=== PATIENT | female | born 1965 | race African-American/Black ===

== ENCOUNTER 2025-06-30 11:12 | Inpatient (IN) | payer MEDICAID ==
[~2025-06-30] VITALS: Ht 162.6 cm; Wt 85.6 kg
[~2025-06-30 11:12] MED LIST: ASPI-543 PO; BUPR150T8 PO; CLON-857 PO; DILT60TA PO; DIPH25CA66 PO; GLYB5TAB8 PO; HYDR-531 PO; INSU1INJ19 SC; LORA-622 PO; LOSA-535 PO; MET50T PO; OMEP20TA PO; RISP1TAB63 PO; SIMV20TA20 PO; TRAZ1TAB12 PO
[2025-06-30 11:22] VITALS: PULSE 122; RESP 14; O2SAT 100
--- NOTE | 2025-06-30 11:26 | ED.PDOC ---
GI ASSESSMENT HPI Comments This is a 60 year old female AMANDEEPA presenting to the ED with chief complaint of N/V. EMS reports patient has been experiencing nausea and vomiting with associated 10/10 diffuse abdominal pain that radiates to her back for the past 3 days. EMS relays patient's BG was noted to be 426 en route to the ED. Patient denies any fever, chills, diarrhea, chest pain, SOB, dysuria, or hematemesis. Chief Complaint: Nausea/Vomiting Time Seen by MD: 11:24 Primary Care Provider: DOMINIC Reviewed Notes: Nurses Notes, Athletic Events Scorer Notes, Medications, Allergies Allergies: Coded Allergies: Iodine (Verified Allergy, Unknown, 03/31/19) Home Meds Reported Medications Losartan Potassium (Losartan Potassium) 100 Mg Tab, 100 MG PO DAILY for 30 Days, MG 03/31/19 Loratadine (Claritin) 10 Mg Tab, 1 TAB PO DAILY, #30 TAB 5 Refills 03/31/19 Glyburide (Glyburide) 5 Mg Tab, 5 MG PO DAILY, TAB 03/31/19 Hydrocodone-Acetaminophen ([place] 10-325 mg) 1 Tab Tab, 1 TAB PO QID, TAB 03/31/19 Aspirin (Aspir-Low) 81 Mg Tab, 81 MG PO DAILY for 30 Days, MG 03/31/19 Simvastatin (Simvastatin) 20 Mg Tab, 20 MG PO DAILY for 30 Days 03/31/19 Metoprolol Tartrate (LOPRESSOR TABLET) 50 Mg Tb, 2 TAB PO BID, #60 TAB 5 Refills 03/31/19 Clonazepam (Clonazepam) 2 Mg Tab, 1 TAB PO BID, #60 TAB 2 Refills 03/31/19 Omeprazole (Gnp Omeprazole) 20 Mg Tab, 1 TAB PO DAILY, #90 TAB 1 Refill 03/31/19 Diphenhydramine Hcl (Benadryl Allergy) 25 Mg Cap, 50 MG PO BIDP PRN for ANXIETY, CAP 03/31/19 Diltiazem Hcl (Diltiazem Hcl) 60 Mg Tab, 120 MG PO BID for 30 Days, MG 03/31/19 Insulin Glargine (Basaglar Kwikpen) 100 Unit/Ml Inj, 20 UNIT SC DAILY, INJ 03/31/19 Risperidone (Risperidone) 1 Mg Tab, 1 TAB PO QPM, #30 TAB 1 Refill 03/31/19 Trazodone Hcl (Trazodone Hcl) 150 Mg Tab, 150 MG PO HSPRN PRN for FOR INSOMNIA, MG 03/31/19 Bupropion Hcl (Wellbutrin Sr) 150 Mg Tab, 1 TAB PO DAILY, #60 TAB 5 Refills 03/31/19 Information Source: Patient, Emergency Med Personnel Mode of Arrival: EMS Timing: Days Duration: Since onset Prehospital treatment: None Quality: Aching Vomitus: Watery Stool: Normal Severity: Moderate Recent: None Recent Hx of: None Pain Location: Diffuse Modifying Factors: Nothing Associated sign and symptoms: Nausea, Vomiting, Abdominal Pain Past Medical History PAST MEDICAL HISTORY: AFIB, CVA, DM, High Lipids, HTN, Thyroid, TIA Surgical History: STAFFING MGR History: No Pertinent STAFFING MGR History Family History Family History: Reviewed,noncontributory to illness, Unknown Social History Smoker: Non-Smoker Alcohol: Denies ETOH Use Drugs: Marijuana Lives In: Home Constitutional: denies: chills, diaphoresis, fatigue, fever, malaise, sweats, weakness, others EENTM: denies: blurred vision, double vision, ear bleeding, ear discharge, ear drainage, ear pain, ear ringing, eye pain, eye redness, hearing loss, mouth pain, mouth swelling, nasal discharge, nose bleeding, nose congestion, nose pain, photophobia, tearing, throat pain, throat swelling, voice changes, others Respiratory: denies: cough, hemoptysis, orthopnea, SOB at rest, shortness of breath, SOB with excertion, stridor, wheezing, others Cardiovascular: denies: chest pain, dizzy spells, diaphoresis, Dyspnea on exertion, edema, irregular heart beat, left arm pain, lightheadedness, palpitations, PND, syncope, others Gastrointestinal: reports: abdominal pain, nausea, vomiting; denies: abdomen distended, blood streaked bowels, constipated, diarrhea, dysphagia, difficulty swallowing, hematemesis, melena, poor appetite, poor fluid intake, rectal bleeding, rectal pain, others Genitourinary: denies: abnormal vagina bleeding, burning, dyspareunia, dysuria, flank pain, frequency, hematuria, incontinence, pain, , vagina discharge, urgency, others Neurological: denies: dizziness, fainting, headache, left sided numbness, left sided weakness, numbness, paresthesia, pre-existing deficit, right sided numbness, right sided weakness, seizure, speech problems, tingling, tremors, weakness, others Musculoskeletal: reports: back pain; denies: gout, joint pain, joint swelling, muscle pain, muscle stiffness, neck pain, others Integumetry: denies: bruises, change in color, change in hair/nails, dryness, laceration, lesions, lumps, rash, wounds, others Allergic/Immunocompromised: denies: Difficulty Healing, Frequent Infections, Hives, Itching, others Hematologic/Lymphatic: denies: anemia, blood clots, easy bleeding, easy bruising, swollen glands, others Endocrine: denies: excessive hunger, excessive sweating, excessive thirst, excessive urination, flushing, intolerance to cold, intolerance to heat, unexpl ained weight gain, unexplained weight loss, others Psychiatric: denies: anxiety, bipolar disorder, depression, hopeless, panic disorder, schizophrenia, sleepless, suicidal, others All Other Systems: Reviewed and Negative Physical Exam General Appearance: Moderate Distress HEENT: Normal ENT Inspection, Pharynx Normal, TMs Normal Neck: Full Range of Motion, Non-Tender, Normal, Normal Inspection Respiratory: Chest Non-Tender, Lungs Clear, No Accessory Muscle Use, No Respiratory Distress, Normal Breath Sounds Cardiovascular: No Edema, No JVD, No Murmur, No Gallop, Tachycardia Breast Exam: Deferred Gastrointestinal: Diffuse, No Organomegaly, No Pulsatile Mass, Normal Bowel Sounds, Soft, Tenderness Genitalia: Deferred Pelvic: Deferred Rectal: Deferred Extremities: No calf tenderness, Normal capillary refill, Normal inspection, Normal range of motion, Non-tender, No pedal edema Musculoskeletal : Apperance: Normal Neurologic: Alert, securities compliance examiner II-XII nml as Tested, Motor Weakness, Normal Affect, Normal Mood, No Sensory Deficits Cerebellar Function: Normal Reflexes: Normal Skin: Dry, Normal Color, Warm Lymphatic: No Adenopathy EKG EKG : Pulse Rate (adult): 114 [place]: Normal Cardiac Rhythm: ST Hypertrophy: LVH ST: Nonsp Was a procedure done? Was a procedure done?: No GI differential Dx Differential Diagnosis: Gastritis/PUD, Gastroenteritis, Inflammatory BD, Pancreatitis, UTI, Electrolyte Imbalance, Food Poisoning X-Ray, Labs, Meds, VS Vital Signs Date Time Temp Pulse Resp B/P (MAP) Pulse Ox O2 Delivery O2 Flow Rate FiO2 06/30/25 13:47 107 25 138/80 06/30/25 12:37 114 06/30/25 11:50 114 06/30/25 11:22 122 14 100 Room Air* 0 21 06/30/25 11:22 97.5 122 14 145/90 (108) 100 97.5 06/30/25 11:18 98.0 120 16 143/97 97 98.0 Lab Test 06/30/25 12:05 06/30/25 00:00 Range/Units White Blood Count 21.4 H 4.4-10.8 10^3/uL Red Blood Count 4.80 4.0-5.20 10^6/uL Hemoglobin 15.3 12.2-16.2 g/dL Hematocrit 43.7 36.0-46.0 % Mean Corpuscular Volume 91.0 80.0-100.0 fL Mean Corpuscular Hemoglobin 31.8 28.0-32.0 pg Mean Corpuscular Hemoglobin Concent 34.9 32.0-36.0 g/dL Red Cell Distribution Width 14.1 11.8-14.3 % Platelet Count 286 140-450 10^3/uL Mean Platelet Volume 8.9 6.9-10.8 fL Neutrophils (%) (Auto) 92.9 H 37.0-80.0 % Lymphocytes (%) (Auto) 2.2 L 10.0-50.0 % Monocytes (%) (Auto) 4.4 0.0-12.0 % Eosinophils (%) (Auto) 0.0 0.0-7.0 % Basophils (%) (Auto) 0.5 0.0-2.0 % Neutrophils # (Auto) 19.9 H 1.6-8.6 10 ^3/uL Lymphocytes # (Auto) 0.5 0.4-5.4 10 ^3/uL Monocytes # (Auto) 0.9 0-1.3 10 ^3/uL Eosinophils # (Auto) 0 0-0.8 10 ^3/uL Basophils # (Auto) 0.1 0-0.2 10 ^3/uL Nucleated Red Blood Cells 0.1 % Sodium Level 139 136-145 mmol/L Potassium Level 3.3 L 3.5-5.1 mmol/L Chloride Level 99 98-107 mmol/L Carbon Dioxide Level 22 20-31 mmol/L Anion Gap 18 H 5-15 Blood Urea Nitrogen 13 9-23 mg/dL Creatinine 1.03 H 0.550-1.02 mg/dL Glomerular Filtration Rate Calc 63 >90 mL/min BUN/Creatinine Ratio 12.6 10.0-20.0 Serum Glucose 373 H 74-106 mg/dL Calcium Level 9.9 8.7-10.4 mg/dL Total Bilirubin 1.3 H 0.2-1.0 mg/dL Aspartate Amino Transferase (AST) 11 L 13-40 U/L Alanine Aminotransferase (ALT) < 9 7-40 U/L Alkaline Phosphatase 66 46-116 U/L Total Protein 8.2 5.7-8.2 g/dL Albumin 4.4 3.2-4.8 g/dL Urine Color Pending Urine Clarity Pending Urine pH Pending Urine Specific [place] Pending Urine Protein Pending Urine Ketones Pending Urine Blood Pending Urine Nitrite Pending Urine Bilirubin Pending Urine Urobilinogen Pending Urine Leukocyte Esterase Pending Urine RBC Pending Urine Microscopic WBC Pending Urine Squamous Epithelial Cells Pending Urine Bacteria Pending Urine Glucose Pending Current Medications Medications (Trade) Dose Ordered Sig/Jaime Route Start Time Stop Time Status Last Admin Sodium Chloride 1,000 ml @ 1,000 mls/hr Q1H ONCE IV 06/30/25 11:30 06/30/25 12:29 DC 06/30/25 11:55 Morphine Sulfate 4 mg ONCE ONCE IV 06/30/25 13:30 06/30/25 13:31 DC 06/30/25 13:47 Ondansetron HCl (Zofran) 4 mg ONCE ONCE IV 06/30/25 13:30 06/30/25 13:31 DC 06/30/25 13:45 CT Abd/Pel indicates: Bilateral pulmonary airspace consolidation, tree-in-bud nodularity which is likely secondary to infection. Follow-up to resolution. Small pericardial effusion. Atherosclerotic disease. Colonic diverticula. Gallstone/sludge. Uterine leiomyomas. Other findings as described The patient was given an IV Hep-Lock with normal saline at 1 L bolus The patient was given morphine 4 mg IV push for the pain The patient was given Zofran 4 mg IV push for the nausea The gallbladder indicates that there is some sludge which could be consistent with cholelithiasis. The CBC shows an elevated white blood cell count of 21.4. The rest of the CBC is within normal limits. At this time, the patient will be admitted to the hospitalist The patient also has hypokalemia and hyperglycemia Images Reviewed?: Images reviewed and evaluated by me Time of 1ST Reevaluation: 14:16 Reevaluation 1ST: Unchanged Patient Education/Counseling: Diagnosis, Treatment, Prognosis Family Education/Counseling: No Family Present SEPSIS Sepsis Screen Date sepsis recognized/suspect: Jun 30, 2025 Time Sepsis recognized/suspect: 1118 Recent Procedure: No On Antibiotic Therapy: No Respiratory Rate >20: No Heart Rate >90: Yes Temp<36 C (96.8 F) or >38.3 C: No SBP <90 or MAP <65 mmHG: No New Acute Mental Status Change: No Is the patient on CPAP, BIPAP,: No Physician Orders Urinalysis (06/30/25 11:21) Heplock Iv (06/30/25 11:21) Ic Designer Standard Cells (06/30/25 11:21) Blood Pressure (06/30/25 11:21) Pulse Oximetry (06/30/25 11:21) Electrocardigram (06/30/25 11:21) Ct Ab Pel Wo Con-No Oral Or Iv (06/30/25 11:21) Vital Signs Date Time Temp Pulse Resp B/P (MAP) Pulse Ox O2 Delivery O2 Flow Rate FiO2 06/30/25 13:47 107 25 138/80 06/30/25 12:37 114 06/30/25 11:50 114 06/30/25 11:22 122 14 100 Room Air* 0 21 06/30/25 11:22 97.5 122 14 145/90 (108) 100 97.5 06/30/25 11:18 98.0 120 16 143/97 97 98.0 Laboratory Tests Test 06/30/25 12:05 White Blood Count 21.4 10^3/uL (4.4-10.8) H Medications Medications Dose Ordered Sig/Jaime Route Start Time Stop Time Status Last Admin Dose Admin Morphine Sulfate 4 mg ONCE ONCE IV 06/30/25 13:30 06/30/25 13:31 DC 06/30/25 13:47 Ondansetron HCl 4 mg ONCE ONCE IV 06/30/25 13:30 9/19/25 13:31 DC 06/30/25 13:45 Sodium Chloride 1,000 ml @ 1,000 mls/hr Q1H ONCE IV 06/30/25 11:30 06/30/25 12:29 DC 06/30/25 11:55 Departure 1 Departure Time of Disposition: 14:18 Impression: Primary Impression: Intractable abdominal pain Additional Impressions: Gallbladder sludge Leukocytosis Qualified Codes: D72.829 - Elevated white blood cell count, unspecified Hyperglycemia Hypokalemia Disposition: ADMITTED INPATIENT Admit to: Med Surg Condition: Fair Critical Care Note Critical Care Time?: No Stability Stability form required: Yes Unstable for transfer: ED Physician Assesment (Clinical assesment) Heart Score Heart Score: Heart Score Response (Comments) Value History N/A 0 EKG N/A 0 Age N/A 0 Risk Factors N/A 0 Troponin N/A 0 Total 0 I personally scribed for VIANNEY GOODE MD ([email or web address]) on 06/30/25 at 11:26. Electronically submitted by Randy Eduardo ([email or web address]). I personally scribed for VIANNEY GOODE MD ([email or web address]) on 06/30/25 at 12:13. Electronically submitted by Randy Eduardo ([email or web address]). VIANNEY GOODE MD Jun 30, 2025 11:26
[2025-06-30] MEDS: SODIUM CHLORIDE 0.9% 1,000 ML IV ONE ×3 (11:55→19:45)
--- NOTE | 2025-06-30 12:12 | DVH ---
Indication: pain Technique: CT axial images of the abdomen and pelvis are obtained without contrast. Coronal and sagit timothy reformats were obtained. Radiation Dose Information: CTDI volume is 17.1 mGy. Dose-length product is 919 mGy*cm Comparison: None FINDINGS: There is limited interpretation of the abdomen and pelvis without administration of intravenous contr ast. Lung bases demonstrate bibasilar consolidation, tree-in-bud nodularity. Small pericardial effusion. Coronary calcification. Adrenal glands, spleen, pancreas and liver unremarkable in shape cholelithiasis/sludge kidneys demons trate no hydronephrosis, nephrolithiasis. Stomach is partially distended small bowel loops are normal in caliber. Colonic diverticula. Moderate volume stool colon. Appendix. Abdominal aortic atherosclerotic disease bladder is partially distended uterine leiomyomas no free pe lvic fluid. No inguinal lymphadenopathy. No aggressive osseous process. There is moderate thoracolumbar degenerative disc disease. IMPRESSION: Limited evaluation without contrast. Bilateral pulmonary airspace consolidation, tree-in-bud nodularity which is likely secondary to infec tion. Follow-up to resolution. Small pericardial effusion. Atherosclerotic disease. Colonic diverticula. Gallstone/sludge. Uterine leiomyomas. Other findings as described
[2025-06-30 12:19] LABS: Hematocrit 43.7 % (36.0-46.0); Hemoglobin 15.3 g/dL (12.2-16.2); Mean Corpuscular Hemoglobin 31.8 pg (28.0-32.0); Mean Corpuscular Volume 91.0 fL (80.0-100.0); Nucleated Red Blood Cells % 0.1 %
[2025-06-30 12:38] LABS: Albumin 4.4 g/dL (3.2-4.8); Alkaline Phosphatase 66 U/L (46-116); Anion Gap 18 (5-15); BUN/Creatinine Ratio 12.6 (10.0-20.0); Blood Urea Nitrogen 13 mg/dL (9-23); Calcium 9.9 mg/dL (8.7-10.4); Carbon Dioxide 22 mmol/L (20-31); Chloride 99 mmol/L (98-107); Sodium 139 mmol/L (136-145); Total Protein 8.2 g/dL (5.7-8.2)
[2025-06-30 12:39] LABS: Alanine Aminotransferase < 9 U/L (7-40); Bilirubin, Total 1.3 mg/dL (0.2-1.0); Glucose 373 mg/dL (74-106); Potassium 3.3 mmol/L (3.5-5.1)
[2025-06-30] MEDS: ONDANSETRON HCL 4 MG/2 ML VIAL IV ONE (13:45)
[2025-06-30] MEDS: MORPHINE SULFATE 4 MG/ML SYR/VIAL IV ONE (13:47)
[2025-06-30 14:17] LABS: Urine Protein, UAD 3+ (Negative)
--- NOTE | 2025-06-30 16:06 | ECG ---
[facility] Test Date: 2025-06-30 Test Time: 11:46:17 Pat Name: DAVE TY Department: Room: 0240T Gender: F Critical Care Clinical Nurse Specialist: ERIKA : 1965 Requested By: VIANNEY GOODE Order Number: [id number] Reading MD: Xiang Shaikh Measurements Intervals [place] Rate: 114 P: 45 SD: 152 QRS: 4 QRSD: 88 T: -30 QT: 396 QTc: 546 Interpretive Statements Sinus tachycardia Consider left ventricular hypertrophy Borderline T abnormalities, inferior leads Prolonged QT interval Electronically Signed On 07-03-2025 18:44:02 PDT by Xiang Shaikh Please click the below link to view image of tracing.
[2025-06-30] MEDS ORDERED: ONDANSETRON HCL 4 MG/2 ML VIAL IV PRN (16:15)
--- NOTE | 2025-06-30 16:19 | DVHHPRES ---
History of Present Illness Resident Creating Document: TAVO KEATING RESIDENT History of Present Illness This is 60-year-old female with past medical history of stroke 2019 with left-sided residual weakness, DM2, HTN, HLD, anxiety, depression, insomnia, peripheral neuropathy BIBEMS to ER with severe abdominal pain, nausea, vomiting for 4 days which is worsen day by day. Patient reports experiencing severe abdominal pain which is 10/10 intensity, spasmodic, diffusely all over the abdomen aggravated on eating, no relieving factor which worsen before arrived to the hospital coinciding with onset of nausea and vomiting which is intermittently happened every 2 /3 hour but does not contain any blood in vomitus. She also reports dark color urine but no dysuria. Patient mobility has been significantly impacted since stroke October 2019, affecting the left side of the body including both upper and lower extremities. She requires assistance her son and uses wheelchair for mobility at home. Patient mentions receiving physical therapy after that stroke but stated "they do not have not come back" and also experiencing neuropathic pain. Past medical history: As above Past surgical history: Nothing contributory Family history: Father having lung cancer Social history: Denies smoking cigarettes, ETOH occasionally, smokes cannabis last smoking yesterday Lives at home requests assistance from son for mobility use wheelchair. PCP:Norberto Paul Review of Systems Constitutional: Yes: Weakness, Malaise; No: Fever, Chills, Sweats, Other Eyes: No: Pain, Vision change, Conjunctivae inflammation, Eyelid inflammation, Other, Redness ENT: No: Ear pain, Ear discharge, Nose pain, Nose discharge, Nose congestion, Mouth pain, Mouth swelling, Throat pain, Throat swelling, Other Respiratory: No: Cough, Dry, Shortness of breath, SOB with excertion, Wheezing, Hemoptysis, Pleuritic Pain, Sputum, Wheezing, Other Cardiovascular: No: Chest Pain, Palpitations, Orthopnea, Paroxysmal Noc. Dyspnea, Edema, Lt Headedness, Other Gastrointestinal: Nausea, Vomiting, Abdominal Pain; No: Diarrhea, Constipation, Melena, Hematochezia, Other Genitourinary: No Dysuria; Frequency; No Incontinence, No Hematuria, No Retention, No Other Musculoskeletal: No: other, neck pain, shoulder pain, arm pain, back pain, hand pain, leg pain, foot pain Skin: No: Rash, Lesions, Jaundice, Bruising, Other Neurological: Weakness; No: Numbness, Incoordination, Change in speech, Confusion, Seizures, Other Allergies: Coded Allergies: Iodine (Verified Allergy, Unknown, 03/31/19) Exam Vital Signs Vital Signs Date Time Temp Pulse Resp B/P (MAP) Pulse Ox O2 Delivery O2 Flow Rate FiO2 06/30/25 15:00 112 22 162/82 (108) 96 06/30/25 13:00 96.8 96.8 06/30/25 11:22 Room Air* 0 21 General Appearance: Alert, Oriented X3, moderate distress HEENT: Atraumatic, PERRLA, EOMI Respiratory: Clear to auscultation, Normal air movement Cardiovascular: Regular rate, Normal S1, Normal S2 Abdominal: Normal bowel sounds, Soft, No masses, Other (Diffuse abdominal tenderness on deep palpation) Extremities: No clubbing, No cyanosis, No edema Neuro: Sensation intact, Other (Left lower extremity and upper extremity motor weakness) Labs/Xrays Labs Test 06/30/25 12:05 06/30/25 00:00 Range/Units White Blood Count 21.4 H 4.4-10.8 10^3/uL Red Blood Count 4.80 4.0-5.20 10^6/uL Hemoglobin 15.3 12.2-16.2 g/dL Hematocrit 43.7 36.0-46.0 % Mean Corpuscular Volume 91.0 80.0-100.0 fL Mean Corpuscular Hemoglobin 31.8 28.0-32.0 pg Mean Corpuscular Hemoglobin Concent 34.9 32.0-36.0 g/dL Red Cell Distribution Width 14.1 11.8-14.3 % Platelet Count 286 140-450 10^3/uL Mean Platelet Volume 8.9 6.9-10.8 fL Neutrophils (%) (Auto) 92.9 H 37.0-80.0 % Lymphocytes (%) (Auto) 2.2 L 10.0-50.0 % Monocytes (%) (Auto) 4.4 0.0-12.0 % Eosinophils (%) (Auto) 0.0 0.0-7.0 % Basophils (%) (Auto) 0.5 0.0-2.0 % Neutrophils # (Auto) 19.9 H 1.6-8.6 10 ^3/uL Lymphocytes # (Auto) 0.5 0.4-5.4 10 ^3/uL Monocytes # (Auto) 0.9 0-1.3 10 ^3/uL Eosinophils # (Auto) 0 0-0.8 10 ^3/uL Basophils # (Auto) 0.1 0-0.2 10 ^3/uL Nucleated Red Blood Cells 0.1 % Sodium Level 139 136-145 mmol/L Potassium Level 3.3 L 3.5-5.1 mmol/L Chloride Level 99 98-107 mmol/L Carbon Dioxide Level 22 20-31 mmol/L Anion Gap 18 H 5-15 Blood Urea Nitrogen 13 9-23 mg/dL Creatinine 1.03 H 0.550-1.02 mg/dL Glomerular Filtration Rate Calc 63 >90 mL/min BUN/Creatinine Ratio 12.6 10.0-20.0 Serum Glucose 373 H 74-106 mg/dL Calcium Level 9.9 8.7-10.4 mg/dL Total Bilirubin 1.3 H 0.2-1.0 mg/dL Aspartate Amino Transferase (AST) 11 L 13-40 U/L Alanine Aminotransferase (ALT) < 9 7-40 U/L Alkaline Phosphatase 66 46-116 U/L Total Protein 8.2 5.7-8.2 g/dL Albumin 4.4 3.2-4.8 g/dL Urine Color Light-orange Yellow Urine Clarity Turbid H Clear Urine pH 5.5 5.0-9.0 Urine Specific [place] 1.028 1.001-1.035 Urine Protein 3+ H Negative Urine Ketones 2+ H Negative Urine Blood Negative Negative /uL Urine Nitrite Negative Negative Urine Bilirubin Negative Negative Urine Urobilinogen Normal Negative mg/dL Urine Leukocyte Esterase Negative Negative /uL Urine RBC 1 0 - 4 /hpf Urine Microscopic WBC 2 0-5 /HPF Urine Squamous Epithelial Cells Few <5 /hpf Urine Bacteria Many H None Seen /hpf Urine Hyaline Casts Mod 0 - 2 /lpf Urine Mucus Moderate None Seen Urine Glucose 4+ H Normal mg/dL SEPSIS Sepsis Screen Date sepsis recognized/suspect: Jun 30, 2025 Time Sepsis recognized/suspect: 1121 Recent Procedure: No On Antibiotic Therapy: No Respiratory Rate >20: No Heart Rate >90: Yes Temp<36 C (96.8 F) or >38.3 C: No SBP <90 or MAP <65 mmHG: No New Acute Mental Status Change: No Is the patient on CPAP, BIPAP,: No Physician Orders Heplock Iv (06/30/25 11:21) Pattern Fitter (06/30/25 11:21) Blood Pressure (06/30/25 11:21) Pulse Oximetry (06/30/25 11:21) Ct Ab Pel Wo Con-No Oral Or Iv (06/30/25 11:21) Sodium Chloride 0.9% (06/30/25 16:00) Drug Screen (06/30/25 15:56) Admit (06/30/25 16:13) Allergies (06/30/25 16:13) Code Status (06/30/25 16:13) 0.9% Ns 1000 Ml (06/30/25 16:15) Ondansetron Hcl (Zofran) (06/30/25 16:15) Enoxaparin Sodium (Lovenox) (07/01/25 10:00) Npo (Nothing By Mouth) Diet (06/30/25 Dinner) Condition: Fair (06/30/25 16:13) Morphine Sulfate Injection (06/30/25 16:15) Notify Md Of Changes From Base (06/30/25 16:13) Pantoprazole (Protonix) (06/30/25 22:00) Vital Signs Date Time Temp Pulse Resp B/P (MAP) Pulse Ox O2 Delivery O2 Flow Rate FiO2 06/30/25 15:00 112 22 162/82 (108) 96 06/30/25 14:17 108 14 139/73 06/30/25 13:47 107 25 138/80 06/30/25 13:00 96.8 110 23 156/82 (106) 97 96.8 06/30/25 12:37 114 06/30/25 11:50 114 06/30/25 11:22 122 14 100 Room Air* 0 21 06/30/25 11:22 97.5 122 14 145/90 (108) 100 97.5 06/30/25 11:18 98.0 120 16 143/97 97 98.0 Laboratory Tests Test 06/30/25 12:05 White Blood Count 21.4 10^3/uL (4.4-10.8) H Medications Medications Dose Ordered Sig/Jaime Route Start Time Stop Time Status Last Admin Dose Admin Morphine Sulfate 4 mg ONCE ONCE IV 06/30/25 13:30 06/30/25 13:31 DC 06/30/25 13:47 4 MG Ondansetron HCl 4 mg ONCE ONCE IV 06/30/25 13:30 06/30/25 13:31 DC 06/30/25 13:45 4 MG Sodium Chloride 1,000 ml @ 1,000 mls/hr Q1H ONCE IV 06/30/25 11:30 06/30/25 12:29 DC 06/30/25 11:55 1,000 MLS/HR Assessment/Plan Assessment/Plan Diabetic ketoacidosis Ruled out Hyperosmolar hyperglycemic state (glycemia was never above 600) Type 2 diabetes mellitus with hyperglycemia Home medication : glargine, aspart, glyburide. serum glucose 373>270 Lactic Acid 2.1 anion gap 18>17 urine 2+ ketone insulin glargine and lispro IVF Monitor blood sugar hemoglobin A1c 8.2 beta hydroxybutyrate level 3.900 pH 7.49, pCO2 22.6, PO2 79.3, bicarb 16.9 Sepsis due to acute gastroenteritis Complicated urinary tract infection Cannabis induced hyperemesis Acute cholecystitis Acute gastritis CT abdomen shows: colonic diverticula, gallstone. Leukocytosis, WBC 21.4 on admission with left shift, neutrophil 92.9 UA shows turbid, ketones 2+, glucose 4+, bacteria many NSS 120 cc/hour Metoclopramide IV as needed Zosyn IV antibiotic NPO Lactic acidosis IVF monitor lactic acid level Essential hypertension Home medication losartan, metoprolol We will resume accordingly Hyperlipidemia Home medications simvastatin 20 mg VITAMIN b12 DEFICIENCY vitamin B12 1000 mcg IM today Vitamin-D deficiency Vitamin-D level 19.5 Vitamin-D 67163 units p.o. weekly Hypomagnesemia Supplemented, monitor magnesium level Hyperbilirubinemia total bilirubin 1.3 Hypokalemia serum potassium 3.3 supplemented BMP Substance abuse/ cannabis use disorder UDS positive for cannabis >13 minute spent in counseling regarding substance abuse Uterine leiomyomas. Small pericardial effusion. GERD History of stroke with left-sided residual weakness Peripheral neuropathy Insomnia-home medication trazodone Anxiety/depression-clonazepam NPO GI prophylaxis: Pantoprazole DVT prophylaxis: Lovenox Goals of care discussions. More than 27 minute spent with patient. Full code status. Case discussed with Dr. Thorne Plan discussed with: Patient, Other (Nurse) My Orders Orders - TAVO KEATING RESIDENT Procedure Category Date Status Time Sodium Chloride 0.9% PHA 06/30/25 In Process 16:00 Drug Screen LAB 06/30/25 In Process 15:56 Admit ADMIT 06/30/25 Verified 16:13 Allergies MELLO 06/30/25 Verified 16:13 Code Status CODE 06/30/25 Verified 16:13 0.9% Ns 1000 Ml PHA 06/30/25 Verified 16:15 Ondansetron Hcl PHA 06/30/25 Verified (Zofran) 16:15 Enoxaparin Sodium PHA 07/01/25 Verified (Lovenox) 10:00 Npo (Nothing By DIET 06/30/25 Verified Mouth) Diet Dinner Condition: Fair MELLO 06/30/25 Verified 16:13 Morphine Sulfate PHA 06/30/25 Verified Injection 16:15 Notify Of Changes MELLO 06/30/25 Verified From Base 16:13 Pantoprazole PHA 06/30/25 Verified (Protonix) 22:00 Date of Service: Jun 30, 2025 Billing Provider: ALEKSANDER THORNE MD Common Visit Codes: 75141-BPCWPAQ INP/OBS CARE (HIGH) Secondary Visit Codes: [id number] CARE PLAN 30 MINUTES TAVO KEATING RESIDENT Jun 30, 2025 16:19 ARNOLD GRANT RESIDENT Jul 04, 2025 12:08 ALEKSANDER THORNE MD Jul 05, 2025 20:23
[2025-06-30 16:34] LABS: Amphetamine Screen, Urine Neg (NEGATIVE); Barbiturate Scree,Urine Neg (NEGATIVE); Benzodiazephine Screen, Urine Neg (NEGATIVE); Cannabinoid Screen, Urine Pos (NEGATIVE); Cocaine Screen, Urine Neg (NEGATIVE); Opiate Scree,Urine Neg (NEGATIVE); Phencyclidine Screen, Urine Neg (NEGATIVE)
[2025-06-30] MEDS ORDERED: INSULIN LANTUS (GLARGINE) 1 /0.01ml (100units/ml) SC SCH (16:45)
[2025-06-30 17:06] LABS: Base Excess -4.2 mmol/L (-2.0-3.0)
[2025-06-30] MEDS: INSULIN LISPRO (HUMAN) 100 UNITS/ML ML SC ONE (17:29)
[2025-06-30 17:30] LABS: INR 0.99 (0.9-1.15); Partial Thromboplastin Time 30.2 SEC (24.5-34.5); Prothrombin Time 10.5 sec (9.3-11.8)
[2025-06-30] MEDS: INSULIN LISPRO (HUMAN) 100 UNITS/ML ML SC SCH (17:30)
[2025-06-30 17:31] LABS: Albumin 3.8 g/dL (3.2-4.8); Alkaline Phosphatase 64 U/L (46-116); Anion Gap 17 (5-15); BUN/Creatinine Ratio 18.2 (10.0-20.0); Bilirubin, Total 1.1 mg/dL (0.2-1.0); Blood Urea Nitrogen 14 mg/dL (9-23); Calcium 9.1 mg/dL (8.7-10.4); Carbon Dioxide 21 mmol/L (20-31); Chloride 103 mmol/L (98-107); Sodium 141 mmol/L (136-145); Total Protein 6.8 g/dL (5.7-8.2)
[2025-06-30 17:33] LABS: Lactic Acid w/Reflex 2.1 mmol/L (0.4-2.0)
[2025-06-30 17:34] LABS: Alanine Aminotransferase 9 U/L (7-40); Glucose 307 mg/dL (74-106); Magnesium 1.5 mg/dL (1.6-2.6); Potassium 3.3 mmol/L (3.5-5.1)
[2025-06-30] MEDS: METOCLOPRAMIDE HCL 5MG/ml INJ 2ml VIAL IV PRN (17:36)
[2025-06-30] MEDS: CYANOCOBALAMIN (B-12) 1000 MCG/1 ML VIAL IM ONE (17:37)
[2025-06-30] MEDS: SODIUM CHLORIDE 0.9% 1,000 ML IV SCH (18:27)
[2025-06-30] MEDS ORDERED: AZITHROMYCIN 500MG/ 250ML 250 ML IV ONE (18:45)
[2025-06-30] MEDS: PIPERACILLIN-TAZOB 3.375GM 100 ML IV ONE (18:47)
[2025-06-30] MEDS: MAGNESIUM SULFATE 1GM/100ML 100 ML IV SCH (19:00)
[2025-06-30 19:58] LABS: COVID19 ANTIGEN SOFIA FIA NEGATIVE (NEGATIVE)
[2025-06-30 20:06] LABS: Chloride 105 mmol/L (98-107); Sodium 141 mmol/L (136-145)
[2025-06-30 20:07] LABS: Anion Gap 16 (5-15); Calcium 9.1 mg/dL (8.7-10.4); Carbon Dioxide 20 mmol/L (20-31)
[2025-06-30 20:12] LABS: BUN/Creatinine Ratio 10.5 (10.0-20.0); Blood Urea Nitrogen 8 mg/dL (9-23); Glucose 262 mg/dL (74-106); Potassium 3.4 mmol/L (3.5-5.1)
[2025-06-30 20:13] LABS: Magnesium 1.8 mg/dL (1.6-2.6)
--- NOTE | 2025-06-30 20:37 | DVH ---
CHEST RADIOGRAPH Indication: questionable PNA Technique: XY CHEST XRAY 1 VIEW Comparison: None FINDINGS: The cardiac silhouette is unremarkable. The lungs demonstrate right perihilar airspace opacities. The pulmonary vasculature is prominent. There is no pleural effusion. There is no pneumothorax. IMPRESSION: Right perihilar airspace opacification. Follow-up to resolution. Pulmonary vascular congestion.
[2025-06-30] MEDS: POTASSIUM CHLORIDE 40 MEQ, LIDOCAINE 1% (LOCAL ANESTH.) 4 ML in SODIUM CHL 0.9% 250 ML IV ONE (21:20)
[2025-06-30] MEDS ORDERED: PIPERACILLIN-TAZOB 3.375GM 100 ML IV SCH ×2 (22:00)
[2025-06-30 23:07] VITALS: BP 171/63; PULSE 67; RESP 18; TEMP 98.5; O2SAT 100
[2025-06-30] MEDS: ATORVASTATIN 20 MG TAB PO SCH (23:12)
[2025-06-30] MEDS: PANTOPRAZOLE 40 MG/10 ML VIAL INJ IV SCH (23:12)
[2025-06-30 23:53] LABS: Chloride 106 mmol/L (98-107); Sodium 141 mmol/L (136-145)
[2025-06-30 23:54] LABS: Anion Gap 13 (5-15); Carbon Dioxide 22 mmol/L (20-31)
[2025-06-30 23:55] LABS: Calcium 9.2 mg/dL (8.7-10.4)
[2025-06-30 23:57] LABS: Potassium 3.2 mmol/L (3.5-5.1)
[2025-07-01] VITALS (9 sets, daily range): BP systolic 131–147; BP diastolic 66–90; PULSE 67–98; RESP 16–18; TEMP 97.4–98.4; O2SAT 96–99
[2025-07-01] LABS: BUN/Creatinine Ratio 12.5 (10.0-20.0); Magnesium 2.0 mg/dL (1.6-2.6)
[2025-07-01 00:06] LABS: Blood Urea Nitrogen 9 mg/dL (9-23); Glucose 257 mg/dL (74-106)
[2025-07-01 00:16] LABS: Lactic Acid w/Reflex 2.2 mmol/L (0.4-2.0)
[2025-07-01] MEDS: METOPROLOL TARTRATE 50 MG TAB PO SCH (00:22)
[2025-07-01] MEDS: [UNRECOGNIZED DRUG - OTHER] IV SCH (00:23)
[2025-07-01] MEDS: DOXYCYCLINE IV SCH (00:23)
[2025-07-01] MEDS: INSULIN LANTUS (GLARGINE) 1 /0.01ml (100units/ml) SC ONE (00:46)
[2025-07-01 05:58] LABS: Hematocrit 36.7 % (36.0-46.0); Hemoglobin 13.2 g/dL (12.2-16.2); Mean Corpuscular Hemoglobin 32.6 pg (28.0-32.0); Mean Corpuscular Volume 90.7 fL (80.0-100.0); Nucleated Red Blood Cells % 0.0 %
[2025-07-01 06:04] LABS: Anion Gap 11 (5-15); Carbon Dioxide 23 mmol/L (20-31); Chloride 107 mmol/L (98-107); Sodium 141 mmol/L (136-145)
[2025-07-01 06:10] LABS: Triglycerides 129 mg/dL (< 150)
[2025-07-01 06:11] LABS: BUN/Creatinine Ratio 13.2 (10.0-20.0); Blood Urea Nitrogen 9 mg/dL (9-23)
[2025-07-01 06:12] LABS: Cholesterol 198 mg/dL (< 200)
[2025-07-01 06:24] LABS: Calcium 8.5 mg/dL (8.7-10.4); Glucose 273 mg/dL (74-106); HDL Cholesterol 35 mg/dL (40-59); Potassium 3.3 mmol/L (3.5-5.1)
[2025-07-01] MEDS: PIPERACILLIN-TAZOB 3.375GM 100 ML IV SCH (06:40)
[2025-07-01] MEDS: MORPHINE SULFATE INJ 2 MG/ml SYRG IV PRN (06:53)
[2025-07-01] MEDS: ENOXAPARIN SOD 40 MG/0.4 ML SYRINGE SC SCH (09:17)
[2025-07-01] MEDS ORDERED: AZITHROMYCIN 500MG/ 250ML 250 ML IV SCH (10:00)
[2025-07-01] MEDS: LOSARTAN POTASSIUM 50 MG TAB PO SCH (10:18)
[2025-07-01] MEDS: ASPirin-EC 81 mg tab PO SCH (10:18)
[2025-07-01] MEDS: INSULIN LANTUS (GLARGINE) 1 /0.01ml (100units/ml) SC SCH (10:21)
--- NOTE | 2025-07-01 12:58 | DVHPNRES ---
Progress Note Date Seen: Jul 01, 2025 Resident Creating Document: KALI PANIAGUA RESIDENT Medical Necessity Reason Pt with a Central, PICC or Fol: No Subjective Review of Systems Patient seen and examined at bedside, patient is abdominal pain improved, complaining of very mild pain, denies any nausea or vomiting. Start oral food, clear liquid diet and advanced diet as tolerated. Patient patient's anion gap is closed. Objective vital signs Vital Sign Date Time Temp Pulse Resp B/P (MAP) Pulse Ox O2 Delivery O2 Flow Rate FiO2 07/01/25 10:18 136/89 07/01/25 10:17 81 07/01/25 08:53 98.4 17 99 98.4 07/01/25 07:30 Room Air* 0 21 Total Intake and Output 06/30/25 06/30/25 07/01/25 15:00 23:00 07:00 Intake Total 1000 ml 100 ml 760 ml Balance 1000 ml 100 ml 760 ml medications Current Medications Medications Dose Ordered Sig/Jaime Route Start Time Stop Time Status Last Admin Dose Admin Sodium Chloride 1,000 ml @ 120 mls/hr Q8H20M IV 06/30/25 16:15 07/01/25 00:48 120 MLS/HR Enoxaparin Sodium 40 mg DAILY SC 07/01/25 10:00 07/01/25 09:17 40 MG Morphine Sulfate 2 mg Q4HPRN PRN IV 06/30/25 16:15 07/01/25 06:53 2 MG Pantoprazole Sodium 40 mg BID IV 06/30/25 22:00 07/01/25 09:16 40 MG Insulin Human Lispro AC SC 06/30/25 17:00 07/01/25 12:29 6 UNITS Metoclopramide HCl 5 mg Q6HPRN PRN IV 06/30/25 17:15 06/30/25 17:36 5 MG Ergocalciferol 50,000 unit Q7D PO 07/01/25 17:45 Aspirin 81 mg DAILY PO 07/01/25 10:00 07/01/25 10:18 81 MG Metoprolol Tartrate 100 mg BID PO 06/30/25 22:00 07/01/25 10:17 100 MG Risperidone 1 mg QPM PO 07/01/25 18:00 Bupropion HCl 75 mg BID PO 06/30/25 22:00 06/30/25 23:12 75 MG Losartan Potassium 100 mg DAILY PO 07/01/25 10:00 07/01/25 10:18 100 MG Trazodone HCl 150 mg HSPRN PRN PO 06/30/25 19:30 Atorvastatin Calcium 40 mg HS PO 06/30/25 22:00 07/01/25 00:21 40 MG Doxycycline Hyclate 100 ml @ 50 mls/hr Q12HR@0900,2100 IV 06/30/25 21:00 07/01/25 09:20 50 MLS/HR Piperacillin Sod/ Tazobactam Sod 100 ml @ 25 mls/hr Q8HR IV 07/01/25 06:00 07/01/25 06:40 25 MLS/HR Insulin Glargine 10 units DAILY@1000 SC 07/01/25 10:00 07/01/25 10:21 10 UNITS Examination General Appearance: Alert, Oriented X3, moderate distress HEENT: Atraumatic, PERRLA, EOMI Respiratory: Clear to auscultation, Normal air movement Cardiovascular: Regular rate, Normal S1, Normal S2 Abdominal: Normal bowel sounds, Soft, No masses, Other (Diffuse abdominal tenderness on deep palpation) Extremities: No clubbing, No cyanosis, No edema Neuro: Sensation intact, Other (Left lower extremity and upper extremity motor weakness) laboratory and microbiology Laboratory Tests 07/01/25 05:27 Test 07/01/25 05:27 Range/Units Serum Glucose 273 H 74-106 mg/dL Problem List/Assessment/Plan Problem List/Assessment/Plan # Diabetic ketoacidosis # Hyperosmolar hyperglycemic state # Type 2 diabetes mellitus with hyperglycemia - Home medication : glargine, aspart, glyburide. - serum glucose 373>270>257>273 - Lactic Acid 2.1> 1.3 - anion gap 18>17> 11 - urine 2+ ketone - insulin glargine and lispro - IVF - Monitor blood sugar - hemoglobin A1c 8.2 - beta hydroxybutyrate level 3.900 pH on admission: 7.49, pCO2 22.6, PO2 79.3, bicarb 16.9 # Sepsis due to acute gastroenteritis # Complicated urinary tract infection # Cannabis induced hyperemesis # Acute cholecystitis # Acute gastritis - CT abdomen shows: colonic diverticula, gallstone. - Leukocytosis, WBC 21.4 on admission with left shift, neutrophil 92.9 - UA shows turbid, ketones 2+, glucose 4+, bacteria many - NSS 120 cc/hour - Metoclopramide IV as needed - Zosyn IV antibiotic - we started clear liquid diet, advanced diet as tolerated # Lactic acidosis- resolved - IVF # Essential hypertension - Home medication losartan, metoprolol - We will resume accordingly # Hyperlipidemia - Home medications simvastatin 20 mg # VITAMIN b12 DEFICIENCY - vitamin B12 1000 mcg IM today # Vitamin-D deficiency - Vitamin-D level 19.5 - Vitamin-D 12386 units p.o. weekly # Hypomagnesemia - Supplemented, monitor magnesium level # Hyperbilirubinemia - total bilirubin 1.3 # Hypokalemia - serum potassium 3.3 - supplemented # BMP # Substance abuse/ cannabis use disorder - UDS positive for cannabis - >13 minute spent in counseling regarding substance abuse # Uterine leiomyomas. - Small pericardial effusion. # GERD - History of stroke with left-sided residual weakness - Peripheral neuropathy - Insomnia-home medication trazodone - Anxiety/depression-clonazepam GI prophylaxis: Pantoprazole DVT prophylaxis: Lovenox Goals of care discussed with pt for 17 Min: Full code status. Case discussed with Dr. Spencer Plan discussed with: Patient My Orders My Orders Orders - KALI PANIAGUA RESIDENT Procedure Category Date Status Time Clear Liq Diet DIET 07/01/25 Transmitted Lunch Advance Diet As MELLO 07/01/25 In Process Tolerated 09:45 Date of Service: Jul 01, 2025 Billing Provider: GREY SPENCER MD Common Visit Codes: [id number] INP/OBS CARE(HIGH) KALI PANIAGUA RESIDENT Jul 01, 2025 12:58 GREY SPENCER MD Jul 02, 2025 08:24
[2025-07-01] MEDS: risperiDONE 1 MG TAB PO SCH (16:36)
[2025-07-01] MEDS: ERGOCALCIFEROL 50,000 UNIT(1.25MG) CAP PO SCH (16:40)
[2025-07-02] VITALS (8 sets, daily range): BP systolic 132–158; BP diastolic 72–87; PULSE 71–89; RESP 16–19; TEMP 97.5–98.7; O2SAT 96–99
[2025-07-02] MEDS: DOCUSATE SOD 100 MG CAP PO PRN (05:19)
--- NOTE | 2025-07-02 06:37 | ECG ---
[facility] Test Date: 2025-06-30 Test Time: 19:22:42 Pat Name: DAVE TY Department: [facility] Room: 0240T A Gender: F [employer]: sarah : 1965 Requested By: ARNOLD GRANT Order Number: [id number] Reading MD: Xiang Shaikh Measurements Intervals [place] Rate: 107 P: 46 [place]: 158 QRS: -2 QRSD: 79 T: -27 QT: 368 QTc: 491 Interpretive Statements Sinus tachycardia Probable left atrial enlargement Borderline T abnormalities, diffuse leads Borderline prolonged QT interval Electronically Signed On 07-03-2025 18:49:08 PDT by Xiang Shaikh Please click the below link to view image of tracing.
[2025-07-02 08:29] LABS: Hematocrit 39.0 % (36.0-46.0); Hemoglobin 13.8 g/dL (12.2-16.2); Mean Corpuscular Hemoglobin 32.3 pg (28.0-32.0); Mean Corpuscular Volume 91.3 fL (80.0-100.0); Nucleated Red Blood Cells % 0.0 %
[2025-07-02 08:37] LABS: Anion Gap 11 (5-15); Calcium 8.8 mg/dL (8.7-10.4); Carbon Dioxide 21 mmol/L (20-31); Chloride 110 mmol/L (98-107); Potassium 3.0 mmol/L (3.5-5.1); Sodium 142 mmol/L (136-145)
[2025-07-02 08:43] LABS: BUN/Creatinine Ratio 8.2 (10.0-20.0)
[2025-07-02 08:47] LABS: Blood Urea Nitrogen 7 mg/dL (9-23); Glucose 241 mg/dL (74-106)
[2025-07-02] MEDS: INSULIN LISPRO (HUMAN) 100 UNITS/ML ML SC SCH (11:30)
[2025-07-02] MEDS: POTASSIUM PHOSPHATE 26.4 MEQ in SODIUM CHL 0.9% 100 ML IV ONE (14:30)
--- NOTE | 2025-07-02 14:31 | DVHPNRES ---
Progress Note Date Seen: Jul 02, 2025 Resident Creating Document: TAVO KAETING RESIDENT Medical Necessity Reason Pt with a Central, PICC or Fol: No Subjective Review of Systems This is 60-year-old female with past medical history of stroke 2019 with left- sided residual weakness, DM2, HTN, HLD, anxiety, depression, insomnia, peripheral neuropathy BIBEMS to ER with severe abdominal pain, nausea, vomiting for 4 days which is worsen day by day. Patient reports experiencing severe abdominal pain which is 10/10 intensity, spasmodic, diffusely all over the abdomen aggravated on eating, no relieving factor which worsen before arrived to the hospital coinciding with onset of nausea and vomiting which is intermittently happened every 2 /3 hour but does not contain any blood in vomitus. She also reports dark color urine but no dysuria. Patient mobility has been significantly impacted since stroke October 2019, affecting the left side of the body including both upper and lower extremities. She requires assistance her son and uses wheelchair for mobility at home. Patient mentions receiving physical therapy after that stroke but stated "they do not have not come back" and also experiencing neuropathic pain. Past medical history: As above Past surgical history: Nothing contributory Family history: Father having lung cancer Social history: Denies smoking cigarettes, ETOH occasionally, smokes cannabis last smoking yesterday Lives at home requests assistance from son for mobility use wheelchair. PCP:Norberto Paul Seen and evaluated in bedside today. Patient tolerate oral diet well. Denies any abdominal pain, nausea, vomiting. Continue current treatment and adjusted insulin with basal bolus. No acute event overnight Objective vital signs Vital Sign Date Time Temp Pulse Resp B/P (MAP) Pulse Ox O2 Delivery O2 Flow Rate FiO2 07/02/25 11:00 86 138/72 07/02/25 10:30 18 07/02/25 09:00 97.5 96 97.5 07/02/25 08:00 Room Air* 0 21 Total Intake and Output 07/01/25 07/01/25 07/02/25 15:00 23:00 07:00 Intake Total 100 ml 1200 ml 1530 ml Balance 100 ml 1200 ml 1530 ml medications Current Medications Medications Dose Ordered Sig/Jaime Route Start Time Stop Time Status Last Admin Dose Admin Sodium Chloride 1,000 ml @ 120 mls/hr Q8H20M IV 06/30/25 16:15 07/01/25 00:48 120 MLS/HR Enoxaparin Sodium 40 mg DAILY SC 07/01/25 10:00 07/02/25 09:51 40 MG Morphine Sulfate 2 mg Q4HPRN PRN IV 06/30/25 16:15 07/02/25 09:53 2 MG Pantoprazole Sodium 40 mg BID IV 06/30/25 22:00 07/02/25 09:50 40 MG Insulin Human Lispro AC SC 06/30/25 17:00 07/02/25 11:30 3 UNITS Metoclopramide HCl 5 mg Q6HPRN PRN IV 06/30/25 17:15 07/02/25 09:50 5 MG Ergocalciferol 50,000 unit Q7D PO 07/01/25 17:45 07/01/25 16:40 50,000 UNIT Aspirin 81 mg DAILY PO 07/01/25 10:00 07/02/25 09:50 81 MG Metoprolol Tartrate 100 mg BID PO 06/30/25 22:00 07/02/25 09:52 100 MG Risperidone 1 mg QPM PO 07/01/25 18:00 07/01/25 16:36 1 MG Bupropion HCl 75 mg BID PO 06/30/25 22:00 06/30/25 23:12 75 MG Losartan Potassium 100 mg DAILY PO 07/01/25 10:00 07/02/25 09:52 100 MG Trazodone HCl 150 mg HSPRN PRN PO 06/30/25 19:30 Atorvastatin Calcium 40 mg HS PO 06/30/25 22:00 07/01/25 00:21 40 MG Doxycycline Hyclate 100 ml @ 50 mls/hr Q12HR@0900,2100 IV 06/30/25 21:00 07/02/25 09:50 50 MLS/HR Piperacillin Sod/ Tazobactam Sod 100 ml @ 25 mls/hr Q8HR IV 07/01/25 06:00 07/02/25 05:25 25 MLS/HR Insulin Glargine 10 units DAILY@1000 SC 07/01/25 10:00 07/02/25 10:00 10 UNITS Docusate Sodium 100 mg BIDPRN PRN PO 07/02/25 01:45 07/02/25 05:19 100 MG Insulin Human Lispro 4 units AC SC 07/02/25 11:30 07/02/25 11:30 4 UNITS Examination General Appearance: Alert, Oriented X4, moderate distress HEENT: Atraumatic, PERRLA, EOMI Respiratory: Clear to auscultation, Normal air movement Cardiovascular: Regular rate, Normal S1, Normal S2 Abdominal: Normal bowel sounds, Soft, No masses, mild abdominal tenderness on deep palpation Extremities: No clubbing, No cyanosis, No edema Neuro: Sensation intact, Other (Left lower extremity and upper extremity motor weakness) laboratory and microbiology Laboratory Tests 07/02/25 08:14 Test 07/02/25 08:14 Range/Units Serum Glucose 241 H 74-106 mg/dL Microbiology Date/Time Source Procedure Growth Status 06/30/25 19:42 Blood Blood Culture - Preliminary NO GROWTH AFTER 24 HOURS OF INCUBATION. Resulted 06/30/25 00:00 Nose MRSA Screen - Final Complete 06/30/25 00:00 Voided Urine Urine Culture - Preliminary Resulted Problem List/Assessment/Plan Problem List/Assessment/Plan Diabetic ketoacidosis Hyperosmolar hyperglycemic state Type 2 diabetes mellitus with hyperglycemia Home medication : glargine, aspart, glyburide. serum glucose 373>270>241 Lactic Acid 2.1 anion gap 18>17>11 urine 2+ ketone ,on admission insulin glargine and lispro Insulin sliding scale Monitor blood sugar hemoglobin A1c 8.2 beta hydroxybutyrate level 3.900, on admission pH 7.49, pCO2 22.6, PO2 79.3, bicarb 16.9 on 06/30/2025 Sepsis due to acute gastroenteritis Complicated urinary tract infection Cannabis induced hyperemesis Acute cholecystitis Acute gastritis CT abdomen shows: colonic diverticula, gallstone. Leukocytosis, WBC 21.4 on admission with left shift, neutrophil 92.9 WBC trending down to normal UA shows turbid, ketones 2+, glucose 4+, bacteria many Metoclopramide IV as needed Zosyn IV antibiotic Lactic acidosis IVF monitor lactic acid level Essential hypertension Home medication losartan, metoprolol Monitor BP Hyperlipidemia Continue simvastatin 20 mg Lipid profile VITAMIN b12 DEFICIENCY vitamin B12 1000 mcg IM done Hypophosphatemia Supplemented Vitamin-D deficiency Vitamin-D level 19.5 Vitamin-D 37254 units p.o. weekly Hypomagnesemia Supplemented, monitor magnesium level Hyperbilirubinemia total bilirubin 1.3 Hypokalemia serum potassium 3.3 supplemented BMP Hypocalcemia Substance abuse/ cannabis use disorder UDS positive for cannabis >12 minute spent in counseling regarding substance abuse Uterine leiomyomas. Small pericardial effusion. GERD History of stroke with left-sided residual weakness Peripheral neuropathy Insomnia-home medication trazodone Anxiety/depression-clonazepam GI prophylaxis: Pantoprazole DVT prophylaxis: Lovenox Goals of care discussions. More than 19 minute spent with patient. Full code status. Case discuss with Dr. Spencer Plan discussed with: Patient, Son, Other (Nurse) My Orders My Orders Orders - TAVO KEATING Procedure Category Date Status Time Insulin Lispro PHA 07/02/25 In Process (Human) (Humalog) 11:30 Date of Service: Jul 02, 2025 Billing Provider: GREY SPENCER MD Common Visit Codes: [id number] INP/OBS CARE(HIGH) TAVO KEATING RESIDENT Jul 02, 2025 14:31 GREY SPENCER MD Jul 02, 2025 23:03
[2025-07-02] MEDS: SENNA 8.6 MG TAB PO ONE (15:08)
[2025-07-02] MEDS: POTASSIUM CHL 20 Meq TABLET PO ONE (15:32)
[2025-07-03] VITALS (8 sets, daily range): BP systolic 117–184; BP diastolic 75–109; PULSE 73–106; RESP 16–19; TEMP 97.4–99.5; O2SAT 97–100
[2025-07-03] MEDS: hydrALAZINE HCL 20 MG/ML VL IV ONE ×2 (05:01→16:54)
[2025-07-03 06:25] LABS: Hematocrit 38.0 % (36.0-46.0); Hemoglobin 13.7 g/dL (12.2-16.2); Mean Corpuscular Hemoglobin 32.7 pg (28.0-32.0); Mean Corpuscular Volume 90.5 fL (80.0-100.0); Nucleated Red Blood Cells % 0.1 %
[2025-07-03 06:36] LABS: Chloride 106 mmol/L (98-107); Sodium 142 mmol/L (136-145)
[2025-07-03 06:37] LABS: Anion Gap 12 (5-15); Calcium 9.1 mg/dL (8.7-10.4); Carbon Dioxide 24 mmol/L (20-31)
[2025-07-03 06:43] LABS: BUN/Creatinine Ratio 7.1 (10.0-20.0); Blood Urea Nitrogen < 5 mg/dL (9-23); Glucose 167 mg/dL (74-106); Potassium 2.6 mmol/L (3.5-5.1)
[2025-07-03 06:44] LABS: Magnesium 1.6 mg/dL (1.6-2.6)
[2025-07-03] MEDS: POTASSIUM CHL 20MEQ/100ML 100 ML IV SCH (08:54)
[2025-07-03] MEDS: POTASSIUM CHL 20 Meq TABLET PO ONE (09:02)
[2025-07-03] MEDS ORDERED: CALCIUM ACETATE 667 MG CAP PO ONE (10:15)
[2025-07-03] MEDS: MAGNESIUM SULFATE 1GM/100ML 100 ML IV SCH (10:51)
--- NOTE | 2025-07-03 13:12 | DVHPNRES ---
Progress Note Date Seen: Jul 03, 2025 Resident Creating Document: ANTELMO GODWIN RESIDENT Medical Necessity Reason Pt with a Central, PICC or Fol: No Subjective Review of Systems This is 60-year-old female with past medical history of stroke 2019 with left- sided residual weakness, DM2, HTN, HLD, anxiety, depression, insomnia, peripheral neuropathy BIBEMS to ER with severe abdominal pain, nausea, vomiting for 4 days which is worsen day by day. Patient reports experiencing severe abdominal pain which is 10/10 intensity, spasmodic, diffusely all over the abdomen aggravated on eating, no relieving factor which worsen before arrived to the hospital coinciding with onset of nausea and vomiting which is intermittently happened every 2 /3 hour but does not contain any blood in vomitus. She also reports dark color urine but no dysuria. Patient mobility has been significantly impacted since stroke October 2019, affecting the left side of the body including both upper and lower extremities. She requires assistance her son and uses wheelchair for mobility at home. Patient mentions receiving physical therapy after that stroke but stated "they do not have not come back" and also experiencing neuropathic pain. Past medical history: As above Past surgical history: Nothing contributory Family history: Father having lung cancer Social history: Denies smoking cigarettes, ETOH occasionally, smokes cannabis last smoking yesterday Lives at home requests assistance from son for mobility use wheelchair. PCP:Norberto Paul Patient was seen today at bedside. Less than chart reviewed. Patient with a hypokalemia- Supplemented. Patient is swollen lispro and glargine. Patient is on on Zosyn and doxycycline. Tolerating well. Increase Lantus to 15 units daily. Patient had a short run VT. Objective vital signs Vital Sign Date Time Temp Pulse Resp B/P (MAP) Pulse Ox O2 Delivery O2 Flow Rate FiO2 07/03/25 12:55 97.4 89 18 149/109 (122) 100 97.4 07/02/25 20:00 Room Air* 0 21 Total Intake and Output 07/02/25 07/02/25 07/03/25 15:00 23:00 07:00 Intake Total 200 ml 875 ml Balance 200 ml 875 ml medications Current Medications Medications Dose Ordered Sig/Jaime Route Start Time Stop Time Status Last Admin Dose Admin Enoxaparin Sodium 40 mg DAILY SC 07/01/25 10:00 07/03/25 09:31 40 MG Morphine Sulfate 2 mg Q4HPRN PRN IV 06/30/25 16:15 07/03/25 04:39 2 MG Pantoprazole Sodium 40 mg BID IV 06/30/25 22:00 07/03/25 09:31 40 MG Insulin Human Lispro AC SC 06/30/25 17:00 07/03/25 13:05 2 UNITS Metoclopramide HCl 5 mg Q6HPRN PRN IV 06/30/25 17:15 07/03/25 08:35 5 MG Ergocalciferol 50,000 unit Q7D PO 07/01/25 17:45 07/01/25 16:40 50,000 UNIT Aspirin 81 mg DAILY PO 07/01/25 10:00 07/03/25 09:32 81 MG Metoprolol Tartrate 100 mg BID PO 06/30/25 22:00 07/03/25 09:34 100 MG Risperidone 1 mg QPM PO 07/01/25 18:00 07/02/25 18:18 1 MG Bupropion HCl 75 mg BID PO 06/30/25 22:00 06/30/25 23:12 75 MG Losartan Potassium 100 mg DAILY PO 07/01/25 10:00 07/03/25 09:32 100 MG Trazodone HCl 150 mg HSPRN PRN PO 06/30/25 19:30 Atorvastatin Calcium 40 mg HS PO 06/30/25 22:00 07/02/25 21:06 40 MG Doxycycline Hyclate 100 ml @ 50 mls/hr Q12HR@0900,2100 IV 06/30/25 21:00 07/02/25 21:08 50 MLS/HR Piperacillin Sod/ Tazobactam Sod 100 ml @ 25 mls/hr Q8HR IV 07/01/25 06:00 07/03/25 05:57 25 MLS/HR Insulin Glargine 10 units DAILY@1000 SC 07/01/25 10:00 07/03/25 09:36 10 UNITS Insulin Human Lispro 4 units AC SC 07/02/25 11:30 07/03/25 13:06 4 UNITS Sennosides 8.6 mg HS PO 07/03/25 22:00 Examination General Appearance: Alert, Oriented X4, moderate distress HEENT: Atraumatic, PERRLA, EOMI Respiratory: Clear to auscultation, Normal air movement Cardiovascular: Regular rate, Normal S1, Normal S2 Abdominal: Normal bowel sounds, Soft, No masses, mild abdominal tenderness on deep palpation Extremities: No clubbing, No cyanosis, No edema Neuro: Sensation intact, Other (Left lower extremity and upper extremity motor weakness) laboratory and microbiology Laboratory Tests 07/03/25 05:51 Test 07/03/25 05:51 Range/Units Serum Glucose 167 H 74-106 mg/dL Microbiology Date/Time Source Procedure Growth Status 06/30/25 19:42 Blood Blood Culture - Preliminary NO GROWTH AFTER 48 HOURS OF INCUBATION. Resulted 06/30/25 00:00 Nose MRSA Screen - Final Complete 06/30/25 00:00 Voided Urine Urine Culture - Final Complete Problem List/Assessment/Plan Problem List/Assessment/Plan Problem List/Assessment/Plan Diabetic ketoacidosis Hyperosmolar hyperglycemic state Type 2 diabetes mellitus with hyperglycemia Home medication : glargine, aspart, glyburide. serum glucose 373>270>241 Lactic Acid 2.1 anion gap 18>17>11 urine 2+ ketone ,on admission insulin glargine and lispro Insulin sliding scale Monitor blood sugar hemoglobin A1c 8.2 beta hydroxybutyrate level 3.900, on admission pH 7.49, pCO2 22.6, PO2 79.3, bicarb 16.9 on 06/30/2025 Sepsis due to acute gastroenteritis Complicated urinary tract infection Cannabis induced hyperemesis Acute cholecystitis Acute gastritis CT abdomen shows: colonic diverticula, gallstone. Leukocytosis, WBC 21.4 on admission with left shift, neutrophil 92.9 WBC trending down to normal UA shows turbid, ketones 2+, glucose 4+, bacteria many Metoclopramide IV as needed Zosyn IV antibiotic Lactic acidosis IVF monitor lactic acid level Essential hypertension Home medication losartan, metoprolol Monitor BP Hyperlipidemia Continue simvastatin 20 mg Lipid profile Vitamin B12 deficiency vitamin B12 1000 mcg IM done Hypophosphatemia Supplemented Vitamin-D deficiency Vitamin-D level 19.5 Vitamin-D 21346 units p.o. weekly Hypomagnesemia Supplemented, monitor magnesium level Hyperbilirubinemia total bilirubin 1.3 Hypokalemia serum potassium 3.3 supplemented BMP Hypocalcemia Substance abuse/ cannabis use disorder UDS positive for cannabis >12 minute spent in counseling regarding substance abuse Uterine leiomyomas. Small pericardial effusion. GERD History of stroke with left-sided residual weakness Peripheral neuropathy Insomnia-home medication trazodone Anxiety/depression-clonazepam GI prophylaxis: Pantoprazole DVT prophylaxis: Lovenox Goals of care discussions. More than 25 minute spent with patient. Full code status. Case discuss with Dr. busby Plan discussed with: Patient, Other (Nurse) Plan discussed with: Patient, Other (RN) My Orders My Orders Orders - ANTELMO GODWIN Procedure Category Date Status Time Basic Metabolic Panel LAB 07/03/25 Transmitted 13:10 Date of Service: Jul 03, 2025 Billing Provider: ALEKSANDER BUSBY MD Common Visit Codes: [id number] INP/OBS CARE(HIGH) ANTELMO GODWIN Jul 03, 2025 13:12 ALEKSANDER BUSBY MD Jul 06, 2025 13:43
[2025-07-03] MEDS: INSULIN LANTUS (GLARGINE) 1 /0.01ml (100units/ml) SC SCH (16:00)
[2025-07-03] MEDS: INSULIN LANTUS (GLARGINE) 1 /0.01ml (100units/ml) SC ONE (18:15)
[2025-07-03 19:23] LABS: Chloride 107 mmol/L (98-107); Sodium 140 mmol/L (136-145)
[2025-07-03 19:24] LABS: Anion Gap 12 (5-15); Calcium 9.2 mg/dL (8.7-10.4); Carbon Dioxide 21 mmol/L (20-31)
[2025-07-03 19:29] LABS: BUN/Creatinine Ratio 7.5 (10.0-20.0)
[2025-07-03 19:31] LABS: Blood Urea Nitrogen 6 mg/dL (9-23); Glucose 235 mg/dL (74-106); Potassium 3.4 mmol/L (3.5-5.1)
[2025-07-03] MEDS: POTASSIUM CHL 20MEQ/100ML 100 ML IV ONE (19:45)
[2025-07-03] MEDS: SENNA 8.6 MG TAB PO SCH (21:34)
[2025-07-04] VITALS (8 sets, daily range): BP systolic 108–207; BP diastolic 68–105; PULSE 77–99; RESP 16–18; TEMP 97.4–97.9; O2SAT 98–100
[2025-07-04] MEDS: POTASSIUM CHL 20 Meq TABLET PO ONE (06:25)
[2025-07-04 06:33] LABS: Hematocrit 36.1 % (36.0-46.0); Hemoglobin 13.0 g/dL (12.2-16.2); Mean Corpuscular Hemoglobin 32.8 pg (28.0-32.0); Mean Corpuscular Volume 91.1 fL (80.0-100.0); Nucleated Red Blood Cells % 0.5 %
[2025-07-04 06:35] LABS: Anion Gap 11 (5-15); Carbon Dioxide 23 mmol/L (20-31); Chloride 106 mmol/L (98-107); Sodium 140 mmol/L (136-145)
[2025-07-04 06:36] LABS: Calcium 8.7 mg/dL (8.7-10.4)
[2025-07-04 06:41] LABS: BUN/Creatinine Ratio 11.1 (10.0-20.0); Magnesium 1.7 mg/dL (1.6-2.6)
[2025-07-04 06:48] LABS: Blood Urea Nitrogen 7 mg/dL (9-23); Glucose 217 mg/dL (74-106); Potassium 3.3 mmol/L (3.5-5.1)
[2025-07-04] MEDS ORDERED: InsuLIN REG 1unit/0.01ml Soln (100units/ml) SC SCH (07:00)
[2025-07-04] MEDS: LABETALOL HCL 20 MG/4 ML VL IV ONE (08:34)
[2025-07-04] MEDS ORDERED: INSULIN LANTUS (GLARGINE) 1 /0.01ml (100units/ml) SC SCH (10:00)
[2025-07-04] MEDS: INSULIN LISPRO (HUMAN) 100 UNITS/ML ML SC SCH (12:51)
[2025-07-04] MEDS ORDERED: METF-370 PO (15:24)
[2025-07-04] MEDS ORDERED: SITA100T34 PO (15:24)
[2025-07-04] MEDS ORDERED: INSU100I52 IJ (15:24)
[2025-07-04] MEDS ORDERED: INSU100I70 SC (15:26)
[2025-07-04] MEDS ORDERED: INSU100I52 SC (15:29)
--- NOTE | 2025-07-04 19:09 | DVHPNRES ---
Progress Note Date Seen: Jul 04, 2025 Resident Creating Document: ANTELMO GODWIN RESIDENT Medical Necessity Reason Pt with a Central, PICC or Fol: No Subjective Review of Systems This is 60-year-old female with past medical history of stroke 2019 with left- sided residual weakness, DM2, HTN, HLD, anxiety, depression, insomnia, peripheral neuropathy BIBEMS to ER with severe abdominal pain, nausea, vomiting for 4 days which is worsen day by day. Patient reports experiencing severe abdominal pain which is 10/10 intensity, spasmodic, diffusely all over the abdomen aggravated on eating, no relieving factor which worsen before arrived to the hospital coinciding with onset of nausea and vomiting which is intermittently happened every 2 /3 hour but does not contain any blood in vomitus. She also reports dark color urine but no dysuria. Patient mobility has been significantly impacted since stroke October 2019, affecting the left side of the body including both upper and lower extremities. She requires assistance her son and uses wheelchair for mobility at home. Patient mentions receiving physical therapy after that stroke but stated "they do not have not come back" and also experiencing neuropathic pain. Past medical history: As above Past surgical history: Nothing contributory Family history: Father having lung cancer Social history: Denies smoking cigarettes, ETOH occasionally, smokes cannabis last smoking yesterday Lives at home requests assistance from son for mobility use wheelchair. PCP:Norberto Paul Patient was seen today at bedside. Less than chart reviewed. Hypokalemia supplemented. Increase Lantus from qd. to b.i.d.. Objective vital signs Vital Sign Date Time Temp Pulse Resp B/P (MAP) Pulse Ox O2 Delivery O2 Flow Rate FiO2 07/04/25 18:56 84 16 140/81 07/04/25 16:43 97.8 99 97.8 07/04/25 08:05 Room Air* 0 21 Total Intake and Output 07/03/25 07/03/25 07/04/25 15:00 23:00 07:00 Intake Total 500 ml 1250 ml 920 ml Balance 500 ml 1250 ml 920 ml medications Current Medications Medications Dose Ordered Sig/Jaime Route Start Time Stop Time Status Last Admin Dose Admin Enoxaparin Sodium 40 mg DAILY SC 07/01/25 10:00 07/04/25 10:07 40 MG Morphine Sulfate 2 mg Q4HPRN PRN IV 06/30/25 16:15 9/23/25 17:45 2 MG Pantoprazole Sodium 40 mg BID IV 06/30/25 22:00 07/04/25 10:06 40 MG Insulin Human Lispro AC SC 06/30/25 17:00 07/04/25 17:59 2 UNITS Metoclopramide HCl 5 mg Q6HPRN PRN IV 06/30/25 17:15 07/04/25 10:10 5 MG Ergocalciferol 50,000 unit Q7D PO 07/01/25 17:45 07/01/25 16:40 50,000 UNIT Aspirin 81 mg DAILY PO 07/01/25 10:00 07/04/25 10:17 81 MG Metoprolol Tartrate 100 mg BID PO 06/30/25 22:00 07/04/25 10:09 100 MG Risperidone 1 mg QPM PO 07/01/25 18:00 07/04/25 17:39 1 MG Bupropion HCl 75 mg BID PO 06/30/25 22:00 07/03/25 21:32 75 MG Losartan Potassium 100 mg DAILY PO 07/01/25 10:00 07/04/25 10:10 100 MG Trazodone HCl 150 mg HSPRN PRN PO 06/30/25 19:30 07/04/25 01:09 150 MG Atorvastatin Calcium 40 mg HS PO 06/30/25 22:00 07/03/25 21:34 40 MG Doxycycline Hyclate 100 ml @ 50 mls/hr Q12HR@0900,2100 IV 06/30/25 21:00 07/04/25 08:40 50 MLS/HR Piperacillin Sod/ Tazobactam Sod 100 ml @ 25 mls/hr Q8HR IV 07/01/25 06:00 07/04/25 17:39 25 MLS/HR Sennosides 8.6 mg HS PO 07/03/25 22:00 07/03/25 21:34 8.6 MG Insulin Glargine 15 units DAILY@1000 SC 07/03/25 13:30 07/04/25 10:34 15 UNITS Nifedipine 30 mg DAILY PO 07/04/25 10:00 07/04/25 10:09 30 MG Insulin Human Lispro 5 units AC SC 07/04/25 11:30 07/04/25 18:00 5 UNITS Examination General Appearance: Alert, Oriented X4, moderate distress HEENT: Atraumatic, PERRLA, EOMI Respiratory: Clear to auscultation, Normal air movement Cardiovascular: Regular rate, Normal S1, Normal S2 Abdominal: Normal bowel sounds, Soft, No masses, mild abdominal tenderness on deep palpation Extremities: No clubbing, No cyanosis, No edema Neuro: Sensation intact, Other (Left lower extremity and upper extremity motor weakness) laboratory and microbiology Laboratory Tests 07/04/25 05:40 Test 07/04/25 05:40 Range/Units Serum Glucose 217 H 74-106 mg/dL Microbiology Date/Time Source Procedure Growth Status 06/30/25 19:42 Blood Blood Culture - Preliminary NO GROWTH AFTER 72 HOURS OF INCUBATION. Resulted 06/30/25 00:00 Nose MRSA Screen - Final Complete 06/30/25 00:00 Voided Urine Urine Culture - Final Complete Problem List/Assessment/Plan Problem List/Assessment/Plan Problem List/Assessment/Plan Diabetic ketoacidosis Hyperosmolar hyperglycemic state Type 2 diabetes mellitus with hyperglycemia Home medication : glargine, aspart, glyburide. serum glucose 373>270>241 Lactic Acid 2.1 anion gap 18>17>11 urine 2+ ketone ,on admission insulin glargine and lispro Insulin sliding scale Monitor blood sugar hemoglobin A1c 8.2 beta hydroxybutyrate level 3.900, on admission pH 7.49, pCO2 22.6, PO2 79.3, bicarb 16.9 on 06/30/2025 Sepsis due to acute gastroenteritis Complicated urinary tract infection Cannabis induced hyperemesis Acute cholecystitis Acute gastritis CT abdomen shows: colonic diverticula, gallstone. Leukocytosis, WBC 21.4 on admission with left shift, neutrophil 92.9 WBC trending down to normal UA shows turbid, ketones 2+, glucose 4+, bacteria many Metoclopramide IV as needed Zosyn IV antibiotic Lactic acidosis IVF monitor lactic acid level Essential hypertension Home medication losartan, metoprolol Monitor BP Hyperlipidemia Continue simvastatin 20 mg Lipid profile Vitamin B12 deficiency vitamin B12 1000 mcg IM done Hypophosphatemia Supplemented Vitamin-D deficiency Vitamin-D level 19.5 Vitamin-D 31232 units p.o. weekly Hypomagnesemia Supplemented, monitor magnesium level Hyperbilirubinemia total bilirubin 1.3 Hypokalemia serum potassium 3.3 supplemented BMP Hypocalcemia Substance abuse/ cannabis use disorder UDS positive for cannabis >12 minute spent in counseling regarding substance abuse Uterine leiomyomas. Small pericardial effusion. GERD History of stroke with left-sided residual weakness Peripheral neuropathy Insomnia-home medication trazodone Anxiety/depression-clonazepam GI prophylaxis: Pantoprazole DVT prophylaxis: Lovenox Goals of care discussions. More than 19 minute spent with patient. Full code status. Case discuss with Dr. Thorne Plan discussed with: Patient, Other (Nurse) Plan discussed with: Patient, Other (RN) My Orders My Orders Orders - ANTELMO GODWIN RESIDENT Procedure Category Date Status Time Pt Request For Service PT 07/04/25 Logged 10:03 Consistent DIET 07/04/25 Transmitted Carb(Ccho)Diabetes Lunch Insulin Lispro PHA 07/04/25 In Process (Human) (Humalog) 11:30 Dietary Evaluation Review Comments: Nutrition Recommendation: 1) Consider CCHO 60gm + cardiac diet 2) Refer Property Assessment Monitor for diabetes education 3) Monitor PO intake, lab values, weight trend, and I/O Expected Outcomes/Goals: Lab values to improve Fu 3-5 days ANTELMO GODWIN RESIDENT Jul 04, 2025 19:09
[2025-07-04] MEDS: INSULIN LANTUS (GLARGINE) 1 /0.01ml (100units/ml) SC SCH (20:07)
[2025-07-05 01:00] VITALS: BP 143/80; PULSE 74; RESP 14; TEMP 97.3; O2SAT 96
[2025-07-05 05:05] VITALS: BP 128/77; PULSE 84; RESP 14; TEMP 97.4; O2SAT 96
[2025-07-05 05:26] LABS: Hematocrit 34.7 % (36.0-46.0); Hemoglobin 12.1 g/dL (12.2-16.2); Mean Corpuscular Hemoglobin 32.2 pg (28.0-32.0); Mean Corpuscular Volume 92.2 fL (80.0-100.0); Nucleated Red Blood Cells % 0.0 %
[2025-07-05 05:45] LABS: Alkaline Phosphatase 49 U/L (46-116); Anion Gap 10 (5-15); BUN/Creatinine Ratio 11.9 (10.0-20.0); Calcium 8.8 mg/dL (8.7-10.4); Carbon Dioxide 24 mmol/L (20-31); Chloride 107 mmol/L (98-107); Magnesium 1.6 mg/dL (1.6-2.6); Sodium 141 mmol/L (136-145); Total Protein 5.9 g/dL (5.7-8.2)
[2025-07-05 05:46] LABS: Bilirubin, Total 0.9 mg/dL (0.2-1.0)
[2025-07-05 05:47] LABS: Alanine Aminotransferase < 9 U/L (7-40); Albumin 3.1 g/dL (3.2-4.8); Blood Urea Nitrogen 8 mg/dL (9-23); Glucose 130 mg/dL (74-106); Potassium 3.4 mmol/L (3.5-5.1)
[2025-07-05] MEDS ORDERED: DOXY100C79 PO (06:24)
[2025-07-05] MEDS ORDERED: AMOX500T86 PO (06:24)
[2025-07-05] MEDS: POTASSIUM CHL 20 Meq TABLET PO ONE ×2 (06:30→09:44)
--- NOTE | 2025-07-05 07:14 | DVHDSRES ---
Discharge Summary Date of Admission Resident Creating Document: ANTELMO GODWIN RESIDENT Jun 30, 2025 at 18:52 Date of Discharge: Jul 05, 2025 Admitting Diagnosis DKA, sepsis Labs/Diagnostic Data: Laboratory Results Test 07/05/25 06:02 07/05/25 05:09 07/04/25 05:40 07/01/25 05:27 POC Glucose 134 mg/dl (70-106) White Blood Count 7.2 10^3/uL (4.4-10.8) Red Blood Count 3.76 10^6/uL (4.0-5.20) Hemoglobin 12.1 g/dL (12.2-16.2) Hematocrit 34.7 % (36.0-46.0) Mean Corpuscular Volume 92.2 fL (80.0-100.0) Mean Corpuscular Hemoglobin 32.2 pg (28.0-32.0) Mean Corpuscular Hemoglobin Concent 35.0 g/dL (32.0-36.0) Red Cell Distribution Width 14.4 % (11.8-14.3) Platelet Count 223 10^3/uL (140-450) Mean Platelet Volume 8.7 fL (6.9-10.8) Neutrophils (%) (Auto) 59.4 % (37.0-80.0) Lymphocytes (%) (Auto) 28.7 % (10.0-50.0) Monocytes (%) (Auto) 8.3 % (0.0-12.0) Eosinophils (%) (Auto) 3.1 % (0.0-7.0) Basophils (%) (Auto) 0.5 % (0.0-2.0) Neutrophils # (Auto) 4.3 10 ^3/uL (1.6-8.6) Lymphocytes # (Auto) 2.1 10 ^3/uL (0.4-5.4) Monocytes # (Auto) 0.6 10 ^3/uL (0-1.3) Eosinophils # (Auto) 0.2 10 ^3/uL (0-0.8) Basophils # (Auto) 0 10 ^3/uL (0-0.2) Nucleated Red Blood Cells 0.0 % Sodium Level 141 mmol/L (136-145) Potassium Level 3.4 mmol/L (3.5-5.1) Chloride Level 107 mmol/L (98-107) Carbon Dioxide Level 24 mmol/L (20-31) Anion Gap 10 (5-15) Blood Urea Nitrogen 8 mg/dL (9-23) Creatinine 0.67 mg/dL (0.550-1.02) Glomerular Filtration Rate Calc 101 mL/min (>90) BUN/Creatinine Ratio 11.9 (10.0-20.0) Serum Glucose 130 mg/dL (74-106) Calcium Level 8.8 mg/dL (8.7-10.4) Magnesium Level 1.6 mg/dL (1.6-2.6) Total Bilirubin 0.9 mg/dL (0.2-1.0) Aspartate Amino Transferase (AST) 9 U/L (13-40) Alanine Aminotransferase (ALT) < 9 U/L (7-40) Alkaline Phosphatase 49 U/L (46-116) Total Protein 5.9 g/dL (5.7-8.2) Albumin 3.1 g/dL (3.2-4.8) Phosphorus Level 2.1 mg/dL (2.4-5.1) Lactic Acid Level 1.3 mmol/L (0.4-2.0) Triglycerides Level 129 mg/dL (< 150) Cholesterol Level 198 mg/dL (< 200) LDL Cholesterol 144 mg/dL (< 100) HDL Cholesterol 35 mg/dL (40-59) Test 06/30/25 17:03 06/30/25 16:58 06/30/25 12:05 06/30/25 00:00 Prothrombin Time 10.5 sec (9.3-11.8) Prothrombin Time INR 0.99 (0.9-1.15) Activated Partial Thromboplast Time 30.2 SEC (24.5-34.5) Beta-Hydroxybutyric Acid 3.900 mmol/L (< 0.4) Blood Gas Specimen Type Arterial Blood Gas Sample Site Right radial Blood Gas Patient Temperature 37.0 Arterial Blood Date Drawn [id number] Arterial Blood pH 7.492 (7.350-7.450) Arterial Blood Partial Pressure CO2 22.6 mmHg (32.0-45.0) Arterial Blood Partial Pressure O2 79.3 mmHg (83.0-108.0) Arterial Blood HCO3 16.9 mmol/L (21.0-28.0) Arterial Blood Oxygen Saturation 96.3 % (94.0-98.0) Arterial Blood Base Excess -4.2 mmol/L (-2.0-3.0) Arterial Blood Oxyhemoglobin 95.0 % (94.0-98.0) Arterial Blood Carboxyhemoglobin 0.7 % (0.5-1.5) Arterial Blood Methemoglobin 0.6 % (0.0-1.5) Jonathan Test Yes Blood Gas Total Hemoglobin 14.70 g/dL (12.0-16.0) Blood Gas Modality Room air FiO2 % 21.0 Hemoglobin A1c 8.2 % A1C (<5.7) Vitamin B12 Level 134 pg/mL (211-911) Vitamin D 25-Hydroxy 19.5 ng/mL (30.0-100) Thyroid Stimulating Hormone (TSH) 3.41 uIU/mL (0.55-4.78) Urine Color Light-orange (Yellow) Urine Clarity Turbid (Clear) Urine pH 5.5 (5.0-9.0) Urine Specific [place] 1.028 (1.001-1.035) Urine Protein 3+ (Negative) Urine Ketones 2+ (Negative) Urine Blood Negative /uL (Negative) Urine Nitrite Negative (Negative) Urine Bilirubin Negative (Negative) Urine Urobilinogen Normal mg/dL (Negative) Urine Leukocyte Esterase Negative /uL (Negative) Urine RBC 1 /hpf (0 - 4) Urine Microscopic WBC 2 /HPF (0-5) Urine Squamous Epithelial Cells Few /hpf (<5) Urine Bacteria Many /hpf (None Seen) Urine Hyaline Casts Mod /lpf (0 - 2) Urine Mucus Moderate (None Seen) Urine Glucose 4+ mg/dL (Normal) Urine Opiates Screen Neg (NEGATIVE) Urine Fentanyl Screen Neg (NEGATIVE) Urine Barbiturates Screen Neg (NEGATIVE) Urine Phencyclidine Screen Neg (NEGATIVE) Urine Amphetamines Screen Neg (NEGATIVE) Urine Benzodiazepines Screen Neg (NEGATIVE) Urine Cocaine Screen Neg (NEGATIVE) Urine Cannabinoids Screen Pos (NEGATIVE) Influenza Type A Antigen Negative (Negative) Influenza Type B Antigen Negative (Negative) SARS-CoV-2 Antigen (Rapid) Negative (NEGATIVE) Other Laboratory Tests 07/05/25 05:09 Brief Hx & Hospital Course: This is 60-year-old female with past medical history of stroke 2020 with left- sided residual weakness, DM2, HTN, HLD, anxiety, depression, insomnia, peripheral neuropathy BIBEMS to ER with severe abdominal pain, nausea, vomiting for 4 days which is worsen day by day. Patient reports experiencing severe abdominal pain which is 10/10 intensity, spasmodic, diffusely all over the abdomen aggravated on eating, no relieving factor which worsen before arrived to the hospital coinciding with onset of nausea and vomiting which is intermittently happened every 2 /3 hour but does not contain any blood in vomitus. She also reports dark color urine but no dysuria.Patient mobility has been significantly impacted since stroke October 2019, affecting the left side of the body including both upper and lower extremities. She requires assistance her son and uses wheelchair for mobility at home. Patient mentions receiving physical therapy after that stroke but stated "they do not have not come back" and also experiencing neuropathic pain. During hospital course patient was treated with IV fluid, IV antibiotic, insulin Lantus and lispro also sliding scale. Patient's symptoms improved gradually. Patient is being discharged home with the advised to resume home health service. Patient advised to follow up with her primary care physician in 1-2 weeks with the report of BMP. Patient's meds were sent to the pharmacy electronically. Patient was hemodynamically stable on discharge Operations or Procedures [place] [address] Ph: [phone] DIAGNOSTIC IMAGING Diagnostic Imaging Report : [id number] Signed PATIENT: DAVE TY ACCT: [id number] UNIT: [id number] : 1965 LOC: ER ROOM / BED: / AGE / SEX: 60 / F ADM STATUS: REG ER SERVICE 1121 ORDERING PHYSICIAN: VIANNEY GOODE MD PROCEDURE(s): ABPL - CT AB PEL WO CON-NO ORAL OR IV REASON: pain ORDER NUMBER(s): [id number], ACCESSION NUMBER(s): [id number] Indication: pain Technique: CT axial images of the abdomen and pelvis are obtained without contrast. Coronal and sagittal reformats were obtained. Radiation Dose Information: CTDI volume is 17.1 mGy. Dose-length product is 919 mGy*cm Comparison: None FINDINGS: There is limited interpretation of the abdomen and pelvis without administration of intravenous contrast. Lung bases demonstrate bibasilar consolidation, tree-in-bud nodularity. Small pericardial effusion. Coronary calcification. Adrenal glands, spleen, pancreas and liver unremarkable in shape cholelithiasis/sludge kidneys demonstrate no hydronephrosis, nephrolithiasis. Stomach is partially distended small bowel loops are normal in caliber. Colonic diverticula. Moderate volume stool colon. Appendix. Abdominal aortic atherosclerotic disease bladder is partially distended uterine leiomyomas no free pelvic fluid. No inguinal lymphadenopathy. No aggressive osseous process. There is moderate thoracolumbar degenerative disc disease. IMPRESSION: Limited evaluation without contrast. Bilateral pulmonary airspace consolidation, tree-in-bud nodularity which is likely secondary to infection. Follow-up to resolution. Small pericardial effusion. Atherosclerotic disease. Colonic diverticula. Gallstone/sludge. Uterine leiomyomas. Other findings as described ATED BY: DENILSON RUDOLPH MD DICTATED DATE/TIME: 06/30/25 1212 SIGNED BY: DENILSON RUDOLPH MD SIGNED DATE/TIME: 06/30/25 1212 CC: Condition at Discharge: Stable Final Diagnosis/Problems List Diabetic ketoacidosis Hyperosmolar hyperglycemic state Type 2 diabetes mellitus with hyperglycemia Sepsis due to acute gastroenteritis Complicated urinary tract infection Cannabis induced hyperemesis Acute cholecystitis Acute gastritis Lactic acidosis Essential hypertension Hyperlipidemia Vitamin B12 deficiency Hypophosphatemia Vitamin-D deficiency Hypomagnesemia Hyperbilirubinemia Hypokalemia Hypocalcemia Substance abuse/ cannabis use disorder Uterine leiomyomas. GERD History of stroke with left-sided residual weakness Peripheral neuropathy Anxiety/depression Discharge Disposition: Home Discharge Instruct/Medications Diet: Consistent carbohydrate, Cardiac 2g Na,low cholest Follow Up/Referral: Please follow up with your primary care physician in 1-2 weeks with BMP Please follow up with your angiogram neurologist Medications: Insulin lispro as prescribed Insulin Lantus as prescribed Metformin as prescribed Sitagliptin 100 mg p.o. daily Augmentin 500 mg p.o. b.i.d. for 3 days Doxycycline 100 mg p.o. b.i.d. for 3 days Please resume home medication aspirin, diltiazem, losartan, metoprolol, omeprazole, risperidone, simvastatin, trazodone. Scheduled Amoxicillin & Pot Clavulanate (Augmentin), 1 TAB PO BID Aspirin (Aspir-Low), 81 MG PO DAILY, (Reported) Bupropion Hcl (Wellbutrin Sr), 1 TAB PO DAILY, (Reported) Clonazepam (Clonazepam), 1 TAB PO BID, (Reported) Diltiazem Hcl (Diltiazem Hcl), 120 MG PO BID, (Reported) Doxycycline (Monohydrate) (Doxycycline), 100 MG PO BID Glyburide (Glyburide), 5 MG PO DAILY, (Reported) Hydrocodone-Acetaminophen ([place] 10-325 mg), 1 TAB PO QID, (Reported) Insulin Glargine (Basaglar Kwikpen), 20 UNIT SC DAILY, (Reported) Insulin Glargine-Yfgn (Insulin Glargine), 15 UNIT SC DAILY Insulin Lispro (Insulin Lispro), 5 UNIT SC AC Loratadine (Claritin), 1 TAB PO DAILY, (Reported) Losartan Potassium (Losartan Potassium), 100 MG PO DAILY, (Reported) Metformin Hydrochloride (Metformin Hcl), 1 TAB PO BID Metoprolol Tartrate (Lopressor Tablet), 2 TAB PO BID, (Reported) Omeprazole (Gnp Omeprazole), 1 TAB PO DAILY, (Reported) Risperidone (Risperidone), 1 TAB PO QPM, (Reported) Simvastatin (Simvastatin), 20 MG PO DAILY, (Reported) Sitagliptin (Sitagliptin), 100 MG PO DAILY Scheduled PRN Diphenhydramine Hcl (Benadryl Allergy), 50 MG PO BIDP PRN for ANXIETY, (Reported) Trazodone Hcl (Trazodone Hcl), 150 MG PO HSPRN PRN for FOR INSOMNIA, (Reported) Discharge Statement: "Patient was advised to return to the ER or call 911 if any headaches, dizziness, shortness of breath, chest pain, abdominal pain, bleeding, fevers, or worsening of medical condition. Patient was counseled about treatment plan, medications, possible side effects, patientverbalized understanding. All questions were answered to the best of my ability. This discharge took greater then 30 minutes in planning, reviewing documentation, counseling the patient, and discussing with other team members." ASSESSMENT ASSESSMENT Assessment ANTELMO GODWIN RESIDENT Jul 05, 2025 07:14
[2025-07-05 09:00] VITALS: BP 161/102; PULSE 91; RESP 18; TEMP 97.7; O2SAT 98
[2025-07-05] MEDS ORDERED: POTA-36 PO (09:15)
[2025-07-05 16:58] VITALS: BP 134/83; PULSE 80; RESP 18; TEMP 97.3; O2SAT 98
[2025-07-05 21:00] VITALS: BP 154/88; PULSE 91; RESP 16; TEMP 99; O2SAT 97
== END 2025-07-05 22:23 | disposition home health service (06) | DRG 871 ==
LOC: EDBD 11:12 → ER 11:12 → OVERFLOW 16:13 → UNDOADMIN 16:13 → CENTRAL 18:17 → OVERFLOW 18:17 → CENTRAL 18:52 → OVERFLOW 18:52 → TELE-EAST 23:30 → EAST 07-05 06:59
PROVIDERS: ADMIT Student in an Organized Health Care Education/Training Program; ATTEND Student in an Organized Health Care Education/Training Program
DX: A41.9 Sepsis, unspecified organism (principal); E11.10 Type 2 diabetes mellitus with ketoacidosis without coma; N39.0 Urinary tract infection, site not specified; I69.354 Hemiplegia and hemiparesis following cerebral infarction affecting left non-dominant side; I31.39 Other pericardial effusion (noninflammatory); K80.00 Calculus of gallbladder with acute cholecystitis without obstruction; Z20.822 Contact with and (suspected) exposure to COVID-19; K52.9 Noninfective gastroenteritis and colitis, unspecified; E53.8 Deficiency of other specified B group vitamins; E78.5 Hyperlipidemia, unspecified; K57.30 Diverticulosis of large intestine without perforation or abscess without bleeding; E87.6 Hypokalemia; E83.51 Hypocalcemia; K21.9 Gastro-esophageal reflux disease without esophagitis; D25.9 Leiomyoma of uterus, unspecified; F41.9 Anxiety disorder, unspecified; F32.A Depression, unspecified; E80.6 Other disorders of bilirubin metabolism; E83.42 Hypomagnesemia; E83.39 Other disorders of phosphorus metabolism; I48.91 Unspecified atrial fibrillation; I10 Essential (primary) hypertension; K82.8 Other specified diseases of gallbladder; E11.42 Type 2 diabetes mellitus with diabetic polyneuropathy; E11.65 Type 2 diabetes mellitus with hyperglycemia; K29.00 Acute gastritis without bleeding; F12.10 Cannabis abuse, uncomplicated; G47.00 Insomnia, unspecified; Z91.041 Radiographic dye allergy status; Z80.1 Family history of malignant neoplasm of trachea, bronchus and lung
CPT/HCPCS: 36415; 36600; 71045; 74176; 80048; 80053; 80061; 80307; 81001; 82010; 82306; 82607; 82805; 82962; 83036; 83605; 83735; 84100; 84443; 85025; 85610; 85730; 87040; 87081; 87086; 87426; 87804; 93005; 96361; 96374; 96375; 97163; G0378; J1815; J2003; J2405; J2470; J2543; J3480

== ENCOUNTER 2025-08-09 17:35 | Emergency (ER) | payer MEDICAID ==
[~2025-08-09] VITALS: Ht 162.6 cm; Wt 113.0 kg
[~2025-08-09 17:35] MED LIST changes: +AMOX500T86 PO; +DOXY100C79 PO; -GLYB5TAB8 PO; +INSU100I52 SC; +INSU100I70 SC; +METF-370 PO; +SITA100T34 PO
[2025-08-09 18:03] VITALS: PULSE 107; RESP 15; O2SAT 99
[2025-08-09 18:50] LABS: Urine Protein, UAD 1+ (Negative)
[2025-08-09] MEDS: HYDROcodone-ACET 10/325MG TAB PO ONE (19:25)
--- NOTE | 2025-08-09 20:22 | ED.PDOC ---
Back pain HPI HPI Comments 60-YEAR-OLD FEMALE BROUGHT IN BY EMS. PATIENT WAS COMPLAINING OF BACK PAIN AND BURNING SENSATION IN HER MID BACK. PATIENT REPORTS A HISTORY OF CHRONIC BACK PAIN. HAS A PREVIOUS CVA WITH BILATERAL LOWER EXTREMITY WEAKNESS AND PROMINENT LEFT-SIDED WEAKNESS. PATIENT STATES SHE TYPICALLY TAKES NORCO 10 FOR HER BACK PAIN, SHE STATES SHE HAS BEEN OUT OF HER MEDICATIONS FOR FEW DAYS NOW. PATIENT STATES SHE DID NOT WANT TO COME IN BUT THE FACILITY WHERE SHE STAYS RECOMMENDED IN URGE HER TO COME IN SO THEY CALLED 911. 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 DENIES ANY FREQUENCY NO FEVER. Chief Complaint: Back Pain Time Seen by MD: 18:47 Primary Care Provider: DOMINIC Reviewed Notes: Nurses Notes Allergies: Coded Allergies: Iodine (Verified Allergy, Unknown, 03/31/19) Home Meds Active Scripts Doxycycline (Monohydrate) (Doxycycline) 100 Mg Cap, 100 MG PO BID for 3 Days, #6 CAP [facility] 07/[facility]/25 Amoxicillin & Pot Clavulanate (Augmentin) 500 Mg Tab, 1 TAB PO BID for 3 Days, #6 TAB Prov[facility] 07/05/25 Insulin Lispro (Insulin Lispro) 100 Unit/Ml Inj, 5 UNIT SC AC for 30 Days, #500 INJ 1 Refill Prov[facility] 07/04/25 Insulin Glargine-Yfgn (Insulin Glargine) 100 Unit/Ml Inj, 15 UNIT SC DAILY for 30 Days, #500 INJ 1 Refill [facility] 07/04/25 Metformin Hydrochloride (Metformin Hcl) 500 Mg Tab, 1 TAB PO BID, #60 TAB 1 Refill Prov[facility] 07/04/25 Sitagliptin (Sitagliptin) 100 Mg Tab, 100 MG PO DAILY for 30 Days, #30 TAB Prov[facility] 07/04/25 Reported Medications Losartan Potassium (Losartan Potassium) 100 Mg Tab, 100 MG PO DAILY for 30 Days, MG 03/31/19 Loratadine (Claritin) 10 Mg Tab, 1 TAB PO DAILY, #30 TAB 5 Refills 03/31/19 Hydrocodone-Acetaminophen ([place] 10-325 mg) 1 Tab Tab, 1 TAB PO QID, TAB 03/31/19 Aspirin (Aspir-Low) 81 Mg Tab, 81 MG PO DAILY for 30 Days, MG 03/31/19 Simvastatin (Simvastatin) 20 Mg Tab, 20 MG PO DAILY for 30 Days 03/31/19 Metoprolol Tartrate (LOPRESSOR TABLET) 50 Mg Tb, 2 TAB PO BID, #60 TAB 5 Refills 03/31/19 Clonazepam (Clonazepam) 2 Mg Tab, 1 TAB PO BID, #60 TAB 2 Refills 03/31/19 Omeprazole (Gnp Omeprazole) 20 Mg Tab, 1 TAB PO DAILY, #90 TAB 1 Refill 03/31/19 Diphenhydramine Hcl (Benadryl Allergy) 25 Mg Cap, 50 MG PO BIDP PRN for ANXIETY, CAP 03/31/19 Diltiazem Hcl (Diltiazem Hcl) 60 Mg Tab, 120 MG PO BID for 30 Days, MG 03/31/19 Insulin Glargine (Basaglar Kwikpen) 100 Unit/Ml Inj, 20 UNIT SC DAILY, INJ 03/31/19 Risperidone (Risperidone) 1 Mg Tab, 1 TAB PO QPM, #30 TAB 1 Refill 03/31/19 Trazodone Hcl (Trazodone Hcl) 150 Mg Tab, 150 MG PO HSPRN PRN for FOR INSOMNIA, MG 03/31/19 Bupropion Hcl (Wellbutrin Sr) 150 Mg Tab, 1 TAB PO DAILY, #60 TAB 5 Refills 03/31/19 Information Source: Patient Mode of Arrival: EMS Past Medical History PAST MEDICAL HISTORY: AFIB, CVA, DM, High Lipids, HTN, Thyroid, TIA Surgical History: MANAGER MEDICARE History: No Pertinent MANAGER MEDICARE History Family History Family History: Reviewed,noncontributory to illness, Unknown Social History Smoker: Non-Smoker Alcohol: Denies ETOH Use Drugs: Marijuana Lives In: Home Constitutional: denies: chills, diaphoresis, fatigue, fever, malaise, sweats, weakness, others EENTM: denies: blurred vision, double vision, ear bleeding, ear discharge, ear drainage, ear pain, ear ringing, eye pain, eye redness, hearing loss, mouth pain, mouth swelling, nasal discharge, nose bleeding, nose congestion, nose pain, photophobia, tearing, throat pain, throat swelling, voice changes, others Respiratory: denies: cough, hemoptysis, orthopnea, SOB at rest, shortness of breath, SOB with excertion, stridor, wheezing, others Cardiovascular: denies: chest pain, dizzy spells, diaphoresis, Dyspnea on exertion, edema, irregular heart beat, left arm pain, lightheadedness, palpitations, PND, syncope, others Gastrointestinal: denies: abdomen distended, abdominal pain, blood streaked bowels, constipated, diarrhea, dysphagia, difficulty swallowing, hematemesis, melena, nausea, poor appetite, poor fluid intake, rectal bleeding, rectal pain, vomiting, others Genitourinary: denies: abnormal vagina bleeding, burning, dyspareunia, dysuria, flank pain, frequency, hematuria, incontinence, pain, , vagina discha rge, urgency, others Neurological: denies: dizziness, fainting, headache, left sided numbness, left sided weakness, numbness, paresthesia, pre-existing deficit, right sided numbness, right sided weakness, seizure, speech problems, tingling, tremors, weakness, others Musculoskeletal: reports: back pain; denies: gout, joint pain, joint swelling, muscle pain, muscle stiffness, neck pain, others Integumetry: denies: bruises, change in color, change in hair/nails, dryness, laceration, lesions, lumps, rash, wounds, others Allergic/Immunocompromised: denies: Difficulty Healing, Frequent Infections, Hives, Itching, others Hematologic/Lymphatic: denies: anemia, blood clots, easy bleeding, easy bruising, swollen glands, others Physical Exam General Appearance: No Apparent Distress, Normal HEENT: Normal ENT Inspection, Pharynx Normal, TMs Normal Neck: Full Range of Motion, Non-Tender, Normal, Normal Inspection Respiratory: Chest Non-Tender, Lungs Clear, No Accessory Muscle Use, No Respiratory Distress, Normal Breath Sounds Cardiovascular: No Edema, No JVD, No Murmur, No Gallop, Normal Peripheral Pulses, Regular Rate/Rhythm Breast Exam: Deferred Gastrointestinal: No Organomegaly, Non Tender, No Pulsatile Mass, Normal Bowel Sounds, Soft Genitalia: Deferred Pelvic: Deferred Rectal: Deferred Extremities: No calf tenderness, Normal capillary refill, Normal inspection Musculoskeletal : Apperance: Normal Neurologic: Alert, insurance underwriting assistant II-XII nml as Tested, No Motor Deficits, Normal Affect, Normal Mood, No Sensory Deficits Cerebellar Function: Normal Reflexes: Normal Skin: Dry, Normal Color, Warm Lymphatic: No Adenopathy Was a procedure done? Was a procedure done?: No Back Pain Differential Dx Differential Diagnosis: Appendicitis, Bowel Obstruction, Cholelithiasis, Musculoskeletal Pain X-Ray, Labs, Meds, VS Vital Signs Date Time Temp Pulse Resp B/P (MAP) Pulse Ox O2 Delivery O2 Flow Rate FiO2 08/09/25 18:06 98.9 112 20 139/83 97 98.9 08/09/25 18:03 107 15 99 Room Air* 0 21 08/09/25 18:03 99.0 107 15 129/60 (83) 99 99.0 Lab Test 08/09/25 18:19 Range/Units Urine Color Light-yellow Yellow Urine Clarity Clear Clear Urine pH 5.5 5.0-9.0 Urine Specific Bath 1.009 1.001-1.035 Urine Protein 1+ H Negative Urine Ketones Negative Negative Urine Blood Negative Negative /uL Urine Nitrite Negative Negative Urine Bilirubin Negative Negative Urine Urobilinogen Normal Negative mg/dL Urine Leukocyte Esterase Negative Negative /uL Urine RBC <1 0 - 4 /hpf Urine Microscopic WBC < 1 0-5 /HPF Urine Squamous Epithelial Cells Few <5 /hpf Urine Bacteria None seen None Seen /hpf Urine Glucose Normal Normal mg/dL Current Medications Medications (Trade) Dose Ordered Sig/Jaime Route Start Time Stop Time Status Last Admin Acetaminophen/ Hydrocodone Bitart (Par[place] 10/325MG Tab) 1 tab ONCE ONCE PO 08/09/25 19:00 08/09/25 19:01 DC 08/09/25 19:25 X-Ray, Labs, Meds, VS Comment IMAGING WAS REVIEWED BY THIS PROVIDER, THERE IS NO OBVIOUS PATHOLOGICAL OR ACUTE DISEASE PROCESS. PENDING RADIOLOGY REVIEW LABS WERE REVIEWED BY THIS PROVIDER, NO ABNORMALITIES VITAL SIGNS REVIEWED BY THIS PROVIDER, CLINICALLY STABLE PATIENT WILL NEED SOCIAL WORK CONSULT FOR TRANSPORTATION HOME PATIENT BE PLACED UNDER ED OBSERVATION Time of 1ST Reevaluation: 20:36 Reevaluation 1ST: Unchanged Patient Education/Counseling: Diagnosis, Treatment, Need For Follow Up (FOLLOW UP WITH PCP IN NEXT 2-3 DAYS. RETURN EMERGENCY DEPARTMENT IF SYMPTOMS WORSEN.) Family Education/Counseling: Diagnosis SEPSIS Sepsis Screen Date sepsis recognized/suspect: Aug 09, 2025 Time Sepsis recognized/suspect: 1737 Recent Procedure: No On Antibiotic Therapy: No Respiratory Rate >20: No Heart Rate >90: Yes Temp<36 C (96.8 F) or >38.3 C: No SBP <90 or MAP <65 mmHG: No New Acute Mental Status Change: No Is the patient on CPAP, BIPAP,: No Vital Signs Date Time Temp Pulse Resp B/P (MAP) Pulse Ox O2 Delivery O2 Flow Rate FiO2 08/09/25 18:06 98.9 112 20 139/83 97 98.9 08/09/25 18:03 107 15 99 Room Air* 0 21 08/09/25 18:03 99.0 107 15 129/60 (83) 99 99.0 Medications Medications Dose Ordered Sig/Jaime Route Start Time Stop Time Status Last Admin Dose Admin Acetaminophen/ Hydrocodone Bitart 1 tab ONCE ONCE PO 08/09/25 19:00 08/09/25 19:01 DC 08/09/25 19: Departure 1 Departure Time of Disposition: 20:49 Impression: Primary Impression: Lumbar sprain Qualified Codes: S33.5XXA - Sprain of ligaments of lumbar spine, initial encounter Disposition: HOME / SELF CARE / HOMELESS Condition: Stable e-Prescriptions Hydrocodone-Acetaminophen (Hydrocodone Bitartrate/AC 10-325 mg) 1 Tab Tab 1 TAB PO TID PRN, #20 TAB Prov: CHRISTEN VAZQUEZ 08/09/25 Discharged With: Self Critical Care Note Critical Care Time?: No Stability Stability form required: No Heart Score Heart Score: Heart Score Response (Comments) Value History N/A 0 EKG N/A 0 Age N/A 0 Risk Factors N/A 0 Troponin N/A 0 Total 0 CHRISTEN VAZQUEZ Aug 09, 2025 20:22
[2025-08-09] MEDS ORDERED: HYDR-4798 PO (20:50)
[2025-08-10 08:00] VITALS: PULSE 98; RESP 22; O2SAT 95
[2025-08-10] MEDS: HYDROcodone-ACET 5/325MG TAB PO ONE (08:37)
[2025-08-10 10:42] VITALS: PULSE 107; RESP 10; O2SAT 98
[2025-08-10 12:30] VITALS: PULSE 104; RESP 12; O2SAT 97
[2025-08-10] MEDS: HYDROcodone-ACET 10/325MG TAB PO ONE (20:12)
[2025-08-11 07:20] VITALS: PULSE 97; RESP 20; O2SAT 96
[2025-08-11 08:00] VITALS: BP 127/72; PULSE 99; RESP 15; TEMP 97.9; O2SAT 99
== END 2025-08-11 11:00 | disposition home or self-care (01) ==
LOC: ER 17:35 → EDBD 17:35 → ER 08-11 11:00
DX: S33.5XXA Sprain of ligaments of lumbar spine, initial encounter (principal); I10 Essential (primary) hypertension; E11.9 Type 2 diabetes mellitus without complications; Z79.899 Other long term (current) drug therapy; Z86.73 Personal history of transient ischemic attack (TIA), and cerebral infarction without residual deficits; X58.XXXA Exposure to other specified factors, initial encounter; Y93.89 Activity, other specified; Y92.89 Other specified places as the place of occurrence of the external cause; Y99.8 Other external cause status
CPT/HCPCS: 81001

== ENCOUNTER 2025-08-18 12:57 | Inpatient (IN) | payer MEDICAID ==
[2025-08-18] VITALS (42 sets, daily range): BP systolic 89–148; BP diastolic 53–100; PULSE 80–128; RESP 15–28; TEMP 97.5–98.1; O2SAT 92–100
[~2025-08-18] VITALS: Ht 152.4 cm; Wt 75.0 kg
[~2025-08-18 12:57] MED LIST changes: +HYDR-4798 PO
[2025-08-18] MEDS: ANGIOMAX 250 MG VIAL IV ONE ×2 (13:09→13:50)
--- NOTE | 2025-08-18 13:09 | ED.PDOC ---
HPI Comments 60 y.o female with PMHx of CVA (left sided deficits),on Plavix, HLD, and DM, presents to the ED via EMS for a chief complaint of nausea, vomiting and dizziness that started 4 days ago. Patient is unable to keep any of her medication down due to vomiting and is unsure when her last dosage of Plavix. EMS reports STEMI on their 12 lead EKG and was confirmed upon ED arrival on EKG machine. Cardiology UI UX WEB DEVELOPER Abhijit was at [facility] who sent the EKG to Dr. Crooks confirming STEMI. Patient noted fevers the past couple of days but denies any chest pain, SOB, runny nose, cough, or chills. No medication given by EMS en route. EMS note a blood glucose level of 372. Patient admits to marijuana use and denies any other substance, alcohol or tobacco use Time Seen by MD: 12:53 Primary Care Provider: DOMINIC Reviewed Notes: Nurses Notes, Farm Helper Notes, Medications, Allergies Allergies: Coded Allergies: Iodine (Verified Allergy, Unknown, 03/31/19) Home Meds Active Scripts Hydrocodone-Acetaminophen (Hydrocodone Bitartrate/AC 10-325 mg) 1 Tab Tab, 1 TAB PO TID PRN, #20 TAB Prov:CHRISTEN VAZQUEZ 08/09/25 Doxycycline (Monohydrate) (Doxycycline) 100 Mg Cap, 100 MG PO BID for 3 Days, #6 CAP [facility] 07/05/25 Amoxicillin & Pot Clavulanate (Augmentin) 500 Mg Tab, 1 TAB PO BID for 3 Days, #6 TAB Prov:[facility] 07/05/25 Insulin Lispro (Insulin Lispro) 100 Unit/Ml Inj, 5 UNIT SC AC for 30 Days, #500 INJ 1 Refill Prov:[facility] 07/04/25 Insulin Glargine-Yfgn (Insulin Glargine) 100 Unit/Ml Inj, 15 UNIT SC DAILY for 30 Days, #500 INJ 1 Refill Prov:[facility] 07/04/25 Metformin Hydrochloride (Metformin Hcl) 500 Mg Tab, 1 TAB PO BID, #60 TAB 1 [facility] 07/04/25 Sitagliptin (Sitagliptin) 100 Mg Tab, 100 MG PO DAILY for 30 Days, #30 TAB Prov:[facility] 07/04/25 Reported Medications Losartan Potassium (Losartan Potassium) 100 Mg Tab, 100 MG PO DAILY for 30 Days, MG 03/31/19 Loratadine (Claritin) 10 Mg Tab, 1 TAB PO DAILY, #30 TAB 5 Refills 03/31/19 Hydrocodone-Acetaminophen ([place] 10-325 mg) 1 Tab Tab, 1 TAB PO QID, TAB 03/31/19 Aspirin (Aspir-Low) 81 Mg Tab, 81 MG PO DAILY for 30 Days, MG 03/31/19 Simvastatin (Simvastatin) 20 Mg Tab, 20 MG PO DAILY for 30 Days 03/31/19 Metoprolol Tartrate (LOPRESSOR TABLET) 50 Mg Tb, 2 TAB PO BID, #60 TAB 5 Refills 03/31/19 Clonazepam (Clonazepam) 2 Mg Tab, 1 TAB PO BID, #60 TAB 2 Refills 03/31/19 Omeprazole (Gnp Omeprazole) 20 Mg Tab, 1 TAB PO DAILY, #90 TAB 1 Refill 03/31/19 Diphenhydramine Hcl (Benadryl Allergy) 25 Mg Cap, 50 MG PO BIDP PRN for ANXIETY, CAP 03/31/19 Diltiazem Hcl (Diltiazem Hcl) 60 Mg Tab, 120 MG PO BID for 30 Days, MG 03/31/19 Insulin Glargine (Basaglar Kwikpen) 100 Unit/Ml Inj, 20 UNIT SC DAILY, INJ 03/31/19 Risperidone (Risperidone) 1 Mg Tab, 1 TAB PO QPM, #30 TAB 1 Refill 03/31/19 Trazodone Hcl (Trazodone Hcl) 150 Mg Tab, 150 MG PO HSPRN PRN for FOR INSOMNIA, MG 03/31/19 Bupropion Hcl (Wellbutrin Sr) 150 Mg Tab, 1 TAB PO DAILY, #60 TAB 5 Refills 03/31/19 Information Source: Patient Mode of Arrival: EMS Severity: Moderate Timing: Days (4) Duration: Since onset Cardiac Risk Factors: Hyperlipidemia, HTN, Diabetes History of: None Modifying Factors: Nothing Associated Signs and Symptoms: N/V Past Medical History PAST MEDICAL HISTORY: AFIB, CVA, DM, High Lipids, HTN, Thyroid, TIA Surgical History: CRAP SHOOTER History: No Pertinent CRAP SHOOTER History Family History Family History: Reviewed,noncontributory to illness, Unknown Social History Smoker: Non-Smoker Alcohol: Denies ETOH Use Drugs: Marijuana Lives In: Home Constitutional: denies: chills, diaphoresis, fatigue, fever, malaise, sweats, weakness, others EENTM: denies: blurred vision, double vision, ear bleeding, ear discharge, ear drainage, ear pain, ear ringing, eye pain, eye redness, hearing loss, mouth catherine n, mouth swelling, nasal discharge, nose bleeding, nose congestion, nose pain, photophobia, tearing, throat pain, throat swelling, voice changes, others Respiratory: denies: cough, hemoptysis, orthopnea, SOB at rest, shortness of breath, SOB with excertion, stridor, wheezing, others Cardiovascular: denies: chest pain, dizzy spells, diaphoresis, Dyspnea on exertion, edema, irregular heart beat, left arm pain, lightheadedness, palpitations, PND, syncope, others Gastrointestinal: reports: nausea, vomiting; denies: abdomen distended, abdominal pain, blood streaked bowels, constipated, diarrhea, dysphagia, difficulty swallowing, hematemesis, melena, poor appetite, poor fluid intake, rectal bleeding, rectal pain, others Genitourinary: denies: abnormal vagina bleeding, burning, dyspareunia, dysuria, flank pain, frequency, hematuria, incontinence, pain, , vagina discharge, urgency, others Neurological: reports: dizziness; denies: fainting, headache, left sided numb ness, left sided weakness, numbness, paresthesia, pre-existing deficit, right sided numbness, right sided weakness, seizure, speech problems, tingling, tremors, weakness, others Musculoskeletal: denies: back pain, gout, joint pain, joint swelling, muscle pain, muscle stiffness, neck pain, others Integumetry: denies: bruises, change in color, change in hair/nails, dryness, laceration, lesions, lumps, rash, wounds, others Allergic/Immunocompromised: denies: Difficulty Healing, Frequent Infections, Hives, Itching, others Hematologic/Lymphatic: denies: anemia, blood clots, easy bleeding, easy bruising, swollen glands, others Endocrine: denies: excessive hunger, excessive sweating, excessive thirst, excessive urination, flushing, intolerance to cold, intolerance to heat, unexplained weight gain, unexplained weight loss, others Psychiatric: denies: anxiety, bipolar disorder, depression, hopeless, panic disorder, schizophrenia, sleepless, suicidal, others All Other Systems: Reviewed and Negative Physical Exam General Appearance: Moderate Distress HEENT: Normal ENT Inspection, Pharynx Normal, TMs Normal Neck: Full Range of Motion, Non-Tender, Normal, Normal Inspection Respiratory: Chest Non-Tender, Lungs Clear, No Accessory Muscle Use, No Respiratory Distress, Normal Breath Sounds Cardiovascular: No Edema, No JVD, No Murmur, No Gallop, Normal Peripheral Pulses, Regular Rate/Rhythm Breast Exam: Deferred Gastrointestinal: No Organomegaly, Non Tender, No Pulsatile Mass, Normal Bowel Sounds, Soft Genitalia: Deferred Pelvic: Deferred Rectal: Deferred Extremities: No calf tenderness, Normal capillary refill, Normal inspection, Normal range of motion, Non-tender, No pedal edema Musculoskeletal : Apperance: Normal Neurologic: Alert, diesel mechanic construction II-XII nml as Tested, No Motor Deficits, Normal Affect, Normal Mood, No Sensory Deficits Cerebellar Function: Normal Reflexes: Normal Skin: Dry, Normal Color, Warm Lymphatic: No Adenopathy EKG EKG : Comments Rate of 82 sinus rhythm, ST elevation in leads 2 3 and AVF consistent with acute STEMI Was a procedure done? Was a procedure done?: No CP Differential Dx Differential Diagnosis: [place] Differential Diagnosis: Angina, Aortic dissection, Myocardial Infarction, Pneumothorax, Pulmonary Embolus X-Ray, Labs, Meds, VS Vital Signs Date Time Temp Pulse Resp B/P (MAP) Pulse Ox O2 Delivery O2 Flow Rate FiO2 08/18/25 13:09 74 14 100/69 (79) 92 08/18/25 13:03 74 20 124/88 95 08/18/25 12:57 74 Lab Test 08/18/25 13:19 08/18/25 13:18 Range/Units Hemoglobin A1c 6.5 H <5.7 % A1C Triglycerides Level 157 H < 150 mg/dL Cholesterol Level 223 H < 200 mg/dL LDL Cholesterol 145 H < 100 mg/dL HDL Cholesterol 45 40-59 mg/dL Thyroid Stimulating Hormone (TSH) 3.19 0.55-4.78 uIU/mL White Blood Count 29.9 H 4.4-10.8 10^3/uL Red Blood Count 5.28 H 4.0-5.20 10^6/uL Hemoglobin 16.5 H 12.2-16.2 g/dL Hematocrit 48.8 H 36.0-46.0 % Mean Corpuscular Volume 92.6 80.0-100.0 fL Mean Corpuscular Hemoglobin 31.2 28.0-32.0 pg Mean Corpuscular Hemoglobin Concent 33.7 32.0-36.0 g/dL Red Cell Distribution Width 13.4 11.8-14.3 % Platelet Count 280 140-450 10^3/uL Mean Platelet Volume 10.0 6.9-10.8 fL Neutrophils (%) (Auto) 37.0-80.0 % Lymphocytes (%) (Auto) 10.0-50.0 % Monocytes (%) (Auto) 0.0-12.0 % Basophils (%) (Auto) 0.0-2.0 % Neutrophils # (Auto) 1.6-8.6 10 ^3/uL Lymphocytes # (Auto) 0.4-5.4 10 ^3/uL Monocytes # (Auto) 0-1.3 10 ^3/uL Differential Total Cells Counted 100.0 100 Neutrophils % (Manual) 91 H 37.0-80.0 Band Neutrophils % (Manual) 0 Lymphocytes % (Manual) 3 L 10.0-50.0 Monocytes % (Manual) 6 0-12 Eosinophils % (Manual) 0 0-7 Basophils % (Manual) 0 0.0-2.0 Metamyelocytes % (manual) 0 Myelocytes % (Manual) 0 Promyelocytes % (Manual) 0 Blast Cells % (Manual) 0 Reactive Lymphocytes 0 Platelet Estimate Adequate Prothrombin Time 10.3 9.3-11.8 sec Prothrombin Time INR 0.97 0.9-1.15 Activated Partial Thromboplast Time 24.2 L 24.5-34.5 SEC Sodium Level 139 136-145 mmol/L Potassium Level 3.7 3.5-5.1 mmol/L Chloride Level 103 98-107 mmol/L Carbon Dioxide Level 16 L 20-31 mmol/L Anion Gap 20 H 5-15 Blood Urea Nitrogen 15 9-23 mg/dL Creatinine 1.11 H 0.550-1.02 mg/dL Glomerular Filtration Rate Calc 57 >90 mL/min BUN/Creatinine Ratio 13.5 10.0-20.0 Serum Glucose 357 H 74-106 mg/dL Calcium Level 9.6 8.7-10.4 mg/dL Total Bilirubin 1.4 H 0.2-1.0 mg/dL Aspartate Amino Transferase (AST) 87 H 13-40 U/L Alanine Aminotransferase (ALT) 16 7-40 U/L Alkaline Phosphatase 82 46-116 U/L Total Protein 7.9 5.7-8.2 g/dL Albumin 4.1 3.2-4.8 g/dL Current Medications Medications (Trade) Dose Ordered Sig/Jaime Route Start Time Stop Time Status Last Admin Aspirin 324 mg ONCE ONCE PO 08/18/25 13:15 08/18/25 13:16 DC 08/18/25 13:23 Heparin Sodium (Porcine) 4,000 units ONCE ONCE IV 08/18/25 13:15 08/18/25 13:16 DC 08/18/25 13:24 Diphenhydramine HCl (Benadryl Injection) 12.5 mg ONCE ONCE IV 08/18/25 13:15 08/18/25 13:16 DC 08/18/25 13:23 Famotidine (Pepcid Injection) 20 mg ONCE ONCE IV 08/18/25 13:15 08/18/25 13:16 DC 08/18/25 13:23 Methylprednisolone Sodium Succinate (Solu Medrol) 40 mg ONCE ONCE IV 08/18/25 13:15 08/18/25 13:16 DC 08/18/25 13:23 Ondansetron HCl (Zofran) 4 mg ONCE ONCE IV 08/18/25 13:15 08/18/25 13:16 DC 08/18/25 13:23 Patient was seen immediately by myself as in coming EMS strip demonstrated acute myocardial infarction in inferior leads. Patient states she has not had any chest discomfort however she has been vomiting for last several days. She is currently on Plavix for her stroke but has missed a few doses. EKG was done immediately here. Which continued to demonstrate acute myocardial infarction in the inferior leads. Patient was seen alongside cardiology UI UX WEB DEVELOPER. STEMI was activated. Dr. GO has been contacted. Patient was given heparin here in the ER. As well as aspirin 324. Blood work has demonstrated WBC count of 29. CMP demonstrates an anion gap of 20 as well as an total bilirubin of 1.4. She also has mild acute kidney injury with a creatinine of 1.11. Chest x-ray with no evidence of acute aortic dissection. At this time patient has been take immediately to the salvage laborer. Time of 1ST Reevaluation: 13:00 Reevaluation 1ST: Unchanged Patient Education/Counseling: Diagnosis, Treatment, Prognosis Family Education/Counseling: No Family Present SEPSIS Sepsis Screen Physician Orders Obtain Consent For: (08/18/25 13:00) Provide Education Materials (08/18/25 13:00) Cl Left Heart Cath (08/18/25 13:00) Comprehensive Metabolic Panel (08/20/25 04:00) Chest Portable (08/18/25 13:00) Electrocardigram (08/18/25 14:03) Electrocardigram (08/18/25 16:03) Cl Left Heart Cath (08/18/25 13:05) Vital Signs Date Time Temp Pulse Resp B/P (MAP) Pulse Ox O2 Delivery O2 Flow Rate FiO2 08/18/25 13:09 74 14 100/69 (79) 92 08/18/25 13:03 74 20 124/88 95 08/18/25 12:57 74 Laboratory Tests Test 08/18/25 13:18 White Blood Count 29.9 10^3/uL (4.4-10.8) H Medications Medications Dose Ordered Sig/Jaime Route Start Time Stop Time Status Last Admin Dose Admin Aspirin 324 mg ONCE ONCE PO 08/18/25 13:15 08/18/25 13:16 DC 08/18/25 13:23 Diphenhydramine HCl 12.5 mg ONCE ONCE IV 08/18/25 13:15 08/18/25 13:16 DC 08/18/25 13:23 Famotidine 20 mg ONCE ONCE IV 08/18/25 13:15 08/18/25 13:16 DC 08/18/25 13:23 Fentanyl Citrate 100 mcg STK-MED ONCE .ROUTE 08/18/25 13:10 08/18/25 13:09 DC 08/18/25 13:10 Heparin Sodium (Porcine) 4,000 units ONCE ONCE IV 08/18/25 13:15 08/18/25 13:16 DC 08/18/25 13:24 Methylprednisolone Sodium Succinate 40 mg ONCE ONCE IV 08/18/25 13:15 08/18/25 13:16 DC 08/18/25 13:23 Methylprednisolone Sodium Succinate 125 mg STK-MED ONCE .ROUTE 08/18/25 13:24 08/18/25 13:24 DC 08/18/25 13:24 Midazolam HCl 2 mg STK-MED ONCE .ROUTE 08/18/25 13:10 08/18/25 13:09 DC 08/18/25 13:10 Ondansetron HCl 4 mg ONCE ONCE IV 08/18/25 13:15 08/18/25 13:16 DC 08/18/25 13:23 Departure 1 Departure Time of Disposition: 13:45 Impression: Primary Impression: STEMI (ST elevation myocardial infarction) Qualified Codes: I21.3 - ST elevation (STEMI) myocardial infarction of unspecified site Additional Impressions: Metabolic acidosis Dehydration Disposition: ADMITTED INPATIENT Condition: Critical Critical Care Note Critical Care Time?: Yes (35 min-critical care time only) Stability Stability form required: No Heart Score Heart Score: Heart Score Response (Comments) Value History Highly Suspicious [address]-Deviation 2 Age 45-64 1 Risk Factors >3 or Hx ASHD 2 Troponin 1-2 x's Normal limit 1 Total 8 I personally scribed for ELY COLLADO MD ([email or web address]) on 08/18/25 at 13:09. Electronically submitted by Akila Cardenas ([facility]). ELY COLLADO MD Aug 18, 2025 13:09
[2025-08-18] MEDS: fentaNYL CITRATE 100 MCG/2 ML VL ONE (13:10)
[2025-08-18] MEDS: SODIUM CHL 0.9% 50 ML ONE ×2 (13:10→13:50)
[2025-08-18] MEDS: LIDOCAINE 2%HCL (LOCAL ANESTH.) INJ 20ML MDV ONE (13:10)
[2025-08-18] MEDS: MIDAZOLAM HCL 2MG/2ML 2ml VIAL (1mg/ml) ONE (13:10)
[2025-08-18] MEDS: IOHEXOL 350 MG/ML 100ML IJ ONE (13:13)
[2025-08-18] MEDS: ONDANSETRON HCL 4 MG/2 ML VIAL IV ONE (13:23)
[2025-08-18] MEDS: FAMOTIDINE (10MG/ML) 2ML VL IV ONE ×3 (13:23→13:25)
[2025-08-18] MEDS: methylPREDNISolone SOD SUCC 40 MG/ML VL IV ONE (13:23)
[2025-08-18] MEDS: diphenhydrAMINE HCL 50 MG/1 ML VL IV ONE (13:23)
[2025-08-18] MEDS: methylPREDNISolone SOD SUCC 125 MG/2 ML VL ONE (13:24)
[2025-08-18] MEDS: HEPARIN SODIUM (PORCINE) 5000 UNITS/ML 1ML VIAL IV ONE (13:24)
[2025-08-18] MEDS: HEPARIN SODIUM (PORCINE) 5000 UNITS/ML 1ML VIAL ONE (13:25)
[2025-08-18] MEDS: diphenhydrAMINE HCL 50 MG/1 ML VL ONE (13:25)
[2025-08-18] MEDS: methylPREDNISolone SOD SUCC 40 MG/ML VL ONE (13:25)
[2025-08-18 13:39] LABS: Hematocrit 48.8 % (36.0-46.0); Hemoglobin 16.5 g/dL (12.2-16.2); Mean Corpuscular Volume 92.6 fL (80.0-100.0)
[2025-08-18 13:40] LABS: Mean Corpuscular Hemoglobin 31.2 pg (28.0-32.0)
[2025-08-18] MEDS ORDERED: ACETAMINOPHEN 325 MG TAB PO PRN (13:45)
[2025-08-18] MEDS ORDERED: MORPHINE SULFATE INJ 2 MG/ml SYRG IV PRN (13:45)
[2025-08-18] MEDS ORDERED: NITROGLYCERIN 0.4 MG SL TAB SL PRN (13:45)
[2025-08-18 13:50] LABS: Alanine Aminotransferase 16 U/L (7-40); Albumin 4.1 g/dL (3.2-4.8); Alkaline Phosphatase 82 U/L (46-116); Anion Gap 20 (5-15); BUN/Creatinine Ratio 13.5 (10.0-20.0); Blood Urea Nitrogen 15 mg/dL (9-23); Calcium 9.6 mg/dL (8.7-10.4); Chloride 103 mmol/L (98-107); Potassium 3.7 mmol/L (3.5-5.1); Sodium 139 mmol/L (136-145); Total Protein 7.9 g/dL (5.7-8.2)
[2025-08-18 13:56] LABS: Bilirubin, Total 1.4 mg/dL (0.2-1.0); Carbon Dioxide 16 mmol/L (20-31); Glucose 357 mg/dL (74-106); INR 0.97 (0.9-1.15); Partial Thromboplastin Time 24.2 SEC (24.5-34.5); Prothrombin Time 10.3 sec (9.3-11.8)
[2025-08-18] MEDS: EPTIFIBATIDE INJ (2MG/ML) 10ML VIAL IV ONE (13:57)
--- NOTE | 2025-08-18 13:57 | DVH ---
CHEST RADIOGRAPH Indication: STEMI Technique: Single frontal view of the chest was obtained Comparison: XY CHEST XRAY 1 VIEW on DOS: 06/30/25 FINDINGS: Lines and Tubes: None Lungs: Increased bronchovascular markings in the right upper lung field left lower lung field.. Pleura: No effusion. No pneumothorax. Cardiomediastinal contours: Unremarkable Bones: No acute osseous abnormality. IMPRESSION: 1. Possible infiltrate developing in the left lower lung field and right upper lung field. Correlate clinically. 2. Consider follow-up chest x-ray.
[2025-08-18] MEDS: ATROPINE SULF 1 MG/10ml SYR ONE (14:00)
[2025-08-18 14:23] LABS: HDL Cholesterol 45 mg/dL (40-59)
[2025-08-18 14:24] LABS: Cholesterol 223 mg/dL (< 200); Triglycerides 157 mg/dL (< 150)
--- NOTE | 2025-08-18 14:25 | DVHHPRES ---
History of Present Illness Resident Creating Document: FANNIE ZELAYA RESIDENT History of Present Illness This is 60-year-old female with past medical history of type 1 diabetes mellitus insulin-dependent, primary hypertension,dyslipidemia, morbid obesity, history of CVA with left-sided deficits of October of 2024 (previously on dual antiplatelet therapy). The patient presented to the ED brought via EMS with chief complaint of nausea, vomiting and dizziness that was being going on and off for the last five days. Per EMS, due to nausea and vomiting patient was not taking her medications. The patient denied chest pain, shortness of breath, palpitations or any other typical cardiac symptoms. On the way to the ED a 12 lead EKG showed STEMI in the inferior leads leads II, III, AVF. In the emergency department, EKG was repeated consistent with STEMI of inferior wall. Brand Marketing Specialist was called which confirmed STEMI and patient was taken to the clam bed laborer for coronary angiogram. Patient was loaded on aspirin. We will start the patient since tomorrow morning and dual antiplatelet therapy aspirin 81 mg daily, Plavix 75 mg daily and atorvastatin 80 mg daily. We ordered CBC, CMP, urinalysis, urine drug screen, hemoglobin A1c, lipid panel and additional labs. Patient will be admitted for further assessment and management. Home medications: Aspirin 81 mg daily, bupropion 150 mg daily, clonazepam 2 mg daily, diltiazem 60 mg b.i.d., Basaglar 20 units daily, losartan 100 mg daily, metformin 500 mg b.i.d., metoprolol tartrate 50 mg b.i.d., simvastatin 20 mg daily Cardiovascular: HTN, hyperipidemia Endocrine: Diabetes Past Surgical History: None Family History: None Smoke: No ALCOHOL: none Drugs: Marijuana Lives: with Family Review of Systems Constitutional: Yes: Other (Dizziness); No: Fever, Chills, Sweats, Weakness, Malaise Eyes: No: Pain, Vision change, Conjunctivae inflammation, Eyelid inflammation, Other, Redness ENT: No: Ear pain, Ear discharge, Nose pain, Nose discharge, Nose congestion, Mouth pain, Mouth swelling, Throat pain, Throat swelling, Other Respiratory: No: Cough, Dry, Shortness of breath, SOB with excertion, Wheezing, Hemoptysis, Pleuritic Pain, Sputum, Wheezing, Other Cardiovascular: No: Chest Pain, Palpitations, Orthopnea, Paroxysmal Noc. Dyspnea, Edema, Lt Headedness, Other Gastrointestinal: Nausea, Vomiting; No: Abdominal Pain, Diarrhea, Constipation, Melena, Hematochezia, Other Genitourinary: No Dysuria, No Frequency, No Incontinence, No Hematuria, No Retention, No Other Musculoskeletal: No: other, neck pain, shoulder pain, arm pain, back pain, hand pain, leg pain, foot pain Skin: No: Rash, Lesions, Jaundice, Bruising, Other Neurological: No: Weakness, Numbness, Incoordination, Change in speech, Confusion, Seizures, Other Allergies: Coded Allergies: Iodine (Verified Allergy, Unknown, 03/31/19) Medications Current Medications Medications Dose Ordered Sig/Jaime Route Start Time Stop Time Status Last Admin Dose Admin Acetaminophen 650 mg Q6HP PRN PO 08/18/25 13:45 UNV Acetaminophen/ Hydrocodone Bitart 1 tab Q4HP PRN PO 08/18/25 13:45 UNV Enoxaparin Sodium 40 mg DAILY SC 08/19/25 10:00 UNV Nitroglycerin 0.4 mg Q5MINP PRN SL 08/18/25 13:45 UNV Morphine Sulfate 2 mg Q30M PRN IV 08/18/25 13:45 UNV Aspirin 81 mg DAILY PO 08/19/25 10:00 UNV Clopidogrel Bisulfate 75 mg DAILY PO 08/19/25 10:00 UNV Atorvastatin Calcium 80 mg DAILY PO 08/19/25 10:00 UNV Exam Vital Signs Vital Signs Date Time Temp Pulse Resp B/P (MAP) Pulse Ox O2 Delivery O2 Flow Rate FiO2 08/18/25 13:09 74 14 100/69 (79) 92 General Appearance: Alert, Oriented X3, Cooperative, mild distress HEENT: Atraumatic, PERRLA, EOMI, Mucous membr. moist/pink Respiratory: Clear to auscultation, Normal air movement Cardiovascular: Regular rate, Normal S1, Normal S2, No murmurs Abdominal: Normal bowel sounds, Soft, No tenderness, No hepatospenomegaly Extremities: No clubbing, No cyanosis, No edema, Normal pulses, No tenderness/swelling Skin: No rashes, No breakdown, No significant lesion Neuro: Normal gait, Normal speech, Strength at 5/5 X4 ext, Normal tone, Sensation intact, Cranial nerves 3-12 NL, Reflexes 2+ Psych/Mental Status: Mental status NL, Mood NL Labs/Xrays Labs Test 08/18/25 13:18 Range/Units SEPSIS Sepsis Screen Date sepsis recognized/suspect: Aug 18, 2025 Time Sepsis recognized/suspect: 1302 Recent Procedure: No On Antibiotic Therapy: No Respiratory Rate >20: No Heart Rate >90: No Temp<36 C (96.8 F) or >38.3 C: No SBP <90 or MAP <65 mmHG: No New Acute Mental Status Change: No Is the patient on CPAP, BIPAP,: No Physician Orders Obtain Consent For: (08/18/25 13:00) D/C Tlc (08/18/25 13:00) Shave Both Groins (08/18/25 13:00) Provide Education Materials (08/18/25 13:00) Cl Left Heart Cath (08/18/25 13:00) Comprehensive Metabolic Panel (08/20/25 04:00) Obtain Consent For Anesthesia (08/18/25 13:00) Complete Blood Count (08/18/25 13:00) Comprehensive Metabolic Panel (08/18/25 13:00) PTPTT (08/18/25 13:00) Chest Portable (08/18/25 13:00) Echo 2d Mode Cardiac Dop (08/18/25 13:01) Electrocardigram (08/18/25 13:03) Electrocardigram (08/18/25 14:03) Electrocardigram (08/18/25 16:03) Cl Left Heart Cath (08/18/25 13:05) Admit (08/18/25 13:40) Code Status (08/18/25 13:40) Vital Signs .PER UNIT PROTOCOL (08/18/25 13:40) Review Orders With Adm.Md (08/18/25 13:40) Encourage Activity As Tolerate (08/18/25 13:40) Npo (Nothing By Mouth) Diet (08/18/25 Dinner) Acetaminophen Tablet (Tylenol Tablet) (08/18/25 13:45) Notify Md Of Changes From Base (08/18/25 13:40) Advance Directive (08/18/25 13:40) Basic Metabolic Panel (08/19/25 04:00) Complete Blood Count (08/19/25 04:00) Lipid Panel (08/18/25 13:40) Patient Condition (08/18/25 13:40) Allergies (08/18/25 13:40) Hydrocodone-Acet 5/325mg Tab (Celina 5/32 (08/18/25 13:45) Drug Screen (08/18/25 13:40) Hemoglobin A1c (08/18/25 13:40) Enoxaparin Sodium (Lovenox) (08/19/25 10:00) Nitroglycerin Sublingual (Ntrostat Subli (08/18/25 13:45) Morphine Sulfate Injection (08/18/25 13:45) Notify Md Of Changes From Base (08/18/25 13:40) Rivet Passer For 24 Hours (08/18/25 13:40) Emergency Dysrhythmia Protocol (08/18/25 13:40) Rhythm Strips Once Every Shift (08/18/25 13:40) Aspirin Tablet (08/19/25 10:00) Clopidogrel Bisulfate (Plavix) (08/19/25 10:00) Atorvastatin (Lipitor) (08/19/25 10:00) Vital Signs Date Time Temp Pulse Resp B/P (MAP) Pulse Ox O2 Delivery O2 Flow Rate FiO2 08/18/25 13:09 74 14 100/69 (79) 92 08/18/25 13:03 74 20 124/88 95 08/18/25 12:57 74 Laboratory Tests Test 08/18/25 13:18 White Blood Count Pending Medications Medications Dose Ordered Sig/Jaime Route Start Time Stop Time Status Last Admin Dose Admin Aspirin 324 mg ONCE ONCE PO 08/18/25 13:15 08/18/25 13:16 DC 08/18/25 13:23 324 MG Diphenhydramine HCl 12.5 mg ONCE ONCE IV 08/18/25 13:15 08/18/25 13:16 DC 08/18/25 13:23 12.5 MG Famotidine 20 mg ONCE ONCE IV 08/18/25 13:15 08/18/25 13:16 DC 08/18/25 13:23 20 MG Heparin Sodium (Porcine) 4,000 units ONCE ONCE IV 08/18/25 13:15 08/18/25 13:16 DC 08/18/25 13:24 4,000 UNITS Methylprednisolone Sodium Succinate 40 mg ONCE ONCE IV 08/18/25 13:15 08/18/25 13:16 DC 08/18/25 13:23 40 MG Ondansetron HCl 4 mg ONCE ONCE IV 08/18/25 13:15 08/18/25 13:16 DC 08/18/25 13:23 4 MG Assessment/Plan Assessment/Plan Assessment/Plan Acute chest pain due to acute coronary syndrome STEMI in inferior wall -[address] elevation on leads II, III, AVF -Patient was loaded on aspirin -Patient taken to the clam bed laborer by Dr. Crooks for left heart cath -Ordered CBC, CMP. UA, UDS -Restart aspirin 81mg daily from tomorrow am as well as clopidogrel 75mg daily -Start atorvastatin 80mg daily -Strict Ins and outs -cardiac diet -Cardiology on board Primary hypertension with possible diastolic/systolic dysfunction -hold antihypertensive at this time, waiting that the patient gets out of the clam bed laborer -monitor blood pressure closely -we will restart home medications for hypertension once patient is stable Type 1 diabetes mellitus -ordered hemoglobin A1c -Sliding scale insulin -monitor blood glucose, we will start Lantus accordingly Dyslipidemia -ordered lipid panel -start atorvastatin 80 mg daily Morbid obesity -we will consult the patient on nutrition status and weight loss. Hx of CVA with left sided deficits -Will restart DAPT aspirin and copidogrel Goals of care discussed with patient, FULL CODE Plan discussed with Dr. Thacker critical care time 90 mins Plan discussed with: Patient My Orders Orders - FANNIE ZELAYA RESIDENT Procedure Category Date Status Time Admit ADMIT 08/18/25 Transmitted 13:40 Code Status CODE 08/18/25 Transmitted 13:40 Vital Signs MELLO 08/18/25 In Process 13:40 Review Orders With MELLO 08/18/25 In Process Adm. 13:40 Encourage Activity As MELLO 08/18/25 In Process Tolerate 13:40 Npo (Nothing By DIET 08/18/25 Transmitted Mouth) Diet Dinner Acetaminophen Tablet PHA 08/18/25 Logged (Tylenol Tablet) 13:45 Notify Of Changes MELLO 08/18/25 In Process From Base 13:40 Advance Directive MELLO 08/18/25 In Process 13:40 Basic Metabolic Panel LAB 08/19/25 Verified 04:00 Complete Blood Count LAB 08/19/25 Verified 04:00 Lipid Panel LAB 08/18/25 Logged 13:40 Patient Condition ORDERS 08/18/25 Transmitted 13:40 Allergies [facility] 08/18/25 In Process 13:40 Hydrocodone-Acet PHA 08/18/25 Logged 5/325mg Tab (Celina 13:45 Drug Screen LAB 08/18/25 Logged 13:40 Hemoglobin A1c LAB 08/18/25 Logged 13:40 Enoxaparin Sodium [facility] 08/19/25 Logged (Lovenox) 10:00 Nitroglycerin PH[facility] 08/18/25 Logged Sublingual (Ntrostat 13:45 Morphine Sulfate [facility] 08/18/25 Logged Injection 13:45 Notify Of Changes [facility] 08/18/25 In Process From Base 13:40 Rivet Passer For [facility] 08/18/25 In Process 24 Hours 13:40 Emergency Dysrhythmia [facility] 08/18/25 In Process Protocol 13:40 Rhythm Strips Once [facility] 08/18/25 In Process Every Shift 13:40 Aspirin Tablet [facility] 08/19/25 Transmitted 10:00 Clopidogrel Bisulfate [facility] 08/19/25 Transmitted (Plavix) 10:00 Atorvastatin (Lipitor) [facility] 08/19/25 Transmitted 10:00 Date of Service: Aug 18, 2025 Billing Provider: ROSI THACKER MD Common Visit Codes: [id number] CARE 30-74 MIN, [id number] CARE-EACH +30MIN FANNIE ZELAYA RESIDENT Aug 18, 2025 14:25 ROSI THACKER MD Aug 19, 2025 10:35
[2025-08-18] MEDS: CLOPIDOGREL BISULFATE 75 MG TAB ONE (14:32)
--- NOTE | 2025-08-18 14:37 | DVHOP ---
DATE OF SURGERY: 08/18/2025 HISTORY: The patient who has been having intermittent epigastric dysfunction, nausea, vomiting for the last 5 days. On arrival to the Emergency Room, it was felt that the patient has GI symptoms. An EKG showed acute inferior wall ME or it may be a chronic ME with persistent ST elevation secondary to aneurysm formation. It is not clear when patient actually occluded the right coronary artery. It could have been 5 days ago. It could have been recent. Because the symptoms have been ongoing for the 5 days. The patient is now to undergo coronary angiography with possibility of revascularization. PROCEDURES PERFORMED: * Selective left and right coronary angiography. * Ventriculogram. * Angioplasty of the distal RCA to the ostial RCA with three sequential stent placement, 3.0 x 30, 3.0 x 38 and a 3.0 x 22 mm stents were deployed from distal to ostial respectively. * The patient also underwent intraarterial injection of Integrilin. * Also balloon angioplasty with 2.5 x 15 mm Euphora balloon and thrombectomy with a shockwave of the right coronary artery. * The patient also had FFR of left anterior descending artery, which has a significant ostial narrowing, eccentric in nature with an FFR of 0.7, which will require intervention at a later date. * Conscious sedation was also given. PROCEDURE: The patient was prepped and draped under sterile condition. 1% Xylocaine was used to anesthetize the right groin. Using a Cook needle, the right femoral artery was engaged with Seldinger technique. A 6-Israeli sheath in the right femoral artery. Using 6-Israeli JL4 catheter and a 6-Israeli JR4 catheter, selective left and right coronary angiography was performed. FFR of the LAD was done because of the eccentric lesion noted. It was 0.7, which would require intervention at a later date. Using a 6-Israeli JR4 guide catheter, RCA was cannulated using a ChoICE PT extra support wire. The RCA occlusion was then crossed. It was then balloon angioplastied using a 2.5 x 15 mm Euphora balloon. Following the dilatation, the patient underwent shockwave thrombectomy of the lesion because of heavy calcification throughout the coronary anatomy from the distal to the proximal. 2.5 x 12 mm shockwave thrombectomy catheter was used to angioplasty the entire length of the RCA from the distal to the proximal. Then, three sequential stents were placed, 3.0 x 30, 3.0 x 38 and a 3.0 x 22 mm stents from distal to ostial respectively. There were no complications. The patient tolerated the procedure well. Because of increased thrombus and chronicity of the occlusion, intraarterial Integrilin was installed after initial revascularization with a Euphora balloon to prevent any further clot formation. RESULTS: * Left main calcified, no flow-restricting lesion. * Left anterior descending artery, moderate diffuse disease with a proximal eccentric plaque with a stenosis of about 70%. * Circumflex artery, nondominant vessel, moderate diffuse disease without any flow restrictive lesion. * Right coronary artery, large dominant vessel was proximally occluded, heavily calcified, underwent thrombectomy of the entire length followed by three sequential stent placed as indicated above. Less than 10% residual stenosis with MADHU grade 3 flow. Valeriy Smalls MD SA/HECTOR TID: [id number] RECEIPT: [id number]
--- NOTE | 2025-08-18 14:37 | ECG ---
[facility] Test Date: 2025-08-18 Test Time: 12:54:39 Pat Name: DAVE TY Department: [facility] ED Patient ID: [id number] Room: 0216T Gender: F Cigar Sorter: kellen : 1965 Requested By: ELY COLLADO Order Number: [id number] Reading MD: Xiang Shaikh Measurements Intervals [place] Rate: 74 P: 0 CT: 0 QRS: -66 QRSD: 116 T: 76 QT: 503 QTc: 559 Interpretive Statements AV block, complete (third degree) Incomplete right bundle branch block Inferior infarct, acute (RCA) Lateral leads are also involved Probable RV involvement, suggest recording right precordial leads Electronically Signed On 08-21-2025 10:56:06 PST by Xiang Shaikh Please click the below link to view image of tracing.
[2025-08-18 14:52] LABS: Total Cells Counted 100.0 (100)
--- NOTE | 2025-08-18 16:09 | DVHCONRES ---
Date Seen: Aug 18, 2025 Resident Creating Document: DEBRA MCCLENDON RESIDENT Reason for Consultation STEMI History of Present Illness DAVE TY 60-year-old female with a PMH of insulin dependent type 1 DM, HTN, DLD, CVA presented to the ED with the chief complaints of nausea, vomiting and dizziness which has started for 5 days. Per EMS, due to nausea and vomiting patient was not taking her medications. The patient denied chest pain, shortness of breath, palpitations or any other typical cardiac symptoms. On the way to the ED a 12 lead EKG showed STEMI in the inferior leads leads II, III, AVF. In the emergency department, EKG was repeated consistent with STEMI of inferior wall. Dr. Buckley informed, patient underwent coronary angiogram. PMH: HTN, HLD, type 1 DM, CVA Patient's: Noncontributory Family history: Noncontributory Social history: Lives at home. Denies smoking, alcohol and other drug abuse. Home medications: Aspirin 81 mg daily, bupropion 150 mg daily, clonazepam 2 mg daily, diltiazem 60 mg b.i.d., Basaglar 20 units daily, losartan 100 mg daily, metformin 500 mg b.i.d., metoprolol tartrate 50 mg b.i.d., simvastatin 20 mg daily ROS: Patient seen and examined at the bedside. Patient reported having nausea but no chest pain reported at this time. Family History: Patient reports no known family medical history. Allergies: Coded Allergies: Iodine (Verified Allergy, Unknown, 03/31/19) Home Meds Active Scripts Hydrocodone-Acetaminophen (Hydrocodone Bitartrate/AC 10-325 mg) 1 Tab Tab, 1 TAB PO TID PRN, #20 TAB Prov:CHRISTEN VAZQUEZ 08/09/25 Doxycycline (Monohydrate) (Doxycycline) 100 Mg Cap, 100 MG PO BID for 3 Days, #6 CAP Prov:ANTELMO GODWIN 07/05/25 Amoxicillin & Pot Clavulanate (Augmentin) 500 Mg Tab, 1 TAB PO BID for 3 Days, #6 TAB Prov:ANTELMO GODWIN 07/05/25 Insulin Lispro (Insulin Lispro) 100 Unit/Ml Inj, 5 UNIT SC AC for 30 Days, #500 INJ 1 Refill Prov:ANTELMO GODWIN 07/04/25 Insulin Glargine-Yfgn (Insulin Glargine) 100 Unit/Ml Inj, 15 UNIT SC DAILY for 30 Days, #500 INJ 1 [facility] 07/04/25 Metformin Hydrochloride (Metformin Hcl) 500 Mg Tab, 1 TAB PO BID, #60 TAB 1 Ref[facility] 07/04/25 Sitagliptin (Sitagliptin) 100 Mg Tab, 100 MG PO DAILY for 30 Days, #30 TAB [facility] 07/04/25 Reported Medications Losartan Potassium (Losartan Potassium) 100 Mg Tab, 100 MG PO DAILY for 30 Days, MG 03/31/19 Loratadine (Claritin) 10 Mg Tab, 1 TAB PO DAILY, #30 TAB 5 Refills 03/31/19 Hydrocodone-Acetaminophen (Independence 10-325 mg) 1 Tab Tab, 1 TAB PO QID, TAB 03/31/19 Aspirin (Aspir-Low) 81 Mg Tab, 81 MG PO DAILY for 30 Days, MG 03/31/19 Simvastatin (Simvastatin) 20 Mg Tab, 20 MG PO DAILY for 30 Days 03/31/19 Metoprolol Tartrate (LOPRESSOR TABLET) 50 Mg Tb, 2 TAB PO BID, #60 TAB 5 Refills 03/31/19 Clonazepam (Clonazepam) 2 Mg Tab, 1 TAB PO BID, #60 TAB 2 Refills 03/31/19 Omeprazole (Gnp Omeprazole) 20 Mg Tab, 1 TAB PO DAILY, #90 TAB 1 Refill 03/31/19 Diphenhydramine Hcl (Benadryl Allergy) 25 Mg Cap, 50 MG PO BIDP PRN for ANXIETY, CAP 03/31/19 Diltiazem Hcl (Diltiazem Hcl) 60 Mg Tab, 120 MG PO BID for 30 Days, MG 03/31/19 Insulin Glargine (Basaglar Kwikpen) 100 Unit/Ml Inj, 20 UNIT SC DAILY, INJ 03/31/19 Risperidone (Risperidone) 1 Mg Tab, 1 TAB PO QPM, #30 TAB 1 Refill 03/31/19 Trazodone Hcl (Trazodone Hcl) 150 Mg Tab, 150 MG PO HSPRN PRN for FOR INSOMNIA, MG 03/31/19 Bupropion Hcl (Wellbutrin Sr) 150 Mg Tab, 1 TAB PO DAILY, #60 TAB 5 Refills 03/31/19 Current Medications Current Medications Medications (Trade) Dose Ordered Sig/Jaime Route PRN Reason Start Time Stop Time Status Last Admin Acetaminophen (Tylenol Tablet) 650 mg Q6HP PRN PO PAIN SCALE 1-3 OR TEMP>100.4 08/18/25 13:45 Acetaminophen/ Hydrocodone Bitart (Independence 5/325MG Tab) 1 tab Q4HP PRN PO MODERATE PAIN (4-6 PAIN SCALE) 08/18/25 13:45 Enoxaparin Sodium (Lovenox) 40 mg DAILY SC 08/19/25 10:00 Nitroglycerin (Ntrostat Sublingual) 0.4 mg Q5MINP PRN SL FOR CHEST PAIN 08/18/25 13:45 Morphine Sulfate 2 mg Q30M PRN IV FOR CHEST PAIN 08/18/25 13:45 Aspirin 81 mg DAILY PO 08/19/25 10:00 Clopidogrel Bisulfate (Plavix) 75 mg DAILY PO 08/19/25 10:00 Atorvastatin Calcium (Lipitor) 80 mg HS PO 08/18/25 22:00 Vital Signs Vital Signs Date Time Temp Pulse Resp B/P (MAP) Pulse Ox O2 Delivery O2 Flow Rate FiO2 08/18/25 15:34 123 15 122/79 (93) 99 08/18/25 14:22 97.5 97.5 Physical Exam Pt is lying on bed General Appearance: Alert, Oriented X3, Cooperative,mild distress HEENT: Atraumatic, Mucous membranes moist/pink Respiratory: Clear to auscultation, Normal air movement, No added sounds Cardiovascular: Regular rate, Normal S1, Normal S2, No murmurs Abdominal: Active bowel sounds, Soft, no distention, no tenderness Extremities: No edema, Normal pulses, No tenderness/swelling Skin: No Significant rash, except past surgical scars Neuro: Normal speech, sensorimotor deficits none Psych/Mental Status: Mental status NL, Mood NL Nurse was there as machine stitcher during examination Labs/Diagnostic Data Labs Test 08/18/25 13:19 08/18/25 13:18 Range/Units Hemoglobin A1c 6.5 H <5.7 % A1C Triglycerides Level 157 H < 150 mg/dL Cholesterol Level 223 H < 200 mg/dL LDL Cholesterol 145 H < 100 mg/dL HDL Cholesterol 45 40-59 mg/dL White Blood Count 29.9 H 4.4-10.8 10^3/uL Red Blood Count 5.28 H 4.0-5.20 10^6/uL Hemoglobin 16.5 H 12.2-16.2 g/dL Hematocrit 48.8 H 36.0-46.0 % Mean Corpuscular Volume 92.6 80.0-100.0 fL Mean Corpuscular Hemoglobin 31.2 28.0-32.0 pg Mean Corpuscular Hemoglobin Concent 33.7 32.0-36.0 g/dL Red Cell Distribution Width 13.4 11.8-14.3 % Platelet Count 280 140-450 10^3/uL Mean Platelet Volume 10.0 6.9-10.8 fL Neutrophils (%) (Auto) 37.0-80.0 % Lymphocytes (%) (Auto) 10.0-50.0 % Monocytes (%) (Auto) 0.0-12.0 % Basophils (%) (Auto) 0.0-2.0 % Neutrophils # (Auto) 1.6-8.6 10 ^3/uL Lymphocytes # (Auto) 0.4-5.4 10 ^3/uL Monocytes # (Auto) 0-1.3 10 ^3/uL Differential Total Cells Counted 100.0 100 Neutrophils % (Manual) 91 H 37.0-80.0 Band Neutrophils % (Manual) 0 Lymphocytes % (Manual) 3 L 10.0-50.0 Monocytes % (Manual) 6 0-12 Eosinophils % (Manual) 0 0-7 Basophils % (Manual) 0 0.0-2.0 Metamyelocytes % (manual) 0 Myelocytes % (Manual) 0 Promyelocytes % (Manual) 0 Blast Cells % (Manual) 0 Reactive Lymphocytes 0 Platelet Estimate Adequate Prothrombin Time 10.3 9.3-11.8 sec Prothrombin Time INR 0.97 0.9-1.15 Activated Partial Thromboplast Time 24.2 L 24.5-34.5 SEC Sodium Level 139 136-145 mmol/L Potassium Level 3.7 3.5-5.1 mmol/L Chloride Level 103 98-107 mmol/L Carbon Dioxide Level 16 L 20-31 mmol/L Anion Gap 20 H 5-15 Blood Urea Nitrogen 15 9-23 mg/dL Creatinine 1.11 H 0.550-1.02 mg/dL Glomerular Filtration Rate Calc 57 >90 mL/min BUN/Creatinine Ratio 13.5 10.0-20.0 Serum Glucose 357 H 74-106 mg/dL Calcium Level 9.6 8.7-10.4 mg/dL Total Bilirubin 1.4 H 0.2-1.0 mg/dL Aspartate Amino Transferase (AST) 87 H 13-40 U/L Alanine Aminotransferase (ALT) 16 7-40 U/L Alkaline Phosphatase 82 46-116 U/L Total Protein 7.9 5.7-8.2 g/dL Albumin 4.1 3.2-4.8 g/dL Assessment Inferior wall STEMI S/p 3 CONCEPCION Acute coronary syndrome Type 1 DM HTN, HLD HX of CVA Plan/Recommendation We will continue with the following plan/recommendations (Dr. Crooks): Urgent coronary intervention showed - RCA, large dominant vessel was proximally occluded, heavily calcified, underwent thrombectomy of the entire length followed by 3 sequential stent placed as indicated above. Less than 10% residual stenosis with MADHU grade 3 flow. LAD, moderate diffuse disease with a proximal eccentric plaque with a stenosis of about 70%. a Echocardiogram to evaluate cardiac function Chest pain protocol Continue dual antiplatelet therapy Lipid lowering agent BP control Aggressive lifestyle modifications in diet and exercise Rest of management as per primary team Case discussed with the Dr. Crooks Plan discussed with: Patient NYHA Physical activity limitations: NA Date of Service: Aug 18, 2025 Billing Provider: NONA CONTRERAS MD Common Visit Codes: [id number] CARE 30-74 MIN DEBRA MCCLENDON Aug 18, 2025 16:09
[2025-08-18] MEDS ORDERED: DEXTROSE (50%) 50ML SYRG IV PRN (16:30)
--- NOTE | 2025-08-18 17:04 | DVH ---
CLINICAL INDICATION: left hip pain TECHNIQUE: 3 radiographic views of the left hip were obtained. Comparison: None FINDINGS/IMPRESSION: Bony alignment is normal. No fractures or dislocations. If clinical examination is still worrisome for fracture recommend CT of the pelvis.
[2025-08-18] MEDS: METOPROLOL TARTRATE 25 MG TAB PO ONE (17:45)
[2025-08-18] MEDS: ACCU-CHEK COMFORT CURVE STRIP VI SCH (17:45)
[2025-08-18] MEDS: HYDROcodone-ACET 5/325MG TAB PO PRN (17:51)
[2025-08-18] MEDS: InsuLIN REG 1unit/0.01ml Soln (100units/ml) SC SCH (17:59)
[2025-08-18] MEDS: HYDROCORTISONE SOD SUCC 100 MG/2ML INJ VIAL ONE (18:59)
[2025-08-18] MEDS: ATORVASTATIN 20 MG TAB PO SCH (22:15)
[2025-08-18] MEDS: METOPROLOL TARTRATE 50 MG TAB PO SCH (22:16)
[2025-08-19] VITALS (46 sets, daily range): BP systolic 85–151; BP diastolic 50–89; PULSE 85–95; RESP 12–23; TEMP 97.4–98; O2SAT 91–100
[2025-08-19 04:35] LABS: Anion Gap 13 (5-15); Carbon Dioxide 22 mmol/L (20-31); Chloride 104 mmol/L (98-107); Potassium 3.5 mmol/L (3.5-5.1); Sodium 139 mmol/L (136-145)
[2025-08-19 04:36] LABS: Calcium 9.3 mg/dL (8.7-10.4)
[2025-08-19 04:41] LABS: BUN/Creatinine Ratio 25.0 (10.0-20.0)
[2025-08-19 04:46] LABS: Hematocrit 42.2 % (36.0-46.0); Hemoglobin 14.3 g/dL (12.2-16.2); Mean Corpuscular Hemoglobin 31.6 pg (28.0-32.0); Mean Corpuscular Volume 93.3 fL (80.0-100.0); Nucleated Red Blood Cells % 0.1 %
[2025-08-19 05:00] LABS: Blood Urea Nitrogen 29 mg/dL (9-23); Glucose 295 mg/dL (74-106)
[2025-08-19] MEDS ORDERED: DOXYCYCLINE 100 MG TAB/CAP PO ONE (07:30)
[2025-08-19] MEDS: INSULIN LANTUS (GLARGINE) 1 /0.01ml (100units/ml) SC SCH (09:57)
[2025-08-19] MEDS: CLOPIDOGREL BISULFATE 75 MG TAB PO SCH (09:59)
[2025-08-19] MEDS: ENOXAPARIN SOD 40 MG/0.4 ML SYRINGE SC SCH (09:59)
[2025-08-19] MEDS: DOXYCYCLINE 100 MG TAB/CAP PO SCH (09:59)
--- NOTE | 2025-08-19 10:25 | DVH ---
EXAM DESCRIPTION: Chest 1 View CLINICAL HISTORY: sob COMPARISON: XY CHEST PORTABLE on DOS: 08/18/25, XY CHEST XRAY 1 VIEW on DOS: 06/30/25, CR CHEST 2 VIEW on DOS: 06/24/24 FINDINGS and IMPRESSION: Lines, tubes, and support devices: None. Lungs / Pleura: Patchy airspace opacities in the left lower lung. No pleural effusion. No pneumothorax. Mediastinum: Normal cardiomediastinal silhouette. Osseous structures / Soft tissues: No acute findings.
[2025-08-19 10:31] LABS: Lactic Acid w/Reflex 2.4 mmol/L (0.4-2.0)
[2025-08-19] MEDS: SODIUM CHLORIDE 0.9% 250 ML IV ONE (10:33)
[2025-08-19] MEDS: SODIUM CHLORIDE 0.9% 1,000 ML IV SCH (11:00)
--- NOTE | 2025-08-19 11:31 | DVHPNRES ---
Progress Note Date Seen: Aug 19, 2025 Resident Creating Document: CYRUS NUNEZ RESIDENT Has the PT tested + for MRSA If YES, has PT been informed?: No Medical Necessity Reason Pt with a Central, PICC or Fol: No Subjective Review of Systems DAVE TY 60-year-old female with a PMH of insulin dependent DM, HTN, DLD, CVA presented to the ED with the chief complaints of nausea, vomiting and dizziness which has started for 5 days. Per EMS, due to nausea and vomiting patient was not taking her medications. The patient denied chest pain, shortness of breath, palpitations or any other typical cardiac symptoms. On the way to the ED a 12 lead EKG showed STEMI in the inferior leads leads II, III, AVF. In the emergency department, EKG was repeated consistent with STEMI of inferior wall. 08/19/25: Patient underwent to PCI, 3 stent placed in the RCA, patient will need stage procedure later for the LAD, seen in the ICU, BP are been soft, BB were held in the morning, primary team also started AB due to elevated WBC and infiltrates in the x ray Objective vital signs Vital Sign Date Time Temp Pulse Resp B/P (MAP) Pulse Ox O2 Delivery O2 Flow Rate FiO2 08/19/25 10:07 109/65 (80) 08/19/25 10:00 92 18 96 08/19/25 08:00 97.4 97.4 08/19/25 07:50 Room Air* 0 21 Total Intake and Output 08/18/25 08/18/25 08/19/25 15:00 23:00 07:00 Intake Total 300 ml 90 ml Balance 300 ml 90 ml medications Current Medications Medications Dose Ordered Sig/Jaime Route Start Time Stop Time Status Last Admin Dose Admin Acetaminophen 650 mg Q6HP PRN PO 08/18/25 13:45 Acetaminophen/ Hydrocodone Bitart 1 tab Q4HP PRN PO 08/18/25 13:45 08/19/25 10:53 1 TAB Enoxaparin Sodium 40 mg DAILY SC 08/19/25 10:00 08/19/25 09:59 40 MG Nitroglycerin 0.4 mg Q5MINP PRN SL 08/18/25 13:45 Morphine Sulfate 2 mg Q30M PRN IV 08/18/25 13:45 Aspirin 81 mg DAILY PO 08/19/25 10:00 08/19/25 09:59 81 MG Clopidogrel Bisulfate 75 mg DAILY PO 08/19/25 10:00 08/19/25 09:59 75 MG Atorvastatin Calcium 80 mg HS PO 08/18/25 22:00 08/18/25 22:15 80 MG Metoprolol Tartrate 50 mg BID PO 08/18/25 22:00 08/18/25 22:16 50 MG Diagnostic Test (Pha) 1 strip ACHS 08/18/25 17:00 08/19/25 06:42 1 STRIP Insulin Human Regular ACHS SC 08/18/25 17:00 08/19/25 06:42 6 UNITS Dextrose 50 ml UD PRN IV 08/18/25 16:30 Insulin Glargine 15 units DAILY@1000 SC 08/19/25 10:00 08/19/25 09:57 15 UNITS Ceftriaxone Sodium 50 ml @ 100 mls/hr DAILY@09 IV 08/19/25 09:00 08/19/25 08:22 100 MLS/HR Doxycycline Monohydrate 100 mg Q12HR PO 08/19/25 10:00 08/19/25 09:59 100 MG Sodium Chloride 1,000 ml @ 75 mls/hr [id number] IV 08/19/25 10:45 Examination Pt is lying on bed General Appearance: Alert, Oriented X3, Cooperative,mild distress HEENT: Atraumatic, Mucous membranes moist/pink Respiratory: Clear to auscultation, Normal air movement, No added sounds Cardiovascular: Regular rate, Normal S1, Normal S2, No murmurs Abdominal: Active bowel sounds, Soft, no distention, no tenderness Extremities: No edema, Normal pulses, No tenderness/swelling Skin: No Significant rash, except past surgical scars Neuro: Normal speech, sensorimotor deficits none Psych/Mental Status: Mental status NL, Mood NL Nurse was there as mortgage loan interviewer during examination laboratory and microbiology Laboratory Tests 08/19/25 04:00 Test 08/19/25 04:00 Range/Units Serum Glucose 295 H 74-106 mg/dL Problem List/Assessment/Plan Problem List/Assessment/Plan #Inferior wall STEMI S/p 3 CONCEPCION Continue DAPT Continue statin Restart BB when BP allows it Pending stage procedure due to LAD stenosis #Pneumonia gram+/gram- Ceftriaxone + doxycycline #DM Continue ISS #HTN Soft BPs #HLD Statin #HX of CVA Aspirin and statin 08/19/25: Patient underwent to PCI, 3 stent placed in the RCA, patient will need stage procedure later for the LAD, seen in the ICU, BP are been soft, BB were held in the morning, primary team also started AB due to elevated WBC and infiltrates in the x ray. Per cardiology stand point, no further procedures in this admission. Case discussed with Dr Crooks Plan discussed with: Patient, Other (rn) Visit Coding Cardiology RES Date of Service: Aug 19, 2025 Billing Provider: NONA CONTRERAS MD, MARIA RESIDENT Aug 19, 2025 11:31
--- NOTE | 2025-08-19 12:07 | DVHPN2 ---
Progress Note - Dictate Date Seen: Aug 18, 2025 Subjective PT WITH SS COMPLEX OF NAUSEA, VOMITING STARTED 5 DAYS AGO NOW WITH ACUTE INF WALL DE STEMI S/P PTCA STENT PMH; DIABETES MORBID OBESITY HTN HX OF CVA vital signs Vital Sign Date Time Temp Pulse Resp B/P (MAP) Pulse Ox O2 Delivery O2 Flow Rate FiO2 08/19/25 10:07 109/65 (80) 08/19/25 10:00 92 18 96 08/19/25 08:00 97.4 97.4 08/19/25 07:50 Room Air* 0 21 Total Intake and Output 08/18/25 08/18/25 08/19/25 15:00 23:00 07:00 Intake Total 300 ml 90 ml Balance 300 ml 90 ml medications Current Medications Medications Dose Ordered Sig/Jaime Route Start Time Stop Time Status Last Admin Dose Admin Acetaminophen 650 mg Q6HP PRN PO 08/18/25 13:45 Acetaminophen/ Hydrocodone Bitart 1 tab Q4HP PRN PO 08/18/25 13:45 08/19/25 10:53 1 TAB Enoxaparin Sodium 40 mg DAILY SC 08/19/25 10:00 08/19/25 09:59 40 MG Nitroglycerin 0.4 mg Q5MINP PRN SL 08/18/25 13:45 Morphine Sulfate 2 mg Q30M PRN IV 08/18/25 13:45 Aspirin 81 mg DAILY PO 08/19/25 10:00 08/19/25 09:59 81 MG Clopidogrel Bisulfate 75 mg DAILY PO 08/19/25 10:00 08/19/25 09:59 75 MG Atorvastatin Calcium 80 mg HS PO 08/18/25 22:00 08/18/25 22:15 80 MG Metoprolol Tartrate 50 mg BID PO 08/18/25 22:00 08/18/25 22:16 50 MG Diagnostic Test (Pha) 1 strip ACHS 08/18/25 17:00 08/19/25 11:32 1 STRIP Insulin Human Regular ACHS SC 08/18/25 17:00 08/19/25 06:42 6 UNITS Dextrose 50 ml UD PRN IV 08/18/25 16:30 Insulin Glargine 15 units DAILY@1000 SC 08/19/25 10:00 08/19/25 09:57 15 UNITS Ceftriaxone Sodium 50 ml @ 100 mls/hr DAILY@09 IV 11/8/25 09:00 08/19/25 08:22 100 MLS/HR Doxycycline Monohydrate 100 mg Q12HR PO 08/19/25 10:00 08/19/25 09:59 100 MG Sodium Chloride 1,000 ml @ 75 mls/hr [id number] IV 08/19/25 10:45 laboratory and microbiology Laboratory Tests 08/19/25 04:00 Test 08/19/25 04:00 Range/Units Serum Glucose 295 H 74-106 mg/dL Problem List SS COMPLEX OF NAUSEA, VOMITING STARTED 5 DAYS AGO NOW WITH ACUTE INF WALL DE STEMI S/P PTCA STENT PMH; DIABETES MORBID OBESITY HTN HX OF CVA Assessment/Plan S/P PTCA STENT RCA STENT X 3 DISTAL RCA TO OSTIAL RCA RESIDUAL STENOSIS OF LAD THATS NEEDS REVASCULARIZATION AT LATER DATE9 STAGED) [facility] [employer]NAG[employer] Plan discussed with: Patient NONA CONTRERAS MD Aug 19, 2025 12:07
--- NOTE | 2025-08-19 12:08 | DVHPN2 ---
Progress Note - Dictate Date Seen: Aug 19, 2025 Subjective PT WITH SS COMPLEX OF NAUSEA, VOMITING STARTED 5 DAYS AGO NOW WITH ACUTE INF WALL ND STEMI S/P PTCA STENT PMH; DIABETES MORBID OBESITY HTN HX OF CVA vital signs Vital Sign Date Time Temp Pulse Resp B/P (MAP) Pulse Ox O2 Delivery O2 Flow Rate FiO2 08/19/25 10:07 109/65 (80) 08/19/25 10:00 92 18 96 08/19/25 08:00 97.4 97.4 08/19/25 07:50 Room Air* 0 21 Total Intake and Output 08/18/25 08/18/25 08/19/25 15:00 23:00 07:00 Intake Total 300 ml 90 ml Balance 300 ml 90 ml medications Current Medications Medications Dose Ordered Sig/Jaime Route Start Time Stop Time Status Last Admin Dose Admin Acetaminophen 650 mg Q6HP PRN PO 08/18/25 13:45 Acetaminophen/ Hydrocodone Bitart 1 tab Q4HP PRN PO 08/18/25 13:45 08/19/25 10:53 1 TAB Enoxaparin Sodium 40 mg DAILY SC 08/19/25 10:00 08/19/25 09:59 40 MG Nitroglycerin 0.4 mg Q5MINP PRN SL 08/18/25 13:45 Morphine Sulfate 2 mg Q30M PRN IV 08/18/25 13:45 Aspirin 81 mg DAILY PO 08/19/25 10:00 08/19/25 09:59 81 MG Clopidogrel Bisulfate 75 mg DAILY PO 08/19/25 10:00 08/19/25 09:59 75 MG Atorvastatin Calcium 80 mg HS PO 08/18/25 22:00 08/18/25 22:15 80 MG Metoprolol Tartrate 50 mg BID PO 08/18/25 22:00 08/18/25 22:16 50 MG Diagnostic Test (Pha) 1 strip ACHS 08/18/25 17:00 08/19/25 11:32 1 STRIP Insulin Human Regular ACHS SC 08/18/25 17:00 08/19/25 06:42 6 UNITS Dextrose 50 ml UD PRN IV 08/18/25 16:30 Insulin Glargine 15 units DAILY@1000 SC 08/19/25 10:00 08/19/25 09:57 15 UNITS Ceftriaxone Sodium 50 ml @ 100 mls/hr DAILY@09 IV 11/8/25 09:00 08/19/25 08:22 100 MLS/HR Doxycycline Monohydrate 100 mg Q12HR PO 08/19/25 10:00 08/19/25 09:59 100 MG Sodium Chloride 1,000 ml @ 75 mls/hr [id number] IV 08/19/25 10:45 laboratory and microbiology Laboratory Tests 08/19/25 04:00 Test 08/19/25 04:00 Range/Units Serum Glucose 295 H 74-106 mg/dL Problem List SS COMPLEX OF NAUSEA, VOMITING STARTED 5 DAYS AGO NOW WITH ACUTE INF WALL ND STEMI S/P PTCA STENT PMH; DIABETES MORBID OBESITY HTN HX OF CVA Assessment/Plan S/P PTCA STENT RCA STENT X 3 DISTAL RCA TO OSTIAL RCA RESIDUAL STENOSIS OF LAD THATS NEEDS REVASCULARIZATION AT LATER DATE9 STAGED) [facility] [employer]NAG[employer] DC HOME IN AM Plan discussed with: Patient NONA CONTRERAS MD Aug 19, 2025 12:08
--- NOTE | 2025-08-19 13:02 | DVHPNRES ---
Progress Note Date Seen: Aug 19, 2025 Resident Creating Document: JARAD CHRISTENSEN RESIDENT Has the PT tested + for MRSA If YES, has PT been informed?: No Medical Necessity Reason Pt with a Central, PICC or Fol: No Subjective Review of Systems This is 60-year-old female with past medical history of type 1 diabetes mellitus insulin-dependent, primary hypertension,dyslipidemia, morbid obesity, history of CVA with left-sided deficits of October of 2024 (previously on dual antiplatelet therapy). The patient presented to the ED brought via EMS with chief complaint of nausea, vomiting and dizziness that was being going on and off for the last five days. Per EMS, due to nausea and vomiting patient was not taking her medications. The patient denied chest pain, shortness of breath, palpitations or any other typical cardiac symptoms. On the way to the ED a 12 lead EKG showed STEMI in the inferior leads leads II, III, AVF. In the emergency department, EKG was repeated consistent with STEMI of inferior wall. Branch Examiner was called which confirmed STEMI and patient was taken to the photo lab technician for coronary angiogram. Underwent PTCA x3 stent in RCA. The patient was in sepsis present on admission, started IV NS at 75 mL/hours, IV ceftriaxone 1 g daily, doxycycline 100 mg p.o. b.i.d. for community-acquired Gram-positive/Gram-negative pneumonia. patient was seen and examined on the bedside. She is alert oriented x3. Complaint of chest discomfort, lightheadedness and no other active complaint. patient's blood pressure is still soft 99/66 likely secondary to sepsis/inferior VT. We will downgrade to telemetry when the blood pressure becomes more stable. Objective vital signs Vital Sign Date Time Temp Pulse Resp B/P (MAP) Pulse Ox O2 Delivery O2 Flow Rate FiO2 08/19/25 12:00 92 15 93/56 (68) 91 08/19/25 12:00 Room Air* 0 96 21 08/19/25 08:00 97.4 97.4 Total Intake and Output 08/18/25 08/18/25 08/19/25 15:00 23:00 07:00 Intake Total 300 ml 90 ml Balance 300 ml 90 ml medications Current Medications Medications Dose Ordered Sig/Jaime Route Start Time Stop Time Status Last Admin Dose Admin Acetaminophen 650 mg Q6HP PRN PO 08/18/25 13:45 Acetaminophen/ Hydrocodone Bitart 1 tab Q4HP PRN PO 08/18/25 13:45 08/19/25 10:53 1 TAB Enoxaparin Sodium 40 mg DAILY SC 08/19/25 10:00 08/19/25 09:59 40 MG Nitroglycerin 0.4 mg Q5MINP PRN SL 08/18/25 13:45 Morphine Sulfate 2 mg Q30M PRN IV 08/18/25 13:45 Aspirin 81 mg DAILY PO 08/19/25 10:00 08/19/25 09:59 81 MG Clopidogrel Bisulfate 75 mg DAILY PO 08/19/25 10:00 08/19/25 09:59 75 MG Atorvastatin Calcium 80 mg HS PO 08/18/25 22:00 08/18/25 22:15 80 MG Metoprolol Tartrate 50 mg BID PO 08/18/25 22:00 08/18/25 22:16 50 MG Diagnostic Test (Pha) 1 strip ACHS 08/18/25 17:00 08/19/25 11:32 1 STRIP Insulin Human Regular ACHS SC 08/18/25 17:00 08/19/25 06:42 6 UNITS Dextrose 50 ml UD PRN IV 08/18/25 16:30 Insulin Glargine 15 units DAILY@1000 SC 08/19/25 10:00 08/19/25 09:57 15 UNITS Ceftriaxone Sodium 50 ml @ 100 mls/hr DAILY@09 IV 08/19/25 09:00 08/19/25 08:22 100 MLS/HR Doxycycline Monohydrate 100 mg Q12HR PO 08/19/25 10:00 08/19/25 09:59 100 MG Sodium Chloride 1,000 ml @ 75 mls/hr [id number] IV 08/19/25 10:45 Examination Physical examination: General Appearance: Alert, Oriented X3, Cooperative, mild distress HEENT: Atraumatic, PERRLA, EOMI, Mucous membrane moist/pink Respiratory: Rales in left lower lung base. Cardiovascular: Regular rate, Normal S1, Normal S2, No murmurs, no chest wall tenderness Abdominal: Normal bowel sounds, Soft, No tenderness, No hepatospenomegaly, No masses Extremities: No clubbing, No cyanosis, No edema, Normal pulses, No tenderness/swelling Skin: No rashes, No breakdown, No significant lesion Neuro: Normal speech, Strength at 5/5 X4 ext, Normal tone, Sensation intact, Cranial nerves 3-12 NL, Reflexes 2+ Psych/Mental Status: Mental status NL, Mood NL laboratory and microbiology Laboratory Tests 08/19/25 04:00 Test 08/19/25 04:00 Range/Units Serum Glucose 295 H 74-106 mg/dL Labs and/or images reviewed: Labs reviewed by me, Image(s) reviewed by me Problem List/Assessment/Plan Problem List/Assessment/Plan Assessment/Plan Sepsis likely secondary to community-acquired Gram-positive/Gram-negative pneumonia, present on admission - chest x-ray demonstrated patchy opacity in the lower lung field - lactic acid trends were 2.4>2.7 - IV normal saline at 75 mL/hours - Pending blood culture, sputum culture, urine bacterial culture and urinalysis - IV ceftriaxone 1 g daily, doxycycline 100 mg p.o. b.i.d. Acute chest pain due to acute coronary syndrome STEMI in inferior wall Dyslipidemia -[address] elevation on leads II, III, AVF - Patient was loaded on aspirin - S/P PTCAX3 stent in RCA - Aspirin 81 mg daily, clopidogrel 75 mg daily and atorvastatin 80 mg at HS - Strict Ins and outs - Cardiac diet - Cardiology on board Hypertensive heart disease with possible diastolic/systolic dysfunction -hold antihypertensive at this time, BP is on the lower side -monitor blood pressure closely Type 1 diabetes mellitus, HbA1C 6.5 - Lantus 15 units at a.m. and moderate sliding scale of insulin Morbid obesity - Counseled patient on nutrition status and weight loss. Hx of CVA with left sided deficits - Patient is on DAPT Goals of care discussed with patient, FULL CODE Plan discussed with Dr. Thacker Plan discussed with: Patient, Other (RN) My Orders My Orders Orders - JARAD CHRISTENSEN RESIDENT Procedure Category Date Status Time Insulin Lantus PHA 08/19/25 In Process (Glargine) (Lantus) 10:00 Urinalysis LAB 08/19/25 Uncollected 07:26 Chest Portable XY 08/19/25 Resulted 07:26 Communication Order ORDERS 08/19/25 Transmitted 07:26 Ceftriaxone 1gm/50ml PHA 08/19/25 In Process (Rocephin) 09:00 Doxycycline Tablet PHA 08/19/25 In Process (Vibramycin Tablet) 10:00 Blood Culture RJ 08/19/25 Logged 07:26 Urine Bacterial RJ 08/19/25 Logged Culture 07:26 Sodium Chloride 0.9% PHA 08/19/25 In Process 10:45 Insert Rodriguez Catheter MELLO 08/19/25 In Process 12:49 Chest Two Views XY 08/19/25 Logged Routine 12:49 Date of Service: Aug 19, 2025 Billing Provider: ROSI THACKER MD Common Visit Codes: [id number] INP/OBS CARE(MOD) JARAD CHRISTENSEN RESIDENT Aug 19, 2025 13:02 ROSI THACKER MD Aug 20, 2025 09:32
[2025-08-19] MEDS: LIDOCAINE 2% TOPICAL JELLY 5 ML URJT TOP ONE (17:09)
[2025-08-19 18:59] LABS: Lactic Acid w/Reflex 2.3 mmol/L (0.4-2.0)
[2025-08-19] MEDS: InsuLIN REG 1unit/0.01ml Soln (100units/ml) SC SCH (22:07)
[2025-08-20] VITALS (8 sets, daily range): BP systolic 99–135; BP diastolic 52–88; PULSE 71–112; RESP 16–19; TEMP 97.6–98.4; O2SAT 95–99
[2025-08-20 05:45] LABS: Hematocrit 36.7 % (36.0-46.0); Hemoglobin 12.6 g/dL (12.2-16.2); Mean Corpuscular Hemoglobin 31.6 pg (28.0-32.0); Mean Corpuscular Volume 91.8 fL (80.0-100.0); Nucleated Red Blood Cells % 0.1 %
[2025-08-20 05:59] LABS: Albumin 3.3 g/dL (3.2-4.8); Alkaline Phosphatase 56 U/L (46-116); Anion Gap 14 (5-15); BUN/Creatinine Ratio 25.0 (10.0-20.0); Bilirubin, Total 0.4 mg/dL (0.2-1.0); Carbon Dioxide 24 mmol/L (20-31); Chloride 104 mmol/L (98-107); Glucose 106 mg/dL (74-106); Sodium 142 mmol/L (136-145); Total Protein 6.3 g/dL (5.7-8.2)
--- NOTE | 2025-08-20 06:08 | DVH ---
EXAM: XY CHEST XRAY 1 VIEW HISTORY: Pneumonia COMPARISON: XY CHEST PORTABLE on DOS: 08/19/25, XY CHEST PORTABLE on DOS: 08/18/25, XY CHEST XRAY 1 VIEW on DOS: 06/30/25 TECHNIQUE: Portable AP view of the chest was performed. FINDINGS: There is mild patchy infiltrate in the left lung base, improved since the previous chest x-ray. No pneumothorax or pulmonary edema. The heart is not enlarged. The thoracic aorta is calcific. There is thoracic spondylosis and dextroscoliosis. IMPRESSION: 1. Left basilar pneumonia is improved since chest x-ray performed 1 day earlier. 2. The right lung is clear.
[2025-08-20 06:22] LABS: Alanine Aminotransferase < 9 U/L (7-40); Blood Urea Nitrogen 26 mg/dL (9-23); Calcium 8.7 mg/dL (8.7-10.4); Potassium 2.8 mmol/L (3.5-5.1)
[2025-08-20] MEDS: InsuLIN REG 1unit/0.01ml Soln (100units/ml) SC SCH (06:56)
[2025-08-20] MEDS ORDERED: POTASSIUM CHL 20MEQ/100ML 100 ML IV SCH (07:15)
[2025-08-20] MEDS: METOPROLOL SUCCINATE XL 50 MG TAB PO SCH (10:00)
[2025-08-20] MEDS: POTASSIUM CHL 20MEQ/100ML 100 ML IV SCH (10:05)
--- NOTE | 2025-08-20 11:10 | DVHSR ---
APPROVED REPORT EXAM: Two-dimensional and M-mode echocardiogram with Doppler and color Doppler. Blood Pressure: 100/69 mmHg INDICATION STEMI DIMENSIONS LVDd 3.8 (3.8-5.7cm) LA (2D) 3.4 (1.9-4.0cm) Aortic Root 3.6 (2.0-3.7cm) LVDs 3.0 (2.5-4.0cm) LA (MM) (1.9-4.0cm) Aortic Cusp Exc 1.7 (1.5-2.0cm) EF (%) 45.0 (55-70%) Rt. Atrium 4.0 (1.9-4.0cm) Asc. Aorta 3.3 cm Mitral Valve Mitral Mitral Stenosis E wave 1.07m/s MV Mean GR. mmHg E/A ratio 0.0 2D MVA cm2 Aortic Valve Aortic Valve Aortic Stenosis V1 0.54m/s AO Mean GR. 2mmHg V2 0.89m/s AO Peak GR. 3mmHg LVOT Diameter 2.3 (1.8-2.4cm) Doppler MANJINDER 2.52cm2 Pulmonic Valve V2 0.76m/s Tricuspid Valve TR Velocity 1.94m/s RVSP 18mmHg Conclusion EF 40% MILD MAC LIMITED ECHO WINDOWS
[2025-08-20] MEDS: POTASSIUM CHL 20 Meq TABLET PO ONE (11:48)
--- NOTE | 2025-08-20 12:15 | DVHPN2 ---
Progress Note - Dictate Date Seen: Aug 20, 2025 Has the PT tested + for MRSA If YES, has PT been informed?: No Medical Necessity Reason Pt with a Central, PICC or Fol: No Subjective PT WITH SS COMPLEX OF NAUSEA, VOMITING STARTED 5 DAYS AGO NOW WITH ACUTE INF WALL MT STEMI S/P PTCA STENT PMH; DIABETES MORBID OBESITY HTN HX OF CVA vital signs Vital Sign Date Time Temp Pulse Resp B/P (MAP) Pulse Ox O2 Delivery O2 Flow Rate FiO2 08/20/25 10:00 55 88/54 08/20/25 08:55 98.0 16 97 98.0 08/19/25 22:00 Room Air* 0 96 21 Total Intake and Output 08/19/25 08/19/25 08/20/25 15:00 23:00 07:00 Intake Total 525 ml 1065 ml 0 ml Output Total 200 ml Balance 525 ml 1065 ml -200 ml medications Current Medications Medications Dose Ordered Sig/Jaime Route Start Time Stop Time Status Last Admin Dose Admin Acetaminophen 650 mg Q6HP PRN PO 08/18/25 13:45 Acetaminophen/ Hydrocodone Bitart 1 tab Q4HP PRN PO 08/18/25 13:45 08/19/25 23:08 1 TAB Enoxaparin Sodium 40 mg DAILY SC 08/19/25 10:00 08/20/25 10:04 40 MG Nitroglycerin 0.4 mg Q5MINP PRN SL 08/18/25 13:45 Morphine Sulfate 2 mg Q30M PRN IV 08/18/25 13:45 Aspirin 81 mg DAILY PO 08/19/25 10:00 08/20/25 10:05 81 MG Clopidogrel Bisulfate 75 mg DAILY PO 08/19/25 10:00 08/20/25 10:04 75 MG Atorvastatin Calcium 80 mg HS PO 08/18/25 22:00 08/19/25 22:02 80 MG Diagnostic Test (Pha) 1 strip ACHS 08/18/25 17:00 08/20/25 11:46 1 STRIP Dextrose 50 ml UD PRN IV 08/18/25 16:30 Insulin Glargine 15 units DAILY@1000 SC 08/19/25 10:00 08/20/25 10:24 15 UNITS Ceftriaxone Sodium 50 ml @ 100 mls/hr DAILY@09 IV 08/19/25 09:00 08/20/25 10:02 100 MLS/HR Doxycycline Monohydrate 100 mg Q12HR PO 08/19/25 10:00 08/20/25 10:03 100 MG Metoprolol Succinate 25 mg DAILY PO 08/20/25 10:00 Hold Insulin Human Regular HS SC 08/19/25 22:00 08/19/25 22:07 2 UNITS Insulin Human Regular AC SC 08/20/25 07:00 08/20/25 11:46 2 UNITS Potassium Chloride 100 ml @ 50 mls/hr Q2H IV 08/20/25 09:15 08/20/25 15:14 08/20/25 10:05 50 MLS/HR laboratory and microbiology Laboratory Tests 08/20/25 05:18 Test 08/20/25 05:18 Range/Units Serum Glucose 106 74-106 mg/dL Problem List SS COMPLEX OF NAUSEA, VOMITING STARTED 5 DAYS AGO NOW WITH ACUTE INF WALL MT STEMI S/P PTCA STENT PMH; DIABETES MORBID OBESITY HTN HX OF CVA Assessment/Plan S/P PTCA STENT RCA STENT X 3 DISTAL RCA TO OSTIAL RCA RESIDUAL STENOSIS OF LAD THATS NEEDS REVASCULARIZATION AT LATER DATE9 STAGED) [facility] MANAG[employer] DC HOME IN AM Dietary Evaluation Review Comments: 1. CCHO-60 Cardiac Diet, texture as tolerated 2. Monitor PO intakes to meet 75% of her needs 3. Offer Glucerna 240ml oral supplements if PO intake <50% 4. Offer TF glucerna@45ml/hr (65g protein, 1296kcal, 869ml free water) if PO intake < 25% Expected Outcomes/Goals: Controlled DM, Grdaul wt loss. Plan discussed with: Patient NONA CONTRERAS MD Aug 20, 2025 12:15
--- NOTE | 2025-08-20 12:58 | DVHPNRES ---
Progress Note Date Seen: Aug 20, 2025 Resident Creating Document: FANNIE ZELAYA RESIDENT Has the PT tested + for MRSA If YES, has PT been informed?: No Medical Necessity Reason Pt with a Central, PICC or Fol: No Subjective Review of Systems This is 60-year-old female with past medical history of type 1 diabetes mellitus insulin-dependent, primary hypertension,dyslipidemia, morbid obesity, history of CVA with left-sided deficits of October of 2024 (previously on dual antiplatelet therapy). The patient presented to the ED brought via EMS with chief complaint of nausea, vomiting and dizziness that was being going on and off for the last five days. Per EMS, due to nausea and vomiting patient was not taking her medications. The patient denied chest pain, shortness of breath, palpitations or any other typical cardiac symptoms. On the way to the ED a 12 lead EKG showed STEMI in the inferior leads leads II, III, AVF. In the emergency department, EKG was repeated consistent with STEMI of inferior wall. Director Dietetics Department was called which confirmed STEMI and patient was taken to the general labor for coronary angiogram. Underwent PTCA x3 stent in RCA. The patient was in sepsis present on admission, started IV NS at 75 mL/hours, IV ceftriaxone 1 g daily, doxycycline 100 mg p.o. b.i.d. for community-acquired Gram-positive/Gram-negative pneumonia. Patient seen and examined at bedside. Patient is currently complaining of generalized weakness and slight body aches. WBC is keeps improving today was 11.7 most likely due to bacterial pneumonia. Patient is currently on doxycycline and ceftriaxone at this time. Patient is status post stent placed to the RCA on 08/18/25. Today patient is on aspirin 81 mg daily, clopidogrel 75 mg daily and atorvastatin 80 mg daily. We explained to the patient the importance of medication adherence with these last three medications. Chest x- ray today looks grossly clean. Lactic acid is also improving, today was 1.7. We will hold blood pressure medications at this time since the patient is having low blood pressure running in the lower side. ROS Constitutional: Reports generalized weakness and body aches. Denies weight loss, fever and chills. HEENT: Denies changes in vision and hearing. Respiratory: Denies shortness of breath and cough Cardiovascular: Denies chest discomfort or palpitations GI: Denies abdominal pain, nausea, vomiting and diarrhea. : Denies dysuria and urinary frequency. Musculoskeletal: Denies myalgias and joint pain Skin: Denies rash and pruritus. Neurological: Denies dizziness, headache, vision or hearing problems Objective vital signs Vital Sign Date Time Temp Pulse Resp B/P (MAP) Pulse Ox O2 Delivery O2 Flow Rate FiO2 08/20/25 10:00 55 88/54 08/20/25 08:55 98.0 16 97 98.0 08/19/25 22:00 Room Air* 0 96 21 Total Intake and Output 08/19/25 08/19/25 08/20/25 15:00 23:00 07:00 Intake Total 525 ml 1065 ml 0 ml Output Total 200 ml Balance 525 ml 1065 ml -200 ml medications Current Medications Medications Dose Ordered Sig/Jaime Route Start Time Stop Time Status Last Admin Dose Admin Acetaminophen 650 mg Q6HP PRN PO 08/18/25 13:45 Acetaminophen/ Hydrocodone Bitart 1 tab Q4HP PRN PO 08/18/25 13:45 08/19/25 23:08 1 TAB Enoxaparin Sodium 40 mg DAILY SC 08/19/25 10:00 08/20/25 10:04 40 MG Nitroglycerin 0.4 mg Q5MINP PRN SL 08/18/25 13:45 Morphine Sulfate 2 mg Q30M PRN IV 08/18/25 13:45 Aspirin 81 mg DAILY PO 08/19/25 10:00 08/20/25 10:05 81 MG Clopidogrel Bisulfate 75 mg DAILY PO 08/19/25 10:00 08/20/25 10:04 75 MG Atorvastatin Calcium 80 mg HS PO 08/18/25 22:00 08/19/25 22:02 80 MG Diagnostic Test (Pha) 1 strip ACHS 08/18/25 17:00 08/20/25 11:46 1 STRIP Dextrose 50 ml UD PRN IV 08/18/25 16:30 Insulin Glargine 15 units DAILY@1000 SC 08/19/25 10:00 08/20/25 10:24 15 UNITS Ceftriaxone Sodium 50 ml @ 100 mls/hr DAILY@09 IV 08/19/25 09:00 08/20/25 10:02 100 MLS/HR Doxycycline Monohydrate 100 mg Q12HR PO 08/19/25 10:00 08/20/25 10:03 100 MG Metoprolol Succinate 25 mg DAILY PO 08/20/25 10:00 Hold Insulin Human Regular HS SC 08/19/25 22:00 08/19/25 22:07 2 UNITS Insulin Human Regular AC SC 08/20/25 07:00 08/20/25 11:46 2 UNITS Potassium Chloride 100 ml @ 50 mls/hr Q2H IV 08/20/25 09:15 08/20/25 15:14 08/20/25 10:05 50 MLS/HR Examination Physical Examination General: Patient alert and oriented in person, place and time. Patient following commands. HEENT: Normocephalic, atraumatic, moist mucous membranes Respiratory/pulmonary: Clear lungs bilaterally, no associated crackles or wheezes. Cardiovascular: Normal heart sounds S1 and S2 with no associated murmurs Abdomen: Abdomen nondistended, there is no pain to palpation in any of the abdominal quadrants, no palpable masses. Extremities: There is no peripheral edema present at the lower extremities. Skin: No rashes or pruritus, there is no sacral edema present at this time. Neurological: Intact cranial nerves with left sided deficits laboratory and microbiology Laboratory Tests 08/20/25 05:18 Test 08/20/25 05:18 Range/Units Serum Glucose 106 74-106 mg/dL Microbiology Date/Time Source Procedure Growth Status 08/19/25 17:20 Voided Urine Urine Culture - Preliminary No growth Resulted 08/18/25 15:46 Nose MRSA Screen - Final Complete Problem List/Assessment/Plan Problem List/Assessment/Plan Assessment/Plan Sepsis likely secondary to community-acquired Gram-positive/Gram-negative pneumonia, present on admission - chest x-ray demonstrated patchy opacity in the lower lung field - lactic acid trends were 2.4>2.7. last lactic acid today was 1.7 -Continue IV normal saline at 75 mL/hours -blood cultures are still pending but urinary cultures came back showing no growth of microorganisms. - IV ceftriaxone 1 g daily, doxycycline 100 mg p.o. b.i.d. Acute chest pain due to acute coronary syndrome STEMI in inferior wall Dyslipidemia -[address] elevation on leads II, III, AVF (inferior wall [place]) - Patient was loaded on aspirin, continue aspirin 81 mg daily - S/P PTCAX3 stent in RCA - Aspirin 81 mg daily, clopidogrel 75 mg daily and atorvastatin 80 mg at HS - Strict Ins and outs - Cardiac diet - Cardiology on board Hypertensive heart disease with possible diastolic/systolic dysfunction -hold antihypertensive at this time, BP is on the lower side -monitor blood pressure closely Type 1 diabetes mellitus with hyperglycemia -HbA1C 6.5 - Lantus 15 units at a.m. and moderate sliding scale of insulin -monitor blood glucose closely Morbid obesity - Counseled patient on nutrition status and weight loss. Hx of CVA with left sided deficits - Patient is on DAPT Goals of care discussed with patient for 22min, FULL CODE Plan discussed with Dr. Thacker Plan discussed with: Patient My Orders My Orders Orders - FANNIE ZELAYA Procedure Category Date Status Time Potassium Chl PHA 08/20/25 In Process 20meq/100ml 09:15 Dietary Evaluation Review Comments: 1. CCHO-60 Cardiac Diet, texture as tolerated 2. Monitor PO intakes to meet 75% of her needs 3. Offer Glucerna 240ml oral supplements if PO intake <50% 4. Offer TF glucerna@45ml/hr (65g protein, 1296kcal, 869ml free water) if PO intake < 25% Expected Outcomes/Goals: Controlled DM, Grdaul wt loss. Date of Service: Aug 20, 2025 Billing Provider: ROSI THACKER MD Common Visit Codes: [id number] INP/OBS CARE(HIGH) FANNIE ZELAYA RESIDENT Aug 20, 2025 12:58
--- NOTE | 2025-08-20 14:01 | DVHPN2 ---
Progress Note Date Seen: Aug 20, 2025 Resident Creating Document: DEBRA MCCLENDON RESIDENT Has the PT tested + for MRSA If YES, has PT been informed?: No Medical Necessity Reason Pt with a Central, PICC or Fol: No Subjective Review of Systems Patient seen and examined at the bedside. Patient is still reporting generalized weakness but no chest pain. Patient reports: Feels better Objective vital signs Vital Sign Date Time Temp Pulse Resp B/P (MAP) Pulse Ox O2 Delivery O2 Flow Rate FiO2 08/20/25 13:00 97.6 103 18 123/76 (92) 95 97.6 08/20/25 08:00 Room Air* 0 21 Total Intake and Output 08/19/25 08/19/25 08/20/25 15:00 23:00 07:00 Intake Total 525 ml 1065 ml 0 ml Output Total 200 ml Balance 525 ml 1065 ml -200 ml medications Current Medications Medications Dose Ordered Sig/Jaime Route Start Time Stop Time Status Last Admin Dose Admin Acetaminophen 650 mg Q6HP PRN PO 08/18/25 13:45 Acetaminophen/ Hydrocodone Bitart 1 tab Q4HP PRN PO 08/18/25 13:45 08/19/25 23:08 1 TAB Enoxaparin Sodium 40 mg DAILY SC 08/19/25 10:00 08/20/25 10:04 40 MG Nitroglycerin 0.4 mg Q5MINP PRN SL 08/18/25 13:45 Morphine Sulfate 2 mg Q30M PRN IV 08/18/25 13:45 Aspirin 81 mg DAILY PO 08/19/25 10:00 08/20/25 10:05 81 MG Clopidogrel Bisulfate 75 mg DAILY PO 08/19/25 10:00 08/20/25 10:04 75 MG Atorvastatin Calcium 80 mg HS PO 08/18/25 22:00 08/19/25 22:02 80 MG Diagnostic Test (Pha) 1 strip ACHS 08/18/25 17:00 08/20/25 11:46 1 STRIP Dextrose 50 ml UD PRN IV 08/18/25 16:30 Insulin Glargine 15 units DAILY@1000 SC 08/19/25 10:00 08/20/25 10:24 15 UNITS Ceftriaxone Sodium 50 ml @ 100 mls/hr DAILY@09 IV 08/19/25 09:00 08/20/25 10:02 100 MLS/HR Doxycycline Monohydrate 100 mg Q12HR PO 08/19/25 10:00 08/20/25 10:03 100 MG Metoprolol Succinate 25 mg DAILY PO 08/20/25 10:00 Hold Insulin Human Regular HS SC 08/19/25 22:00 08/19/25 22:07 2 UNITS Insulin Human Regular AC SC 08/20/25 07:00 08/20/25 11:46 2 UNITS Potassium Chloride 100 ml @ 50 mls/hr Q2H IV 08/20/25 09:15 08/20/25 15:14 08/20/25 11:15 50 MLS/HR Examination Pt is lying on bed General Appearance: Alert, Oriented X3, Cooperative,mild distress HEENT: Atraumatic, Mucous membranes moist/pink Respiratory: Clear to auscultation, Normal air movement, No added sounds Cardiovascular: Regular rate, Normal S1, Normal S2, No murmurs Abdominal: Active bowel sounds, Soft, no distention, no tenderness Extremities: No edema, Normal pulses, No tenderness/swelling Skin: No Significant rash, except past surgical scars Neuro: Normal speech, sensorimotor deficits none Psych/Mental Status: Mental status NL, Mood NL Nurse was there as cotton sampler during examination laboratory and microbiology Laboratory Tests 08/20/25 05:18 Test 08/20/25 05:18 Range/Units Serum Glucose 106 74-106 mg/dL Microbiology Date/Time Source Procedure Growth Status 08/19/25 17:20 Voided Urine Urine Culture - Preliminary No growth Resulted 08/19/25 13:12 Blood Blood Culture - Preliminary NO GROWTH AFTER 24 HOURS OF INCUBATION. Resulted 08/18/25 15:46 Nose MRSA Screen - Final Complete Labs and/or images reviewed: Labs reviewed by me, Image(s) reviewed by me Problem List/Assessment/Plan Problem List/Assessment/Plan Inferior wall STEMI S/p 3 CONCEPCION Acute coronary syndrome Type 1 DM HTN, HLD HX of CVA Plan/Recommendation We will continue with the following plan/recommendations (Dr. Crooks): Urgent coronary intervention showed - RCA, large dominant vessel was proximally occluded, heavily calcified, underwent thrombectomy of the entire length followed by 3 sequential stent placed as indicated above. Less than 10% residual stenosis with MADHU grade 3 flow. LAD, moderate diffuse disease with a proximal eccentric plaque with a stenosis of about 70%. -patient need outpatient coronary angiogram for LAD after 2 weeks. Echocardiogram to evaluate cardiac function Chest pain protocol Continue dual antiplatelet therapy Lipid lowering agent BP control Aggressive lifestyle modifications in diet and exercise Rest of management as per primary team Discussed with Dr. Crooks. We will sign off. Thank you for consulting us, please call for any queries. Plan discussed with: Patient Dietary Evaluation Review Comments: 1. CCHO-60 Cardiac Diet, texture as tolerated 2. Monitor PO intakes to meet 75% of her needs 3. Offer Glucerna 240ml oral supplements if PO intake <50% 4. Offer TF glucerna@45ml/hr (65g protein, 1296kcal, 869ml free water) if PO intake < 25% Expected Outcomes/Goals: Controlled DM, Grdaul wt loss. Date of Service: Aug 20, 2025 Billing Provider: NONA CONTRERAS MD Common Visit Codes: [id number] CARE 30-74 MIN DEBRA MCCLENDON RESIDENT Aug 20, 2025 14:01
[2025-08-21] VITALS (8 sets, daily range): BP systolic 93–132; BP diastolic 44–86; PULSE 98–118; RESP 17–20; TEMP 97–97.9; O2SAT 95–99
[2025-08-21 05:35] LABS: COVID19 ANTIGEN SOFIA FIA NEGATIVE (NEGATIVE)
[2025-08-21 10:45] LABS: Hematocrit 40.4 % (36.0-46.0); Hemoglobin 13.7 g/dL (12.2-16.2); Mean Corpuscular Hemoglobin 31.8 pg (28.0-32.0); Mean Corpuscular Volume 93.4 fL (80.0-100.0); Nucleated Red Blood Cells % 0.1 %
[2025-08-21 10:47] LABS: Potassium 3.7 mmol/L (3.5-5.1); Sodium 143 mmol/L (136-145)
[2025-08-21 10:48] LABS: Anion Gap 10 (5-15); Carbon Dioxide 23 mmol/L (20-31)
[2025-08-21 10:49] LABS: Calcium 9.4 mg/dL (8.7-10.4)
[2025-08-21 10:53] LABS: BUN/Creatinine Ratio 30.4 (10.0-20.0); Blood Urea Nitrogen 21 mg/dL (9-23)
[2025-08-21 10:54] LABS: Chloride 110 mmol/L (98-107); Glucose 121 mg/dL (74-106)
--- NOTE | 2025-08-21 13:28 | DVHPN2 ---
Progress Note - Dictate Date Seen: Aug 21, 2025 Has the PT tested + for MRSA If YES, has PT been informed?: No Medical Necessity Reason Pt with a Central, PICC or Fol: No Subjective PT WITH SS COMPLEX OF NAUSEA, VOMITING STARTED 5 DAYS AGO NOW WITH ACUTE INF WALL HI STEMI S/P PTCA STENT PMH; DIABETES MORBID OBESITY HTN HX OF CVA vital signs Vital Sign Date Time Temp Pulse Resp B/P (MAP) Pulse Ox O2 Delivery O2 Flow Rate FiO2 08/21/25 08:30 97.2 98 17 114/62 (79) 98 97.2 08/21/25 08:00 Room Air* 0 21 Total Intake and Output 08/20/25 08/20/25 08/21/25 15:00 23:00 07:00 Intake Total 1150 ml 300 ml 100 ml Output Total 450 ml 150 ml Balance 1150 ml -150 ml -50 ml medications Current Medications Medications Dose Ordered Sig/Jaime Route Start Time Stop Time Status Last Admin Dose Admin Enoxaparin Sodium 40 mg DAILY SC 08/19/25 10:00 08/21/25 09:35 40 MG Nitroglycerin 0.4 mg Q5MINP PRN SL 08/18/25 13:45 Morphine Sulfate 2 mg Q30M PRN IV 08/18/25 13:45 Aspirin 81 mg DAILY PO 08/19/25 10:00 08/21/25 09:34 81 MG Clopidogrel Bisulfate 75 mg DAILY PO 08/19/25 10:00 08/21/25 09:35 75 MG Atorvastatin Calcium 80 mg HS PO 08/18/25 22:00 08/20/25 21:53 80 MG Diagnostic Test (Pha) 1 strip ACHS 08/18/25 17:00 08/21/25 06:28 1 STRIP Dextrose 50 ml UD PRN IV 08/18/25 16:30 Insulin Glargine 15 units DAILY@1000 SC 08/19/25 10:00 08/21/25 09:42 15 UNITS Ceftriaxone Sodium 50 ml @ 100 mls/hr DAILY@09 IV 08/19/25 09:00 08/21/25 09:35 100 MLS/HR Doxycycline Monohydrate 100 mg Q12HR PO 08/19/25 10:00 08/21/25 09:35 100 MG Metoprolol Succinate 25 mg DAILY PO 08/20/25 10:00 Hold Insulin Human Regular HS SC 08/19/25 22:00 08/20/25 21:57 4 UNITS Insulin Human Regular AC SC 08/20/25 07:00 08/20/25 17:38 2 UNITS Acetaminophen/ Hydrocodone Bitart 1 tab Q4HP PRN PO 08/21/25 13:00 UNV laboratory and microbiology Laboratory Tests 08/21/25 09:30 Test 08/21/25 09:30 Range/Units Serum Glucose 121 H 74-106 mg/dL Problem List SS COMPLEX OF NAUSEA, VOMITING STARTED 5 DAYS AGO NOW WITH ACUTE INF WALL HI STEMI S/P PTCA STENT PMH; DIABETES MORBID OBESITY HTN HX OF CVA Assessment/Plan S/P PTCA STENT RCA STENT X 3 DISTAL RCA TO OSTIAL RCA RESIDUAL STENOSIS OF LAD THATS NEEDS REVASCULARIZATION AT LATER DATE9 STAGED) D[facility]T WEIGHT MANAGEMENT DC HOME Dietary Evaluation Review Comments: 1. CCHO-60 Cardiac Diet, texture as tolerated 2. Monitor PO intakes to meet 75% of her needs 3. Offer Glucerna 240ml oral supplements if PO intake <50% 4. Offer TF glucerna@45ml/hr (65g protein, 1296kcal, 869ml free water) if PO intake < 25% Expected Outcomes/Goals: Controlled DM, Grdaul wt loss. Plan discussed with: Patient NONA CONTRERAS MD Aug 21, 2025 13:27
[2025-08-21] MEDS: HYDROcodone-ACET 10/325MG TAB PO PRN (17:00)
[2025-08-22] VITALS (7 sets, daily range): BP systolic 123–157; BP diastolic 47–93; PULSE 71–109; RESP 18–19; TEMP 97.5–98.2; O2SAT 95–99
[2025-08-22] MEDS ORDERED: ATOR-47 PO (10:03)
[2025-08-22] MEDS ORDERED: DOXY1CAP57 PO (10:03)
[2025-08-22] MEDS ORDERED: ASPI-498 PO (10:03)
[2025-08-22] MEDS ORDERED: CLOP75TA28 PO (10:03)
--- NOTE | 2025-08-22 15:50 | DVHPN2 ---
Progress Note - Dictate Date Seen: Aug 22, 2025 Has the PT tested + for MRSA If YES, has PT been informed?: No Medical Necessity Reason Pt with a Central, PICC or Fol: No Subjective PT WITH SS COMPLEX OF NAUSEA, VOMITING STARTED 5 DAYS AGO NOW WITH ACUTE INF WALL MO STEMI S/P PTCA STENT PMH; DIABETES MORBID OBESITY HTN HX OF CVA vital signs Vital Sign Date Time Temp Pulse Resp B/P (MAP) Pulse Ox O2 Delivery O2 Flow Rate FiO2 08/22/25 13:00 97.7 109 18 143/93 (110) 99 97.7 08/21/25 20:00 Room Air* 0 21 Total Intake and Output 08/21/25 08/21/25 08/22/25 15:00 23:00 07:00 Intake Total 300 ml 450 ml 400 ml Output Total 300 ml 300 ml Balance 300 ml 150 ml 100 ml medications Current Medications Medications Dose Ordered Sig/Jaime Route Start Time Stop Time Status Last Admin Dose Admin Enoxaparin Sodium 40 mg DAILY SC 08/19/25 10:00 08/22/25 09:21 40 MG Nitroglycerin 0.4 mg Q5MINP PRN SL 08/18/25 13:45 Morphine Sulfate 2 mg Q30M PRN IV 08/18/25 13:45 Aspirin 81 mg DAILY PO 08/19/25 10:00 08/22/25 09:21 81 MG Clopidogrel Bisulfate 75 mg DAILY PO 08/19/25 10:00 08/22/25 09:21 75 MG Atorvastatin Calcium 80 mg HS PO 08/18/25 22:00 08/21/25 21:26 80 MG Diagnostic Test (Pha) 1 strip ACHS 08/18/25 17:00 08/22/25 11:58 1 STRIP Dextrose 50 ml UD PRN IV 08/18/25 16:30 Insulin Glargine 15 units DAILY@1000 SC 08/19/25 10:00 08/22/25 09:30 15 UNITS Ceftriaxone Sodium 50 ml @ 100 mls/hr DAILY@09 IV 08/19/25 09:00 08/22/25 09:21 100 MLS/HR Doxycycline Monohydrate 100 mg Q12HR PO 08/19/25 10:00 08/22/25 09:21 100 MG Metoprolol Succinate 25 mg DAILY PO 08/20/25 10:00 Hold Insulin Human Regular HS SC 08/19/25 22:00 08/21/25 21:38 4 UNITS Insulin Human Regular AC SC 08/20/25 07:00 08/22/25 11:58 2 UNITS Acetaminophen/ Hydrocodone Bitart 1 tab Q4HP PRN PO 08/21/25 13:00 08/22/25 06:26 1 TAB laboratory and microbiology Laboratory Tests 08/21/25 09:30 Test 08/21/25 09:30 Range/Units Serum Glucose 121 H 74-106 mg/dL Problem List SS COMPLEX OF NAUSEA, VOMITING STARTED 5 DAYS AGO NOW WITH ACUTE INF WALL MO STEMI S/P PTCA STENT PMH; DIABETES MORBID OBESITY HTN HX OF CVA Assessment/Plan S/P PTCA STENT RCA STENT X 3 DISTAL RCA TO OSTIAL RCA RESIDUAL STENOSIS OF LAD THATS NEEDS REVASCULARIZATION AT LATER DATE9 STAGED) [facility]NAG[facility] DC HOME Dietary Evaluation Review Comments: 1. CCHO-60 Cardiac Diet, texture as tolerated 2. Monitor PO intakes to meet 75% of her needs 3. Offer Glucerna 240ml oral supplements if PO intake <50% 4. Offer TF glucerna@45ml/hr (65g protein, 1296kcal, 869ml free water) if PO intake < 25% Expected Outcomes/Goals: Controlled DM, Grdaul wt loss. Plan discussed with: Patient NONA CONTRERAS MD Aug 22, 2025 15:50
--- NOTE | 2025-08-22 19:29 | DVHPNRES ---
Progress Note Date Seen: Aug 21, 2025 Resident Creating Document: SUGEY RINCON RESIDENT Has the PT tested + for MRSA If YES, has PT been informed?: No Medical Necessity Reason Pt with a Central, PICC or Fol: No Subjective Review of Systems Sheri Larsen is a 60-year-old female with past medical history of DM type1 (insulin-dependent), hypertension,dyslipidemia, morbid obesity, CVA (10/2024, with right side deficit, with dual antiplatelet therapy). The patient came to the [facility] brought via EMS with chief complaint of 5 days of nausea, vomiting and dizziness. Per EMS, due to nausea and vomiting patient was not taking her medications. The patient denied chest pain, shortness of breath, palpitations or any other typical cardiac symptoms. On the way to the ED a 12 lead EKG showed STEMI in the inferior leads leads II, III, AVF. In the emergency department, EKG was repeated consistent with STEMI of inferior wall. Mold Filler And Drainer was called which confirmed STEMI and patient was taken to the quality control lab technician for coronary angiogram. Underwent PTCA x3 stent in RCA. The patient was in sepsis present on admission, started IV NS at 75 mL/hours, IV ceftriaxone 1 g daily, doxycycline 100 mg p.o. b.i.d. for community-acquired Gram-positive/Gram-negative pneumonia. Patient seen and examined at bedside. Patient is currently complaining of generalized weakness and slight body aches. WBC is keeps improving today was 11.7 most likely due to bacterial pneumonia. Patient is currently on doxycycline and ceftriaxone at this time. Patient is status post stent placed to the RCA on 08/18/25. Today patient is on aspirin 81 mg daily, clopidogrel 75 mg daily and atorvastatin 80 mg daily. We explained to the patient the importance of medication adherence with these last three medications. Chest x- ray today looks grossly clean. Lactic acid is also improving, today was 1.7. We will hold blood pressure medications at this time since the patient is having low blood pressure running in the lower side. 08/21/25, the patient was evaluated and examined at the bedside. The patient's VS, labs and chart were reviewed. The patient reports doing better, she denies chest pain or shortness of breath, no other new complaints today. The patient continues with IV antibiotics ceftriaxone and doxycycline. Cardiology is on board, they recommend. LAD angiogram as an outpatient in 2 weeks. We will continue providing follow up of this patient's progress. ROS Constitutional: Reports generalized weakness and body aches. Denies weight loss, fever and chills. HEENT: Denies changes in vision and hearing. Respiratory: Denies shortness of breath and cough Cardiovascular: Denies chest discomfort or palpitations GI: Denies abdominal pain, nausea, vomiting and diarrhea. : Denies dysuria and urinary frequency. Musculoskeletal: Denies myalgias and joint pain Skin: Denies rash and pruritus. Neurological: Denies dizziness, headache, vision or hearing problems Objective vital signs Vital Sign Date Time Temp Pulse Resp B/P (MAP) Pulse Ox O2 Delivery O2 Flow Rate FiO2 08/22/25 17:00 98.2 71 18 125/67 (86) 95 98.2 08/22/25 08:00 Room Air* 0 21 Total Intake and Output 08/21/25 08/21/25 08/22/25 15:00 23:00 07:00 Intake Total 300 ml 450 ml 400 ml Output Total 300 ml 300 ml Balance 300 ml 150 ml 100 ml medications Current Medications Medications Dose Ordered Sig/Jaime Route Start Time Stop Time Status Last Admin Dose Admin Enoxaparin Sodium 40 mg DAILY SC 08/19/25 10:00 08/22/25 09:21 40 MG Nitroglycerin 0.4 mg Q5MINP PRN SL 08/18/25 13:45 Morphine Sulfate 2 mg Q30M PRN IV 08/18/25 13:45 Aspirin 81 mg DAILY PO 08/19/25 10:00 08/22/25 09:21 81 MG Clopidogrel Bisulfate 75 mg DAILY PO 08/19/25 10:00 08/22/25 09:21 75 MG Atorvastatin Calcium 80 mg HS PO 08/18/25 22:00 08/21/25 21:26 80 MG Diagnostic Test (Pha) 1 strip ACHS 08/18/25 17:00 08/22/25 17:00 1 STRIP Dextrose 50 ml UD PRN IV 08/18/25 16:30 Insulin Glargine 15 units DAILY@1000 SC 08/19/25 10:00 08/22/25 09:30 15 UNITS Ceftriaxone Sodium 50 ml @ 100 mls/hr DAILY@09 IV 08/19/25 09:00 08/22/25 09:21 100 MLS/HR Doxycycline Monohydrate 100 mg Q12HR PO 08/19/25 10:00 08/22/25 09:21 100 MG Metoprolol Succinate 25 mg DAILY PO 08/20/25 10:00 Hold Insulin Human Regular HS SC 08/19/25 22:00 08/21/25 21:38 4 UNITS Insulin Human Regular AC SC 08/20/25 07:00 08/22/25 17:00 2 UNITS Acetaminophen/ Hydrocodone Bitart 1 tab Q4HP PRN PO 08/21/25 13:00 08/22/25 06:26 1 TAB Examination General: Patient alert and oriented in person, place and time. Patient following commands. HEENT: Normocephalic, atraumatic, moist mucous membranes Respiratory/pulmonary: Clear lungs bilaterally, no associated crackles or wheezes. Cardiovascular: Normal heart sounds S1 and S2 with no associated murmurs Abdomen: Abdomen nondistended, there is no pain to palpation in any of the abdominal quadrants, no palpable masses. Extremities: There is no peripheral edema present at the lower extremities. Skin: No rashes or pruritus, there is no sacral edema present at this time. Neurological: left sided deficits laboratory and microbiology Laboratory Tests 08/21/25 09:30 Test 08/21/25 09:30 Range/Units Serum Glucose 121 H 74-106 mg/dL Microbiology Date/Time Source Procedure Growth Status 08/19/25 17:20 Voided Urine Urine Culture - Final Complete 08/19/25 13:12 Blood Blood Culture - Preliminary NO GROWTH AFTER 72 HOURS OF INCUBATION. Resulted 08/18/25 15:46 Nose MRSA Screen - Final Complete Problem List/Assessment/Plan Problem List/Assessment/Plan #Sepsis likely secondary to community-acquired Gram-positive/Gram-negative pneumonia, present on admission - chest x-ray demonstrated patchy opacity in the lower lung field - lactic acid trends were 2.4>2.7. last lactic acid today was 1.7 -Continue IV normal saline at 75 mL/hours -blood cultures are still pending but urinary cultures came back showing no growth of microorganisms. - IV ceftriaxone 1 g daily, doxycycline 100 mg p.o. b.i.d. #Acute chest pain due to acute coronary syndrome #STEMI in inferior wall -[address] elevation on leads II, III, AVF (inferior wall [place]) - Patient was loaded on aspirin, continue aspirin 81 mg daily - S/P PTCAX3 stent in RCA - Aspirin 81 mg daily, clopidogrel 75 mg daily and atorvastatin 80 mg at HS - Strict Ins and outs - Cardiac diet - Cardiology on board #Hypertensive heart disease with possible diastolic/systolic dysfunction -hold antihypertensive at this time, BP is on the lower side -monitor blood pressure closely #Type 1 diabetes mellitus with hyperglycemia -HbA1C 6.5 - Lantus 15 units at a.m. and moderate sliding scale of insulin -monitor blood glucose closely #Dyslipidemia -Atorvastatin 80mg po daily #Morbid obesity class II - Counseled patient on nutrition status and weight loss. #Hx of CVA with left sided deficits - Patient is on DAPT DVT prophylaxis: Lovenox Diet: Cardiac diet Goals of care discussed with the patient for more than 35 minutes: Code Status: Full code PCP: Dr. Justino Peterson Case discussed with Dr. Thacker Plan discussed with: Patient My Orders My Orders Orders - SUGEY RINCON RESIDENT Procedure Category Date Status Time Respiratory Culture RJ 08/22/25 Logged W/ Gs 06:30 Drug Screen LAB 08/22/25 Logged 06:32 Communication Order ORDERS 08/22/25 Transmitted 06:33 Discharge DISCHARGE 08/22/25 Transmitted 09:22 Dietary Evaluation Review Comments: 1. CCHO-60 Cardiac Diet, texture as tolerated 2. Monitor PO intakes to meet 75% of her needs 3. Offer Glucerna 240ml oral supplements if PO intake <50% 4. Offer TF glucerna@45ml/hr (65g protein, 1296kcal, 869ml free water) if PO intake < 25% Expected Outcomes/Goals: Controlled DM, Grdaul wt loss. Date of Service: Aug 21, 2025 Billing Provider: ROSI THACKER MD Common Visit Codes: [id number] INP/OBS CARE(HIGH) SUGEY RINCON RESIDENT Aug 22, 2025 19:29
--- NOTE | 2025-08-22 20:05 | DVHDSRES ---
Discharge Summary Date of Admission Resident Creating Document: SUGEY RINCON RESIDENT Aug 18, 2025 at 13:40 Date of Discharge: Aug 22, 2025 Admitting Diagnosis #Sepsis likely secondary to community-acquired Gram-positive/Gram-negative pneumonia, present on admission #Acute chest pain due to acute coronary syndrome #Acute STEMI in inferior wall #Chronic Hypertensive heart disease with possible diastolic/systolic dysfunction #Chronic Type 1 diabetes mellitus with hyperglycemia Labs/Diagnostic Data: Laboratory Results Test 08/22/25 16:51 08/21/25 09:30 08/21/25 04:00 08/20/25 08:54 POC Glucose 134 mg/dl (70-106) White Blood Count 8.5 10^3/uL (4.4-10.8) Red Blood Count 4.32 10^6/uL (4.0-5.20) Hemoglobin 13.7 g/dL (12.2-16.2) Hematocrit 40.4 % (36.0-46.0) Mean Corpuscular Volume 93.4 fL (80.0-100.0) Mean Corpuscular Hemoglobin 31.8 pg (28.0-32.0) Mean Corpuscular Hemoglobin Concent 34.1 g/dL (32.0-36.0) Red Cell Distribution Width 13.3 % (11.8-14.3) Platelet Count 183 10^3/uL (140-450) Mean Platelet Volume 10.2 fL (6.9-10.8) Neutrophils (%) (Auto) 73.9 % (37.0-80.0) Lymphocytes (%) (Auto) 18.7 % (10.0-50.0) Monocytes (%) (Auto) 6.6 % (0.0-12.0) Eosinophils (%) (Auto) 0.5 % (0.0-7.0) Basophils (%) (Auto) 0.3 % (0.0-2.0) Neutrophils # (Auto) 6.3 10 ^3/uL (1.6-8.6) Lymphocytes # (Auto) 1.6 10 ^3/uL (0.4-5.4) Monocytes # (Auto) 0.6 10 ^3/uL (0-1.3) Eosinophils # (Auto) 0 10 ^3/uL (0-0.8) Basophils # (Auto) 0 10 ^3/uL (0-0.2) Nucleated Red Blood Cells 0.1 % Sodium Level 143 mmol/L (136-145) Potassium Level 3.7 mmol/L (3.5-5.1) Chloride Level 110 mmol/L (98-107) Carbon Dioxide Level 23 mmol/L (20-31) Anion Gap 10 (5-15) Blood Urea Nitrogen 21 mg/dL (9-23) Creatinine 0.69 mg/dL (0.550-1.02) Glomerular Filtration Rate Calc 100 mL/min (>90) BUN/Creatinine Ratio 30.4 (10.0-20.0) Serum Glucose 121 mg/dL (74-106) Calcium Level 9.4 mg/dL (8.7-10.4) Influenza Type A Antigen Negative (Negative) Influenza Type B Antigen Negative (Negative) SARS-CoV-2 Antigen (Rapid) Negative (NEGATIVE) Lactic Acid Level 1.7 mmol/L (0.4-2.0) Test 08/20/25 05:18 08/19/25 04:00 08/18/25 13:19 08/18/25 13:18 Magnesium Level 1.8 mg/dL (1.6-2.6) Total Bilirubin 0.4 mg/dL (0.2-1.0) Aspartate Amino Transferase (AST) 39 U/L (13-40) Alanine Aminotransferase (ALT) < 9 U/L (7-40) Alkaline Phosphatase 56 U/L (46-116) Total Protein 6.3 g/dL (5.7-8.2) Albumin 3.3 g/dL (3.2-4.8) B-Type Natriuretic Peptide 375.95 pg/mL (0-100) Hemoglobin A1c 6.5 % A1C (<5.7) Triglycerides Level 157 mg/dL (< 150) Cholesterol Level 223 mg/dL (< 200) LDL Cholesterol 145 mg/dL (< 100) HDL Cholesterol 45 mg/dL (40-59) Thyroid Stimulating Hormone (TSH) 3.19 uIU/mL (0.55-4.78) Differential Total Cells Counted 100.0 (100) Neutrophils % (Manual) 91 (37.0-80.0) Band Neutrophils % (Manual) 0 Lymphocytes % (Manual) 3 (10.0-50.0) Monocytes % (Manual) 6 (0-12) Eosinophils % (Manual) 0 (0-7) Basophils % (Manual) 0 (0.0-2.0) Metamyelocytes % (manual) 0 Myelocytes % (Manual) 0 Promyelocytes % (Manual) 0 Blast Cells % (Manual) 0 Reactive Lymphocytes 0 Platelet Estimate Adequate Prothrombin Time 10.3 sec (9.3-11.8) Prothrombin Time INR 0.97 (0.9-1.15) Activated Partial Thromboplast Time 24.2 SEC (24.5-34.5) Troponin I High Sensitivity 8399 ng/L (</=34) Other Laboratory Tests 08/21/25 09:30 Brief Hx & Hospital Course: Sheri Larsen is a 60-year-old female with past medical history of DM type1 (insulin-dependent), hypertension,dyslipidemia, morbid obesity, CVA (10/2024, with right side deficit, with dual antiplatelet therapy). The patient came to the [facility] brought via EMS with chief complaint of 5 days of nausea, vomiting and dizziness. Per EMS, due to nausea and vomiting patient was not taking her medications. The patient denied chest pain, shortness of breath, palpitations or any other typical cardiac symptoms. On the way to the ED a 12 lead EKG showed STEMI in the inferior leads leads II, III, AVF. In the emergency department, EKG was repeated consistent with STEMI of inferior wall. Master Printer was called which confirmed STEMI and patient was taken to the laboratory equipment installer for coronary angiogram. Underwent PTCA x3 stent in RCA. The patient was in sepsis present on admission, started IV NS at 75 mL/hours, IV ceftriaxone 1 g daily, doxycycline 100 mg p.o. b.i.d. for community-acquired Gram-positive/Gram-negative pneumonia. Hospital course: Patient seen and examined at bedside. Patient is currently complaining of generalized weakness and slight body aches. WBC is keeps improving today was 11.7 most likely due to bacterial pneumonia. Patient is currently on doxycycline and ceftriaxone at this time. Patient is status post stent placed to the RCA on 08/18/25. Today patient is on aspirin 81 mg daily, clopidogrel 75 mg daily and atorvastatin 80 mg daily. We explained to the patient the importance of medication adherence with these last three medications. Chest x-ray today looks grossly clean. Lactic acid is also improving, today was 1.7. We will hold blood pressure medications at this time since the patient is having low blood pressure running in the lower side. 08/21/25, the patient was evaluated and examined at the bedside. The patient's VS, labs and chart were reviewed. The patient reports doing better, she denies chest pain or shortness of breath, no other new complaints today. The patient continues with IV antibiotics ceftriaxone and doxycycline. Cardiology is on board, they recommend. LAD angiogram as an outpatient in 2 weeks. We will continue providing follow up of this patient's progress. Today, the patient was evaluated and examined at bedside. The patient report feeling well, no new complaints. The patient has been afebril for the past 24hrs. Due to significant clinical improvement, the patient will be discharged home today. ROS Constitutional: Reports generalized weakness and body aches. Denies weight loss, fever and chills. HEENT: Denies changes in vision and hearing. Respiratory: Denies shortness of breath and cough Cardiovascular: Denies chest discomfort or palpitations GI: Denies abdominal pain, nausea, vomiting and diarrhea. : Denies dysuria and urinary frequency. Musculoskeletal: Denies myalgias and joint pain Skin: Denies rash and pruritus. Neurological: Denies dizziness, headache, vision or hearing problems, Physical Exam: General: Patient alert and oriented in person, place and time. Patient following commands. HEENT: Normocephalic, atraumatic, moist mucous membranes Respiratory/pulmonary: Clear lungs bilaterally, no associated crackles or wheezes. Cardiovascular: Normal heart sounds S1 and S2 with no associated murmurs Abdomen: Abdomen nondistended, there is no pain to palpation in any of the abdominal quadrants, no palpable masses. Extremities: There is no peripheral edema present at the lower extremities. Skin: No rashes or pruritus, there is no sacral edema present at this time. Neurological: Intact cranial nerves with left sided deficits Consults/Reason for consult Cardiology: STEMI Operations or Procedures PROCEDURE(s): CXR1 - CHEST XRAY 1 VIEW REASON: Pneumonia ORDER NUMBER(s): [id number], ACCESSION NUMBER(s): [id number] EXAM: XY CHEST XRAY 1 VIEW HISTORY: Pneumonia COMPARISON: XY CHEST PORTABLE on DOS: 08/19/25, XY CHEST PORTABLE on DOS: 08/18/25, XY CHEST XRAY 1 VIEW on DOS: 06/30/25 TECHNIQUE: Portable AP view of the chest was performed. FINDINGS: There is mild patchy infiltrate in the left lung base, improved since the previous chest x-ray. No pneumothorax or pulmonary edema. The heart is not enlarged. The thoracic aorta is calcific. There is thoracic spondylosis and dextroscoliosis. IMPRESSION: 1. Left basilar pneumonia is improved since chest x-ray performed 1 day earlier. 2. The right lung is clear. EDURE(s): CXRP - CHEST PORTABLE REASON: sob ORDER NUMBER(s): [id number], ACCESSION NUMBER(s): [id number] EXAM DESCRIPTION: Chest 1 View CLINICAL HISTORY: sob COMPARISON: XY CHEST PORTABLE on DOS: 08/18/25, XY CHEST XRAY 1 VIEW on DOS: 06/30/25, CR CHEST 2 VIEW on DOS: 06/24/24 FINDINGS and IMPRESSION: Lines, tubes, and support devices: None. Lungs / Pleura: Patchy airspace opacities in the left lower lung. No pleural effusion. No pneumothorax. Mediastinum: Normal cardiomediastinal silhouette. Osseous structures / Soft tissues: No acute findings. ATED BY: ANDREW SARAVIA MD DICTATED DATE/TIME: 08/19/25 1022 PROCEDURE(s): LHIP - L HIP COMPLETE XRAY REASON: left hip pain ORDER NUMBER(s): [id number], ACCESSION NUMBER(s): [id number] CLINICAL INDICATION: left hip pain TECHNIQUE: 3 radiographic views of the left hip were obtained. Comparison: None FINDINGS/IMPRESSION: Bony alignment is normal. No fractures or dislocations. If clinical examination is still worrisome for fracture recommend CT of the pelvis. ATED BY: BRIAN PENN Jr., DO PROCEDURE(s): CXRP - CHEST PORTABLE REASON: STEMI ORDER NUMBER(s): [id number], ACCESSION NUMBER(s): [id number] CHEST RADIOGRAPH Indication: STEMI Technique: Single frontal view of the chest was obtained Comparison: XY CHEST XRAY 1 VIEW on DOS: 06/30/25 FINDINGS: Lines and Tubes: None Lungs: Increased bronchovascular markings in the right upper lung field left lower lung field.. Pleura: No effusion. No pneumothorax. Cardiomediastinal contours: Unremarkable Bones: No acute osseous abnormality. IMPRESSION: 1. Possible infiltrate developing in the left lower lung field and right upper lung field. Correlate clinically. 2. Consider follow-up chest x-ray. ATED BY: BRIAN PENN Jr. DO DICTATED DATE/TIME: 08/18/25 1355 Condition at Discharge: Stable Final Diagnosis/Problems List #Sepsis likely secondary to community-acquired Gram-positive/Gram-negative pneumonia, present on admission #Acute chest pain due to acute coronary syndrome #Acute STEMI in inferior wall #Chronic Hypertensive heart disease with possible diastolic/systolic dysfunction #Chronic Type 1 diabetes mellitus with hyperglycemia #Chronic Dyslipidemia #Morbid obesity class II #Hx of CVA with left sided deficits Discharge Disposition: Home SNF Discharge Will this Physician continue t: No Discharge Instruct/Medications Diet: Cardiac 2g Na,low cholest Activity: No Restrictions, As Tolerated Follow Up/Referral: F/U with PCP within one week F/U with Cardiology in 1 week Medications: Doxycycline Monohydrate (Doxycycline Monohydrate), 1 CAP PO BID Continue with medications as below: Scheduled Aspirin (Aspir-Low), 81 MG PO DAILY, (Reported) Aspirin (Aspirin 81), 81 MG PO DAILY Atorvastatin Calcium (Atorvastatin Calcium), 1 TAB PO QPM Bupropion Hcl (Wellbutrin Sr), 1 TAB PO DAILY, (Reported) Clonazepam (Clonazepam), 1 TAB PO BID, (Reported) Clopidogrel Bisulfate (Plavix), 1 TAB PO DAILY Doxycycline Monohydrate (Doxycycline Monohydrate), 1 CAP PO BID Insulin Glargine-Yfgn (Insulin Glargine), 15 UNIT SC DAILY Insulin Lispro (Insulin Lispro), 5 UNIT SC AC Metformin Hydrochloride (Metformin Hcl), 1 TAB PO BID Metoprolol Tartrate (Lopressor Tablet), 2 TAB PO BID, (Reported) Risperidone (Risperidone), 1 TAB PO QPM, (Reported) Scheduled PRN Trazodone Hcl (Trazodone Hcl), 150 MG PO HSPRN PRN for FOR INSOMNIA, (Reported) Discontinued Medications Amoxicillin & Pot Clavulanate (Augmentin), 1 TAB PO BID Diltiazem Hcl (Diltiazem Hcl), 120 MG PO BID, (Reported) Diphenhydramine Hcl (Benadryl Allergy), 50 MG PO BIDP PRN for ANXIETY, (Reported) Doxycycline (Monohydrate) (Doxycycline), 100 MG PO BID Hydrocodone-Acetaminophen ([place] 10-325 mg), 1 TAB PO QID, (Reported) Hydrocodone-Acetaminophen (Hydrocodone Bitartrate/AC 10-325 mg), 1 TAB PO TID PRN Insulin Glargine (Basaglar Kwikpen), 20 UNIT SC DAILY, (Reported) Loratadine (Claritin), 1 TAB PO DAILY, (Reported) Losartan Potassium (Losartan Potassium), 100 MG PO DAILY, (Reported) Omeprazole (Gnp Omeprazole), 1 TAB PO DAILY, (Reported) Simvastatin (Simvastatin), 20 MG PO DAILY, (Reported) Sitagliptin (Sitagliptin), 100 MG PO DAILY Discharge Statement: "Patient was advised to return to the ER or call 911 if any headaches, dizziness, shortness of breath, chest pain, abdominal pain, bleeding, fevers, or worsening of medical condition. Patient was counseled about treatment plan, medications, possible side effects, patientverbalized understanding. All questions were answered to the best of my ability. This discharge took greater then 30 minutes in planning, reviewing documentation, counseling the patient, and discussing with other team members." Discharge Care Plan Instructions Take Rx medications, Notify MD of any issues, Keep list of meds w/ you, Do not drink ETOH/smoke, Call 911 in an emergency, F/U w/ PCP ASSESSMENT ASSESSMENT Assessment #Sepsis likely secondary to community-acquired Gram-positive/Gram-negative pneumonia, present on admission #Acute chest pain due to acute coronary syndrome #Acute STEMI in inferior wall #Chronic Hypertensive heart disease with possible diastolic/systolic dysfunction #Chronic Type 1 diabetes mellitus with hyperglycemia #Chronic Dyslipidemia #Morbid obesity class II #Hx of CVA with left sided deficits Goals of care discussed with the patient for more than 35 minutes Code Status: Full code PCP: Dr. Keli Peterson Case discussed with Dr. Thacker The patient agrees with the discharge plan. Date of Service: Aug 22, 2025 Billing Provider: ROSI THACKER MD Common Visit Codes: [id number] DISCH DAY >30min SUGEY RINCON RESIDENT Aug 22, 2025 20:05
== END 2025-08-22 20:50 | disposition home or self-care (01) | DRG 710 ==
LOC: ER 12:57 → EDBD 12:57 → OVERFLOW 13:40 → ICU WEST 14:43 → TELE-CENTR 08-19 23:25
PROVIDERS: ADMIT Internal Medicine; ATTEND Internal Medicine
PROC: 027036Z Dilation of Coronary Artery, One Artery with Three Drug-eluting Intraluminal Devices, Percutaneous Approach (ICD-10-PCS; principal; 2025-08-18)
PROC: 02F03ZZ Fragmentation in Coronary Artery, One Artery, Percutaneous Approach (ICD-10-PCS; 2025-08-18)
PROC: 4A023N7 Measurement of Cardiac Sampling and Pressure, Left Heart, Percutaneous Approach (ICD-10-PCS; 2025-08-18)
PROC: 4A033BC Measurement of Arterial Pressure, Coronary, Percutaneous Approach (ICD-10-PCS; 2025-08-18)
PROC: B2111ZZ Fluoroscopy of Multiple Coronary Arteries using Low Osmolar Contrast (ICD-10-PCS; 2025-08-18)
DX: A41.59 Other Gram-negative sepsis (principal); I21.19 ST elevation (STEMI) myocardial infarction involving other coronary artery of inferior wall; N17.0 Acute kidney failure with tubular necrosis; J15.69 Pneumonia due to other Gram-negative bacteria; E87.20 Acidosis, unspecified; J15.9 Unspecified bacterial pneumonia; I69.354 Hemiplegia and hemiparesis following cerebral infarction affecting left non-dominant side; E86.0 Dehydration; E66.01 Morbid (severe) obesity due to excess calories; E10.65 Type 1 diabetes mellitus with hyperglycemia; I10 Essential (primary) hypertension; Z68.33 Body mass index [BMI] 33.0-33.9, adult; I25.10 Atherosclerotic heart disease of native coronary artery without angina pectoris; E78.5 Hyperlipidemia, unspecified; I48.91 Unspecified atrial fibrillation; Z79.899 Other long term (current) drug therapy; Z79.4 Long term (current) use of insulin; Z79.84 Long term (current) use of oral hypoglycemic drugs; Z79.02 Long term (current) use of antithrombotics/antiplatelets; Z88.5 Allergy status to narcotic agent
CPT/HCPCS: 36415; 71045; 73502; 80048; 80053; 80061; 82962; 83036; 83605; 83735; 83880; 84443; 84484; 85007; 85025; 85027; 85610; 85730; 87040; 87081; 87086; 87426; 87804; 92929; 92972; 93005; 93306; 93452; 93571; 96374; 96375; 97163; 99291; A4565; G0378; J1815; J2250; J2405; J3480; J3490

== ENCOUNTER 2025-08-23 22:28 | Inpatient (IN) | payer MEDICAID ==
[~2025-08-23] VITALS: Ht 170.2 cm; Wt 84.6 kg
[~2025-08-23 22:28] MED LIST changes: -AMOX500T86 PO; +ASPI-498 PO; +ATOR-47 PO; +CLOP75TA28 PO; -DILT60TA PO; -DIPH25CA66 PO; -DOXY100C79 PO; +DOXY1CAP57 PO; -HYDR-4798 PO; -HYDR-531 PO; -INSU1INJ19 SC; -LORA-622 PO; -LOSA-535 PO; -OMEP20TA PO; -SIMV20TA20 PO; -SITA100T34 PO
--- NOTE | 2025-08-23 22:51 | ECG ---
[facility] Test Date: 2025-08-23 Test Time: 22:43:50 Pat Name: DAVE TY Department: ED Room: 0270T Gender: F [employer] Jogger: ROMAN : 1965 Requested By: EMERGENCY EMERGENCY Order Number: [id number] Reading MD: Xiang Shaikh Measurements Intervals [place] Rate: 82 P: 62 FL: 188 QRS: 4 QRSD: 89 T: -10 QT: 445 QTc: 520 Interpretive Statements Sinus rhythm Inferior infarct, old Anterior infarct, old Prolonged QT interval Baseline wander in lead(s) V3 Electronically Signed On 08-25-2025 15:45:42 PST by Xiang Shaikh Please click the below link to view image of tracing.
--- NOTE | 2025-08-23 22:54 | ED.PDOC ---
History of present illness HPI Comments HPI: Poor Historian. 60-year-old female brought in by ambulance from home for chief complaint of not acting normal. Patient had food earlier then received her insulin. Patient is started having change in her mental status. Family called 911. Initial blood sugar by EMS was 29. She was given D10. Her blood sugar improved. She is back to her baseline. There was no loss of consciousness. Patient is was in bed the whole time. Patient was recently hospitalized had a cardiac stenting done as well. History of stroke. Patient was discharged from the hospital yesterday with the final diagnosis: Final Diagnosis/Problems List #Sepsis likely secondary to community-acquired Gram-positive/Gram-negative pneumonia, present on admission #Acute chest pain due to acute coronary syndrome #Acute STEMI in inferior wall #Chronic Hypertensive heart disease with possible diastolic/systolic dysfunction #Chronic Type 1 diabetes mellitus with hyperglycemia #Chronic Dyslipidemia #Morbid obesity class II #Hx of CVA with left sided deficits Past Medical History:Coronary artery disease, diabetes, hypertension, hyperlipidemia , stroke Past Surgical History: Cardiac stenting REVIEW OF SYSTEMS: CONSTITUTIONAL: Denies acute: fever, diaphoresis, chills, HEAD: Denies acute: headache, photophobia Eyes: Denies acute: Double vision, vision loss, eye pain, eye discharge. EARS: Denies acute: tinnitus, hearing loss, ear discharge, ear pain, THROAT: Denies acute: sore throat, swelling, difficulty swallowing , pain with swallowing, change in voice. NECK: Denies acute: neck pain, neck swelling, stiff neck. HEART: Denies acute : chest pain, palpitations, LUNGS: Denies acute: SOB, wheezing, cough, hemoptysis ABDOMEN: Denies acute: abdominal pain, Nausea, Vomiting, diarrhea, melena , hematemesis, hematochezia SKIN: Denies acute: rash, redness, lesions, itchiness. EXTREMITIES: Denies acute: calf pain, numbness, tingling, weakness, denies pain in extremity. Denies acute: Low back pain. Neuro: Denies acute: focal neurological deficit, motor or sensory focal neurological deficit, tremors, seizure like activity, dizziness, loss of bowel or bladder function, cauda equina like symptoms. : Denies acute: dysuria, hematuria, flank pain, increase in urinary frequency. PSYCH: Denies acute: hallucination, suicidal ideation, homicidal ideation. FEMALE: Denies acute: abnormal vaginal bleeding, foul odor, unusual discharge. PHYSICAL EXAM: General: --no------acute distress, awake and alert. Head: normocephalic, atraumatic. No raccoon's eyes, no owen sign. Neck: supple, trachea is midline, no swelling. Throat: Normal phonation. Eyes:, no erythema, no purulent discharge, no proptosis, no icterus. Heart: regular rate, regular rhythm, no significant murmur appreciated. Lungs: no apparent respiratory distress, No wheezing, no rhonchi, no crackles. No stridors Clear to auscultation bilaterally. Abdomen: non tender to palpation, non distended, soft, no guarding, no rebound, + bowel sounds. Obese Neuro: Awake, Alert, oriented to name, Skin: no petechia, no purpura, no cyanosis, non-pale, not jaundice. Lower extremities: --no - Pitting edema no deformity, no focal swelling, no calf TTP. Makes eye contact. moves all four extremities. Face: no apparent facial droop. ED COURSE: DISCLAIMER: This medical document was created using an electronic medical record system with voice recognition software and computerized dictation system. Although this document has been carefully reviewed, there might still be some phonetic and typographical errors. Occasional wrong-word or "sound-alike" substitutions may have occurred due to the inherent limitations of voice recognition software. These areas are purely typographical due to imperfections of the software programs and do not reflect any compromise in the patient's medical care. Please read the chart carefully and recognize, using context, where these substitutions have occurred. Chief Complaint: Hypoglycemia Time Seen by MD: 22:49 Primary Care Provider: DOMINIC History of present illness: Allergies Allergies: Coded Allergies: Iodine (Verified Allergy, Unknown, 03/31/19) Home Meds Active Scripts Doxycycline Monohydrate (Doxycycline Monohydrate) 100 Mg Cap, 1 CAP PO BID for 7 Days, #14 CAP Prov:JARAD CHRISTENSEN RESIDENT 08/22/25 Atorvastatin Calcium (ATORVASTATIN CALCIUM) 80 Mg Tab, 1 TAB PO QPM for 30 Days, #30 TAB 3 Refills Prov:JARAD CHRISTENSEN [facility] 08/22/25 Clopidogrel Bisulfate (Plavix) 75 Mg Tab, 1 TAB PO DAILY for 30 Days, #30 TAB 3 Refills Prov:JARAD CHRISTENSEN [facility] 08/22/25 Aspirin (ASPIRIN 81) 81 Mg Tab, 81 MG PO DAILY for 30 Days, #30 TAB 3 [facility] 08/22/25 Insulin Lispro (Insulin Lispro) 100 Unit/Ml Inj, 5 UNIT SC AC for 30 Days, #500 INJ 1 [facility] 07/04/25 Insulin Glargine-Yfgn (Insulin Glargine) 100 Unit/Ml Inj, 15 UNIT SC DAILY for 30 Days, #500 INJ 1 [facility] 07/04/25 Metformin Hydrochloride (Metformin Hcl) 500 Mg Tab, 1 TAB PO BID, #60 TAB 1 Refill [facility] 07/04/25 Reported Medications Aspirin (Aspir-Low) 81 Mg Tab, 81 MG PO DAILY for 30 Days, MG 03/31/19 Metoprolol Tartrate (LOPRESSOR TABLET) 50 Mg Tb, 2 TAB PO BID, #60 TAB 5 Refills 03/31/19 Clonazepam (Clonazepam) 2 Mg Tab, 1 TAB PO BID, #60 TAB 2 Refills 03/31/19 Risperidone (Risperidone) 1 Mg Tab, 1 TAB PO QPM, #30 TAB 1 Refill 03/31/19 Trazodone Hcl (Trazodone Hcl) 150 Mg Tab, 150 MG PO HSPRN PRN for FOR INSOMNIA, MG 03/31/19 Bupropion Hcl (Wellbutrin Sr) 150 Mg Tab, 1 TAB PO DAILY, #60 TAB 5 Refills 03/31/19 Discontinued Reported Medications Losartan Potassium (Losartan Potassium) 100 Mg Tab, 100 MG PO DAILY for 30 Days, MG 03/31/19 Loratadine (Claritin) 10 Mg Tab, 1 TAB PO DAILY, #30 TAB 5 Refills 03/31/19 Hydrocodone-Acetaminophen ([place] 10-325 mg) 1 Tab Tab, 1 TAB PO QID, TAB 03/31/19 Simvastatin (Simvastatin) 20 Mg Tab, 20 MG PO DAILY for 30 Days 03/31/19 Omeprazole (Gnp Omeprazole) 20 Mg Tab, 1 TAB PO DAILY, #90 TAB 1 Refill 03/31/19 Diphenhydramine Hcl (Benadryl Allergy) 25 Mg Cap, 50 MG PO BIDP PRN for ANXIETY, CAP 03/31/19 Diltiazem Hcl (Diltiazem Hcl) 60 Mg Tab, 120 MG PO BID for 30 Days, MG 03/31/19 Insulin Glargine (Basaglar Kwikpen) 100 Unit/Ml Inj, 20 UNIT SC DAILY, INJ 03/31/19 Discontinued Scripts Hydrocodone-Acetaminophen (Hydrocodone Bitartrate/AC 10-325 mg) 1 Tab Tab, 1 TAB PO TID PRN, #20 TAB Prov:CHRISTEN ESCOBARP 08/09/25 Doxycycline (Monohydrate) (Doxycycline) 100 Mg Cap, 100 MG PO BID for 3 Days, #6 CAP [facility] 07/05/25 Amoxicillin & Pot Clavulanate (Augmentin) 500 Mg Tab, 1 TAB PO BID for 3 Days, #6 TAB [facility] 07/05/25 Sitagliptin (Sitagliptin) 100 Mg Tab, 100 MG PO DAILY for 30 Days, #30 TAB [facility] 07/04/25 Information Source: Emergency Med Personnel Past Medical History PAST MEDICAL HISTORY: AFIB, CVA, DM, High Lipids, HTN, Thyroid, TIA Surgical History: GRAPHICS SOFTWARE ENGINEER History: No Pertinent GRAPHICS SOFTWARE ENGINEER History Family History Family History: Reviewed,noncontributory to illness, Unknown Social History Smoker: Non-Smoker Alcohol: Denies ETOH Use Drugs: Marijuana Lives In: Home Was a procedure done? Was a procedure done?: No X-Ray, Labs, Meds, VS Vital Signs Date Time Temp Pulse Resp B/P (MAP) Pulse Ox O2 Delivery O2 Flow Rate FiO2 08/23/25 22:55 82 93 Room Air* 0 21 08/23/25 22:55 97.9 82 20 107/60 (76) 92 97.9 08/23/25 22:43 82 08/23/25 22:30 97.4 68 18 101/64 98 97.4 Lab Test 08/23/25 23:05 08/23/25 22:59 Range/Units White Blood Count 11.5 #H 4.4-10.8 10^3/uL Red Blood Count 4.27 4.0-5.20 10^6/uL Hemoglobin 13.4 12.2-16.2 g/dL Hematocrit 39.2 36.0-46.0 % Mean Corpuscular Volume 92.0 80.0-100.0 fL Mean Corpuscular Hemoglobin 31.3 28.0-32.0 pg Mean Corpuscular Hemoglobin Concent 34.1 32.0-36.0 g/dL Red Cell Distribution Width 13.3 11.8-14.3 % Platelet Count 253 140-450 10^3/uL Mean Platelet Volume 9.3 6.9-10.8 fL Neutrophils (%) (Auto) 83.3 H 37.0-80.0 % Lymphocytes (%) (Auto) 10.5 10.0-50.0 % Monocytes (%) (Auto) 4.9 0.0-12.0 % Eosinophils (%) (Auto) 1.0 0.0-7.0 % Basophils (%) (Auto) 0.3 0.0-2.0 % Neutrophils # (Auto) 9.6 H 1.6-8.6 10 ^3/uL Lymphocytes # (Auto) 1.2 0.4-5.4 10 ^3/uL Monocytes # (Auto) 0.6 0-1.3 10 ^3/uL Eosinophils # (Auto) 0.1 0-0.8 10 ^3/uL Basophils # (Auto) 0 0-0.2 10 ^3/uL Nucleated Red Blood Cells 0.0 % Sodium Level 143 136-145 mmol/L Potassium Level 3.4 L 3.5-5.1 mmol/L Chloride Level 109 H 98-107 mmol/L Carbon Dioxide Level 23 20-31 mmol/L Anion Gap 11 5-15 Blood Urea Nitrogen 12 9-23 mg/dL Creatinine 0.60 0.550-1.02 mg/dL Glomerular Filtration Rate Calc 103 >90 mL/min BUN/Creatinine Ratio 20.0 10.0-20.0 Serum Glucose 104 74-106 mg/dL Lactic Acid Level 2.3 *H 0.4-2.0 mmol/L Calcium Level 9.0 8.7-10.4 mg/dL Total Bilirubin 0.3 0.2-1.0 mg/dL Aspartate Amino Transferase (AST) 22 13-40 U/L Alanine Aminotransferase (ALT) 11 7-40 U/L Alkaline Phosphatase 65 46-116 U/L Troponin I High Sensitivity 4008 *H </=34 ng/L Total Protein 6.5 5.7-8.2 g/dL Albumin 3.5 3.2-4.8 g/dL POC Glucose 106 70-106 mg/dl Time of 1ST Reevaluation: 00:00 (Patient's blood sugar is dropping again. We gave her some oral intake and juice. Patient's troponins 4000. Few days ago was in the 8000 status post stent placement/STEMI. It is trending down.) Reevaluation 1ST: Unchanged Patient Education/Counseling: Diagnosis, Treatment Family Education/Counseling: Other SEPSIS Sepsis Screen Physician Orders Regional Construction Manager (08/23/25 ) Troponin-I Hs (08/23/25 23:49) Troponin-I Hs (08/24/25 01:49) Vital Signs Date Time Temp Pulse Resp B/P (MAP) Pulse Ox O2 Delivery O2 Flow Rate FiO2 08/23/25 22:55 82 93 Room Air* 0 21 08/23/25 22:55 97.9 82 20 107/60 (76) 92 97.9 08/23/25 22:43 82 08/23/25 22:30 97.4 68 18 101/64 98 97.4 Laboratory Tests Test 08/23/25 23:05 Lactic Acid Level 2.3 mmol/L (0.4-2.0) *H White Blood Count 11.5 10^3/uL (4.4-10.8) #H Departure 1 Departure Time of Disposition: 23:58 Impression: Primary Impression: Hypoglycemia Additional Impression: Elevated troponin Disposition: 09 ADMITTED INPATIENT Admit to: Tele Condition: Guarded Discharged With: Self Critical Care Note Critical Care Time?: Yes (35 min-critical care time only) Heart Score Heart Score: Heart Score Response (Comments) Value History N/A 0 EKG N/A 0 Age N/A 0 Risk Factors N/A 0 Troponin N/A 0 Total 0 JOSE READ DO Aug 23, 2025 22:54
[2025-08-23 22:55] VITALS: PULSE 82; O2SAT 93
[2025-08-23 23:30] LABS: Hematocrit 39.2 % (36.0-46.0); Hemoglobin 13.4 g/dL (12.2-16.2); Mean Corpuscular Hemoglobin 31.3 pg (28.0-32.0); Mean Corpuscular Volume 92.0 fL (80.0-100.0); Nucleated Red Blood Cells % 0.0 %
[2025-08-23 23:40] LABS: Alanine Aminotransferase 11 U/L (7-40); Alkaline Phosphatase 65 U/L (46-116); Calcium 9.0 mg/dL (8.7-10.4); Carbon Dioxide 23 mmol/L (20-31)
[2025-08-23 23:41] LABS: Albumin 3.5 g/dL (3.2-4.8); Anion Gap 11 (5-15); BUN/Creatinine Ratio 20.0 (10.0-20.0); Blood Urea Nitrogen 12 mg/dL (9-23); Glucose 104 mg/dL (74-106); Sodium 143 mmol/L (136-145); Total Protein 6.5 g/dL (5.7-8.2)
[2025-08-23 23:47] LABS: Bilirubin, Total 0.3 mg/dL (0.2-1.0); Chloride 109 mmol/L (98-107); Potassium 3.4 mmol/L (3.5-5.1)
[2025-08-23 23:53] LABS: Lactic Acid w/Reflex 2.3 mmol/L (0.4-2.0)
[2025-08-24] MEDS ORDERED: DEXTROSE (50%) 50ML SYRG IV PRN (01:15)
[2025-08-24] MEDS ORDERED: MORPHINE SULFATE INJ 2 MG/ml SYRG IV PRN (01:15)
[2025-08-24] MEDS ORDERED: NITROGLYCERIN 0.4 MG SL TAB SL PRN (01:15)
[2025-08-24] MEDS ORDERED: ACETAMINOPHEN 325 MG TAB PO PRN (01:15)
[2025-08-24] MEDS: DEXTROSE 10% 1,000 ML IV ONE (01:25)
[2025-08-24 03:01] LABS: Urine Budding Yeast MODERATE /hpf (None Seen); Urine Protein, UAD 2+ (Negative)
[2025-08-24] MEDS: ACCU-CHEK COMFORT CURVE STRIP VI SCH (03:35)
[2025-08-24] MEDS: InsuLIN REG 1unit/0.01ml Soln (100units/ml) SC SCH (03:35)
--- NOTE | 2025-08-24 04:14 | DVHHP2 ---
History of Present Illness Reason for Visit: Altered mental status History of Present Illness 60-year-old female presents for evaluation of altered mental status. Patient recently discharged after being treated for an acute FL. Patient noted to be progressively more altered by family. EMS was called patient's blood sugar was in the 20s on the field. Currently lethargic oriented x3. Denies chest pain or palpitations. No shortness a breath. Past Medical History FL, hypertension, dyslipidemia, CVA, CAD Past Surgical History , cardiac stent Family History Noncontributory Smoke: No ALCOHOL: none Drugs: None Lives: with Family Review of Systems Review of Systems Review of systems are currently negative otherwise dressing HPI. Allergies: Coded Allergies: Iodine (Verified Allergy, Unknown, 03/31/19) Medications Current Medications Medications Dose Ordered Sig/Jaime Route Start Time Stop Time Status Last Admin Dose Admin Aspirin 162 mg DAILY PO 08/24/25 10:00 Atorvastatin Calcium 80 mg HS PO 08/24/25 22:00 Clopidogrel Bisulfate 75 mg DAILY PO 08/24/25 10:00 Metoprolol Tartrate 25 mg BID PO 08/24/25 10:00 Diagnostic Test (Pha) 1 strip IQ4HR 08/24/25 04:00 08/24/25 03:35 1 STRIP Insulin Human Regular IQ4HR SC 08/24/25 04:00 Dextrose 50 ml UD PRN IV 08/24/25 01:15 Ondansetron HCl 4 mg Q4HP PRN IV 08/24/25 01:15 Acetaminophen 650 mg Q6HP PRN PO 08/24/25 01:15 Nitroglycerin 0.4 mg Q5MINP PRN SL 08/24/25 01:15 Morphine Sulfate 2 mg Q30M PRN IV 08/24/25 01:15 Exam Vital Signs Vital Signs Date Time Temp Pulse Resp B/P (MAP) Pulse Ox O2 Delivery O2 Flow Rate FiO2 08/24/25 02:00 85 17 103/61 (75) 98 08/23/25 22:55 Room Air* 0 21 08/23/25 22:55 97.9 97.9 Exam Gen: 60-year-old female in mild distress. Skin: Warm, dry, normal color and texture, no rash. HEENT: Normocephalic atraumatic, mucous membranes moist and pink. Neck: Cervical and supraclavicular nodes normal without enlargement, trachea is midline, thyroid gland is normal without masses. Pulmonary: Clear to auscultation and percussion bilaterally. Cardiac: Regular rate and rhythm. No murmur Abdomen: Soft, nontender, nondistended, bowel sounds present all 4 quadrants, no guarding, no rigidity, no organomegaly. Extremities: No cyanosis, clubbing, no edema Neuro: Cranial nerves II through XII grossly intact, normal affect and speech, no focal motor deficits. Labs/Xrays Labs Test 08/24/25 03:34 08/24/25 03:06 08/24/25 02:30 08/24/25 00:20 Range/Units POC Glucose 121 H 70-106 mg/dl Troponin I High Sensitivity 2672 *H </=34 ng/L Urine Color Yellow Yellow Urine Clarity Turbid H Clear Urine pH 5.5 5.0-9.0 Urine Specific [place] 1.030 1.001-1.035 Urine Protein 2+ H Negative Urine Ketones Trace Negative Urine Blood Negative Negative /uL Urine Nitrite Negative Negative Urine Bilirubin Negative Negative Urine Urobilinogen Normal Negative mg/dL Urine Leukocyte Esterase 2+ Negative /uL Urine RBC 3 0 - 4 /hpf Urine Microscopic WBC 17 H 0-5 /HPF Urine Squamous Epithelial Cells Few <5 /hpf Urine Bacteria None seen None Seen /hpf Urine Yeast (Budding) Moderate None Seen /hpf Urine Glucose Trace Normal mg/dL Lactic Acid Level 2.7 *H 0.4-2.0 mmol/L Test 08/23/25 23:05 Range/Units White Blood Count 11.5 #H 4.4-10.8 10^3/uL Red Blood Count 4.27 4.0-5.20 10^6/uL Hemoglobin 13.4 12.2-16.2 g/dL Hematocrit 39.2 36.0-46.0 % Mean Corpuscular Volume 92.0 80.0-100.0 fL Mean Corpuscular Hemoglobin 31.3 28.0-32.0 pg Mean Corpuscular Hemoglobin Concent 34.1 32.0-36.0 g/dL Red Cell Distribution Width 13.3 11.8-14.3 % Platelet Count 253 140-450 10^3/uL Mean Platelet Volume 9.3 6.9-10.8 fL Neutrophils (%) (Auto) 83.3 H 37.0-80.0 % Lymphocytes (%) (Auto) 10.5 10.0-50.0 % Monocytes (%) (Auto) 4.9 0.0-12.0 % Eosinophils (%) (Auto) 1.0 0.0-7.0 % Basophils (%) (Auto) 0.3 0.0-2.0 % Neutrophils # (Auto) 9.6 H 1.6-8.6 10 ^3/uL Lymphocytes # (Auto) 1.2 0.4-5.4 10 ^3/uL Monocytes # (Auto) 0.6 0-1.3 10 ^3/uL Eosinophils # (Auto) 0.1 0-0.8 10 ^3/uL Basophils # (Auto) 0 0-0.2 10 ^3/uL Nucleated Red Blood Cells 0.0 % Sodium Level 143 136-145 mmol/L Potassium Level 3.4 L 3.5-5.1 mmol/L Chloride Level 109 H 98-107 mmol/L Carbon Dioxide Level 23 20-31 mmol/L Anion Gap 11 5-15 Blood Urea Nitrogen 12 9-23 mg/dL Creatinine 0.60 0.550-1.02 mg/dL Glomerular Filtration Rate Calc 103 >90 mL/min BUN/Creatinine Ratio 20.0 10.0-20.0 Serum Glucose 104 74-106 mg/dL Calcium Level 9.0 8.7-10.4 mg/dL Total Bilirubin 0.3 0.2-1.0 mg/dL Aspartate Amino Transferase (AST) 22 13-40 U/L Alanine Aminotransferase (ALT) 11 7-40 U/L Alkaline Phosphatase 65 46-116 U/L Total Protein 6.5 5.7-8.2 g/dL Albumin 3.5 3.2-4.8 g/dL SEPSIS Sepsis Screen Date sepsis recognized/suspect: Aug 24, 2025 Time Sepsis recognized/suspect: 0218 Recent Procedure: Yes On Antibiotic Therapy: No Respiratory Rate >20: No Heart Rate >90: No Temp<36 C (96.8 F) or >38.3 C: No SBP <90 or MAP <65 mmHG: No New Acute Mental Status Change: No Is the patient on CPAP, BIPAP,: No Physician Orders Recruiting Intern (08/23/25 ) Dextrose 10% (08/24/25 01:15) Aspirin Tablet (08/24/25 10:00) Atorvastatin (Lipitor) (08/24/25 22:00) Clopidogrel Bisulfate (Plavix) (08/24/25 10:00) Metoprolol Tartrate Tablet (Lopressor Ta (08/24/25 10:00) Basic Metabolic Panel (08/25/25 04:00) Glucose Blood (Accu-Chek Comfort Curve T (08/24/25 04:00) Insulin R (Human) (Insulin R) (08/24/25 04:00) Dextrose 50% Syringe (08/24/25 01:15) Admit (08/24/25 01:01) Ondansetron Hcl (Zofran) (08/24/25 01:15) Cardiac Diet-2gna,Lofat,Lochol (08/24/25 Breakfast) Condition: Fair (08/24/25 01:01) Acetaminophen Tablet (Tylenol Tablet) (08/24/25 01:15) Bedrest With Bathroom Privileg (08/24/25 01:01) Nitroglycerin Sublingual (Ntrostat Subli (08/24/25 01:15) Morphine Sulfate Injection (08/24/25 01:15) Stat Ekg For Chest Pain (08/24/25 01:01) Notify Of Changes From Base (08/24/25 01:01) Infection Control Nurse For 24 Hours (08/24/25 01:01) Emergency Dysrhythmia Protocol (08/24/25 01:01) Rhythm Strips Once Every Shift (08/24/25 01:01) Oxygen By Nasal Cannula (08/24/25 01:01) Insert/Manage Urinary Catheter QSHIFT (08/24/25 01:13) Vital Signs Date Time Temp Pulse Resp B/P (MAP) Pulse Ox O2 Delivery O2 Flow Rate FiO2 08/24/25 02:00 85 17 103/61 (75) 98 08/24/25 00:00 80 16 111/60 (77) 96 08/23/25 22:55 82 93 Room Air* 0 21 08/23/25 22:55 97.9 82 20 107/60 (76) 92 97.9 08/23/25 22:43 82 08/23/25 22:30 97.4 68 18 101/64 98 97.4 Laboratory Tests Test 08/23/25 23:05 08/24/25 00:20 Lactic Acid Level 2.3 mmol/L (0.4-2.0) *H 2.7 mmol/L (0.4-2.0) *H White Blood Count 11.5 10^3/uL (4.4-10.8) #H Medications Medications Dose Ordered Sig/Jiame Route Start Time Stop Time Status Last Admin Dose Admin Dextrose 1,000 ml @ 65 mls/hr [id number] ONCE IV 08/24/25 01:15 08/24/25 16:38 08/24/25 01:25 65 MLS/HR Diagnostic Test (Pha) 1 strip IQ4HR 08/24/25 04:00 08/24/25 03:35 1 STRIP Assessment/Plan Assessment/Plan Assessment Metabolic encephalopathy Hypoglycemia UTI Elevated troponin, recent FL, downtrending Plan Admit the patient to telemetry to the hospitalist Celina D10 maintenance IV Q.4 hour Accu-Cheks Resume home medications Continue treatment per orders. Plan discussed with: Patient My Orders Orders - SHAMA LEUNG Procedure Category Date Status Time Dextrose 10% PHA 08/24/25 In Process 01:15 Aspirin Tablet PHA 08/24/25 In Process 10:00 Atorvastatin (Lipitor) PHA 08/24/25 In Process 22:00 Clopidogrel Bisulfate PHA 08/24/25 In Process (Plavix) 10:00 Metoprolol Tartrate PHA 08/24/25 In Process Tablet (Lopressor Ta 10:00 Basic Metabolic Panel LAB 08/25/25 Verified 04:00 Glucose Blood PHA 08/24/25 In Process (Accu-Chek Comfort 04:00 Insulin R (Human) PHA 08/24/25 In Process (Insulin R) 04:00 Dextrose 50% Syringe PHA 08/24/25 In Process 01:15 Admit ADMIT 08/24/25 Transmitted 01:01 Ondansetron Hcl PHA 08/24/25 In Process (Zofran) 01:15 Cardiac DIET 08/24/25 Transmitted Diet-2gna,Lofat,Lochol Breakfast Condition: Fair MELLO 08/24/25 In Process 01:01 Acetaminophen Tablet PHA 08/24/25 In Process (Tylenol Tablet) 01:15 Bedrest With Bathroom MELLO 08/24/25 In Process Privileg 01:01 Nitroglycerin PHA 08/24/25 In Process Sublingual (Ntrostat 01:15 Morphine Sulfate [facility] 08/24/25 In Process Injection 01:15 Stat Ekg For Chest [facility] 08/24/25 In Process Pain 01:01 Notify Of Changes [facility] 08/24/25 In Process From Base 01:01 Infection Control Nurse For [facility] 08/24/25 In Process 24 Hours 01:01 Emergency Dysrhythmia [facility] 08/24/25 In Process Protocol 01:01 Rhythm Strips Once [facility] 08/24/25 In Process Every Shift 01:01 Oxygen By Nasal RT 08/24/25 Transmitted Cannula 01:01 Insert/Manage Urinary [facility] 08/24/25 In Process Catheter 01:13 Date of Service: Aug 24, 2025 Billing Provider: SHAMA LEUNG Common Visit Codes: [id number] INP/OBS CARE (HIGH) SHAMA LEUNG Aug 24, 2025 04:14
[2025-08-24 07:50] VITALS: PULSE 87; RESP 20; O2SAT 93
[2025-08-24 08:49] LABS: Hematocrit 39.9 % (36.0-46.0); Hemoglobin 13.7 g/dL (12.2-16.2); Mean Corpuscular Hemoglobin 31.8 pg (28.0-32.0); Mean Corpuscular Volume 92.6 fL (80.0-100.0); Nucleated Red Blood Cells % 0.0 %
[2025-08-24] MEDS: PIPERACILLIN-TAZOB 3.375GM 100 ML IV ONE (08:56)
[2025-08-24] MEDS: POTASSIUM EFFERVESENT TAB 25 MEQ PO ONE (08:56)
[2025-08-24] MEDS: ERGOCALCIFEROL 50,000 UNIT(1.25MG) CAP PO SCH (08:56)
[2025-08-24 09:08] LABS: Lactic Acid w/Reflex 2.5 mmol/L (0.4-2.0)
[2025-08-24] MEDS: SODIUM CHLORIDE 0.9% 1,000 ML IV SCH (09:15)
--- NOTE | 2025-08-24 09:33 | DVH ---
CHEST RADIOGRAPH Indication: sob Technique: Single frontal view of the chest was obtained COMPARISON: XY CHEST XRAY 1 VIEW on DOS: 08/20/25, XY CHEST PORTABLE on DOS: 08/19/25, XY CHEST PORTABLE on DOS: 08/18/25, XY CHEST XRAY 1 VIEW on DOS: 06/30/25, CR CHEST 2 VIEW on DOS: 06/24/24 FINDINGS: Heart size is normal. Stable left basilar opacity. No pleural effusion or pneumothorax. No acute osseous abnormality IMPRESSION: Stable left basilar opacity, concerning for pneumonia
[2025-08-24] MEDS: CYANOCOBALAMIN 500 MCG TAB PO SCH (09:41)
[2025-08-24] MEDS: METOPROLOL TARTRATE 25 MG TAB PO SCH ×2 (09:41→21:49)
[2025-08-24] MEDS: CLOPIDOGREL BISULFATE 75 MG TAB PO SCH (09:41)
[2025-08-24] MEDS: HYDROcodone-ACET 10/325MG TAB PO ONE ×2 (09:59→18:50)
[2025-08-24] MEDS: PIPERACILLIN-TAZOB 3.375GM 100 ML IV SCH (14:00)
--- NOTE | 2025-08-24 14:41 | DVH ---
Indication: aspiration pna Technique: CT axial images of the chest are obtained without contrast. Coronal and sagittal reformats were obtained. Radiation Dose Information: CTDI volume is 12.18 mGy. Dose-length product is 467.15 mGy*cm Comparison: 06/30/2025 FINDINGS: There is limited interpretation of the abdomen and pelvis without administration of intravenous contrast. Trachea patent. No pneumothorax. Right lower lobe tree-in-bud nodularity. Right upper and lower lobe tree-in-bud nodularity/airspace consolidation. Tiny pleural effusion. Heart normal in size. Small to moderate pericardial effusion. Coronary artery calcification disease. Aortic atherosclerotic disease. 1.5 cm left thyroid nodule. No supraclavicular, axillary lymphadenopathy. Gallbladder distention hyperdensity and pericholecystic edema. No aggressive osseous process. Moderate thoracic degenerative disc disease. Thoracic dextrocurvature. IMPRESSION: Limited evaluation without contrast. Bilateral pulmonary tree-in-bud nodularity / airspace consolidation more pronounced within the left lung which can be secondary to atypical infection, bronchiolitis, aspiration. Gallbladder distention hyperdense contents and pericholecystic edema concerning for cholecystitis. Recommend abdominal ultrasound and HIDA scan. Small to moderate pericardial effusion. Coronary artery calcification disease. Thyroid nodule. Recommend thyroid ultrasound in the nonemergent setting for further characterization. Tiny left pleural effusion. Other findings as described.
--- NOTE | 2025-08-24 14:48 | DVHINCON2 ---
Date Seen: Aug 24, 2025 Referring Physician IZA Simental Reason for Consultation NSTEMI History of Present Illness This is a 60-year-old female who presented to the emergency room via EMS with a chief complaint of an altered level of consciousness. The patient is somewhat a poor historian. Per records, family call 911 as the patient was found to be ALOC with a blood sugar level reading 29 ng/L at scene for which she was administered D10 with improved symptoms. Denies chest pain, palpitations, diaphoresis, SOB, dizziness, nausea, or vomiting. The patient was recently admitted to this facility as STEMI undergoing a successful PCI of the RCA. States she has been compliant with her dual antiplatelet therapy and statin. Significant medical history includes coronary artery disease status post PCI of the RCA x 3 CONCEPCION, type 1 diabetes mellitus, hypertension, dyslipidemia, cerebrovascular accident with left-sided deficits, and obesity. Past Medical History Past medical history reviewed. No other significant than mentioned above. Past Surgical History PTCA with a stent placement of the RCA x3 CONCEPCION, 08/18/2025 C-sections x2 Family History: Patient reports no known family medical history. Family History Family history reviewed. Social History Denies the use of illicit drugs, alcohol, or tobacco use. Allergies: Coded Allergies: Iodine (Verified Allergy, Unknown, 03/31/19) Home Meds Active Scripts Doxycycline Monohydrate (Doxycycline Monohydrate) 100 Mg Cap, 1 CAP PO BID for 7 Days, #14 CAP Prov:JARAD CHRISTENSEN 08/22/25 Atorvastatin Calcium (ATORVASTATIN CALCIUM) 80 Mg Tab, 1 TAB PO QPM for 30 Days, #30 TAB 3 Refills Prov:JARAD CHRISTENSEN [facility] 08/22/25 Clopidogrel Bisulfate (Plavix) 75 Mg Tab, 1 TAB PO DAILY for 30 Days, #30 TAB 3 [facility] 08/22/25 Aspirin (ASPIRIN 81) 81 Mg Tab, 81 MG PO DAILY for 30 Days, #30 TAB 3 Refills Prov:JARAD CHRISTENSEN [facility] 08/22/25 Insulin Lispro (Insulin Lispro) 100 Unit/Ml Inj, 5 UNIT SC AC for 30 Days, #500 INJ 1 Refill Prov:ANTELMO GODWIN RESIDENT 07/04/25 Insulin Glargine-Yfgn (Insulin Glargine) 100 Unit/Ml Inj, 15 UNIT SC DAILY for 30 Days, #500 INJ 1 Refill Prov:ANTELMO GODWIN RESIDENT 07/04/25 Metformin Hydrochloride (Metformin Hcl) 500 Mg Tab, 1 TAB PO BID, #60 TAB 1 Refill Prov:ANTELMO GODWIN RESIDENT 07/04/25 Reported Medications Aspirin (Aspir-Low) 81 Mg Tab, 81 MG PO DAILY for 30 Days, MG 03/31/19 Metoprolol Tartrate (LOPRESSOR TABLET) 50 Mg Tb, 2 TAB PO BID, #60 TAB 5 Refills 03/31/19 Clonazepam (Clonazepam) 2 Mg Tab, 1 TAB PO BID, #60 TAB 2 Refills 03/31/19 Risperidone (Risperidone) 1 Mg Tab, 1 TAB PO QPM, #30 TAB 1 Refill 03/31/19 Trazodone Hcl (Trazodone Hcl) 150 Mg Tab, 150 MG PO HSPRN PRN for FOR INSOMNIA, MG 03/31/19 Bupropion Hcl (Wellbutrin Sr) 150 Mg Tab, 1 TAB PO DAILY, #60 TAB 5 Refills 03/31/19 Discontinued Reported Medications Losartan Potassium (Losartan Potassium) 100 Mg Tab, 100 MG PO DAILY for 30 Days, MG 03/31/19 Loratadine (Claritin) 10 Mg Tab, 1 TAB PO DAILY, #30 TAB 5 Refills 03/31/19 Hydrocodone-Acetaminophen (Gunpowder 10-325 mg) 1 Tab Tab, 1 TAB PO QID, TAB 03/31/19 Simvastatin (Simvastatin) 20 Mg Tab, 20 MG PO DAILY for 30 Days 03/31/19 Omeprazole (Gnp Omeprazole) 20 Mg Tab, 1 TAB PO DAILY, #90 TAB 1 Refill 03/31/19 Diphenhydramine Hcl (Benadryl Allergy) 25 Mg Cap, 50 MG PO BIDP PRN for ANXIETY, CAP 03/31/19 Diltiazem Hcl (Diltiazem Hcl) 60 Mg Tab, 120 MG PO BID for 30 Days, MG 03/31/19 Insulin Glargine (Basaglar Kwikpen) 100 Unit/Ml Inj, 20 UNIT SC DAILY, INJ 03/31/19 Discontinued Scripts Hydrocodone-Acetaminophen (Hydrocodone Bitartrate/AC 10-325 mg) 1 Tab Tab, 1 TAB PO TID PRN, #20 TAB Prov:CHRISTEN ESCOBARP 08/09/25 Doxycycline (Monohydrate) (Doxycycline) 100 Mg Cap, 100 MG PO BID for 3 Days, #6 CAP Prov:ANTELMO GODWIN RESIDENT 07/05/25 Amoxicillin & Pot Clavulanate (Augmentin) 500 Mg Tab, 1 TAB PO BID for 3 Days, #6 TAB Prov:ANTELMO GODWIN RESIDENT 07/05/25 Sitagliptin (Sitagliptin) 100 Mg Tab, 100 MG PO DAILY for 30 Days, #30 TAB Prov:ANTELMO GODWIN RESIDENT 07/04/25 Home Meds Home medications reviewed. Current Medications Current Medications Medications (Trade) Dose Ordered Sig/Jaime Route PRN Reason Start Time Stop Time Status Last Admin Aspirin 162 mg DAILY PO 08/24/25 10:00 08/24/25 08:17 DC Atorvastatin Calcium (Lipitor) 80 mg HS PO 08/24/25 22:00 Clopidogrel Bisulfate (Plavix) 75 mg DAILY PO 08/24/25 10:00 08/24/25 09:41 Metoprolol Tartrate (Lopressor Tablet) 25 mg BID PO 08/24/25 10:00 08/24/25 09:41 Diagnostic Test (Pha) (Accu-Chek Comfort Curve T) 1 strip IQ4HR 08/24/25 04:00 08/24/25 11:56 Insulin Human Regular (InsuLIN R) IQ4HR SC 08/24/25 04:00 Dextrose 50 ml UD PRN IV Blood Sugar LESS THAN 60 08/24/25 01:15 Ondansetron HCl (Zofran) 4 mg Q4HP PRN IV NAUSEA / VOMITING 08/24/25 01:15 Acetaminophen (Tylenol Tablet) 650 mg Q6HP PRN PO PAIN SCALE 1-3 OR TEMP>100.4 08/24/25 01:15 Nitroglycerin (Ntrostat Sublingual) 0.4 mg Q5MINP PRN SL FOR CHEST PAIN 08/24/25 01:15 Morphine Sulfate 2 mg Q30M PRN IV FOR CHEST PAIN 08/24/25 01:15 Ceftriaxone Sodium 50 ml @ 100 mls/hr DAILY@09 IV 08/24/25 04:15 08/24/25 08:12 DC 08/24/25 04:30 Piperacillin Sod/ Tazobactam Sod 100 ml @ 25 mls/hr Q8HR IV 08/24/25 14:00 Sodium Chloride 1,000 ml @ 75 mls/hr [id number] IV 08/24/25 08:15 Cyanocobalamin (Vitamin B-12) 1,000 mcg DAILY PO 08/24/25 10:00 08/24/25 09:41 Ergocalciferol (Vitamin D 50,000 Unit) 50,000 unit Q7D PO 08/24/25 08:15 08/24/25 08:56 Aspirin 81 mg DAILY PO 08/24/25 08:30 08/24/25 08:57 Doxycycline Monohydrate (Vibramycin Tablet) 100 mg Q12HR PO 08/24/25 22:00 Review of Systems Constitutional: No symptom reported Ears, Nose, & Throat: No symptom reported Eyes: No symptom reported Neurological: ALOC Pulmonary/Respiratory: No symptom reported Cardiovascular: No symptom reported Gastrointestinal: No symptom reported Genitourinary: No symptom reported Musculoskeletal: No symptom reported Skin: No symptom reported Psychiatric: No symptom reported Endocrine: No symptom reported Hemotologic/Lymphatic: No symptom reported Vital Signs Vital Signs Date Time Temp Pulse Resp B/P (MAP) Pulse Ox O2 Delivery O2 Flow Rate FiO2 08/24/25 13:33 Room Air* 0 21 08/24/25 12:00 87 08/24/25 12:00 19 111/72 (85) 97 08/24/25 10:10 97.3 97.3 Physical Exam General Appearance: Cooperative. Well developed. Obese. In no acute distress Head Exam: Normal inspection Neck Exam: Normal inspection. Non-tender. Normal alignment Pulmonary/Respiratory: Chest non-tender. Diminished to left-sided breath sounds Cardiovascular/Chest: Regular rate and rhythm. S1, S2. Sinus rhythm with inferior Q-waves. No murmurs. No JVD. Peripheral Pulses: 2+ Radial (R). 2+ Radial (L). 2+ Pedal (R). 2+ Pedal (L) Abdominal Exam: Normal bowel sounds. Soft. Ankle Exam: Negative ankle edema Lower extremities: Negative lower extremity edema Neuro/Mental Status: A&O x4. Coherent Thoughts/Psych: Normal thought pattern. Appropriate mood and affect. Good judgement and insight Appearance: In no acute distress Skin Exam: Normal inspection. Pale color. Warm. Dry Labs/Diagnostic Data Labs Test 08/24/25 11:55 11/13/25 08:32 08/24/25 03:06 08/24/25 02:30 Range/Units POC Glucose 97 70-106 mg/dl White Blood Count 9.2 4.4-10.8 10^3/uL Red Blood Count 4.32 4.0-5.20 10^6/uL Hemoglobin 13.7 12.2-16.2 g/dL Hematocrit 39.9 36.0-46.0 % Mean Corpuscular Volume 92.6 80.0-100.0 fL Mean Corpuscular Hemoglobin 31.8 28.0-32.0 pg Mean Corpuscular Hemoglobin Concent 34.4 32.0-36.0 g/dL Red Cell Distribution Width 13.2 11.8-14.3 % Platelet Count 261 140-450 10^3/uL Mean Platelet Volume 9.4 6.9-10.8 fL Neutrophils (%) (Auto) 72.5 37.0-80.0 % Lymphocytes (%) (Auto) 18.1 10.0-50.0 % Monocytes (%) (Auto) 7.9 0.0-12.0 % Eosinophils (%) (Auto) 1.2 0.0-7.0 % Basophils (%) (Auto) 0.3 0.0-2.0 % Neutrophils # (Auto) 6.7 1.6-8.6 10 ^3/uL Lymphocytes # (Auto) 1.7 0.4-5.4 10 ^3/uL Monocytes # (Auto) 0.7 0-1.3 10 ^3/uL Eosinophils # (Auto) 0.1 0-0.8 10 ^3/uL Basophils # (Auto) 0 0-0.2 10 ^3/uL Nucleated Red Blood Cells 0.0 % Lactic Acid Level 2.5 *H 0.4-2.0 mmol/L Troponin I High Sensitivity 2672 *H </=34 ng/L Urine Color Yellow Yellow Urine Clarity Turbid H Clear Urine pH 5.5 5.0-9.0 Urine Specific [place] 1.030 1.001-1.035 Urine Protein 2+ H Negative Urine Ketones Trace Negative Urine Blood Negative Negative /uL Urine Nitrite Negative Negative Urine Bilirubin Negative Negative Urine Urobilinogen Normal Negative mg/dL Urine Leukocyte Esterase 2+ Negative /uL Urine RBC 3 0 - 4 /hpf Urine Microscopic WBC 17 H 0-5 /HPF Urine Squamous Epithelial Cells Few <5 /hpf Urine Bacteria None seen None Seen /hpf Urine Yeast (Budding) Moderate None Seen /hpf Urine Glucose Trace Normal mg/dL Test 08/23/25 23:05 Range/Units Sodium Level 143 136-145 mmol/L Potassium Level 3.4 L 3.5-5.1 mmol/L Chloride Level 109 H 98-107 mmol/L Carbon Dioxide Level 23 20-31 mmol/L Anion Gap 11 5-15 Blood Urea Nitrogen 12 9-23 mg/dL Creatinine 0.60 0.550-1.02 mg/dL Glomerular Filtration Rate Calc 103 >90 mL/min BUN/Creatinine Ratio 20.0 10.0-20.0 Serum Glucose 104 74-106 mg/dL Calcium Level 9.0 8.7-10.4 mg/dL Total Bilirubin 0.3 0.2-1.0 mg/dL Aspartate Amino Transferase (AST) 22 13-40 U/L Alanine Aminotransferase (ALT) 11 7-40 U/L Alkaline Phosphatase 65 46-116 U/L Total Protein 6.5 5.7-8.2 g/dL Albumin 3.5 3.2-4.8 g/dL Assessment NSTEMI secondary to recent acute inferior wall DE with successful PCI on 08/18/2025 Coronary artery disease status post PCI of the RCA x 3DES (on DAPT/Statin/Metoprolol) Chronic compensated HFrEF (LVEF 40%) Type 1 diabetes mellitus with hypoglycemic event Sepsis with pneumonia Hypertension Dyslipidemia HX of CVA with left-sided deficits Obesity Plan/Recommendation (Dr. Shaikh) The patient presents with elevated cardiac enzymes secondary to recent PCI. Co ntinue DAPT, high-intensity statin, and initiate full GDMT for HFrEF (uptitrate as tolerated). Continue with revascularization of the LAD as an outpatient (see surgical report). Repeat a transthoracic echocardiogram within three months of GDMT for CHF and LAD lesion revascularization. If no improvement on LV function, the patient may be a candidate for a internal cardioverter de fibrillator. Primary team to follow on gallbladder US and thyroid US. ABX therapy per primary care team. Kindly call with any questions or concerns. Signing off at this time. Thank you for allowing us to participate in this patient's care. This medical document was created using an electronic medical record system with voice recognition software and computerized dictation system. Although this document has been carefully reviewed, there might still be some phonetic and typographical errors. Occasional wrong-word or ``sound-alike substitutions may have occurred due to the inherent limitations of voice recognition software. These areas are purely typographical due to imperfections of the software programs and do not reflect any compromise in the patient's medical care. Please read the chart carefully and recognize, using context, where these substitutions have occurred. Plan discussed with: Patient, Other NYHA Physical activity limitations: NA Date of Service: Aug 24, 2025 Billing Provider: MARIAM DUMONT Cardiology Common Codes: [id number] INP/OBS CARE (High) MARIAM DUMONT Aug 24, 2025 14:48
[2025-08-24 15:37] LABS: Lactic Acid w/Reflex 2.2 mmol/L (0.4-2.0)
[2025-08-24] MEDS: DOXYCYCLINE 100 MG TAB/CAP PO ONE (16:30)
[2025-08-24 17:00] VITALS: BP 117/77; PULSE 77; RESP 18; TEMP 98.2; O2SAT 97
--- NOTE | 2025-08-24 18:01 | DVH ---
ULTRASOUND SOFT TISSUE HEAD AND NECK CLINICAL INDICATION: Thyroid nodule TECHNIQUE: Multiple real time sonographic images of the thyroid were obtained. COMPARISON: Prior exam dated none FINDINGS: RIGHT LOBE OF THE THYROID. Measures 4.16 X 1.76 X 1.60 cm. Volume of the right lobe of the thyroid is 5.62 mL. Parenchyma is heterogeneous. #1. 0.57 x 0.40 x 0.63 cm COMPOSITION: Anechoic nodule: points: 0; ECHOGENICITY: Anechoic. points= 0; SHAPE: Round; margins: Smooth points=0; ECHOGENIC FOCUS: None; POINTS = 0 TOTAL POINTS:0 TI-RADS 1 #2. 1.05 X 0.68 X 0.99 CM: COMPOSITION: Solid points 2; ECHOGENICITY: Isoechoic; points= 1; SHAPE: Broader than tall: points = 0, MARGINS: Smooth. points = 0; ECHOGENIC FOCUS: None points = 0; TOTAL POINTS: 3; TI RADS 3 LEFT LOBE OF THE THYROID: Measures approximately 4.0 X 1.46 X 1.81 cm. VOLUME LEFT LOBE OF THE THYROID IS 5.06 ML Small solid nodule upper pole left lobe of the thyroid, measures 0.46 X 0.49 X 0.42 CM points: 2; ECHOGENICITY: Hyperechoic, points=1, SHAPE: Wider than tall points = 0; 0; MARGIN: Smooth, points= 0; ECHOGENIC FOCUS: None, points = 0; TOTAL POINTS: 3; TI-RADS 3 ISTHMUS: Measures 0.42 cm. IMPRESSION: 1. Heterogeneous thyroid gland. 2. Bilateral TR 3 nodules. 3. Follow-up in one year.
--- NOTE | 2025-08-24 18:36 | DVH ---
INDICATION: Gallbladder distention rule out acute cholecystitis TECHNIQUE: Multiple real-time sonographic images of the abdomen were obtained. COMPARISON: None FINDINGS: Liver parenchyma appears echogenic consistent with steatosis. The liver measures 21.48 cm. No intrahepatic biliary ductal dilatation is noted. The gallbladder wall measures 0.15 cm and is unremarkable. Stones and sludge noted in the gallbladder.. The common duct measures 0.54 cm and is unremarkable. No pericholecystic fluid is noted. The right kidney measures 11.64 cm. No hydronephrosis. The pancreas is not well visualized due to obscuration from bowel gas. The visualized portions of the IVC and aorta are grossly unremarkable. IMPRESSION: 1. Hepatomegaly with changes of Steatosis in the parenchyma. Liver measures 21.48 cm. 2. Sludge and stones in the gallbladder. Negative sonographic miramontes's sign.
--- NOTE | 2025-08-24 19:59 | DVHPNRES ---
Progress Note Date Seen: Aug 24, 2025 Resident Creating Document: JAZMIN IRAHETA RESIDENT Medical Necessity Reason Pt with a Central, PICC or Fol: Yes Subjective Review of Systems Sheri Tovar is a 60-year old female with past medical history of diabetes mellitus type 1 insulin-dependent, hypertension, dyslipidemia, CAD, CVA with left-sided deficits who was brought to the ED with altered mental status. According to the son, after having yogurt for dinner last night, he gave her insulin, post which she became confused and drowsy and he called 911. Blood glucose level as measured by EMS was 29 for which he was administered D10 with improved symptoms. She denies any chest pain, palpitations, dizziness, nausea vomiting. She was recently admitted the hospital with a STEMI and underwent PCI of the RCA. Past medical history: Diabetes mellitus type 1, hypertension, dyslipidemia, CVA, CAD s/p PCI with 3 stents in RCA Past surgical history: PCI with 3 stents in RCA, section Social & Personal history: Lives at home with family Smoking, alcohol, drugs: Denies Allergies: Iodine Patient seen and examined at bedside. Patient is alert and oriented to time, place person and responding to all questions. She mentions having generalized weakness. Eyes: No Pain, No Vision change, No Conjunctivae inflammation, No Eyelid inflammation, No Redness ENT: No Ear pain, No Ear discharge, No Nose pain, No Nose discharge, No Nose congestion, No Mouth pain, No Mouth swelling, No Throat pain, No Throat swelling Cardiovascular: No Chest Pain, No Palpitations, No Orthopnea, No Paroxysmal No Dyspnea, No Edema, No Lt Headedness Respiratory: No Cough, No Dry, No Shortness of breath, No SOB with exertion, No Wheezing, No Hemoptysis, No Pleuritic Pain, No Sputum Gastrointestinal: No Nausea, No Vomiting, No Abdominal Pain, No Diarrhea, No Constipation, No Melena, No Hematochezia Genitourinary: No Dysuria, No Frequency, No Incontinence, No Hematuria, No Retention Objective vital signs Vital Sign Date Time Temp Pulse Resp B/P (MAP) Pulse Ox O2 Delivery O2 Flow Rate FiO2 08/24/25 17:00 98.2 77 18 117/77 (90) 97 98.2 08/24/25 13:33 Room Air* 0 21 Total Intake and Output 08/23/25 08/23/25 08/24/25 14:59 22:59 06:59 Intake Total 195 ml Balance 195 ml medications Current Medications Medications Dose Ordered Sig/Jaime Route Start Time Stop Time Status Last Admin Dose Admin Atorvastatin Calcium 80 mg HS PO 08/24/25 22:00 Clopidogrel Bisulfate 75 mg DAILY PO 08/24/25 10:00 08/24/25 09:41 75 MG Diagnostic Test (Pha) 1 strip IQ4HR 08/24/25 04:00 08/24/25 16:30 1 STRIP Insulin Human Regular IQ4HR SC 08/24/25 04:00 Dextrose 50 ml UD PRN IV 08/24/25 01:15 Ondansetron HCl 4 mg Q4HP PRN IV 08/24/25 01:15 Acetaminophen 650 mg Q6HP PRN PO 08/24/25 01:15 Nitroglycerin 0.4 mg Q5MINP PRN SL 08/24/25 01:15 Morphine Sulfate 2 mg Q30M PRN IV 08/24/25 01:15 Piperacillin Sod/ Tazobactam Sod 100 ml @ 25 mls/hr Q8HR IV 08/24/25 14:00 Sodium Chloride 1,000 ml @ 75 mls/hr [id number] IV 08/24/25 08:15 Cyanocobalamin 1,000 mcg DAILY PO 08/24/25 10:00 08/24/25 09:41 1,000 MCG Ergocalciferol 50,000 unit Q7D PO 08/24/25 08:15 08/24/25 08:56 50,000 UNIT Aspirin 81 mg DAILY PO 08/24/25 08:30 08/24/25 08:57 81 MG Doxycycline Monohydrate 100 mg Q12HR PO 08/24/25 22:00 Metoprolol Tartrate 12.5 mg BID PO 08/24/25 22:00 Empaglifozin 10 mg DAILY PO 08/25/25 10:00 Sacubitril/ Valsartan 0.5 tab BID PO 08/24/25 22:00 Spironolactone 12.5 mg DAILY PO 08/25/25 10:00 Examination General Appearance: Cooperative. Well developed. Well nourished. NAD Head Exam: Normal inspection Neck Exam: Normal inspection. Non-tender. Normal alignment Pulmonary/Respiratory: Chest non-tender. Clear bilateral breath sounds, no crackles, no wheezing. Cardiovascular/Chest: Regular rate and rhythm. No murmurs. No JVD. Peripheral Pulses: 2+ Radial (R). 2+ Radial (L). 2+ Pedal (R). 2+ Pedal (L) Abdominal Exam: Normal bowel sounds. Soft. normal abdomen, no visible veins, Nontender. No hepatospenomegaly. No masses Ankle Exam: Negative ankle edema Lower extremities: Negative lower extremity edema Neuro/Mental Status: A&O x4. Coherent., reduced strength on left upper and lower extremity 3/5 Thoughts/Psych: Normal thought pattern. Appropriate mood and affect. Good judgement and insight Skin Exam: Normal inspection. Normal color. Warm. Dry laboratory and microbiology Laboratory Tests 08/24/25 08:32 08/23/25 23:05 Test 08/23/25 23:05 Range/Units Serum Glucose 104 74-106 mg/dL Labs and/or images reviewed: Labs reviewed by me, Image(s) reviewed by me Problem List/Assessment/Plan Problem List/Assessment/Plan # Sepsis, likely due to aspiration pneumonia # Acute metabolic encephalopathy # Acute UTI -white count on admission was 11.5 -lactic acid 2.7>2.5>2.2 -IV Zosyn -doxycycline 100 mg q.12 hour p.o. -NS 1000 mL at 75 mL/hour -monitor BMP -chest x-ray showed Stable left basilar opacity -chest ultrasound showed Bilateral pulmonary tree-in-bud nodularity / airspace consolidation more pronounced within the left lung which can be secondary to atypical infection, bronchiolitis, aspiration. # NSTEMI secondary to recent acute inferior wall MT with successful PCI on 08/18/2025 #Coronary artery disease status post PCI of the RCA x 3DES (on DAPT/Statin/Metoprolol) #Hypertensive heart disease with Chronic compensated HFrEF (LVEF 40%) -cardiology recommended-metoprolol 20 0.5 mg b.i.d. p.o.,Jardiance 10 mg daily p.o.,Entresto 0.5 tab b.i.d. p.o. and spironolactone 12.5 mg daily p.o. --aspirin 81 mg daily p.o. and Plavix 75 mg daily p.o. # Type 1 diabetes mellitus with hypoglycemic event -Accu-Chek -mild insulin sliding scale #History of CVA with residual left-sided weakness # Morbid Obesity class 2 # Thyroid nodule -thyroid ultrasound showed heterogeneous thyroid gland and bilateral TR3 nodules -follow up in 1 year # Dyslipidemia -Lipitor 80 mg HS p.o. PUD prophylaxis: not indicated DVT prophylaxis:on plavix Goals of care: Full code, discussed for >23minutes Plan discussed with patient Plan discussed with Dr. Thacker Plan discussed with: Patient, Son Date of Service: Aug 24, 2025 Billing Provider: ROSI THACKER MD Common Visit Codes: [id number] INP/OBS CARE(HIGH) JAZMIN IRAHETA RESIDENT Aug 24, 2025 19:59
[2025-08-24 20:00] VITALS: PULSE 99
[2025-08-24 21:00] VITALS: BP 110/59; PULSE 96; RESP 16; TEMP 98.2; O2SAT 98
[2025-08-24] MEDS: SACUBITRIL-VALSARTAN 24mg/26mg TAB PO SCH (21:48)
[2025-08-24] MEDS: ATORVASTATIN 20 MG TAB PO SCH (21:50)
[2025-08-24] MEDS: DOXYCYCLINE 100 MG TAB/CAP PO SCH (21:50)
[2025-08-25] VITALS (8 sets, daily range): BP systolic 108–129; BP diastolic 66–83; PULSE 99–108; RESP 15–18; TEMP 97.8–98.6; O2SAT 96–100
[2025-08-25] MEDS: HYDROcodone-ACET 10/325MG TAB PO ONE (02:57)
[2025-08-25] MEDS: DEXTROSE 10% 1,000 ML IV ONE (05:56)
[2025-08-25 06:22] LABS: Chloride 106 mmol/L (98-107); Potassium 3.7 mmol/L (3.5-5.1); Sodium 145 mmol/L (136-145)
[2025-08-25 06:23] LABS: Anion Gap 13 (5-15); Calcium 9.2 mg/dL (8.7-10.4); Carbon Dioxide 26 mmol/L (20-31)
[2025-08-25 06:28] LABS: BUN/Creatinine Ratio 19.6 (10.0-20.0); Blood Urea Nitrogen 11 mg/dL (9-23)
[2025-08-25 06:30] LABS: Glucose 54 mg/dL (74-106)
[2025-08-25] MEDS: SPIRONOLACTONE 25 MG TAB PO SCH (09:11)
[2025-08-25] MEDS: EMPAGLIFLOZIN 10 MG TAB PO SCH (09:12)
[2025-08-25] MEDS: HYDROcodone-ACET 10/325MG TAB PO PRN (10:08)
[2025-08-25] MEDS: Glucerna Carbsteady SHAKE Vanilla 8oz PO SCH (12:05)
[2025-08-25] MEDS: FLUCONAZOLE 100 MG TAB PO ONE (14:55)
--- NOTE | 2025-08-25 19:04 | DVHPNRES ---
Progress Note Date Seen: Aug 25, 2025 Resident Creating Document: ROSI THACKER MD Medical Necessity Reason Pt with a Central, PICC or Fol: Yes Subjective Review of Systems Sheri Tovar is a 60-year old female with past medical history of diabetes mellitus type 1 insulin-dependent, hypertension, dyslipidemia, CAD, CVA with left-sided deficits who was brought to the ED with altered mental status. According to the son, after having yogurt for dinner last night, he gave her insulin, post which she became confused and drowsy and he called 911. Blood glucose level as measured by EMS was 29 for which he was administered D10 with improved symptoms. She denies any chest pain, palpitations, dizziness, nausea vomiting. She was recently admitted the hospital with a STEMI and underwent PCI of the RCA. Past medical history: Diabetes mellitus type 1, hypertension, dyslipidemia, CVA, CAD s/p PCI with 3 stents in RCA Past surgical history: PCI with 3 stents in RCA, section Social & Personal history: Lives at home with family Smoking, alcohol, drugs: Denies Allergies: Iodine Patient seen and examined at bedside. Patient is alert and oriented to time, place person and responding to all questions. She mentions having generalized weakness. Eyes: No Pain, No Vision change, No Conjunctivae inflammation, No Eyelid inflammation, No Redness ENT: No Ear pain, No Ear discharge, No Nose pain, No Nose discharge, No Nose congestion, No Mouth pain, No Mouth swelling, No Throat pain, No Throat swelling Cardiovascular: No Chest Pain, No Palpitations, No Orthopnea, No Paroxysmal No Dyspnea, No Edema, No Lt Headedness Respiratory: No Cough, No Dry, No Shortness of breath, No SOB with exertion, No Wheezing, No Hemoptysis, No Pleuritic Pain, No Sputum Gastrointestinal: No Nausea, No Vomiting, No Abdominal Pain, No Diarrhea, No Constipation, No Melena, No Hematochezia Genitourinary: No Dysuria, No Frequency, No Incontinence, No Hematuria, No Retention 08/25/25- The patient was seen and evaluated at bedside today. The patient complained of pain in the back. Lactic acid came down to 1.7 today. The patient has not been eating well, so she was started on lucerna 240ml po tid. Blood glucose level dropped to 54 last night and she was given D10. Urine bacterial culture showed growth of yeast for which fluconazole was started. Objective vital signs Vital Sign Date Time Temp Pulse Resp B/P (MAP) Pulse Ox O2 Delivery O2 Flow Rate FiO2 08/25/25 17:00 97.9 101 15 119/77 (91) 96 97.9 08/25/25 08:00 Room Air* 0 21 Total Intake and Output 08/24/25 08/24/25 08/25/25 15:00 23:00 07:00 Intake Total 100 ml 540 ml 600 ml Output Total 2000 ml Balance 100 ml 540 ml -1400 ml medications Current Medications Medications Dose Ordered Sig/Jaime Route Start Time Stop Time Status Last Admin Dose Admin Atorvastatin Calcium 80 mg HS PO 08/24/25 22:00 08/24/25 21:50 80 MG Clopidogrel Bisulfate 75 mg DAILY PO 08/24/25 10:00 08/25/25 09:11 75 MG Diagnostic Test (Pha) 1 strip IQ4HR 08/24/25 04:00 08/25/25 16:37 1 STRIP Insulin Human Regular IQ4HR SC 08/24/25 04:00 Dextrose 50 ml UD PRN IV 08/24/25 01:15 Ondansetron HCl 4 mg Q4HP PRN IV 08/24/25 01:15 Acetaminophen 650 mg Q6HP PRN PO 08/24/25 01:15 Nitroglycerin 0.4 mg Q5MINP PRN SL 08/24/25 01:15 Morphine Sulfate 2 mg Q30M PRN IV 08/24/25 01:15 Piperacillin Sod/ Tazobactam Sod 100 ml @ 25 mls/hr Q8HR IV 08/24/25 14:00 08/25/25 14:55 25 MLS/HR Cyanocobalamin 1,000 mcg DAILY PO 08/24/25 10:00 08/25/25 09:09 1,000 MCG Ergocalciferol 50,000 unit Q7D PO 08/24/25 08:15 08/24/25 08:56 50,000 UNIT Aspirin 81 mg DAILY PO 08/24/25 08:30 08/25/25 09:12 81 MG Doxycycline Monohydrate 100 mg Q12HR PO 08/24/25 22:00 08/25/25 09:11 100 MG Metoprolol Tartrate 12.5 mg BID PO 08/24/25 22:00 08/25/25 09:10 12.5 MG Empaglifozin 10 mg DAILY PO 08/25/25 10:00 08/25/25 09:12 10 MG Sacubitril/ Valsartan 0.5 tab BID PO 08/24/25 22:00 08/25/25 09:09 0.5 TAB Spironolactone 12.5 mg DAILY PO 08/25/25 10:00 08/25/25 09:11 12.5 MG Acetaminophen/ Hydrocodone Bitart 1 tab Q4HP PRN PO 08/25/25 09:15 08/25/25 14:55 1 TAB Enteral Nutritional Formula 240 ml TIDWM PO 08/25/25 12:00 08/25/25 17:05 240 ML Fluconazole 200 mg DAILY PO 08/26/25 10:00 Examination General Appearance: Cooperative. Well developed. Well nourished. NAD Head Exam: Normal inspection Neck Exam: Normal inspection. Non-tender. Normal alignment Pulmonary/Respiratory: Chest non-tender. Clear bilateral breath sounds, no crackles, no wheezing. Cardiovascular/Chest: Regular rate and rhythm. No murmurs. No JVD. Peripheral Pulses: 2+ Radial (R). 2+ Radial (L). 2+ Pedal (R). 2+ Pedal (L) Abdominal Exam: Normal bowel sounds. Soft. normal abdomen, no visible veins, Nontender. No hepatospenomegaly. No masses Ankle Exam: Negative ankle edema Lower extremities: Negative lower extremity edema Neuro/Mental Status: A&O x4. Coherent., reduced strength on left upper and lower extremity 3/5 Thoughts/Psych: Normal thought pattern. Appropriate mood and affect. Good judgement and insight Skin Exam: Normal inspection. Normal color. Warm. Dry laboratory and microbiology Laboratory Tests 08/25/25 04:40 08/24/25 08:32 Test 08/25/25 04:40 Range/Units Serum Glucose 54 L 74-106 mg/dL Microbiology Date/Time Source Procedure Growth Status 08/24/25 02:30 Voided Urine Urine Culture - Preliminary Resulted Labs and/or images reviewed: Labs reviewed by me, Image(s) reviewed by me Problem List/Assessment/Plan Problem List/Assessment/Plan # Sepsis, likely due to aspiration pneumonia # Acute metabolic encephalopathy # Acute UTI -white count on admission was 11.5 -lactic acid 2.7>2.5>2.2>1.7 -IV Zosyn -doxycycline 100 mg q.12 hour p.o. -NS 1000 mL at 75 mL/hour -monitor BMP -chest x-ray showed Stable left basilar opacity -chest ultrasound showed Bilateral pulmonary tree-in-bud nodularity / airspace consolidation more pronounced within the left lung which can be secondary to atypical infection, bronchiolitis, aspiration. # NSTEMI secondary to recent acute inferior wall HI with successful PCI on 08/18/2025 #Coronary artery disease status post PCI of the RCA x 3DES (on DAPT/Statin/Metoprolol) #Hypertensive heart disease with Chronic compensated HFrEF (LVEF 40%) -cardiology recommended-metoprolol 20 0.5 mg b.i.d. p.o.,Jardiance 10 mg daily p.o.,Entresto 0.5 tab b.i.d. p.o. and spironolactone 12.5 mg daily p.o. --aspirin 81 mg daily p.o. and Plavix 75 mg daily p.o. # Type 1 diabetes mellitus with hypoglycemic event -Accu-Chek -mild insulin sliding scale #History of CVA with residual left-sided weakness # Morbid Obesity class 2 # Thyroid nodule -thyroid ultrasound showed heterogeneous thyroid gland and bilateral TR3 nodules -follow up in 1 year # Dyslipidemia -Lipitor 80 mg HS p.o. PUD prophylaxis: not indicated DVT prophylaxis:on plavix Goals of care: Full code, discussed for >23minutes Plan discussed with patient Plan discussed with Dr. Thacker Plan discussed with: Patient Date of Service: Aug 25, 2025 Billing Provider: ROSI THACKER MD Common Visit Codes: [id number] INP/OBS CARE(HIGH) JAZMIN IRAHETA RESIDENT Aug 25, 2025 19:04
[2025-08-26] VITALS (9 sets, daily range): BP systolic 109–134; BP diastolic 66–90; PULSE 95–113; RESP 16–18; TEMP 97.8–98.4; O2SAT 97–100
[2025-08-26] MEDS: FLUCONAZOLE 100 MG TAB PO SCH (10:19)
[2025-08-26] MEDS: ONDANSETRON HCL 4 MG/2 ML VIAL IV PRN (10:32)
[2025-08-26 11:38] LABS: Hematocrit 45.6 % (36.0-46.0); Hemoglobin 15.5 g/dL (12.2-16.2); Mean Corpuscular Hemoglobin 31.9 pg (28.0-32.0); Mean Corpuscular Volume 93.8 fL (80.0-100.0); Nucleated Red Blood Cells % 0.2 %
[2025-08-26 11:48] LABS: Calcium 9.1 mg/dL (8.7-10.4); Chloride 105 mmol/L (98-107); Potassium 3.7 mmol/L (3.5-5.1); Sodium 141 mmol/L (136-145)
[2025-08-26 11:53] LABS: BUN/Creatinine Ratio 12.7 (10.0-20.0)
[2025-08-26 11:56] LABS: Blood Urea Nitrogen 8 mg/dL (9-23); Glucose 121 mg/dL (74-106)
[2025-08-26 12:30] LABS: Anion Gap 12 (5-15); Carbon Dioxide 24 mmol/L (20-31)
--- NOTE | 2025-08-26 15:51 | DVHPNRES ---
Progress Note Date Seen: Aug 26, 2025 Resident Creating Document: JAZMIN IRAHETA RESIDENT Medical Necessity Reason Pt with a Central, PICC or Fol: Yes Subjective Review of Systems Sheri Tovar is a 60-year old female with past medical history of diabetes mellitus type 1 insulin-dependent, hypertension, dyslipidemia, CAD, CVA with left-sided deficits who was brought to the ED with altered mental status. According to the son, after having yogurt for dinner last night, he gave her insulin, post which she became confused and drowsy and he called 911. Blood glucose level as measured by EMS was 29 for which he was administered D10 with improved symptoms. She denies any chest pain, palpitations, dizziness, nausea vomiting. She was recently admitted the hospital with a STEMI and underwent PCI of the RCA. Past medical history: Diabetes mellitus type 1, hypertension, dyslipidemia, CVA, CAD s/p PCI with 3 stents in RCA Past surgical history: PCI with 3 stents in RCA, section Social & Personal history: Lives at home with family Smoking, alcohol, drugs: Denies Allergies: Iodine Patient seen and examined at bedside. Patient is alert and oriented to time, place person and responding to all questions. She mentions having generalized weakness and back pain. Eyes: No Pain, No Vision change, No Conjunctivae inflammation, No Eyelid inflammation, No Redness ENT: No Ear pain, No Ear discharge, No Nose pain, No Nose discharge, No Nose congestion, No Mouth pain, No Mouth swelling, No Throat pain, No Throat swelling Cardiovascular: No Chest Pain, No Palpitations, No Orthopnea, No Paroxysmal No Dyspnea, No Edema, No Lt Headedness Respiratory: No Cough, No Dry, No Shortness of breath, No SOB with exertion, No Wheezing, No Hemoptysis, No Pleuritic Pain, No Sputum Gastrointestinal: Nausea, No Vomiting, No Abdominal Pain, No Diarrhea, No Constipation, No Melena, No Hematochezia Genitourinary: No Dysuria, No Frequency, No Incontinence, No Hematuria, No Retention 08/25/25- The patient was seen and evaluated at bedside today. The patient complained of pain in the back. Lactic acid came down to 1.7 today. The patient has not been eating well, so she was started on Glucerna 240ml po tid. Blood glucose level dropped to 54 last night and she was given D10. Urine bacterial culture showed growth of yeast for which fluconazole was started. 08/26/25- The patient was seen and evaluated at bedside today. Complained of back pain, for which [place] was given. She also mentioned she had reduced appetite due to nausea, for which Zofran was given. PT evaluation was requested to see the need and possibility of SNF placement for physical therapy for the patient post discharge. The patient refused blood draw for morning labs today. Objective vital signs Vital Sign Date Time Temp Pulse Resp B/P (MAP) Pulse Ox O2 Delivery O2 Flow Rate FiO2 08/26/25 14:07 98.2 104 18 109/69 (82) 98 98.2 08/25/25 20:00 Room Air* 0 21 Total Intake and Output 08/25/25 08/25/25 08/26/25 15:00 23:00 07:00 Intake Total 100 ml 550 ml 300 ml Output Total 1100 ml 600 ml Balance 100 ml -550 ml -300 ml medications Current Medications Medications Dose Ordered Sig/Jaime Route Start Time Stop Time Status Last Admin Dose Admin Atorvastatin Calcium 80 mg HS PO 08/24/25 22:00 08/25/25 21:58 80 MG Clopidogrel Bisulfate 75 mg DAILY PO 08/24/25 10:00 08/26/25 10:20 75 MG Diagnostic Test (Pha) 1 strip IQ4HR 08/24/25 04:00 08/26/25 13:23 1 STRIP Insulin Human Regular IQ4HR SC 08/24/25 04:00 08/26/25 13:29 2 UNITS Dextrose 50 ml UD PRN IV 08/24/25 01:15 Ondansetron HCl 4 mg Q4HP PRN IV 08/24/25 01:15 08/26/25 10:32 4 MG Acetaminophen 650 mg Q6HP PRN PO 08/24/25 01:15 Nitroglycerin 0.4 mg Q5MINP PRN SL 08/24/25 01:15 Morphine Sulfate 2 mg Q30M PRN IV 08/24/25 01:15 Piperacillin Sod/ Tazobactam Sod 100 ml @ 25 mls/hr Q8HR IV 08/24/25 14:00 08/26/25 15:06 25 MLS/HR Cyanocobalamin 1,000 mcg DAILY PO 08/24/25 10:00 08/26/25 10:20 1,000 MCG Ergocalciferol 50,000 unit Q7D PO 08/24/25 08:15 08/24/25 08:56 50,000 UNIT Aspirin 81 mg DAILY PO 08/24/25 08:30 08/26/25 10:15 81 MG Doxycycline Monohydrate 100 mg Q12HR PO 08/24/25 22:00 08/26/25 10:21 100 MG Metoprolol Tartrate 12.5 mg BID PO 08/24/25 22:00 08/26/25 10:24 12.5 MG Sacubitril/ Valsartan 0.5 tab BID PO 08/24/25 22:00 08/26/25 10:19 0.5 TAB Spironolactone 12.5 mg DAILY PO 08/25/25 10:00 08/26/25 10:18 12.5 MG Acetaminophen/ Hydrocodone Bitart 1 tab Q4HP PRN PO 08/25/25 09:15 08/26/25 10:28 1 TAB Enteral Nutritional Formula 240 ml TIDWM PO 08/25/25 12:00 08/25/25 17:05 240 ML Fluconazole 200 mg DAILY PO 08/26/25 10:00 08/26/25 10:19 200 MG Examination General Appearance: Cooperative. Well developed. Well nourished. NAD Head Exam: Normal inspection Neck Exam: Normal inspection. Non-tender. Normal alignment Pulmonary/Respiratory: Chest non-tender. Clear bilateral breath sounds, no crackles, no wheezing. Cardiovascular/Chest: Regular rate and rhythm. No murmurs. No JVD. Peripheral Pulses: 2+ Radial (R). 2+ Radial (L). 2+ Pedal (R). 2+ Pedal (L) Abdominal Exam: Normal bowel sounds. Soft. normal abdomen, no visible veins, mild tenderness in all quadrants. No hepatosplenomegaly. No masses Ankle Exam: Negative ankle edema Lower extremities: Negative lower extremity edema Neuro/Mental Status: A&O x4. Coherent., reduced strength on left upper and lower extremity 3/5 Thoughts/Psych: Normal thought pattern. Appropriate mood and affect. Good judgement and insight Skin Exam: Normal inspection. Normal color. Warm. Dry laboratory and microbiology Laboratory Tests 08/26/25 11:09 Test 08/26/25 11:09 Range/Units Serum Glucose 121 H 74-106 mg/dL Microbiology Date/Time Source Procedure Growth Status 08/25/25 15:00 Nose MRSA Screen - Final Complete 08/24/25 02:30 Voided Urine Urine Culture - Preliminary Resulted Labs and/or images reviewed: Labs reviewed by me, Image(s) reviewed by me Problem List/Assessment/Plan Problem List/Assessment/Plan Assessment and plan: # Sepsis due to complicated UTI and suspected aspiration pneumonia # Acute metabolic encephalopathy likely secondary to sepsis/hypoglycemia; resolved # Acute complicated UTI; acute cystitis without hematuria -white count on admission was 11.5 -lactic acid 2.7>2.5>2.2>1.7 -IV Zosyn 3.375 g Q 8 hours -doxycycline 100 mg q.12 hour p.o. -monitor BMP -chest x-ray showed Stable left basilar opacity -chest ultrasound showed Bilateral pulmonary tree-in-bud nodularity / airspace consolidation more pronounced within the left lung which can be secondary to atypical infection, bronchiolitis, aspiration. # NSTEMI secondary to recent acute inferior wall [place] with successful PCI on 08/18/2025 #Coronary artery disease status post PCI of the RCA x 3DES (on DAPT/Statin/Metoprolol) #Hypertensive heart disease with Chronic compensated HFrEF (LVEF 40%) -cardiology recommended-metoprolol 20 0.5 mg b.i.d. p.o.,Entresto 0.5 tab b.i.d. p.o. and spironolactone 12.5 mg daily p.o. --aspirin 81 mg daily p.o. and Plavix 75 mg daily p.o. and outpatient cardiology follow up for scheduling [facility] for LAD and LCX lesion # Type 1 diabetes mellitus with hypoglycemic event -Accu-Chek -mild insulin sliding scale #History of CVA with residual left-sided weakness # Thyroid nodule -thyroid ultrasound showed heterogeneous thyroid gland and bilateral TR3 nodules - Outpatient follow up in 1 year # Dyslipidemia -Lipitor 80 mg HS p.o. PUD prophylaxis: not indicated DVT prophylaxis:on Plavix Goals of care discussed for 20 minutes: Full code Plan discussed with patient Plan discussed with Plan discussed with: Patient, Other (RN) My Orders My Orders Orders - JAZMIN IRAHETA RESIDENT Procedure Category Date Status Time Pt Request For Service PT 08/26/25 Logged 11:13 Date of Service: Aug 26, 2025 Billing Provider: MELISSA FERRO MD Common Visit Codes: [id number] INP/OBS CARE(HIGH) Secondary Visit Codes: [id number] CARE PLAN 30 MINUTES (20 minutes) JAZMIN IRAHETA RESIDENT Aug 26, 2025 15:51 JARAD CHRISTENSEN RESIDENT Aug 26, 2025 16:09 MELISSA FERRO MD Aug 29, 2025 07:07
[2025-08-27] VITALS (9 sets, daily range): BP systolic 97–124; BP diastolic 64–78; PULSE 93–105; RESP 17–20; TEMP 97–98; O2SAT 95–98
--- NOTE | 2025-08-27 09:32 | MEDREC ---
[facility] ASP Intervention Section I [facility] ASP Intervention: Review courses of therapy (WHITE BLOOD CELLS IN NORMAL RANGE - NO RESPIRATORY CULTURE ORDERED - PATIENT ON ROOM AIR WITH PULSE OXIMETRY > 94 - PLEASE CONSIDER DE-ESCALATION OF ZOSYN TO [id number]) BRADY ARANA PHARMACIST Aug 27, 2025 09:32
[2025-08-27 16:14] LABS: Hematocrit 39.2 % (36.0-46.0); Hemoglobin 13.3 g/dL (12.2-16.2); Mean Corpuscular Hemoglobin 31.5 pg (28.0-32.0); Mean Corpuscular Volume 92.7 fL (80.0-100.0); Nucleated Red Blood Cells % 0.1 %
[2025-08-27 16:26] LABS: Chloride 107 mmol/L (98-107); Sodium 141 mmol/L (136-145)
[2025-08-27 16:27] LABS: Anion Gap 9 (5-15); Calcium 8.9 mg/dL (8.7-10.4); Carbon Dioxide 25 mmol/L (20-31); Potassium 3.4 mmol/L (3.5-5.1)
[2025-08-27 16:32] LABS: BUN/Creatinine Ratio 11.4 (10.0-20.0)
[2025-08-27 16:37] LABS: Blood Urea Nitrogen 8 mg/dL (9-23); Glucose 128 mg/dL (74-106)
[2025-08-27] MEDS: POTASSIUM EFFERVESENT TAB 25 MEQ PO ONE (17:26)
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
[2025-08-28] VITALS (7 sets, daily range): BP systolic 105–124; BP diastolic 67–80; PULSE 90–106; RESP 16–18; TEMP 97.1–97.9; O2SAT 96–100
[2025-08-28 06:12] LABS: Potassium 3.9 mmol/L (3.5-5.1)
[2025-08-28 06:21] LABS: Magnesium 2.0 mg/dL (1.6-2.6)
[2025-08-28 07:49] LABS: Hematocrit 38.4 % (36.0-46.0); Hemoglobin 13.0 g/dL (12.2-16.2); Mean Corpuscular Hemoglobin 31.5 pg (28.0-32.0); Mean Corpuscular Volume 93.1 fL (80.0-100.0); Nucleated Red Blood Cells % 0.2 %
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
[2025-08-28] MEDS ORDERED: LEVO500T91 PO (12:57)
[2025-08-28 13:36] LABS: Alanine Aminotransferase 13 U/L (7-40); Albumin 3.4 g/dL (3.2-4.8); Alkaline Phosphatase 94 U/L (46-116); Anion Gap 10 (5-15); BUN/Creatinine Ratio 19.4 (10.0-20.0); Blood Urea Nitrogen 14 mg/dL (9-23); Calcium 9.0 mg/dL (8.7-10.4); Carbon Dioxide 26 mmol/L (20-31); Chloride 106 mmol/L (98-107); Glucose 92 mg/dL (74-106); Potassium 4.3 mmol/L (3.5-5.1); Sodium 142 mmol/L (136-145); Total Protein 6.3 g/dL (5.7-8.2)
[2025-08-28 13:37] LABS: Bilirubin, Total 0.6 mg/dL (0.2-1.0)
[2025-08-29] VITALS (7 sets, daily range): BP systolic 100–123; BP diastolic 37–79; PULSE 99–108; RESP 16–19; TEMP 97.1–98.6; O2SAT 98–99
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
== END 2025-08-29 16:13 | disposition home health service (06) | DRG 720 ==
LOC: ER 22:28 → EDBD 22:28 → OVERFLOW 08-24 01:01 → TELE-WESTW 08-24 12:38
PROVIDERS: ADMIT Internal Medicine; ATTEND Internal Medicine
DX: A41.9 Sepsis, unspecified organism (principal); G93.41 Metabolic encephalopathy; I21.4 Non-ST elevation (NSTEMI) myocardial infarction; J69.0 Pneumonitis due to inhalation of food and vomit; I24.9 Acute ischemic heart disease, unspecified; J18.9 Pneumonia, unspecified organism; N30.00 Acute cystitis without hematuria; I11.0 Hypertensive heart disease with heart failure; I69.354 Hemiplegia and hemiparesis following cerebral infarction affecting left non-dominant side; E10.649 Type 1 diabetes mellitus with hypoglycemia without coma; E66.812 Obesity, class 2; E04.1 Nontoxic single thyroid nodule; I50.22 Chronic systolic (congestive) heart failure; I25.10 Atherosclerotic heart disease of native coronary artery without angina pectoris; E78.5 Hyperlipidemia, unspecified; E10.65 Type 1 diabetes mellitus with hyperglycemia; I48.91 Unspecified atrial fibrillation; Z79.4 Long term (current) use of insulin; Z95.5 Presence of coronary angioplasty implant and graft; I25.2 Old myocardial infarction; Z91.041 Radiographic dye allergy status; Z79.899 Other long term (current) drug therapy; Z68.36 Body mass index [BMI] 36.0-36.9, adult; Z79.84 Long term (current) use of oral hypoglycemic drugs; Z79.82 Long term (current) use of aspirin
CPT/HCPCS: 36415; 71045; 71250; 76536; 76705; 80048; 80053; 81001; 82962; 83605; 83735; 84132; 84484; 85025; 87081; 87086; 87088; 93005; 97163; 99291; G0378; J1815; J2405; J2543

== ENCOUNTER 2025-09-12 08:10 | Inpatient (IN) | payer MEDICAID, OTHER ==
[~2025-09-12] VITALS: Ht 157.5 cm; Wt 83.6 kg
[~2025-09-12 08:10] MED LIST changes: -INSU100I52 SC; -INSU100I70 SC; +LEVO500T91 PO; -TRAZ1TAB12 PO
--- NOTE | 2025-09-12 08:49 | ED.PDOC ---
Musculoskeletal HPI Comments 60 year old female with PMHx CVA presents to the ED via EMS with a chief complaint of LT leg pain s/p fall onset 1 week. Patient states she was seen in this ED 1 week ago, fell out of her wheelchair, was diagnosed with UTI, was discharged home with antibiotics. Since the fall patient has been experiencing LT leg pain, low back pain. Patient states for the past day, she has been experiencing shortness of breath,generalized weakness, chest pain, nausea/vomiting, back pain has worsened described as a burning sensation. Upon ED arrival, patient was tachycardic with HR 108. Prior to patient's discharge 1 week ago she states she had 2 stents placed. Denies diarrhea, abdominal pain, dizziness, diarrhea. No other symptoms or modifying factors present at this time. Chief Complaint: Lower Extremity Time Seen by MD: 08:35 Reviewed Notes: Medications, Allergies Allergies: Coded Allergies: Iodine (Verified Allergy, Unknown, 09/12/25) Information Source: Patient, Emergency Med Personnel Mode of Arrival: EMS Location: Left Extremity Location: Back, Leg Timing: Weeks Prehospital treatment: Other (antibotics) Severity: Moderate Pain: Moderate Mechanism: Spontaneous Circumstances: Fall Onset of Symptoms: After Trauma Symptoms: Pain DVT Risk Factors: NONE Associated signs and symptoms: Back pain, Leg pain Past Medical History PAST MEDICAL HISTORY: CVA, UTI'S Surgical History: Denies all surgeries [employer]ED [employer] History: No Pertinent [employer] History Family History Family History: Reviewed,noncontributory to illness, No family hx of Cancer, No family hx of DM, No family hx of Heart ginny, No family hx of HTN, No family hx ofKidney ginny, No family hx of Liver ginny, No family hx of Lung ginny, No family hx of Stroke Social History Smoker: Non-Smoker Alcohol: Denies ETOH Use Drugs: Denies Drug Use Lives In: Home Constitutional: reports: weakness; denies: chills, diaphoresis, fatigue, fever, malaise, sweats, others EENTM: denies: blurred vision, double vision, ear bleeding, ear discharge, ear drainage, ear pain, ear ringing, eye pain, eye redness, hearing loss, mouth pain, mouth swelling, nasal discharge, nose bleeding, nose congestion, nose pain, photophobia, tearing, throat pain, throat swelling, voice changes, others Respiratory: reports: shortness of breath; denies: cough, hemoptysis, orthopnea, SOB at rest, SOB with excertion, stridor, wheezing, others Cardiovascular: reports: chest pain; denies: dizzy spells, diaphoresis, Dyspnea on exertion, edema, irregular heart beat, left arm pain, lightheadedness, palpitations, PND, syncope, others Gastrointestinal: denies: abdomen distended, abdominal pain, blood streaked bowels, constipated, diarrhea, dysphagia, difficulty swallowing, hematemesis, melena, nausea, poor appetite, poor fluid intake, rectal bleeding, rectal pain, vomiting, others Genitourinary: denies: abnormal vagina bleeding, burning, dyspareunia, dysuria, flank pain, frequency, hematuria, incontinence, pain, , vagina discharge, urgency, others Neurological: reports: weakness; denies: dizziness, fainting, headache, left sided numbness, left sided weakness, numbness, paresthesia, pre-existing deficit, right sided numbness, right sided weakness, seizure, speech problems, tingling, tremors, others Musculoskeletal: reports: back pain, others (LT leg pain); denies: gout, joint pain, joint swelling, muscle pain, muscle stiffness, neck pain Integumetry: denies: bruises, change in color, change in hair/nails, dryness, laceration, lesions, lumps, rash, wounds, others Allergic/Immunocompromised: denies: Difficulty Healing, Frequent Infections, Hives, Itching, others Hematologic/Lymphatic: denies: anemia, blood clots, easy bleeding, easy bruising, swollen glands, others Endocrine: denies: excessive hunger, excessive sweating, excessive thirst, excessive urination, flushing, intolerance to cold, intolerance to heat, unexplained weight gain, unexplained weight loss, others Psychiatric: denies: anxiety, bipolar disorder, depression, hopeless, panic disorder, schizophrenia, sleepless, suicidal, others All Other Systems: Reviewed and Negative Physical Exam General Appearance: Moderate Distress, Normal HEENT: Normal ENT Inspection, Pharynx Normal, TMs Normal Neck: Full Range of Motion, Non-Tender, Normal, Normal Inspection Respiratory: Chest Non-Tender, Lungs Clear, No Accessory Muscle Use, No Respiratory Distress, Normal Breath Sounds Cardiovascular: No Edema, No JVD, No Murmur, No Gallop, Normal Peripheral Pulses, Tachycardia Breast Exam: Deferred Gastrointestinal: No Organomegaly, Non Tender, No Pulsatile Mass, Normal Bowel Sounds, Soft Genitalia: Deferred Pelvic: Deferred Rectal: Deferred Extremities: No calf tenderness, Normal capillary refill, Normal inspection, Normal range of motion, Non-tender, No pedal edema Musculoskeletal : Apperance: Normal Neurologic: Alert, third rail installer II-XII nml as Tested, No Motor Deficits, Normal Affect, Normal Mood, No Sensory Deficits Cerebellar Function: NOT DONE Reflexes: NOT DONE Skin: Dry, Normal Color, Warm Peripheral Pulses: 3+ Radial (R), 3+ Radial (L) Lymphatic: No Adenopathy Was a procedure done? Was a procedure done?: No Differential Diagnosis EXT Differential Diagnosis: Sprain, Strain X-Ray, Labs, Meds, VS Vital Signs Date Time Temp Pulse Resp B/P (MAP) Pulse Ox O2 Delivery O2 Flow Rate FiO2 09/12/25 08:10 99.0 108 24 128/69 98 99.0 Lab Test 09/12/25 09:13 Range/Units White Blood Count 6.5 4.4-10.8 10^3/uL Red Blood Count 4.72 4.0-5.20 10^6/uL Hemoglobin 14.5 12.2-16.2 g/dL Hematocrit 43.1 36.0-46.0 % Mean Corpuscular Volume 91.4 80.0-100.0 fL Mean Corpuscular Hemoglobin 30.8 28.0-32.0 pg Mean Corpuscular Hemoglobin Concent 33.7 32.0-36.0 g/dL Red Cell Distribution Width 13.2 11.8-14.3 % Platelet Count 258 140-450 10^3/uL Mean Platelet Volume 9.2 6.9-10.8 fL Neutrophils (%) (Auto) 63.0 37.0-80.0 % Lymphocytes (%) (Auto) 26.1 10.0-50.0 % Monocytes (%) (Auto) 8.9 0.0-12.0 % Eosinophils (%) (Auto) 1.5 0.0-7.0 % Basophils (%) (Auto) 0.5 0.0-2.0 % Neutrophils # (Auto) 4.1 1.6-8.6 10 ^3/uL Lymphocytes # (Auto) 1.7 0.4-5.4 10 ^3/uL Monocytes # (Auto) 0.6 0-1.3 10 ^3/uL Eosinophils # (Auto) 0.1 0-0.8 10 ^3/uL Basophils # (Auto) 0 0-0.2 10 ^3/uL Nucleated Red Blood Cells 0.4 % Sodium Level 143 136-145 mmol/L Potassium Level 3.7 3.5-5.1 mmol/L Chloride Level 107 98-107 mmol/L Carbon Dioxide Level 22 20-31 mmol/L Anion Gap 14 5-15 Blood Urea Nitrogen 13 9-23 mg/dL Creatinine 0.76 0.550-1.02 mg/dL Glomerular Filtration Rate Calc 90 >90 mL/min BUN/Creatinine Ratio 17.1 10.0-20.0 Serum Glucose 117 H 74-106 mg/dL Lactic Acid Level Pending Calcium Level 10.1 8.7-10.4 mg/dL Total Bilirubin 0.8 0.2-1.0 mg/dL Aspartate Amino Transferase (AST) 14 13-40 U/L Alanine Aminotransferase (ALT) 10 7-40 U/L Alkaline Phosphatase 106 46-116 U/L Total Protein 7.8 5.7-8.2 g/dL Albumin 4.1 3.2-4.8 g/dL Current Medications Medications (Trade) Dose Ordered Sig/Jaime Route Start Time Stop Time Status Last Admin Sodium Chloride 1,000 ml @ 1,000 mls/hr Q1H ONCE IV 09/12/25 08:45 09/12/25 09:44 DC 09/12/25 09:41 Sodium Chloride 1,000 ml @ 150 mls/hr Q6H40M ONCE IV 09/12/25 08:45 09/12/25 15:24 09/12/25 09:41 Patient alert. Came in because of generalized weakness. Vitals stable. Answering questions. Establish intravenous access. Was given fluids. Possible sepsis. WBC within normal limits. Hemoglobin within normal limits. Mild fever. She is currently taking antibiotics for her urinary tract infection. Reviewed her previous visit. Explained to the patient. Continue monitoring. Time of 1ST Reevaluation: 09:05 Reevaluation 1ST: Unchanged Patient Education/Counseling: Diagnosis, Treatment, Prognosis Family Education/Counseling: No Family Present Sepsis Sepsis Reasesment Focused Exam Orders: Laboratory Tests 09/12/25 09:13: Departure 1 Departure Time of Disposition: 10:13 Impression: Primary Impression: Sepsis due to urinary tract infection Disposition: ADMITTED INPATIENT Admit to: Med Surg Condition: Guarded Critical Care Note Critical Care Time?: No Stability Stability form required: No Heart Score Heart Score: Heart Score Response (Comments) Value History N/A 0 EKG N/A 0 Age N/A 0 Risk Factors N/A 0 Troponin N/A 0 Total 0 I personally scribed for JOHAN MATT MD ([email or web address]) on 09/12/25 at 08:49. Electronically submitted by Mary Rose ([email or web address]). JOHAN MATT MD Sep 12, 2025 08:49
[2025-09-12 09:00] VITALS: PULSE 103; RESP 20; O2SAT 99
[2025-09-12 09:33] LABS: Hematocrit 43.1 % (36.0-46.0); Hemoglobin 14.5 g/dL (12.2-16.2); Mean Corpuscular Hemoglobin 30.8 pg (28.0-32.0); Mean Corpuscular Volume 91.4 fL (80.0-100.0); Nucleated Red Blood Cells % 0.4 %
[2025-09-12 09:41] LABS: Alanine Aminotransferase 10 U/L (7-40); Albumin 4.1 g/dL (3.2-4.8); Alkaline Phosphatase 106 U/L (46-116); Anion Gap 14 (5-15); BUN/Creatinine Ratio 17.1 (10.0-20.0); Bilirubin, Total 0.8 mg/dL (0.2-1.0); Blood Urea Nitrogen 13 mg/dL (9-23); Calcium 10.1 mg/dL (8.7-10.4); Carbon Dioxide 22 mmol/L (20-31); Chloride 107 mmol/L (98-107); Potassium 3.7 mmol/L (3.5-5.1); Sodium 143 mmol/L (136-145); Total Protein 7.8 g/dL (5.7-8.2)
[2025-09-12] MEDS: SODIUM CHLORIDE 0.9% 1,000 ML IV ONE ×2 (09:41)
[2025-09-12 09:53] LABS: Glucose 117 mg/dL (74-106)
--- NOTE | 2025-09-12 10:44 | DVH ---
EXAM: XY CHEST PORTABLE Indication: sob Technique: Single frontal view of the chest was obtained Comparison: CT CHEST WITHOUT CONTRAST on DOS: 08/24/25, XY CHEST PORTABLE on DOS: 08/24/25, XY CHEST XRAY 1 VIEW on DOS: 08/20/25, XY CHEST PORTABLE on DOS: 08/19/25, XY CHEST PORTABLE on DOS: 08/18/25 FINDINGS: Lines and Tubes: None Lungs: No focal consolidation. Pleura: No effusion. No pneumothorax. Cardiomediastinal contours: Unremarkable Bones: No acute osseous abnormality. IMPRESSION: No acute cardiopulmonary disease.
[2025-09-12 10:45] LABS: Lactic Acid w/Reflex 2.5 mmol/L (0.4-2.0)
[2025-09-12] MEDS ORDERED: ACETAMINOPHEN 325 MG TAB PO PRN (10:45)
[2025-09-12] MEDS ORDERED: DOCUSATE SOD 100 MG CAP PO PRN (10:45)
[2025-09-12] MEDS ORDERED: DEXTROSE (50%) 50ML SYRG IV PRN (10:45)
[2025-09-12] MEDS: AZITHROMYCIN 500MG/250ML 250 ML IV ONE (10:46)
[2025-09-12] MEDS: ONDANSETRON HCL 4 MG/2 ML VIAL IV PRN (11:07)
[2025-09-12] MEDS: MORPHINE SULFATE INJ 2 MG/ml SYRG IV ONE (11:16)
[2025-09-12] MEDS: MORPHINE SULFATE 4 MG/ML SYR/VIAL IV ONE (11:17)
--- NOTE | 2025-09-12 11:24 | DVHHP2 ---
History of Present Illness Reason for Visit: Generalized weakness History of Present Illness The patient is a 60-year-old female with past medical history of hypertension, UTIs, hyperlipidemia, CVA, and diabetes mellitus who presented to [facility] [place] ED with complaint of left leg pain status post mechanical fall 1 week ago. Patient reports that she was seen in this ED 1 week ago when she fell out of her wheelchair. Patient was was diagnosed with UTI and discharged home with antibiotics. Since then patient has been experiencing left leg pain, low back pain, chest pain, nausea, generalized weakness, dysuria, getting worse today that prompted this visit. Patient was seen and evaluated in the ED, laboratory data shows WBC 6.5, platelets 258, sodium 143, potassium 3.7, BUN 13, creatinine 0.76, GFR 90, glucose 117, calcium 10.1, blood pressure 128/69, heart rate 108 trending down to 99, temperature 99.0 F, O2 saturation 98% on room air. Chest x-ray show no acute cardiopulmonary disease. Please see medication orders section in the computer. On my assessment, patient denied chest pain, no headache, dizziness, diaphoresis, shortness of breaths, no diarrhea, nausea, vomiting, fever, no chills. Patient was admitted for further evaluation and medical management. Past Medical History HTN, DM, CVA, UTI'S, HLD Past Surgical History Stent placement Family History Reviewed, noncontributory to the management of this case. Past Social History The patient lives at home, denies smoking, alcohol or illicit drugs abuse. Review of Systems Constitutional: Yes: Weakness; No: Fever, Chills, Sweats, Malaise, Other Eyes: No: Pain, Vision change, Conjunctivae inflammation, Eyelid inflammation, Other, Redness ENT: No: Ear pain, Ear discharge, Nose pain, Nose discharge, Nose congestion, Mouth pain, Mouth swelling, Throat pain, Throat swelling, Other Respiratory: Shortness of breath; No: Cough, Dry, SOB with excertion, Wheezing, Hemoptysis, Pleuritic Pain, Sputum, Wheezing, Other Cardiovascular: Chest Pain; No: Palpitations, Orthopnea, Paroxysmal Noc. Dyspnea, Edema, Lt Headedness, Other Gastrointestinal: Nausea; No: Vomiting, Abdominal Pain, Diarrhea, Constipation, Melena, Hematochezia, Other Genitourinary: Dysuria; No Frequency, No Incontinence, No Hematuria, No Retention; Other (Rodriguez catheter in place) Musculoskeletal: No: other, neck pain, shoulder pain, arm pain, back pain, hand pain, leg pain, foot pain Skin: No: Rash, Lesions, Jaundice, Bruising, Other Neurological: No: Weakness, Numbness, Incoordination, Change in speech, Confusion, Seizures, Other Allergies: Coded Allergies: Iodine (Verified Allergy, Unknown, 09/12/25) Medications Current Medications Medications Dose Ordered Sig/Jaime Route Start Time Stop Time Status Last Admin Dose Admin Aspirin 81 mg DAILY PO 09/13/25 10:00 Atorvastatin Calcium 20 mg HS PO 09/12/25 22:00 Losartan Potassium 25 mg DAILY PO 09/13/25 10:00 Gabapentin 100 mg BID PO 09/12/25 22:00 Metoprolol Tartrate 25 mg BID PO 09/12/25 22:00 Diagnostic Test (Pha) 1 strip ACHS 09/12/25 11:30 Insulin Human Regular ACHS SC 09/12/25 11:30 Dextrose 50 ml UD PRN IV 09/12/25 10:45 Sodium Chloride 10 ml Q8HR IV 09/12/25 14:00 Acetaminophen/ Hydrocodone Bitart 1 tab Q4HP PRN PO 09/12/25 10:45 Ondansetron HCl 4 mg Q4HP PRN IV 09/12/25 10:45 09/12/25 11:07 4 MG Docusate Sodium 100 mg BIDPRN PRN PO 09/12/25 10:45 Acetaminophen 650 mg Q6HP PRN PO 09/12/25 10:45 Exam Vital Signs Vital Signs Date Time Temp Pulse Resp B/P (MAP) Pulse Ox O2 Delivery O2 Flow Rate FiO2 09/12/25 11:17 97 20 123/77 09/12/25 10:00 100 09/12/25 08:54 97.8 97.8 General Appearance: Alert, Oriented X3, Cooperative, No acute distress HEENT: Atraumatic, PERRLA, EOMI, Mucous membr. moist/pink Respiratory: Normal air movement Cardiovascular: Regular rate, Normal S1, Normal S2, No murmurs Abdominal: Normal bowel sounds, Soft, No tenderness, No hepatospenomegaly, No masses Extremities: No clubbing, No cyanosis, No edema, Normal pulses, No tenderness/swelling Skin: No rashes, No significant lesion Neuro: Normal speech, Normal tone, Sensation intact, Cranial nerves 3-12 NL, Reflexes 2+, Other (Generalized weakness) Psych/Mental Status: Mental status NL, Mood NL Labs/Xrays Labs Test 09/12/25 10:45 09/12/25 09:13 Range/Units White Blood Count 6.5 4.4-10.8 10^3/uL Red Blood Count 4.72 4.0-5.20 10^6/uL Hemoglobin 14.5 12.2-16.2 g/dL Hematocrit 43.1 36.0-46.0 % Mean Corpuscular Volume 91.4 80.0-100.0 fL Mean Corpuscular Hemoglobin 30.8 28.0-32.0 pg Mean Corpuscular Hemoglobin Concent 33.7 32.0-36.0 g/dL Red Cell Distribution Width 13.2 11.8-14.3 % Platelet Count 258 140-450 10^3/uL Mean Platelet Volume 9.2 6.9-10.8 fL Neutrophils (%) (Auto) 63.0 37.0-80.0 % Lymphocytes (%) (Auto) 26.1 10.0-50.0 % Monocytes (%) (Auto) 8.9 0.0-12.0 % Eosinophils (%) (Auto) 1.5 0.0-7.0 % Basophils (%) (Auto) 0.5 0.0-2.0 % Neutrophils # (Auto) 4.1 1.6-8.6 10 ^3/uL Lymphocytes # (Auto) 1.7 0.4-5.4 10 ^3/uL Monocytes # (Auto) 0.6 0-1.3 10 ^3/uL Eosinophils # (Auto) 0.1 0-0.8 10 ^3/uL Basophils # (Auto) 0 0-0.2 10 ^3/uL Nucleated Red Blood Cells 0.4 % Sodium Level 143 136-145 mmol/L Potassium Level 3.7 3.5-5.1 mmol/L Chloride Level 107 98-107 mmol/L Carbon Dioxide Level 22 20-31 mmol/L Anion Gap 14 5-15 Blood Urea Nitrogen 13 9-23 mg/dL Creatinine 0.76 0.550-1.02 mg/dL Glomerular Filtration Rate Calc 90 >90 mL/min BUN/Creatinine Ratio 17.1 10.0-20.0 Serum Glucose 117 H 74-106 mg/dL Calcium Level 10.1 8.7-10.4 mg/dL Total Bilirubin 0.8 0.2-1.0 mg/dL Aspartate Amino Transferase (AST) 14 13-40 U/L Alanine Aminotransferase (ALT) 10 7-40 U/L Alkaline Phosphatase 106 46-116 U/L Total Protein 7.8 5.7-8.2 g/dL Albumin 4.1 3.2-4.8 g/dL PATIENT: DAVE TY ACCT: [id number] UNIT: [id number] : 1965 LOC: ER ROOM / BED: / AGE / SEX: 60 / F ADM STATUS: REG ER SERVICE 1014 ORDERING PHYSICIAN: JOHAN MATT MD PROCEDURE(s): CXRP - CHEST PORTABLE REASON: sob ORDER NUMBER(s): [id number], ACCESSION NUMBER(s): [id number] EXAM: XY CHEST PORTABLE Indication: sob Technique: Single frontal view of the chest was obtained Comparison: CT CHEST WITHOUT CONTRAST on DOS: 08/24/25, XY CHEST PORTABLE on DOS: 08/24/25, XY CHEST XRAY 1 VIEW on DOS: 08/20/25, XY CHEST PORTABLE on DOS: 08/19/25, XY CHEST PORTABLE on DOS: 08/18/25 FINDINGS: Lines and Tubes: None Lungs: No focal consolidation. Pleura: No effusion. No pneumothorax. Cardiomediastinal contours: Unremarkable Bones: No acute osseous abnormality. IMPRESSION: No acute cardiopulmonary disease. SEPSIS Sepsis Screen Date sepsis recognized/suspect: Sep 12, 2025 Time Sepsis recognized/suspect: 811 Recent Procedure: No On Antibiotic Therapy: Yes Respiratory Rate >20: Yes Heart Rate >90: Yes Temp<36 C (96.8 F) or >38.3 C: No SBP <90 or MAP <65 mmHG: No New Acute Mental Status Change: No Is the patient on CPAP, BIPAP,: No Physician Orders Blood Culture (09/12/25 08:32) Urinalysis (09/12/25 08:32) Sodium Chloride 0.9% (09/12/25 08:45) Chest Portable (09/12/25 10:14) Aspirin Chewable Tablet (09/13/25 10:00) Atorvastatin (Lipitor) (09/12/25 22:00) Losartan Tablet (Cozaar Tablet) (09/13/25 10:00) Gabapentin Capsule (Neurontin Capsule) (09/12/25 22:00) Consistent Carb(Ccho)Diabetes (09/12/25 Lunch) Metoprolol Tartrate Tablet (Lopressor Ta (09/12/25 22:00) Glucose Blood (Accu-Chek Comfort Curve T (09/12/25 11:30) Insulin R (Human) (Insulin R) (09/12/25 11:30) Dextrose 50% Syringe (09/12/25 10:45) Allergies (09/12/25 10:33) Code Status (09/12/25 10:33) Sodium Chloride Lock (Saline Lock Ns) (09/12/25 14:00) Oxygen Per Hour (09/12/25 10:33) Hydrocodone-Acet 5/325mg Tab ([place] 5/32 (09/12/25 10:45) Ondansetron Hcl (Zofran) (09/12/25 10:45) Docusate Sodium Capsule (Colace Capsule) (09/12/25 10:45) Complete Blood Count (09/13/25 04:00) Comprehensive Metabolic Panel (09/13/25 04:00) Condition: Serious (09/12/25 10:33) Acetaminophen Tablet (Tylenol Tablet) (09/12/25 10:45) Bedrest With Bathroom Privileg (09/12/25 10:33) Insert Rodriguez Catheter QSHIFT (09/12/25 10:52) Urine Bacterial Culture (09/12/25 10:52) Vital Signs Date Time Temp Pulse Resp B/P (MAP) Pulse Ox O2 Delivery O2 Flow Rate FiO2 09/12/25 11:17 97 20 123/77 09/12/25 10:00 103 22 103/58 (73) 100 09/12/25 08:54 97.8 103 22 103/69 (80) 99 97.8 09/12/25 08:10 99.0 108 24 128/69 98 99.0 Laboratory Tests Test 09/12/25 09:13 09/12/25 10:45 Lactic Acid Level 2.5 mmol/L (0.4-2.0) *H Pending White Blood Count 6.5 10^3/uL (4.4-10.8) Medications Medications Dose Ordered Sig/Jaime Route Start Time Stop Time Status Last Admin Dose Admin Azithromycin 250 ml @ 125 mls/hr ONCE ONCE IV 09/12/25 08:45 09/12/25 10:44 DC 09/12/25 10:46 125 MLS/HR Ceftriaxone Sodium 50 ml @ 100 mls/hr ONCE ONCE IV 09/12/25 08:45 09/12/25 09:14 DC 09/12/25 10:13 100 MLS/HR Morphine Sulfate 2 mg ONCE ONCE IV 09/12/25 11:15 09/12/25 11:16 DC 09/12/25 11:17 2 MG Ondansetron HCl 4 mg Q4HP PRN IV 09/12/25 10:45 09/12/25 11:07 4 MG Sodium Chloride 1,000 ml @ 150 mls/hr Q6H40M ONCE IV 09/12/25 08:45 09/12/25 15:24 09/12/25 09:41 150 MLS/HR Sodium Chloride 1,000 ml @ 1,000 mls/hr Q1H ONCE IV 09/12/25 08:45 09/12/25 09:44 DC 09/12/25 09:41 1,000 MLS/HR Assessment/Plan Assessment/Plan Generalized weakness Elevated lactic acid level Acute generalized body pain Plan 1. Admit to telemetry unit 2. Breathing treatment 3. Pain control management 4. IV antibiotic management 5. Management of fluids and electrolytes 6. Consultation for hospitalist 7. Diagnostic test chest x-ray 8. DVT prophylaxis-on SCDs 9. Repeat labs CBC, CMP in a.m. 10. Home medication reviewed and reconciled 11. Continue with current medical management 12. Treatment plan discussed with patient and RN. Patient verbalized understanding. Plan discussed with: Patient, Other (RN) My Orders Orders - WILBUR CANO DNP Procedure Category Date Status Time Aspirin Chewable PHA 09/13/25 In Process Tablet 10:00 Atorvastatin (Lipitor) PHA 09/12/25 In Process 22:00 Losartan Tablet PHA 09/13/25 In Process (Cozaar Tablet) 10:00 Gabapentin Capsule PHA 09/12/25 In Process (Neurontin Capsule) 22:00 Consistent DIET 09/12/25 Transmitted Carb(Ccho)Diabetes Lunch Metoprolol Tartrate PHA 09/12/25 In Process Tablet (Lopressor Ta 22:00 Glucose Blood PHA 09/12/25 In Process (Accu-Chek Comfort 11:30 Insulin R (Human) PHA 09/12/25 In Process (Insulin R) 11:30 Dextrose 50% Syringe PHA 09/12/25 In Process 10:45 Allergies MELLO 09/12/25 In Process 10:33 Code Status CODE 09/12/25 Transmitted 10:33 Sodium Chloride Lock PHA 09/12/25 In Process (Saline Lock Ns) 14:00 Oxygen Per Hour RT 09/12/25 Transmitted 10:33 Hydrocodone-Acet PHA 09/12/25 In Process 5/325mg Tab ([place] 10:45 Ondansetron Hcl PHA 09/12/25 In Process (Zofran) 10:45 Docusate Sodium PHA 09/12/25 In Process Capsule (Colace 10:45 Complete Blood Count LAB 09/13/25 Verified 04:00 Comprehensive LAB 09/13/25 Verified Metabolic Panel 04:00 Condition: Serious MELLO 09/12/25 In Process 10:33 Acetaminophen Tablet PHA 09/12/25 In Process (Tylenol Tablet) 10:45 Bedrest With Bathroom MELLO 09/12/25 In Process Privileg 10:33 Problem List: (1) Generalized weakness (2) Elevated lactic acid level (3) Acute generalized body pain Date of Service: Sep 12, 2025 Billing Provider: WILBUR CANO DNP Common Visit Codes: [id number] INP/OBS CARE (HIGH) WILBUR CANO DNP Sep 12, 2025 11:24
[2025-09-12] MEDS: InsuLIN REG 1unit/0.01ml Soln (100units/ml) SC SCH (11:30)
[2025-09-12] MEDS ORDERED: NITROGLYCERIN 0.4 MG SL TAB SL PRN (11:30)
[2025-09-12] MEDS: ACCU-CHEK COMFORT CURVE STRIP VI SCH (11:54)
[2025-09-12 12:39] LABS: Urine Budding Yeast FEW /hpf (None Seen); Urine Protein, UAD 1+ (Negative)
[2025-09-12] MEDS ORDERED: MORPHINE SULFATE 4 MG/ML SYR/VIAL IV PRN (12:45)
[2025-09-12] MEDS: SODIUM CHLOR 0.9% PF (SALINE LOCK) 10ML VIAL/SYR IV SCH (16:35)
[2025-09-12 20:13] VITALS: PULSE 119; RESP 20; O2SAT 97
[2025-09-12] MEDS: HYDROcodone-ACET 5/325MG TAB PO PRN (20:14)
[2025-09-12] MEDS: GABAPENTIN 100 MG CAP PO SCH (21:30)
[2025-09-12] MEDS: ATORVASTATIN 20 MG TAB PO SCH (21:30)
[2025-09-12] MEDS: METOPROLOL TARTRATE 25 MG TAB PO SCH (21:30)
[2025-09-13] VITALS (8 sets, daily range): BP systolic 100–135; BP diastolic 66–88; PULSE 96–105; RESP 17–20; TEMP 97.8–98.2; O2SAT 97–99
[2025-09-13 07:27] LABS: Hematocrit 39.4 % (36.0-46.0); Hemoglobin 13.1 g/dL (12.2-16.2); Mean Corpuscular Hemoglobin 30.7 pg (28.0-32.0); Mean Corpuscular Volume 91.9 fL (80.0-100.0); Nucleated Red Blood Cells % 0.1 %
[2025-09-13 07:50] LABS: Albumin 3.4 g/dL (3.2-4.8); Alkaline Phosphatase 89 U/L (46-116); Anion Gap 13 (5-15); BUN/Creatinine Ratio 23.8 (10.0-20.0); Bilirubin, Total 0.5 mg/dL (0.2-1.0); Blood Urea Nitrogen 15 mg/dL (9-23); Calcium 9.4 mg/dL (8.7-10.4); Carbon Dioxide 21 mmol/L (20-31); Glucose 84 mg/dL (74-106); Potassium 3.6 mmol/L (3.5-5.1); Total Protein 6.2 g/dL (5.7-8.2)
[2025-09-13 07:58] LABS: Alanine Aminotransferase < 9 U/L (7-40); Chloride 112 mmol/L (98-107); Sodium 146 mmol/L (136-145)
[2025-09-13] MEDS: LOSARTAN POTASSIUM 25 MG TAB PO SCH (10:44)
--- NOTE | 2025-09-13 15:48 | DVHPN2 ---
Reviewed: Care Plan, H&P, Labs, Medications, Previous Orders, Radiology Changes from previous H/P or p: No Changes Eyes: No Pain, No Vision change, No Conjunctivae inflammation, No Eyelid inflammation, No Other, No Redness ENT: No Ear pain, No Ear discharge, No Nose pain, No Nose discharge, No Nose congestion, No Mouth pain, No Mouth swelling, No Throat pain, No Throat swelling, No Other Cardiovascular: Chest Pain; No Palpitations, No Orthopnea, No Paroxysmal Noc. Dyspnea, No Edema, No Lt Headedness, No Other Respiratory: No Cough, No Dry; Shortness of breath; No SOB with excertion, No Wheezing, No Hemoptysis, No Pleuritic Pain, No Sputum, No Other Gastrointestinal: Nausea; No Vomiting, No Abdominal Pain, No Diarrhea, No Constipation, No Melena, No Hematochezia, No Other Genitourinary: Dysuria; No Frequency, No Incontinence, No Hematuria, No Retention; Other (Rodriguez catheter in place) Musculoskeletal: No other, No neck pain, No shoulder pain, No arm pain, No back pain, No hand pain, No leg pain, No foot pain Skin: No Rash, No Lesions, No Jaundice, No Bruising, No Other Objective Vitals Vital Signs Date Time Temp Pulse Resp B/P (MAP) Pulse Ox O2 Delivery O2 Flow Rate FiO2 09/13/25 13:00 97.8 96 18 125/87 (100) 99 97.8 09/13/25 08:00 Room Air* 0 21 Intake/Output Intake and Output 09/13/25 07:00 Intake Total 2400 ml Output Total 400 ml Balance 2000 ml Intake IV Total 2400 ml Output Urine Total 400 ml Medications Current Medications Medications Dose Ordered Sig/Jaime Route Start Time Stop Time Status Last Admin Dose Admin Aspirin 81 mg DAILY PO 09/13/25 10:00 09/13/25 10:45 81 MG Atorvastatin Calcium 20 mg HS PO 09/12/25 22:00 09/12/25 21:30 20 MG Losartan Potassium 25 mg DAILY PO 09/13/25 10:00 09/13/25 10:44 25 MG Gabapentin 100 mg BID PO 09/12/25 22:00 09/13/25 10:45 100 MG Metoprolol Tartrate 25 mg BID PO 09/12/25 22:00 09/13/25 10:44 25 MG Diagnostic Test (Pha) 1 strip ACHS 09/12/25 11:30 09/13/25 11:46 1 STRIP Insulin Human Regular ACHS SC 09/12/25 11:30 Dextrose 50 ml UD PRN IV 09/12/25 10:45 Sodium Chloride 10 ml Q8HR IV 09/12/25 14:00 09/13/25 14:40 10 ML Acetaminophen/ Hydrocodone Bitart 1 tab Q4HP PRN PO 09/12/25 10:45 09/13/25 10:43 1 TAB Ondansetron HCl 4 mg Q4HP PRN IV 09/12/25 10:45 09/12/25 11:07 4 MG Docusate Sodium 100 mg BIDPRN PRN PO 09/12/25 10:45 Acetaminophen 650 mg Q6HP PRN PO 09/12/25 10:45 Nitroglycerin 0.4 mg Q5MINP PRN SL 09/12/25 11:30 Morphine Sulfate 2 mg Q30M PRN IV 09/12/25 12:45 Ceftriaxone Sodium 50 ml @ 100 mls/hr DAILY@09 IV 09/13/25 09:00 09/13/25 10:43 100 MLS/HR Laboratory Results Laboratory Tests 09/13/25 06:40 Chemistry Test 09/13/25 06:40 Albumin 3.4 g/dL (3.2-4.8) Calcium Level 9.4 mg/dL (8.7-10.4) Total Protein 6.2 g/dL (5.7-8.2) LFT Test 09/13/25 06:40 Alanine Aminotransferase (ALT) < 9 U/L (7-40) Alkaline Phosphatase 89 U/L (46-116) Aspartate Amino Transferase (AST) 14 U/L (13-40) Total Bilirubin 0.5 mg/dL (0.2-1.0) Urinalysis Test 09/12/25 11:00 Urine Color Yellow (Yellow) Urine Clarity Clear (Clear) Urine pH 6.0 (5.0-9.0) Urine Specific [place] 1.020 (1.001-1.035) Urine Protein 1+ (Negative) H Urine Ketones 1+ (Negative) H Urine Blood Negative /uL (Negative) Urine Nitrite Negative (Negative) Urine Bilirubin Negative (Negative) Urine Urobilinogen Normal mg/dL (Negative) Urine Leukocyte Esterase Negative /uL (Negative) Urine RBC 1 /hpf (0 - 4) Urine Microscopic WBC 2 /HPF (0-5) Urine Squamous Epithelial Cells Few /hpf (<5) Urine Bacteria None seen /hpf (None Seen) Urine Yeast (Budding) Few /hpf (None Seen) Urine Glucose Normal mg/dL (Normal) Microbiology Microbiology Date/Time Source Procedure Growth Status 09/12/25 11:00 Urine - [place] Urine Culture - Preliminary No growth Resulted 09/12/25 10:31 Blood Blood Culture - Preliminary NO GROWTH AFTER 24 HOURS OF INCUBATION. Resulted Labs and/or images reviewed: Labs reviewed by me, Image(s) reviewed by me Assessment/Plan Assessment/Plan Acute left leg pain status post fall : CT left leg and left knee Acute generalized weakness Acute lactic acidosis Hypertension Diabetes History of CVA Hypercholesterolemia History of recurrent UTIs RN at bed side. Plan discussed with: Patient Date of Service: Sep 13, 2025 Billing Provider: ZINA HULL MD Common Visit Codes: [id number] INP/OBS CARE(HIGH) ZINA HULL MD Sep 13, 2025 15:48
--- NOTE | 2025-09-13 19:42 | DVH ---
EXAM: CT CT L TIB FIB WO CONTRAST INDICATION: Left leg pain after fall TECHNIQUE: Axial images of left tibia/ fibula without contrast have been obtained along with coronal and sagittal reformatted images. All CT scans at this facility use dose modulation, iterative reconstruction, and/or weight based dosing when appropriate to reduce radiation dose to as low as reasonably achievable. COMPARISON: None FINDINGS: BONES: Significant comminuted, angulated, mildly displaced distal femoral fracture with intra-articular extension and mild lateral femoral condylar displacement. No proximal fibular or tibial fracture. No fracture visualized at the level of the ankle. Achilles insertional enthesophyte. Small plantar ca lcaneal spur. Vascular calcifications. MUSCLES: No abnormal attenuation. OTHER: None. IMPRESSION: 1. Significant comminuted, angulated, mildly displaced distal femoral fracture with intra-articular extension and mild lateral femoral condylar displacement.
[2025-09-14] VITALS (9 sets, daily range): BP systolic 121–145; BP diastolic 74–89; PULSE 97–109; RESP 16–19; TEMP 98.1–98.6; O2SAT 94–98
--- NOTE | 2025-09-14 11:45 | DVHPN2 ---
Reviewed: Care Plan, H&P, Labs, Medications, Previous Orders, Radiology Changes from previous H/P or p: No Changes Eyes: No Pain, No Vision change, No Conjunctivae inflammation, No Eyelid inflammation, No Other, No Redness ENT: No Ear pain, No Ear discharge, No Nose pain, No Nose discharge, No Nose congestion, No Mouth pain, No Mouth swelling, No Throat pain, No Throat swelling, No Other Cardiovascular: Chest Pain; No Palpitations, No Orthopnea, No Paroxysmal Noc. Dyspnea, No Edema, No Lt Headedness, No Other Respiratory: No Cough, No Dry; Shortness of breath; No SOB with excertion, No Wheezing, No Hemoptysis, No Pleuritic Pain, No Sputum, No Other Gastrointestinal: Nausea; No Vomiting, No Abdominal Pain, No Diarrhea, No Constipation, No Melena, No Hematochezia, No Other Genitourinary: Dysuria; No Frequency, No Incontinence, No Hematuria, No Retention; Other (Rodriguez catheter in place) Musculoskeletal: No other, No neck pain, No shoulder pain, No arm pain, No back pain, No hand pain, No leg pain, No foot pain Skin: No Rash, No Lesions, No Jaundice, No Bruising, No Other Objective Vitals Vital Signs Date Time Temp Pulse Resp B/P (MAP) Pulse Ox O2 Delivery O2 Flow Rate FiO2 09/14/25 09:06 100 121/76 09/14/25 09:00 98.1 16 97 98.1 09/14/25 08:00 Room Air* 0 21 Intake/Output Intake and Output 09/14/25 07:00 Intake Total 1770 ml Output Total 1060 ml Balance 710 ml Intake Oral 1770 ml Output Urine Total 1060 ml Medications Current Medications Medications Dose Ordered Sig/Jaime Route Start Time Stop Time Status Last Admin Dose Admin Aspirin 81 mg DAILY PO 09/13/25 10:00 09/14/25 09:06 81 MG Atorvastatin Calcium 20 mg HS PO 09/12/25 22:00 09/13/25 22:04 20 MG Losartan Potassium 25 mg DAILY PO 09/13/25 10:00 09/14/25 09:05 25 MG Gabapentin 100 mg BID PO 09/12/25 22:00 09/14/25 09:04 100 MG Metoprolol Tartrate 25 mg BID PO 09/12/25 22:00 09/14/25 09:06 25 MG Diagnostic Test (Pha) 1 strip ACHS 09/12/25 11:30 09/14/25 11:03 1 STRIP Insulin Human Regular ACHS SC 09/12/25 11:30 09/14/25 05:36 2 UNITS Dextrose 50 ml UD PRN IV 09/12/25 10:45 Sodium Chloride 10 ml Q8HR IV 09/12/25 14:00 09/14/25 05:28 10 ML Acetaminophen/ Hydrocodone Bitart 1 tab Q4HP PRN PO 09/12/25 10:45 09/14/25 05:23 1 TAB Ondansetron HCl 4 mg Q4HP PRN IV 09/12/25 10:45 09/12/25 11:07 4 MG Docusate Sodium 100 mg BIDPRN PRN PO 09/12/25 10:45 Acetaminophen 650 mg Q6HP PRN PO 09/12/25 10:45 Nitroglycerin 0.4 mg Q5MINP PRN SL 09/12/25 11:30 Morphine Sulfate 2 mg Q30M PRN IV 09/12/25 12:45 Ceftriaxone Sodium 50 ml @ 100 mls/hr DAILY@09 IV 09/13/25 09:00 09/14/25 09:04 100 MLS/HR Laboratory Results Laboratory Tests 09/13/25 06:40 Urinalysis Test 09/12/25 11:00 Urine Color Yellow (Yellow) Urine Clarity Clear (Clear) Urine pH 6.0 (5.0-9.0) Urine Specific [place] 1.020 (1.001-1.035) Urine Protein 1+ (Negative) H Urine Ketones 1+ (Negative) H Urine Blood Negative /uL (Negative) Urine Nitrite Negative (Negative) Urine Bilirubin Negative (Negative) Urine Urobilinogen Normal mg/dL (Negative) Urine Leukocyte Esterase Negative /uL (Negative) Urine RBC 1 /hpf (0 - 4) Urine Microscopic WBC 2 /HPF (0-5) Urine Squamous Epithelial Cells Few /hpf (<5) Urine Bacteria None seen /hpf (None Seen) Urine Yeast (Budding) Few /hpf (None Seen) Urine Glucose Normal mg/dL (Normal) Microbiology Microbiology Date/Time Source Procedure Growth Status 09/12/25 11:00 Urine - [place] Urine Culture - Final Complete 09/12/25 10:31 Blood Blood Culture - Preliminary NO GROWTH AFTER 48 HOURS OF INCUBATION. Resulted Assessment/Plan Assessment/Plan Acute distal left femur fracture: Consult for Acute left leg pain status post fall Acute generalized weakness Acute lactic acidosis Hypertension Diabetes History of CVA Hypercholesterolemia History of recurrent UTIs Blood cultures negative Urine cultures neg RN [place] at bed side. Plan discussed with: Patient My Orders Orders - ZINA HULL MD Procedure Category Date Status Time Ct L Tib Fib Wo CT 09/13/25 Resulted Contrast 15:49 Date of Service: Sep 14, 2025 Billing Provider: ZINA HULL MD Common Visit Codes: [id number] INP/OBS CARE(HIGH) ZINA HULL MD Sep 14, 2025 11:45
--- NOTE | 2025-09-14 14:51 | DVHINCON2 ---
Date Seen: Sep 14, 2025 Referring Physician MD Jeannette Reason for Consultation Cardiac risk stratification History of Present Illness This is a 60-year-old female patient who presents to emergency room with chief complaint of left leg pain. The patient reports having a fall over one week ago. She reports that she slid out of her bed and landed on her left leg. The patient reports that she came to the emergency room and was sent home. She reports ongoing left leg pain which prompted her to come back to the emergency room for this admission. Imaging has revealed a significant comminuted, angulated, mildly displaced left distal femoral fracture. Cardiology has been consulted at this time for cardiac risk stratification. A twelve lead electrocardiogram was ordered and obtained at time of assessment and reveals sinus tachycardia with PVCs and Q-waves seen in inferior leads.She denies any chest pain, palpitations, diaphoresis, SOB, dizziness, nausea, or vomiting. The patient was recently admitted to this facility as STEMI on 08/18/25 undergoing a successful PCI of the RCA. She states she has been compliant with her dual antiplatelet therapy and statin. Significant medical history includes coronary artery disease status post PCI of the RCA x 3 CONCEPCION, congestive heart failure, hypertension, dyslipidemia, diabetes mellitus, cerebrovascular accident with left-sided deficits, and obesity. Of note, during coronary angiogram on 08/18/2025, the auto body repair estimator recommended for the patient to undergo a staged LAD procedure. The patient states she never followed up with Cardiology in the outpatient setting. Past Medical History Past medical history reviewed. No other significant than mentioned above. Past Surgical History PTCA with a stent placement of the RCA x3 CONCEPCION, 08/18/2025 C-sections x2 Family History Family history reviewed. Social History Denies the use of tobacco, alcohol or illicit drugs. Allergies: Coded Allergies: Iodine (Verified Allergy, Unknown, 09/12/25) Home Meds Unable to Obtain Active Prescriptions or Reported Meds Home Meds Home medications reviewed. Review of Systems Constitutional: No symptom reported Ears, Nose, & Throat: No symptom reported Eyes: No symptom reported Neurological: No symptoms reported Pulmonary/Respiratory: No symptoms reported Cardiovascular: No symptom reported Gastrointestinal: No symptom reported Genitourinary: No symptom reported Musculoskeletal: Left leg pain Skin: No symptom reported Psychiatric: No symptom reported Endocrine: No symptom reported Hematologic/Lymphatic: No symptom reported Vital Signs Vital Signs Date Time Temp Pulse Resp B/P (MAP) Pulse Ox O2 Delivery O2 Flow Rate FiO2 09/14/25 14:01 98 126/74 09/14/25 09:00 98.1 16 97 98.1 09/14/25 08:00 Room Air* 0 21 Physical Exam General Appearance: Cooperative. Morbid obesity Pulmonary/Respiratory: Clear, bilateral breaths sounds. Cardiovascular/Chest: Regular rate and rhythm. Peripheral Pulses: 2+ Radial (R). 2+ Radial (L). 2+ Pedal (R). 2+ Pedal (L) Abdominal Exam: Normal bowel sounds. Ankle Exam: Negative ankle edema Lower extremities: Negative lower extremity edema Neuro/Mental Status: A/OX4, coherent. Thoughts/Psych: Normal thought pattern. Appropriate mood and affect. Good judgment and insight. Appearance: No acute distress. Skin Exam: Normal inspection. Normal color. Warm and dry. Labs/Diagnostic Data Labs Test 09/14/25 11:02 09/13/25 06:40 09/12/25 14:21 09/12/25 11:00 Range/Units POC Glucose 129 H 70-106 mg/dl White Blood Count 5.8 4.4-10.8 10^3/uL Red Blood Count 4.28 4.0-5.20 10^6/uL Hemoglobin 13.1 12.2-16.2 g/dL Hematocrit 39.4 36.0-46.0 % Mean Corpuscular Volume 91.9 80.0-100.0 fL Mean Corpuscular Hemoglobin 30.7 28.0-32.0 pg Mean Corpuscular Hemoglobin Concent 33.4 32.0-36.0 g/dL Red Cell Distribution Width 13.3 11.8-14.3 % Platelet Count 223 140-450 10^3/uL Mean Platelet Volume 9.3 6.9-10.8 fL Neutrophils (%) (Auto) 52.1 37.0-80.0 % Lymphocytes (%) (Auto) 35.4 10.0-50.0 % Monocytes (%) (Auto) 8.1 0.0-12.0 % Eosinophils (%) (Auto) 3.8 0.0-7.0 % Basophils (%) (Auto) 0.6 0.0-2.0 % Neutrophils # (Auto) 3.0 1.6-8.6 10 ^3/uL Lymphocytes # (Auto) 2.1 0.4-5.4 10 ^3/uL Monocytes # (Auto) 0.5 0-1.3 10 ^3/uL Eosinophils # (Auto) 0.2 0-0.8 10 ^3/uL Basophils # (Auto) 0 0-0.2 10 ^3/uL Nucleated Red Blood Cells 0.1 % Sodium Level 146 H 136-145 mmol/L Potassium Level 3.6 3.5-5.1 mmol/L Chloride Level 112 H 98-107 mmol/L Carbon Dioxide Level 21 20-31 mmol/L Anion Gap 13 5-15 Blood Urea Nitrogen 15 9-23 mg/dL Creatinine 0.63 0.550-1.02 mg/dL Glomerular Filtration Rate Calc 102 >90 mL/min BUN/Creatinine Ratio 23.8 H 10.0-20.0 Serum Glucose 84 74-106 mg/dL Calcium Level 9.4 8.7-10.4 mg/dL Total Bilirubin 0.5 0.2-1.0 mg/dL Aspartate Amino Transferase (AST) 14 13-40 U/L Alanine Aminotransferase (ALT) < 9 7-40 U/L Alkaline Phosphatase 89 46-116 U/L Total Protein 6.2 5.7-8.2 g/dL Albumin 3.4 3.2-4.8 g/dL Lactic Acid Level 1.2 0.4-2.0 mmol/L Urine Color Yellow Yellow Urine Clarity Clear Clear Urine pH 6.0 5.0-9.0 Urine Specific [place] 1.020 1.001-1.035 Urine Protein 1+ H Negative Urine Ketones 1+ H Negative Urine Blood Negative Negative /uL Urine Nitrite Negative Negative Urine Bilirubin Negative Negative Urine Urobilinogen Normal Negative mg/dL Urine Leukocyte Esterase Negative Negative /uL Urine RBC 1 0 - 4 /hpf Urine Microscopic WBC 2 0-5 /HPF Urine Squamous Epithelial Cells Few <5 /hpf Urine Bacteria None seen None Seen /hpf Urine Yeast (Budding) Few None Seen /hpf Urine Glucose Normal Normal mg/dL Microbiology Date/Time Source Procedure Growth Status 09/12/25 11:00 Urine - [place] Urine Culture - Final Complete 09/12/25 10:31 Blood Blood Culture - Preliminary NO GROWTH AFTER 48 HOURS OF INCUBATION. Resulted Assessment Preprocedural cardiovascular examination Recent acute inferior wall NM on 08/18/2025 Coronary artery disease status post PCI of the RCA x 3DES (on DAPT/Statin/Metoprolol) Chronic compensated HFimEF, NYHA class II (previous LVEF 40% on echo 08/18/25) Diabetes mellitus Hypertension Dyslipidemia HX of CVA with left-sided deficits Obesity Plan/Recommendation We will proceed with the following plan/recommendations (): Case reviewed and discussed with . A transthoracic echocardiogram reveals an EF of 60%. Revised Cardiac Risk Index (Ady criteria): 3 points (10% risk of major cardiac event). The patient has an underlying history of coronary artery disease including a recent acute ST-elevation myocardial infarction on 08/18/2025 in which PCI to RCA was performed (under different ). At that time, the patient was also noted to have an ejection fraction of approximately 40%. Prior to this admission, the patient reports a poor functional capacity and states she is mostly bed ridden from a previous CVA. Per Cardiology standpoint, the patient is at a high risk for moderate risk surgery. This was discussed with the patient in detail. Given that the patient had recent stent placement, we will recommend to reinitiate dual antiplatelet therapy as soon as possible postprocedure including loading the patient back on her Plavix therapy. The patient is at high risk for InStent thrombosis/restenosis while being off of her dual antiplatelet therapy with recent (less than one month) PCI and stent placement. It is worth noting that the patient was recommended to undergo a staged procedure of her LAD for revascularization. The patient never followed up with a Cardiology in the outpatient setting. We will recommend that the patient still undergo outpatient revascularization as interventional cardiology had recommended. There is no further inpatient cardiac workup indicated at this time. Please reconsult if needed. Thank you for allowing us to care for this patient. Please call with any questions or concerns. Critical care time spent: 44 minutes This medical document was created using an electronic medical record system with voice recognition software and computerized dictation system. Although this document has been carefully reviewed, there might still be some phonetic and typographical errors. Occasional wrong-word or ``sound-alike substitutions may have occurred due to the inherent limitations of voice recognition software. These areas are purely typographical due to imperfections of the software programs and do not reflect any compromise in the patient's medical care. Please read the chart carefully and recognize, using context, where these substitutions have occurred. Plan discussed with: Patient NYHA Physical activity limitations: Class2(Slight)fatigue,sob (palpitatns, angina w activityv) Date of Service: Sep 14, 2025 Billing Provider: REE BRITTON Cardiology Common Codes: [id number] INP/OBS CARE (High) Cardiology Consultation Codes: [id number] CONSULT <45MIN REE BRITTON Sep 14, 2025 14:51
[2025-09-15] VITALS (8 sets, daily range): BP systolic 122–151; BP diastolic 80–95; PULSE 97–109; RESP 16–20; TEMP 97.1–98.5; O2SAT 97–100
--- NOTE | 2025-09-15 10:52 | DVHPN2 ---
Reviewed: Care Plan, H&P, Labs, Medications, Previous Orders, Radiology Changes from previous H/P or p: No Changes Eyes: No Pain, No Vision change, No Conjunctivae inflammation, No Eyelid inflammation, No Other, No Redness ENT: No Ear pain, No Ear discharge, No Nose pain, No Nose discharge, No Nose congestion, No Mouth pain, No Mouth swelling, No Throat pain, No Throat swelling, No Other Cardiovascular: Chest Pain; No Palpitations, No Orthopnea, No Paroxysmal Noc. Dyspnea, No Edema, No Lt Headedness, No Other Respiratory: No Cough, No Dry; Shortness of breath; No SOB with excertion, No Wheezing, No Hemoptysis, No Pleuritic Pain, No Sputum, No Other Gastrointestinal: Nausea; No Vomiting, No Abdominal Pain, No Diarrhea, No Constipation, No Melena, No Hematochezia, No Other Genitourinary: Dysuria; No Frequency, No Incontinence, No Hematuria, No Retention; Other (Rodriguez catheter in place) Musculoskeletal: No other, No neck pain, No shoulder pain, No arm pain, No back pain, No hand pain, No leg pain, No foot pain Skin: No Rash, No Lesions, No Jaundice, No Bruising, No Other Objective Vitals Vital Signs Date Time Temp Pulse Resp B/P (MAP) Pulse Ox O2 Delivery O2 Flow Rate FiO2 09/15/25 09:00 98.0 101 16 122/80 (94) 99 98.0 09/15/25 08:00 Room Air* 0 21 Intake/Output Intake and Output 09/15/25 07:00 Intake Total 750 ml Output Total 900 ml Balance -150 ml Intake Oral 700 ml IV Total 50 ml Output Urine Total 900 ml Medications Current Medications Medications Dose Ordered Sig/Jaime Route Start Time Stop Time Status Last Admin Dose Admin Aspirin 81 mg DAILY PO 09/13/25 10:00 09/15/25 08:39 81 MG Atorvastatin Calcium 20 mg HS PO 09/12/25 22:00 09/14/25 21:14 20 MG Losartan Potassium 25 mg DAILY PO 09/13/25 10:00 09/15/25 08:39 25 MG Gabapentin 100 mg BID PO 09/12/25 22:00 09/15/25 08:38 100 MG Metoprolol Tartrate 25 mg BID PO 09/12/25 22:00 09/15/25 08:39 25 MG Diagnostic Test (Pha) 1 strip ACHS 09/12/25 11:30 09/15/25 05:50 1 STRIP Insulin Human Regular ACHS SC 09/12/25 11:30 09/15/25 06:25 2 UNITS Dextrose 50 ml UD PRN IV 09/12/25 10:45 Sodium Chloride 10 ml Q8HR IV 09/12/25 14:00 09/15/25 05:50 10 ML Acetaminophen/ Hydrocodone Bitart 1 tab Q4HP PRN PO 09/12/25 10:45 09/15/25 08:40 1 TAB Ondansetron HCl 4 mg Q4HP PRN IV 09/12/25 10:45 09/12/25 11:07 4 MG Docusate Sodium 100 mg BIDPRN PRN PO 09/12/25 10:45 Acetaminophen 650 mg Q6HP PRN PO 09/12/25 10:45 Nitroglycerin 0.4 mg Q5MINP PRN SL 09/12/25 11:30 Morphine Sulfate 2 mg Q30M PRN IV 09/12/25 12:45 Ceftriaxone Sodium 50 ml @ 100 mls/hr DAILY@09 IV 09/13/25 09:00 09/14/25 09:04 100 MLS/HR Laboratory Results Laboratory Tests 09/13/25 06:40 Urinalysis Test 09/12/25 11:00 Urine Color Yellow (Yellow) Urine Clarity Clear (Clear) Urine pH 6.0 (5.0-9.0) Urine Specific [place] 1.020 (1.001-1.035) Urine Protein 1+ (Negative) H Urine Ketones 1+ (Negative) H Urine Blood Negative /uL (Negative) Urine Nitrite Negative (Negative) Urine Bilirubin Negative (Negative) Urine Urobilinogen Normal mg/dL (Negative) Urine Leukocyte Esterase Negative /uL (Negative) Urine RBC 1 /hpf (0 - 4) Urine Microscopic WBC 2 /HPF (0-5) Urine Squamous Epithelial Cells Few /hpf (<5) Urine Bacteria None seen /hpf (None Seen) Urine Yeast (Budding) Few /hpf (None Seen) Urine Glucose Normal mg/dL (Normal) Microbiology Microbiology Date/Time Source Procedure Growth Status 09/12/25 11:00 Urine - [place] Urine Culture - Final Complete 09/12/25 10:31 Blood Blood Culture - Preliminary NO GROWTH AFTER 72 HOURS OF INCUBATION. Resulted Labs and/or images reviewed: Labs reviewed by me, Image(s) reviewed by me Assessment/Plan Assessment/Plan Acute distal left femur fracture: Ortho Dr. Skinner planning for surgery, per Cardiology high risk for moderate surgery secondary to recent [place] Acute left leg pain status post fall Acute generalized weakness Acute lactic acidosis Hypertension Diabetes History of NV 08/18/2025 with PCI to RCA on aspirin and Plavix History of CVA bed-bound for the last two years Hypercholesterolemia History of recurrent UTIs Blood cultures negative Urine cultures neg RN [place] at bed side. Plan discussed with: Patient My Orders Orders - ZINA HULL MD Procedure Category Date Status Time * Orthopedic Consult CONS 09/14/25 Transmitted 11:38 Date of Service: Sep 15, 2025 Billing Provider: ZINA HULL MD Common Visit Codes: [id number] INP/OBS CARE(HIGH) ZINA HULL MD Sep 15, 2025 10:52
--- NOTE | 2025-09-15 12:46 | DVHSR ---
APPROVED REPORT EXAM: Two-dimensional and M-mode echocardiogram with Doppler and color Doppler. Blood Pressure: 126/74 mmHg INDICATION Procedural, evaluate cardiac function, limited for EF. RISK FACTORS Height: 5'2, Weight: 166 DIMENSIONS LVDd 4.0 (3.8-5.7cm) LA (2D) (1.9-4.0cm) Aortic Root (2.0-3.7cm) LVDs 3.0 (2.5-4.0cm) LA (MM) (1.9-4.0cm) Aortic Cusp Exc (1.5-2.0cm) EF (%) 50.0 (55-70%) Rt. Atrium (1.9-4.0cm) Asc. Aorta cm IVSd 1.4 (0.7-1.1cm) RV (D) (1.8-2.4cm) PWd 1.1 (0.7-1.1cm) Mitral Valve Mitral Mitral Stenosis E/A ratio 0.0 2D MVA cm2 Aortic Valve Aortic Valve Aortic Stenosis V1 0.90m/s AO Mean GR. 2mmHg V2 0.98m/s AO Peak GR. 4mmHg Other Information Technically limited study due to limited for EF. Conclusion Technically good study. Sinus rhythm. Concentric LVH. Valves are normal. EF of 60% with normal RV function. Mild TR. No pericardial effusion masses or vegetations.
[2025-09-15 13:50] LABS: INR 0.95 (0.9-1.15); Partial Thromboplastin Time 29.1 SEC (24.5-34.5); Prothrombin Time 10.1 sec (9.3-11.8)
[2025-09-16 01:00] VITALS: BP 114/68; PULSE 97; RESP 18; TEMP 97.1; O2SAT 100
[2025-09-16 05:00] VITALS: BP 130/86; PULSE 101; RESP 18; TEMP 97.4; O2SAT 99
--- NOTE | 2025-09-16 08:29 | DVHHP2 ---
History Allergies: Coded Allergies: Iodine (Verified Allergy, Unknown, 09/12/25) Chief Complaint: 6( F, ortho consult for left supracondylar femur fracture Present Illness(Onset/Duration 60F, non-ambulator x several years, h/o CVA, with residual left sided weakness, AZ one mo ago, on anti-coags, lives with son, fall from bed 10 days ago, left knee pain, [facility] for weakness, Dx with UTI sepsis and left SC femur fracture. Dr Story has evalauted and considers pt to be a high risk for surgery due to recent AZ and current cardiac condition, discussion with family pending today Past Surgical History non contrib Medications see Dr Story note Physical Exam Chest and Lungs CTA B Heart RRR neg mrg Abdomen soft , ND NT Extremities Left knee, mild swellng, skin intnact, pain with PROM, atrophy of B LE, left more than right Vital Signs Vital Signs Date Time Temp Pulse Resp B/P (MAP) Pulse Ox O2 Delivery O2 Flow Rate FiO2 09/16/25 05:00 97.4 101 18 130/86 (101) 99 97.4 09/15/25 20:00 Room Air* 0 21 Impressions/Description 60F, non-ambulator, CVA, recent AZ, left SC femur fracture I don't see significant benefit with surgery given non-ambulatory status I see significant risk for surgery given recent [place] I suggest conservatice, non-operative care, but will discuss with Dr Story after he speaks with the family Plan see above non-surgical care BRIAN NGUYEN MD Sep 16, 2025 08:29
[2025-09-16 09:00] VITALS: BP 137/90; PULSE 107; RESP 18; TEMP 97.6; O2SAT 96
--- NOTE | 2025-09-16 10:37 | ECG ---
[facility] Test Date: 2025-09-14 Test Time: 14:27:50 Pat Name: DAVE TY Department: Room: [facility]0T B Gender: F Checking Clerk: ROBERT : 1965 Requested By: REE BRITTON Order Number: [id number] Reading MD: Xiang Shaikh Measurements Intervals [place] Rate: 101 P: 43 ME: 161 QRS: -22 QRSD: 88 T: -30 QT: 356 QTc: 462 Interpretive Statements Sinus tachycardia Ventricular premature complex Inferior infarct, age indeterminate Electronically Signed On 09-21-2025 18:15:49 PST by Xiang Shaikh Please click the below link to view image of tracing.
--- NOTE | 2025-09-16 10:54 | DVHPN2 ---
Reviewed: Care Plan, H&P, Labs, Medications, Previous Orders, Radiology Changes from previous H/P or p: No Changes Eyes: No Pain, No Vision change, No Conjunctivae inflammation, No Eyelid inflammation, No Other, No Redness ENT: No Ear pain, No Ear discharge, No Nose pain, No Nose discharge, No Nose congestion, No Mouth pain, No Mouth swelling, No Throat pain, No Throat swelling, No Other Cardiovascular: Chest Pain; No Palpitations, No Orthopnea, No Paroxysmal Noc. Dyspnea, No Edema, No Lt Headedness, No Other Respiratory: No Cough, No Dry; Shortness of breath; No SOB with excertion, No Wheezing, No Hemoptysis, No Pleuritic Pain, No Sputum, No Other Gastrointestinal: Nausea; No Vomiting, No Abdominal Pain, No Diarrhea, No Constipation, No Melena, No Hematochezia, No Other Genitourinary: Dysuria; No Frequency, No Incontinence, No Hematuria, No Retention; Other (Rodriguez catheter in place) Musculoskeletal: No other, No neck pain, No shoulder pain, No arm pain, No back pain, No hand pain, No leg pain, No foot pain Skin: No Rash, No Lesions, No Jaundice, No Bruising, No Other Objective Vitals Vital Signs Date Time Temp Pulse Resp B/P (MAP) Pulse Ox O2 Delivery O2 Flow Rate FiO2 09/16/25 10:33 107 138/91 09/16/25 09:00 97.6 18 96 97.6 09/16/25 07:30 Room Air* 0 21 Intake/Output Intake and Output 09/16/25 07:00 Intake Total 950 ml Output Total 245 ml Balance 705 ml Intake Oral 900 ml IV Total 50 ml Output Urine Total 245 ml Medications Current Medications Medications Dose Ordered Sig/Jaime Route Start Time Stop Time Status Last Admin Dose Admin Aspirin 81 mg DAILY PO 09/13/25 10:00 09/16/25 10:32 81 MG Atorvastatin Calcium 20 mg HS PO 09/12/25 22:00 09/15/25 21:06 20 MG Losartan Potassium 25 mg DAILY PO 09/13/25 10:00 09/16/25 10:32 25 MG Gabapentin 100 mg BID PO 09/12/25 22:00 09/16/25 10:33 100 MG Metoprolol Tartrate 25 mg BID PO 09/12/25 22:00 09/16/25 10:33 25 MG Diagnostic Test (Pha) 1 strip ACHS 09/12/25 11:30 09/16/25 06:17 1 STRIP Insulin Human Regular ACHS SC 09/12/25 11:30 09/15/25 21:28 2 UNITS Dextrose 50 ml UD PRN IV 09/12/25 10:45 Sodium Chloride 10 ml Q8HR IV 09/12/25 14:00 09/16/25 06:16 10 ML Acetaminophen/ Hydrocodone Bitart 1 tab Q4HP PRN PO 09/12/25 10:45 09/16/25 04:44 1 TAB Ondansetron HCl 4 mg Q4HP PRN IV 09/12/25 10:45 09/12/25 11:07 4 MG Docusate Sodium 100 mg BIDPRN PRN PO 09/12/25 10:45 Acetaminophen 650 mg Q6HP PRN PO 09/12/25 10:45 Nitroglycerin 0.4 mg Q5MINP PRN SL 09/12/25 11:30 Morphine Sulfate 2 mg Q30M PRN IV 09/12/25 12:45 Ceftriaxone Sodium 50 ml @ 100 mls/hr DAILY@09 IV 09/13/25 09:00 09/16/25 10:31 100 MLS/HR Laboratory Results Laboratory Tests 09/13/25 06:40 Coagulation Test 09/15/25 13:07 Prothrombin Time 10.1 sec (9.3-11.8) Prothrombin Time INR 0.95 (0.9-1.15) Activated Partial Thromboplast Time 29.1 SEC (24.5-34.5) Urinalysis Test 09/12/25 11:00 Urine Color Yellow (Yellow) Urine Clarity Clear (Clear) Urine pH 6.0 (5.0-9.0) Urine Specific [place] 1.020 (1.001-1.035) Urine Protein 1+ (Negative) H Urine Ketones 1+ (Negative) H Urine Blood Negative /uL (Negative) Urine Nitrite Negative (Negative) Urine Bilirubin Negative (Negative) Urine Urobilinogen Normal mg/dL (Negative) Urine Leukocyte Esterase Negative /uL (Negative) Urine RBC 1 /hpf (0 - 4) Urine Microscopic WBC 2 /HPF (0-5) Urine Squamous Epithelial Cells Few /hpf (<5) Urine Bacteria None seen /hpf (None Seen) Urine Yeast (Budding) Few /hpf (None Seen) Urine Glucose Normal mg/dL (Normal) Microbiology Microbiology Date/Time Source Procedure Growth Status 09/12/25 11:00 Urine - [place] Urine Culture - Final Complete 09/12/25 10:31 Blood Blood Culture - Preliminary NO GROWTH AFTER 72 HOURS OF INCUBATION. Resulted Labs and/or images reviewed: Labs reviewed by me, Image(s) reviewed by me Assessment/Plan Assessment/Plan Acute distal left femur fracture: , per Cardiology high risk for moderate surgery secondary to recent [place], ortho Dr. Skinner advised conservative management with physical therapy and pain management Acute left leg pain status post fall Acute generalized weakness Acute lactic acidosis Hypertension Uncontrolled diabetes: Insulin sliding scale History of SD 08/18/2025 with PCI to RCA on aspirin and Plavix History of CVA bed-bound for the last two years Hypercholesterolemia History of recurrent UTIs Blood cultures negative Urine cultures neg CATERINA Arredondo at bed side. Plan discussed with: Patient Date of Service: Sep 16, 2025 Billing Provider: ZINA HULL MD Common Visit Codes: [id number] INP/OBS CARE(HIGH) ZINA HULL MD Sep 16, 2025 10:54
[2025-09-16] MEDS: CLOPIDOGREL BISULFATE 75 MG TAB PO ONE (11:54)
[2025-09-16 13:00] VITALS: BP 130/90; PULSE 101; RESP 18; TEMP 98.3; O2SAT 97
[2025-09-16] MEDS: GABAPENTIN 100 MG CAP PO SCH (14:26)
[2025-09-16 17:00] VITALS: BP 137/88; PULSE 111; RESP 17; TEMP 97.5; O2SAT 99
[2025-09-16 21:00] VITALS: BP 129/81; PULSE 113; RESP 19; TEMP 98.5; O2SAT 97
[2025-09-17] VITALS (8 sets, daily range): BP systolic 105–131; BP diastolic 69–95; PULSE 98–108; RESP 14–19; TEMP 37.1; O2SAT 95–98
--- NOTE | 2025-09-17 08:47 | MEDREC ---
[facility] Intervention Section I [facility] Intervention: Review courses of therapy (PLEASE CONSIDER D/C ANTIBIOTIC IN ABSENCE OF BACTERIAL INFECTION) BRADY ARANA PHARMACIST Sep 17, 2025 08:47
[2025-09-17] MEDS: CLOPIDOGREL BISULFATE 75 MG TAB PO SCH (09:10)
--- NOTE | 2025-09-17 10:35 | DVHPN2 ---
Reviewed: Care Plan, H&P, Labs, Medications, Previous Orders, Radiology Changes from previous H/P or p: No Changes Eyes: No Pain, No Vision change, No Conjunctivae inflammation, No Eyelid inflammation, No Other, No Redness ENT: No Ear pain, No Ear discharge, No Nose pain, No Nose discharge, No Nose congestion, No Mouth pain, No Mouth swelling, No Throat pain, No Throat swelling, No Other Cardiovascular: Chest Pain; No Palpitations, No Orthopnea, No Paroxysmal Noc. Dyspnea, No Edema, No Lt Headedness, No Other Respiratory: No Cough, No Dry; Shortness of breath; No SOB with excertion, No Wheezing, No Hemoptysis, No Pleuritic Pain, No Sputum, No Other Gastrointestinal: Nausea; No Vomiting, No Abdominal Pain, No Diarrhea, No Constipation, No Melena, No Hematochezia, No Other Genitourinary: Dysuria; No Frequency, No Incontinence, No Hematuria, No Retention; Other (Rodriguez catheter in place) Musculoskeletal: No other, No neck pain, No shoulder pain, No arm pain, No back pain, No hand pain, No leg pain, No foot pain Skin: No Rash, No Lesions, No Jaundice, No Bruising, No Other Objective Vitals Vital Signs Date Time Temp Pulse Resp B/P (MAP) Pulse Ox O2 Delivery O2 Flow Rate FiO2 09/17/25 09:11 133/98 09/17/25 09:10 100 09/17/25 08:31 97.4 14 97 97.4 09/17/25 07:45 Room Air* 0 21 Intake/Output Intake and Output 09/17/25 07:00 Intake Total 790 ml Output Total 475 ml Balance 315 ml Intake Oral 790 ml Output Urine Total 475 ml Medications Current Medications Medications Dose Ordered Sig/Jaime Route Start Time Stop Time Status Last Admin Dose Admin Aspirin 81 mg DAILY PO 09/13/25 10:00 09/17/25 09:11 81 MG Atorvastatin Calcium 20 mg HS PO 09/12/25 22:00 09/16/25 21:09 20 MG Losartan Potassium 25 mg DAILY PO 09/13/25 10:00 09/17/25 09:11 25 MG Metoprolol Tartrate 25 mg BID PO 09/12/25 22:00 09/17/25 09:10 25 MG Diagnostic Test (Pha) 1 strip ACHS 09/12/25 11:30 09/17/25 05:37 1 STRIP Insulin Human Regular ACHS SC 09/12/25 11:30 09/16/25 22:00 3 UNITS Dextrose 50 ml UD PRN IV 09/12/25 10:45 Sodium Chloride 10 ml Q8HR IV 09/12/25 14:00 09/17/25 05:37 10 ML Acetaminophen/ Hydrocodone Bitart 1 tab Q4HP PRN PO 09/12/25 10:45 09/17/25 09:30 1 TAB Ondansetron HCl 4 mg Q4HP PRN IV 09/12/25 10:45 09/12/25 11:07 4 MG Docusate Sodium 100 mg BIDPRN PRN PO 09/12/25 10:45 Acetaminophen 650 mg Q6HP PRN PO 09/12/25 10:45 Nitroglycerin 0.4 mg Q5MINP PRN SL 09/12/25 11:30 Morphine Sulfate 2 mg Q30M PRN IV 09/12/25 12:45 Ceftriaxone Sodium 50 ml @ 100 mls/hr DAILY@09 IV 09/13/25 09:00 09/17/25 09:10 100 MLS/HR Gabapentin 300 mg TID PO 09/16/25 14:00 09/17/25 05:36 300 MG Clopidogrel Bisulfate 75 mg DAILY PO 09/17/25 10:00 09/17/25 09:10 75 MG Laboratory Results Laboratory Tests 09/13/25 06:40 Urinalysis Test 09/12/25 11:00 Urine Color Yellow (Yellow) Urine Clarity Clear (Clear) Urine pH 6.0 (5.0-9.0) Urine Specific [place] 1.020 (1.001-1.035) Urine Protein 1+ (Negative) H Urine Ketones 1+ (Negative) H Urine Blood Negative /uL (Negative) Urine Nitrite Negative (Negative) Urine Bilirubin Negative (Negative) Urine Urobilinogen Normal mg/dL (Negative) Urine Leukocyte Esterase Negative /uL (Negative) Urine RBC 1 /hpf (0 - 4) Urine Microscopic WBC 2 /HPF (0-5) Urine Squamous Epithelial Cells Few /hpf (<5) Urine Bacteria None seen /hpf (None Seen) Urine Yeast (Budding) Few /hpf (None Seen) Urine Glucose Normal mg/dL (Normal) Microbiology Microbiology Date/Time Source Procedure Growth Status 09/12/25 11:00 Urine - [place] Urine Culture - Final Complete 09/12/25 10:31 Blood Blood Culture - Preliminary NO GROWTH AFTER 72 HOURS OF INCUBATION. Resulted Assessment/Plan Assessment/Plan Acute distal left femur fracture: , per Cardiology high risk for moderate surgery secondary to recent [place], ortho Dr. Skinner advised conservative management with physical therapy and pain management Acute left leg pain status post fall Acute generalized weakness Acute lactic acidosis Hypertension Uncontrolled diabetes: Insulin sliding scale History of [place] 08/18/2025 with PCI to RCA on aspirin and Plavix History of CVA bed-bound for the last two years Hypercholesterolemia History of recurrent UTIs Blood cultures negative Urine cultures neg CATERINA Arredondo at bed side. Plan discussed with: Patient My Orders Orders - ZINA HULL MD Procedure Category Date Status Time Gabapentin Capsule PHA 09/16/25 In Process (Neurontin Capsule) 14:00 Clopidogrel Bisulfate PHA 09/17/25 In Process (Plavix) 10:00 Cardiac DIET 09/16/25 Transmitted Diet-2gna,Lofat,Lochol Lunch Date of Service: Sep 17, 2025 Billing Provider: ZINA HULL MD Common Visit Codes: [id number] INP/OBS CARE(HIGH) ZINA HULL MD Sep 17, 2025 10:35
[2025-09-17] MEDS ORDERED: HYDR-4902 PO (10:39)
[2025-09-17] MEDS ORDERED: LEVO500T91 PO (10:39)
--- NOTE | 2025-09-17 10:44 | DVHDS2 ---
Discharge Summary Date of Admission Sep 12, 2025 at 11:23 Date of Discharge: Sep 17, 2025 Admitting Diagnosis Mechanical fall and fracture femur Wounds: Fracture left femur Labs/Diagnostic Data: Laboratory Results Test 09/17/25 05:44 09/15/25 13:07 09/13/25 06:40 09/12/25 14:21 POC Glucose 132 mg/dl (70-106) Prothrombin Time 10.1 sec (9.3-11.8) Prothrombin Time INR 0.95 (0.9-1.15) Activated Partial Thromboplast Time 29.1 SEC (24.5-34.5) White Blood Count 5.8 10^3/uL (4.4-10.8) Red Blood Count 4.28 10^6/uL (4.0-5.20) Hemoglobin 13.1 g/dL (12.2-16.2) Hematocrit 39.4 % (36.0-46.0) Mean Corpuscular Volume 91.9 fL (80.0-100.0) Mean Corpuscular Hemoglobin 30.7 pg (28.0-32.0) Mean Corpuscular Hemoglobin Concent 33.4 g/dL (32.0-36.0) Red Cell Distribution Width 13.3 % (11.8-14.3) Platelet Count 223 10^3/uL (140-450) Mean Platelet Volume 9.3 fL (6.9-10.8) Neutrophils (%) (Auto) 52.1 % (37.0-80.0) Lymphocytes (%) (Auto) 35.4 % (10.0-50.0) Monocytes (%) (Auto) 8.1 % (0.0-12.0) Eosinophils (%) (Auto) 3.8 % (0.0-7.0) Basophils (%) (Auto) 0.6 % (0.0-2.0) Neutrophils # (Auto) 3.0 10 ^3/uL (1.6-8.6) Lymphocytes # (Auto) 2.1 10 ^3/uL (0.4-5.4) Monocytes # (Auto) 0.5 10 ^3/uL (0-1.3) Eosinophils # (Auto) 0.2 10 ^3/uL (0-0.8) Basophils # (Auto) 0 10 ^3/uL (0-0.2) Nucleated Red Blood Cells 0.1 % Sodium Level 146 mmol/L (136-145) Potassium Level 3.6 mmol/L (3.5-5.1) Chloride Level 112 mmol/L (98-107) Carbon Dioxide Level 21 mmol/L (20-31) Anion Gap 13 (5-15) Blood Urea Nitrogen 15 mg/dL (9-23) Creatinine 0.63 mg/dL (0.550-1.02) Glomerular Filtration Rate Calc 102 mL/min (>90) BUN/Creatinine Ratio 23.8 (10.0-20.0) Serum Glucose 84 mg/dL (74-106) Calcium Level 9.4 mg/dL (8.7-10.4) Total Bilirubin 0.5 mg/dL (0.2-1.0) Aspartate Amino Transferase (AST) 14 U/L (13-40) Alanine Aminotransferase (ALT) < 9 U/L (7-40) Alkaline Phosphatase 89 U/L (46-116) Total Protein 6.2 g/dL (5.7-8.2) Albumin 3.4 g/dL (3.2-4.8) Lactic Acid Level 1.2 mmol/L (0.4-2.0) Test 09/12/25 11:00 Urine Color Yellow (Yellow) Urine Clarity Clear (Clear) Urine pH 6.0 (5.0-9.0) Urine Specific [place] 1.020 (1.001-1.035) Urine Protein 1+ (Negative) Urine Ketones 1+ (Negative) Urine Blood Negative /uL (Negative) Urine Nitrite Negative (Negative) Urine Bilirubin Negative (Negative) Urine Urobilinogen Normal mg/dL (Negative) Urine Leukocyte Esterase Negative /uL (Negative) Urine RBC 1 /hpf (0 - 4) Urine Microscopic WBC 2 /HPF (0-5) Urine Squamous Epithelial Cells Few /hpf (<5) Urine Bacteria None seen /hpf (None Seen) Urine Yeast (Budding) Few /hpf (None Seen) Urine Glucose Normal mg/dL (Normal) Other Laboratory Tests 09/13/25 06:40 Brief Hx & Hospital Course: 60-year-old female had a mechanical fall brought to the ER found to have fracture left femur seen by orthopedic Dr. Booth cardiac clearance for surgery. Patient has had recent [place] on 08/18/2025 with a stenting of RCA and aspirin and Plavix . Cardiology consult with the patient in the high risk for moderate surgery in view of the recent [place] and stenting also patient has a history of CVA at bed-bound for the last two years history of recurrent UTI blood cultures negative urine cultures negative Physical therapy ordered and patient being discharged home on pain medication physical therapy on home health. She will follow up with the orthopedic in two weeks. She was advised to continue aspirin Plavix and other medications Consults/Reason for consult Orthopedic Dr. Booth Cardiology Dr. Shaikh Operations or Procedures CT left femur Condition at Discharge: Fair Final Diagnosis/Problems List Acute distal left femur fracture: , per Cardiology high risk for moderate surgery secondary to recent NJ, ortho Dr. Booth advised conservative management with physical therapy and pain management Acute left leg pain status post fall Acute generalized weakness Acute lactic acidosis Hypertension Uncontrolled diabetes: Insulin sliding scale History of [place] 08/18/2025 with PCI to RCA on aspirin and Plavix History of CVA bed-bound for the last two years Hypercholesterolemia History of recurrent UTIs Blood cultures negative Urine cultures neg Discharge Disposition: Home with Health Services Discharge Instruct/Medications Diet: Cardiac 2g Na,low cholest Activity: Light activity Follow Up/Referral: Resume all previous home medications Follow up with the primary Dr in one week Follow up with the orthopedic Dr. Machado in two weeks Medications: Sent to the pharmacy Scheduled Levofloxacin Hemihydrate (Levaquin 500 Mg), 1 TAB PO DAILY Scheduled PRN Hydrocodone-Acetaminophen (Hydrocodone Bitartrate/AC 5-325 mg), 1 TAB PO QID PRN 39 (Time Taken for discharge summary 39 minutes) Discharge Statement: "Patient was advised to return to the ER or call 911 if any headaches, dizziness, shortness of breath, chest pain, abdominal pain, bleeding, fevers, or worsening of medical condition. Patient was counseled about treatment plan, medications, possible side effects, patientverbalized understanding. All questions were answered to the best of my ability. This discharge took greater then 30 minutes in planning, reviewing documentation, counseling the patient, and discussing with other team members." ASSESSMENT ASSESSMENT Hospital Course Marginally improved Assessment Acute distal left femur fracture: , per Cardiology high risk for moderate surgery secondary to recent [place], ortho Dr. Booth advised conservative management with physical therapy and pain management Acute left leg pain status post fall Acute generalized weakness Acute lactic acidosis Hypertension Uncontrolled diabetes: Insulin sliding scale History of [place] 08/18/2025 with PCI to RCA on aspirin and Plavix History of CVA bed-bound for the last two years Hypercholesterolemia History of recurrent UTIs Blood cultures negative Urine cultures neg Date of Service: Sep 17, 2025 Billing Provider: ZINA HULL MD Common Visit Codes: [id number] INP/OBS CARE(HIGH) ZINA HULL MD Sep 17, 2025 10:44
[2025-09-17] MEDS: HYDROcodone-ACET 5/325MG TAB PO ONE (18:21)
[2025-09-19] MEDS ORDERED: TRAZ1TAB12 PO (10:47)
[2025-09-19] MEDS ORDERED: LOSA-535 PO (10:50)
[2025-09-19] MEDS ORDERED: METO-159 PO (10:50)
[2025-09-19] MEDS ORDERED: OMEP1CAP70 PO (10:50)
[2025-09-19] MEDS ORDERED: INSU1INJ19 SC (10:50)
[2025-09-19] MEDS ORDERED: INSU100I51 SC (10:50)
[2025-09-19] MEDS ORDERED: DOCU-265 PO (10:50)
[2025-09-19] MEDS ORDERED: NIFE1TAB31 PO (10:55)
== END 2025-09-17 19:23 | disposition home health service (06) | DRG 340 ==
LOC: ER 08:10 → EDBD 08:10 → MERGE 11:23 → OVERFLOW 11:23 → TELE-WESTW 09-13 02:13
PROVIDERS: ADMIT Family Medicine; ATTEND Family Medicine
DX: S72.402A Unspecified fracture of lower end of left femur, initial encounter for closed fracture (principal); E87.21 Acute metabolic acidosis; I11.0 Hypertensive heart disease with heart failure; E66.9 Obesity, unspecified; I69.30 Unspecified sequelae of cerebral infarction; E11.65 Type 2 diabetes mellitus with hyperglycemia; I50.22 Chronic systolic (congestive) heart failure; E78.00 Pure hypercholesterolemia, unspecified; W05.0XXA Fall from non-moving wheelchair, initial encounter; I25.10 Atherosclerotic heart disease of native coronary artery without angina pectoris; Z91.041 Radiographic dye allergy status; Z95.5 Presence of coronary angioplasty implant and graft; Y93.89 Activity, other specified; Y92.89 Other specified places as the place of occurrence of the external cause; Y99.8 Other external cause status; Z74.01 Bed confinement status; Z79.4 Long term (current) use of insulin; Z68.30 Body mass index [BMI] 30.0-30.9, adult
CPT/HCPCS: 36415; 71045; 73700; 80053; 81001; 82962; 83605; 85025; 85610; 85730; 86850; 86900; 86901; 87040; 87086; 93005; 93306; 96361; 96365; 96366; 96368; 96375; 97163; G0378; J1815; J2405

== ENCOUNTER 2025-09-20 19:20 | Inpatient (IN) | payer MEDICAID ==
[~2025-09-20] VITALS: Ht 162.6 cm; Wt 81.4 kg
[~2025-09-20 19:20] MED LIST changes: +DOCU-265 PO; +HYDR-4902 PO; +INSU100I51 SC; +INSU1INJ19 SC; +LOSA-535 PO; +METO-159 PO; +NIFE1TAB31 PO; +OMEP1CAP70 PO; +TRAZ1TAB12 PO
--- NOTE | 2025-09-20 19:50 | ED.PDOC ---
History of Present Illness HPI Comments 60 y/o bed-bound F is BIBA from private residence for c/c of left pelvic pain. Significant hitory of CVA, DM, HLD, HTN, [place] on 08/18/25 s/p PCI stenting of RCA - on Plavix and ASA, thyroid disease, TIA, and recurrent UTI's. Per EMS personnel report, patient is returning to the ED following previous hospital a dmission discharge at [facility] on 09/17/25 for left femur fracture s/p mechanical fall a week ago. Patient endorses on developing pain that radiates to her back and left side of her abdomen. No associated nausea, vomiting, diarrhea, or further acute symptoms. Patient also has an indwelling Rodriguez catheter she reports on having place during aforementioned admission and having current associated discomfort. Time Seen by MD: 19:30 Primary Care Provider: DOMINIC Reviewed Notes: Nurses Notes, University Demonstrator Notes, Medications, Allergies Allergies: Coded Allergies: Iodine (Verified Allergy, Unknown, 03/31/19) Home Meds Active Scripts Hydrocodone-Acetaminophen (Hydrocodone Bitartrate/AC 5-325 mg) 1 Tab Tab, 1 TAB PO QID PRN, #40 TAB Prov:ZINA HULL MD 09/17/25 Levofloxacin Hemihydrate (LEVAQUIN 500 MG) 500 Mg Tab, 1 TAB PO DAILY, #10 TAB Prov:ZINA HULL MD 09/17/25 Levofloxacin Hemihydrate (LEVOFLOXACIN) 500 Mg Tab, 1 TAB PO DAILY for 7 Days, #7 TAB Prov:GORGE JOHNSON RESIDENT 08/28/25 Doxycycline Monohydrate (Doxycycline Monohydrate) 100 Mg Cap, 1 CAP PO BID for 7 Days, #14 CAP Prov:JARAD CHRISTENSEN RESIDENT 08/22/25 Atorvastatin Calcium (ATORVASTATIN CALCIUM) 80 Mg Tab, 1 TAB PO QPM for 30 Days, #30 TAB 3 Refills Prov:JARAD CHRISTENSEN RESIDENT 08/22/25 Clopidogrel Bisulfate (Plavix) 75 Mg Tab, 1 TAB PO DAILY for 30 Days, #30 TAB 3 Refills Prov:JARAD CHRISTENSEN RESIDENT 08/22/25 Aspirin (ASPIRIN 81) 81 Mg Tab, 81 MG PO DAILY for 30 Days, #30 TAB 3 Refills Prov:JARAD CHRISTENSEN RESIDENT 11/11/25 Metformin Hydrochloride (Metformin Hcl) 500 Mg Tab, 1 TAB PO BID, #60 TAB 1 Refill Prov:ANTELMO GODWIN RESIDENT 07/04/25 Reported Medications Aspirin (Aspir-Low) 81 Mg Tab, 81 MG PO DAILY for 30 Days, MG 03/31/19 Metoprolol Tartrate (LOPRESSOR TABLET) 50 Mg Tb, 2 TAB PO BID, #60 TAB 5 Refills 03/31/19 Clonazepam (Clonazepam) 2 Mg Tab, 1 TAB PO BID, #60 TAB 2 Refills 03/31/19 Risperidone (Risperidone) 1 Mg Tab, 1 TAB PO QPM, #30 TAB 1 Refill 03/31/19 Trazodone Hcl (Trazodone Hcl) 150 Mg Tab, 150 MG PO HSPRN PRN for FOR INSOMNIA, MG 03/31/19 Bupropion Hcl (Wellbutrin Sr) 150 Mg Tab, 1 TAB PO DAILY, #60 TAB 5 Refills 03/31/19 Information Source: Patient, Emergency Med Personnel Mode of Arrival: EMS Severity: Moderate Timing: Hours Duration: Since onset Prehospital treatment: 12 Lead EKG, Accucheck, [employer] 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 Past Medical History PAST MEDICAL HISTORY: CVA (bed-bound for the last two years), DM, High Lipids, HTN, [place] (on 08/18/2025 with a PCI stenting of RCA and aspirin and Plavix), Thyroid, TIA, UTI'S (recurrent) Surgical History: Surgical History (Other): PCI stenting of RCA JUNIOR FINANCIAL ANALYST History: No Pertinent JUNIOR FINANCIAL ANALYST History Family History Family History: Reviewed,noncontributory to illness, Unknown Social History Smoker: Non-Smoker Alcohol: Denies ETOH Use Drugs: Marijuana Lives In: Home All Other Systems: Reviewed and Negative (As per HPI) Physical Exam General Appearance: No Apparent Distress, Normal HEENT: Normal ENT Inspection, Pharynx Normal, TMs Normal Neck: Full Range of Motion, Non-Tender, Normal, Normal Inspection Respiratory: Chest Non-Tender, Lungs Clear, No Accessory Muscle Use, No Respiratory Distress, Normal Breath Sounds Cardiovascular: No Edema, No JVD, No Murmur, No Gallop, Normal Peripheral Pulses, Regular Rate/Rhythm Breast Exam: Deferred Gastrointestinal: No Organomegaly, Non Tender, No Pulsatile Mass, Normal Bowel Sounds, Soft Genitalia: Other (Rodriguez catheter in place with cloudy, yellow urine present in bag. ) Pelvic: Deferred Rectal: Deferred Extremities: No calf tenderness, Normal capillary refill, Normal range of motion, No pedal edema, Tender (left femur), Other (LLE is externally rotated) Musculoskeletal : Apperance: Normal Neurologic: Alert, marketing production specialist II-XII nml as Tested, No Motor Deficits, Normal Affect, Normal Mood, No Sensory Deficits Cerebellar Function: Normal Reflexes: Normal Skin: Dry, Normal Color, Warm Lymphatic: No Adenopathy Was a procedure done? Was a procedure done?: No Differential Dx Considerations may include: Nonhealing femur fracture, UTI, diverticulitis, PID, among others X-Ray, Labs, Meds, VS Vital Signs Date Time Temp Pulse Resp B/P (MAP) Pulse Ox O2 Delivery O2 Flow Rate FiO2 09/20/25 23:29 101 25 144/81 (102) 100 09/20/25 22:10 25 Room Air* 0 21 09/20/25 19:35 99.0 100 17 115/67 98 99.0 Lab Test 09/20/25 22:28 09/20/25 19:54 Range/Units Urine Color Light-orange Yellow Urine Clarity Turbid H Clear Urine pH 5.5 5.0-9.0 Urine Specific [place] 1.027 1.001-1.035 Urine Protein 2+ H Negative Urine Ketones Trace Negative Urine Blood 2+ H Negative /uL Urine Nitrite Negative Negative Urine Bilirubin Negative Negative Urine Urobilinogen Normal Negative mg/dL Urine Leukocyte Esterase 3+ Negative /uL Urine RBC 256 0 - 4 /hpf Urine Microscopic WBC 95 H 0-5 /HPF Urine Squamous Epithelial Cells Few <5 /hpf Urine Bacteria Few H None Seen /hpf Urine Mucus Few None Seen Urine Yeast (Budding) Loaded None Seen /hpf Urine Glucose Normal Normal mg/dL White Blood Count 6.2 4.4-10.8 10^3/uL Red Blood Count 4.19 4.0-5.20 10^6/uL Hemoglobin 12.9 12.2-16.2 g/dL Hematocrit 37.5 36.0-46.0 % Mean Corpuscular Volume 89.5 80.0-100.0 fL Mean Corpuscular Hemoglobin 30.8 28.0-32.0 pg Mean Corpuscular Hemoglobin Concent 34.3 32.0-36.0 g/dL Red Cell Distribution Width 13.1 11.8-14.3 % Platelet Count 244 140-450 10^3/uL Mean Platelet Volume 9.8 6.9-10.8 fL Neutrophils (%) (Auto) 63.4 37.0-80.0 % Lymphocytes (%) (Auto) 27.4 10.0-50.0 % Monocytes (%) (Auto) 7.4 0.0-12.0 % Eosinophils (%) (Auto) 1.1 0.0-7.0 % Basophils (%) (Auto) 0.7 0.0-2.0 % Neutrophils # (Auto) 3.9 1.6-8.6 10 ^3/uL Lymphocytes # (Auto) 1.7 0.4-5.4 10 ^3/uL Monocytes # (Auto) 0.5 0-1.3 10 ^3/uL Eosinophils # (Auto) 0.1 0-0.8 10 ^3/uL Basophils # (Auto) 0 0-0.2 10 ^3/uL Nucleated Red Blood Cells 0.0 % Prothrombin Time 10.2 9.3-11.8 sec Prothrombin Time INR 0.96 0.9-1.15 Activated Partial Thromboplast Time 30.1 24.5-34.5 SEC Sodium Level 144 136-145 mmol/L Potassium Level 4.0 3.5-5.1 mmol/L Chloride Level 109 H 98-107 mmol/L Carbon Dioxide Level 25 20-31 mmol/L Anion Gap 10 5-15 Blood Urea Nitrogen 17 9-23 mg/dL Creatinine 0.56 0.550-1.02 mg/dL Glomerular Filtration Rate Calc 105 >90 mL/min BUN/Creatinine Ratio 30.4 H 10.0-20.0 Serum Glucose 161 H 74-106 mg/dL Lactic Acid Level 1.1 0.4-2.0 mmol/L Calcium Level 9.5 8.7-10.4 mg/dL Magnesium Level 2.0 1.6-2.6 mg/dL Total Bilirubin 0.4 0.2-1.0 mg/dL Aspartate Amino Transferase (AST) 15 13-40 U/L Alanine Aminotransferase (ALT) 14 7-40 U/L Alkaline Phosphatase 102 46-116 U/L Total Protein 6.4 5.7-8.2 g/dL Albumin 3.5 3.2-4.8 g/dL [place] [address] Ph: [phone] DIAGNOSTIC IMAGING Diagnostic Imaging Report : [id number] Signed PATIENT: DAVE TY ACCT: [id number] UNIT: [id number] : 1965 LOC: ER ROOM / BED: / AGE / SEX: 60 / F ADM STATUS: REG ER SERVICE 34 ORDERING PHYSICIAN: EDEL JACOB MD PROCEDURE(s): PELVS - PELVIS AP REASON: pain fracture ORDER NUMBER(s): [id number], ACCESSION NUMBER(s): [id number] CLINICAL INDICATION: pain fracture TECHNIQUE: 1-view XY PELVIS AP COMPARISON: None FINDINGS: Suboptimal positioning limits assessment. No obvious fracture or dislocation. Degenerative change of the lumbosacral spine and hips. Unremarkable pelvic contents. IMPRESSION: 1. No acute osseous abnormality of the pelvis. ATED BY: ANDREINA FOSTER MD DICTATED DATE/TIME: 09/20/252045 SIGNED BY: ANDREINA FOSTER MD SIGNED DATE/TIME: 09/20/252045 CC: [place] [id number] Ph: [phone] DIAGNOSTIC IMAGING Diagnostic Imaging Report : [id number] Signed PATIENT: DAVE TY ACCT: [id number] UNIT: [id number] : 1965 LOC: ER ROOM / BED: / AGE / SEX: 60 / F ADM STATUS: REG ER SERVICE 34 ORDERING PHYSICIAN: EDEL JACOB MD PROCEDURE(s): LFEM - L FEMUR XRAY REASON: pain fracture ORDER NUMBER(s): [id number], ACCESSION NUMBER(s): [id number] CLINICAL INDICATION: pain fracture TECHNIQUE: 4 radiographic views of the left femur were obtained. COMPARISON: None FINDINGS/IMPRESSION: There is acute displaced fracture through the distal femoral metaphysis with posterior angulation and associated soft tissue edema. ATED BY: HELEN HILARIO DO DICTATED DATE/TIME: 09/20/252051 SIGNED BY: HELEN HILAROI DO SIGNED DATE/TIME: 09/20/252051 CC: [address] [id number] Ph: [phone] DIAGNOSTIC IMAGING Diagnostic Imaging Report : [id number] Signed PATIENT: DAVE TY ACCT: [id number] UNIT: [id number] : 1965 LOC: ER ROOM / BED: / AGE / SEX: 60 / F ADM STATUS: REG ER SERVICE 34 ORDERING PHYSICIAN: EDEL JACOB MD PROCEDURE(s): CXR1 - CHEST XRAY 1 VIEW REASON: SOB ORDER NUMBER(s): [id number], ACCESSION NUMBER(s): [id number] CHEST RADIOGRAPH INDICATION: SOB TECHNIQUE: Single frontal view of the chest was obtained COMPARISON: XY CHEST PORTABLE on DOS: 09/12/25, XY CHEST PORTABLE on DOS: 08/24/25, XY CHEST XRAY 1 VIEW on DOS: 08/20/25 FINDINGS: Lines and Tubes: None Lungs: No focal consolidation. Left lower lung zone linear densities. Pleura: No effusion. No pneumothorax. Cardiomediastinal contours: Unremarkable Bones: No acute osseous abnormality. IMPRESSION: Left lower lung zone linear atelectasis. Otherwise, No acute cardiopulmonary disease. ATED BY: HELEN HILARIO DO DICTATED DATE/TIME: 09/20/252044 SIGNED BY: HELEN HILARIO DO SIGNED DATE/TIME: 09/20/252044 CC: Time of 1ST Reevaluation: 20:00 Reevaluation 1ST: Unchanged Patient Education/Counseling: Diagnosis, Treatment Family Education/Counseling: No Family Present SEPSIS Sepsis Screen Physician Orders Heplock Iv (09/20/25 19:35) Blood Culture (09/20/25 19:35) L Femur Xray (09/20/25 19:35) Chest Xray 1 View (09/20/25 19:35) Pelvis Ap (09/20/25 19:35) Vital Signs Date Time Temp Pulse Resp B/P (MAP) Pulse Ox O2 Delivery O2 Flow Rate FiO2 09/20/25 23:29 101 25 144/81 (102) 100 09/20/25 22:10 25 Room Air* 0 21 09/20/25 19:35 99.0 100 17 115/67 98 99.0 Laboratory Tests Test 09/20/25 19:54 Lactic Acid Level 1.1 mmol/L (0.4-2.0) White Blood Count 6.2 10^3/uL (4.4-10.8) Departure 1 Departure Time of Disposition: 22:00 Impression: Primary Impression: Closed left femoral fracture Additional Impression: UTI (urinary tract infection) Disposition: ADMITTED INPATIENT Admit to: Med Surg Condition: Guarded Comments 60-year-old female suffered a left femur fracture. She was admitted and a Rodriguez catheter was placed. The femur fracture looks a bit displaced on x-ray. Patient has a urinary tract infection. She is suffering from back pain and bilateral flank pain. Patient will need to be admitted for IV antibiotics and pain control and orthopedic consultation. Critical Care Note Critical Care Time?: No Stability Stability form required: No Heart Score Heart Score: Heart Score Response (Comments) Value History N/A 0 EKG N/A 0 Age N/A 0 Risk Factors N/A 0 Troponin N/A 0 Total 0 I personally scribed for EDEL JACOB MD ([email or web address]) on 09/20/25 at 19:49. Electronically submitted by Indio Dumont ([email or web address]). I personally scribed for EDEL JACOB MD ([email or web address]) on 09/20/25 at 22:54. Electronically submitted by Indio Dumont ([email or web address]). EDEL JACOB MD Sep 20, 2025 19:49
[2025-09-20 20:39] LABS: Hematocrit 37.5 % (36.0-46.0); Hemoglobin 12.9 g/dL (12.2-16.2); Mean Corpuscular Hemoglobin 30.8 pg (28.0-32.0); Mean Corpuscular Volume 89.5 fL (80.0-100.0); Nucleated Red Blood Cells % 0.0 %
[2025-09-20 20:41] LABS: Alanine Aminotransferase 14 U/L (7-40); Albumin 3.5 g/dL (3.2-4.8); Alkaline Phosphatase 102 U/L (46-116); Anion Gap 10 (5-15); BUN/Creatinine Ratio 30.4 (10.0-20.0); Bilirubin, Total 0.4 mg/dL (0.2-1.0); Blood Urea Nitrogen 17 mg/dL (9-23); Calcium 9.5 mg/dL (8.7-10.4); Carbon Dioxide 25 mmol/L (20-31); Magnesium 2.0 mg/dL (1.6-2.6); Potassium 4.0 mmol/L (3.5-5.1); Sodium 144 mmol/L (136-145); Total Protein 6.4 g/dL (5.7-8.2)
[2025-09-20 20:47] LABS: INR 0.96 (0.9-1.15); Partial Thromboplastin Time 30.1 SEC (24.5-34.5); Prothrombin Time 10.2 sec (9.3-11.8)
--- NOTE | 2025-09-20 20:47 | DVH ---
CHEST RADIOGRAPH INDICATION: SOB TECHNIQUE: Single frontal view of the chest was obtained COMPARISON: XY CHEST PORTABLE on DOS: 09/12/25, XY CHEST PORTABLE on DOS: 08/24/25, XY CHEST XRAY 1 VIEW on DOS: 08/20/25 FINDINGS: Lines and Tubes: None Lungs: No focal consolidation. Left lower lung zone linear densities. Pleura: No effusion. No pneumothorax. Cardiomediastinal contours: Unremarkable Bones: No acute osseous abnormality. IMPRESSION: Left lower lung zone linear atelectasis. Otherwise, No acute cardiopulmonary disease.
--- NOTE | 2025-09-20 20:49 | DVH ---
CLINICAL INDICATION: pain fracture TECHNIQUE: 1-view XY PELVIS AP COMPARISON: None FINDINGS: Suboptimal positioning limits assessment. No obvious fracture or dislocation. Degenerative change of the lumbosacral spine and hips. Unremarkable pelvic contents. IMPRESSION: 1. No acute osseous abnormality of the pelvis.
--- NOTE | 2025-09-20 20:55 | DVH ---
CLINICAL INDICATION: pain fracture TECHNIQUE: 4 radiographic views of the left femur were obtained. COMPARISON: None FINDINGS/IMPRESSION: There is acute displaced fracture through the distal femoral metaphysis with posterior angulation and associated soft tissue edema.
[2025-09-20 21:08] LABS: Chloride 109 mmol/L (98-107); Glucose 161 mg/dL (74-106)
[2025-09-20 22:10] VITALS: RESP 25
[2025-09-20 22:59] LABS: Urine Budding Yeast LOADED /hpf (None Seen); Urine Protein, UAD 2+ (Negative)
--- NOTE | 2025-09-20 23:41 | DVHHPRES ---
History of Present Illness Resident Creating Document: TAVO KEATING RESIDENT History of Present Illness This is a 60-year-old female with past medical history of CAD with 3 stent, HLD, anxiety disorder, chronic pelvic pain, left femur fracture, dm 2, HTN, depression brought by EMS to the hospital due to burning urine for 3 days. Patient indwelling Rodriguez catheter and discharged from hospital on 11/18/2024. Patient also having back pain and left femur pain which is 8/10 intensity, localized, no radiation, aggravated on movement and no relieving factor. Recent history of left femur fracture status post mechanical fall, orthopedic consulted recent hospital visit and recommended conservative management.Angiogram on 08/28/2025: Angioplasty of the distal RCA to the ostial RCA with three sequential stent,placement, 3.0 x 30, 3.0 x 38 and a 3.0 x 22 mm stents were deployed from distal to ostial respectively. Also balloon angioplasty with 2.5 x 15 mm Euphora balloon and thrombectomy with a shockwave of the right coronary artery. Denies any fever, SOB, chest pain, abdominal pain or any other focal weakness. Cardiovascular: HTN, hyperipidemia Endocrine: Diabetes Past Surgical History: None Family History: None Smoke: No ALCOHOL: none Drugs: Marijuana Lives: with Family Home meds: Aspirin, atorvastatin, bupropion, clonazepam, clopidogrel, [place], metformin, metoprolol, risperidone, trazodone. Insulin, losartan, nifedipine, glyburide. Review of Systems Constitutional: Yes: Weakness, Malaise; No: Fever, Chills, Sweats, Other Eyes: No: Pain, Vision change, Conjunctivae inflammation, Eyelid inflammation, Other, Redness ENT: No: Ear pain, Ear discharge, Nose pain, Nose discharge, Nose congestion, Mouth pain, Mouth swelling, Throat pain, Throat swelling, Other Respiratory: No: Cough, Dry, Shortness of breath, SOB with excertion, Wheezing, Hemoptysis, Pleuritic Pain, Sputum, Wheezing, Other Cardiovascular: No: Chest Pain, Palpitations, Orthopnea, Paroxysmal Noc. Dyspnea, Edema, Lt Headedness, Other Gastrointestinal: Nausea; No: Vomiting, Abdominal Pain, Diarrhea, Constipation, Melena, Hematochezia, Other Genitourinary: No Dysuria, No Frequency, No Incontinence, No Hematuria, No Retention; Other (Rodriguez catheter in place) Musculoskeletal: other (Left femur fracture), back pain, leg pain; No: neck pain, shoulder pain, arm pain, hand pain, foot pain Skin: No: Rash, Lesions, Jaundice, Bruising, Other Neurological: No: Weakness, Numbness, Incoordination, Change in speech, Confusion, Seizures, Other Allergies: Coded Allergies: Iodine (Verified Allergy, Unknown, 03/31/19) Exam Vital Signs Vital Signs Date Time Temp Pulse Resp B/P (MAP) Pulse Ox O2 Delivery O2 Flow Rate FiO2 09/20/25 23:29 101 25 144/81 (102) 100 09/20/25 19:35 99.0 99.0 General Appearance: Alert, Oriented X3, Cooperative, moderate distress HEENT: Atraumatic, PERRLA, EOMI Respiratory: Clear to auscultation, Normal air movement Cardiovascular: Regular rate, Normal S1, Normal S2, No murmurs Abdominal: Normal bowel sounds, Soft, No hepatospenomegaly Extremities: No clubbing, No cyanosis, No edema, Other (Tender left upper femur and lower back on deep palpation) Skin: No rashes, No breakdown Neuro: Normal speech, Sensation intact Psych/Mental Status: Mental status NL, Mood NL Labs/Xrays Labs Test 09/20/25 22:28 09/20/25 19:54 Range/Units Urine Color Light-orange Yellow Urine Clarity Turbid H Clear Urine pH 5.5 5.0-9.0 Urine Specific [place] 1.027 1.001-1.035 Urine Protein 2+ H Negative Urine Ketones Trace Negative Urine Blood 2+ H Negative /uL Urine Nitrite Negative Negative Urine Bilirubin Negative Negative Urine Urobilinogen Normal Negative mg/dL Urine Leukocyte Esterase 3+ Negative /uL Urine RBC 256 0 - 4 /hpf Urine Microscopic WBC 95 H 0-5 /HPF Urine Squamous Epithelial Cells Few <5 /hpf Urine Bacteria Few H None Seen /hpf Urine Mucus Few None Seen Urine Yeast (Budding) Loaded None Seen /hpf Urine Glucose Normal Normal mg/dL White Blood Count 6.2 4.4-10.8 10^3/uL Red Blood Count 4.19 4.0-5.20 10^6/uL Hemoglobin 12.9 12.2-16.2 g/dL Hematocrit 37.5 36.0-46.0 % Mean Corpuscular Volume 89.5 80.0-100.0 fL Mean Corpuscular Hemoglobin 30.8 28.0-32.0 pg Mean Corpuscular Hemoglobin Concent 34.3 32.0-36.0 g/dL Red Cell Distribution Width 13.1 11.8-14.3 % Platelet Count 244 140-450 10^3/uL Mean Platelet Volume 9.8 6.9-10.8 fL Neutrophils (%) (Auto) 63.4 37.0-80.0 % Lymphocytes (%) (Auto) 27.4 10.0-50.0 % Monocytes (%) (Auto) 7.4 0.0-12.0 % Eosinophils (%) (Auto) 1.1 0.0-7.0 % Basophils (%) (Auto) 0.7 0.0-2.0 % Neutrophils # (Auto) 3.9 1.6-8.6 10 ^3/uL Lymphocytes # (Auto) 1.7 0.4-5.4 10 ^3/uL Monocytes # (Auto) 0.5 0-1.3 10 ^3/uL Eosinophils # (Auto) 0.1 0-0.8 10 ^3/uL Basophils # (Auto) 0 0-0.2 10 ^3/uL Nucleated Red Blood Cells 0.0 % Prothrombin Time 10.2 9.3-11.8 sec Prothrombin Time INR 0.96 0.9-1.15 Activated Partial Thromboplast Time 30.1 24.5-34.5 SEC Sodium Level 144 136-145 mmol/L Potassium Level 4.0 3.5-5.1 mmol/L Chloride Level 109 H 98-107 mmol/L Carbon Dioxide Level 25 20-31 mmol/L Anion Gap 10 5-15 Blood Urea Nitrogen 17 9-23 mg/dL Creatinine 0.56 0.550-1.02 mg/dL Glomerular Filtration Rate Calc 105 >90 mL/min BUN/Creatinine Ratio 30.4 H 10.0-20.0 Serum Glucose 161 H 74-106 mg/dL Lactic Acid Level 1.1 0.4-2.0 mmol/L Calcium Level 9.5 8.7-10.4 mg/dL Magnesium Level 2.0 1.6-2.6 mg/dL Total Bilirubin 0.4 0.2-1.0 mg/dL Aspartate Amino Transferase (AST) 15 13-40 U/L Alanine Aminotransferase (ALT) 14 7-40 U/L Alkaline Phosphatase 102 46-116 U/L Total Protein 6.4 5.7-8.2 g/dL Albumin 3.5 3.2-4.8 g/dL SEPSIS Sepsis Screen Date sepsis recognized/suspect: Sep 20, 2025 Time Sepsis recognized/suspect: 1934 Recent Procedure: No On Antibiotic Therapy: No Respiratory Rate >20: No Heart Rate >90: Yes Temp<36 C (96.8 F) or >38.3 C: No SBP <90 or MAP <65 mmHG: No New Acute Mental Status Change: No Is the patient on CPAP, BIPAP,: No Physician Orders Heplock Iv (09/20/25 19:35) Blood Culture (09/20/25 19:35) L Femur Xray (09/20/25 19:35) Chest Xray 1 View (09/20/25 19:35) Pelvis Ap (09/20/25 19:35) Vital Signs Date Time Temp Pulse Resp B/P (MAP) Pulse Ox O2 Delivery O2 Flow Rate FiO2 09/20/25 23:29 101 25 144/81 (102) 100 09/20/25 19:35 99.0 100 17 115/67 98 99.0 Laboratory Tests Test 09/20/25 19:54 Lactic Acid Level 1.1 mmol/L (0.4-2.0) White Blood Count 6.2 10^3/uL (4.4-10.8) Assessment/Plan Assessment/Plan Left upper leg pain due to Left femur fracture History of mechanical fall status post fracture left femur acute displaced fracture through the distal femoral metaphysis with posterior angulation. X-ray left femur:acute displaced fracture through the distal femoral metaphysis with posterior angulation. Pain management Fall precaution Immobilization Orthopedic consult . Complicated cystitis UA: Appearance turbid, blood 2+, leukocyte esterase 3+, RBC 256, WBC 95 ,bacteria few Urine culture Empiric antibiotic ceftriaxone Indwelling Rodriguez catheter Primary hypertension with possible diastolic/systolic dysfunction Resume home medication according monitor blood pressure closely Type 2 diabetes mellitus Hypertensive heart disease Mixed hyperlipidemia Insulin sliding scale Monitor glucose Atorvastatin Metoprolol Depression Risperidone, trazodone, clonazepam-home meds Morbid obesity consult the patient on nutrition status and weight loss. Hx of CVA with left sided deficits Aspirin Fall precaution Gait instability Diet: Carbohydrate consistent GI prophylaxis: Pantoprazole DVT prophylaxis: Lovenox Goals of care discussion. More than 27 minute spent with patient. Full code status. Case discussed with Dr. Thacker. Plan discussed with: Patient, Other (Nurse) Visit Coding STANDARD RES Billing Provider: ROSI THACKER MD Date of Service if different f: Sep 20, 2025 Common Visit Codes: [id number] INP/OBS CARE (HIGH) Secondary Visit Codes: [id number] CARE PLAN 30 MINUTES TAVO KEATING RESIDENT Sep 20, 2025 23:41
[2025-09-21] MEDS ORDERED: DEXTROSE (50%) 50ML SYRG IV PRN (01:15)
[2025-09-21] MEDS: HYDROcodone-ACET 5/325MG TAB PO PRN (01:51)
[2025-09-21] MEDS: SODIUM CHLORIDE 0.9% 1,000 ML IV SCH (02:15)
[2025-09-21] MEDS: PANTOPRAZOLE 40 MG TAB PO SCH (05:47)
[2025-09-21 05:56] LABS: Hematocrit 37.3 % (36.0-46.0); Hemoglobin 12.8 g/dL (12.2-16.2); Mean Corpuscular Hemoglobin 31.0 pg (28.0-32.0); Mean Corpuscular Volume 90.1 fL (80.0-100.0); Nucleated Red Blood Cells % 0.1 %
[2025-09-21] MEDS: InsuLIN REG 1unit/0.01ml Soln (100units/ml) SC SCH (07:20)
[2025-09-21] MEDS: ACCU-CHEK COMFORT CURVE STRIP VI SCH (07:22)
[2025-09-21 09:29] LABS: Free T4 (Free Thyroxine) 1.1 ng/dL (0.89-1.76)
[2025-09-21] MEDS: risperiDONE 1 MG TAB PO SCH (09:36)
[2025-09-21] MEDS: ASPirin-EC 81 mg tab PO SCH (09:36)
[2025-09-21] MEDS: CLOPIDOGREL BISULFATE 75 MG TAB PO SCH (09:36)
[2025-09-21] MEDS: ENOXAPARIN SOD 30 MG/0.3 ML SYRINGE SC SCH (09:37)
[2025-09-21] MEDS: LOSARTAN POTASSIUM 50 MG TAB PO SCH (09:45)
[2025-09-21] MEDS: METOPROLOL SUCCINATE XL 50 MG TAB PO SCH (09:46)
[2025-09-21] MEDS: LACTATED RINGER'S 500 ML IV ONE ×3 (13:07→17:55)
[2025-09-21 16:55] LABS: Lactic Acid w/Reflex 2.1 mmol/L (0.4-2.0)
[2025-09-21 17:44] VITALS: BP 130/78; PULSE 102; RESP 18; TEMP 98.9; O2SAT 99
[2025-09-21 17:50] VITALS: BP 130/78; PULSE 102; RESP 17; RESP 18; TEMP 98.9; O2SAT 99
--- NOTE | 2025-09-21 17:59 | DVHPNRES ---
Progress Note Date Seen: Sep 21, 2025 Resident Creating Document: REGAN DENNIS RESIDENT Medical Necessity Reason Pt with a Central, PICC or Fol: Yes The following are medically ne: Rodriguez Catheter Subjective Review of Systems This is a 60-year-old female with past medical history of CAD with 3 stent, HLD, anxiety disorder, chronic pelvic pain, left femur fracture, dm 2, HTN, depression brought by EMS to the hospital due to burning urine for 3 days. Patient indwelling Rodriguez catheter and discharged from hospital on 11/18/2024. Patient also having back pain and left femur pain which is 8/10 intensity, localized, no radiation, aggravated on movement and no relieving factor. Recent history of left femur fracture status post mechanical fall, orthopedic consulted recent hospital visit and recommended conservative management. Angiogram on 08/28/2025: Angioplasty of the distal RCA to the ostial RCA with three sequential stent,placement, 3.0 x 30, 3.0 x 38 and a 3.0 x 22 mm stents were deployed from distal to ostial respectively. Also balloon angioplasty with 2.5 x 15 mm Euphora balloon and thrombectomy with a shockwave of the right coronary artery. Denies any fever, SOB, chest pain, abdominal pain or any other focal weakness. Past surgical history: Denies Family history: Reviewed, noncontributory Personal history: Denies smoking, drinking, smokes marijuana daily Lives with: family Home meds: Aspirin, atorvastatin, bupropion, clonazepam, clopidogrel, [place], metformin, metoprolol, risperidone, trazodone. Insulin, losartan, nifedipine, glyburide. 09/21/2025: Patient seen at bedside. Patient complains of right thigh pain which is 8/10 in intensity. Denies any nausea, vomiting, fever, chills. Patient does have symptoms of dysuria, burning sensation when pain. urinalysis positive for UTI Objective vital signs Vital Sign Date Time Temp Pulse Resp B/P (MAP) Pulse Ox O2 Delivery O2 Flow Rate FiO2 09/21/25 17:44 98.9 102 18 130/78 (95) 99 98.9 09/21/25 07:40 Room Air* 0 21 Total Intake and Output 09/20/25 09/20/25 09/21/25 15:00 23:00 07:00 Intake Total 275 ml Balance 275 ml medications Current Medications Medications Dose Ordered Sig/Jaime Route Start Time Stop Time Status Last Admin Dose Admin Sodium Chloride 1,000 ml @ 75 mls/hr [id number] IV 09/21/25 01:15 09/21/25 14:46 75 MLS/HR Acetaminophen/ Hydrocodone Bitart 1 tab Q4HP PRN PO 09/21/25 01:15 09/21/25 09:58 1 TAB Enoxaparin Sodium 30 mg DAILY SC 09/21/25 10:00 09/21/25 09:37 30 MG Ceftriaxone Sodium 50 ml @ 100 mls/hr DAILY@09 IV 09/21/25 09:00 09/21/25 09:36 100 MLS/HR Aspirin 81 mg DAILY PO 09/21/25 10:00 09/21/25 09:36 81 MG Pantoprazole Sodium 40 mg DAILY@0600 PO 09/21/25 06:00 09/21/25 05:47 40 MG Clopidogrel Bisulfate 75 mg DAILY PO 09/21/25 10:00 09/21/25 09:36 75 MG Atorvastatin Calcium 80 mg HS PO 09/21/25 22:00 Diagnostic Test (Pha) 1 strip ACHS 09/21/25 07:00 09/21/25 12:17 1 STRIP Insulin Human Regular ACHS SC 09/21/25 07:00 09/21/25 12:17 2 UNITS Dextrose 50 ml UD PRN IV 09/21/25 01:15 Metoprolol Succinate 50 mg DAILY PO 09/21/25 10:00 09/21/25 09:46 50 MG Risperidone 2 mg DAILY PO 09/21/25 10:00 09/21/25 09:36 2 MG Examination General: Patient alert and oriented in person, place and time. Patient following commands. HEENT: Normocephalic, atraumatic, moist mucous membranes Respiratory/pulmonary: Clear lungs bilaterally, vesicular murmurs present in almost all lung bender, no associated crackles or wheezes. Cardiovascular: Normal heart sounds S1 and S2 with no associated murmurs Abdomen: Abdomen nondistended, there is no pain to palpation in any of the abdominal quadrants, no palpable masses. Rodriguez in place, Tamie in skin folds Extremities: pain in left thigh. Peripheral Pulses: 3+ Radial (R). 3+ Radial (L). 3+ Dorsalis pedis (R). 3+ Dorsalis pedis(L) Skin: No rashes or pruritus, there is no sacral edema present at this time. Neurological: Intact cranial nerves with no focal neurologic deficits laboratory and microbiology Laboratory Tests 09/21/25 05:16 09/20/25 19:54 Test 09/20/25 19:54 Range/Units Serum Glucose 161 H 74-106 mg/dL Problem List/Assessment/Plan Problem List/Assessment/Plan Intractable leg pain due to Left femur fracture - History of mechanical fall status post fracture left femur acute displaced fracture through the distal femoral metaphysis with posterior angulation. - X-ray left femur: acute displaced fracture through the distal femoral metaphysis with posterior angulation. - Pain management - Fall precaution - Orthopedic consult Acute complicated UTI Complicated cystitis - due to indwelling catheter -Urine culture - IV ceftriaxone Primary hypertension with possible diastolic/systolic dysfunction -Resume home medication according -monitor blood pressure closely Type 2 diabetes mellitus Hypertensive heart disease Mixed hyperlipidemia -Insulin sliding scale -Monitor glucose -Atorvastatin -Metoprolol Depression Risperidone, trazodone, clonazepam-home meds cannabis use disorder - Patient counseled on cessation of cannabis for 18 minutes Morbid obesity BMI 32.7 -patient is counseled on diet, lifestyle modifications. Hx of CVA with left sided deficits Aspirin Fall precaution Gait instability GI prophylaxis: Pantoprazole DVT prophylaxis: Lovenox Goals of care addressed with the patient for more than 27 minutes: Full code status Case discussed with Dr. Thorne , patient and nurse Plan discussed with: Patient Visit Coding STANDARD RES Billing Provider: ALEKSANDER THORNE MD Date of Service if different f: Sep 21, 2025 Common Visit Codes: [id number] INP/OBS CARE(HIGH) REGAN DENNIS RESIDENT Sep 21, 2025 17:59
[2025-09-21 20:00] VITALS: PULSE 65; RESP 16; O2SAT 96
[2025-09-21 21:00] VITALS: BP 128/73; PULSE 105; RESP 18; TEMP 98.3; O2SAT 98
[2025-09-21] MEDS: ATORVASTATIN 20 MG TAB PO SCH (22:03)
[2025-09-21] MEDS ORDERED: VANCOMYCIN PER PHARMACY 0 MG IV SCH (23:45)
[2025-09-22] VITALS (8 sets, daily range): BP systolic 100–148; BP diastolic 59–92; PULSE 102–118; RESP 17–20; TEMP 97.6–98.7; O2SAT 90–100
[2025-09-22] MEDS: VANCOMYCIN 1.5GM/250ML IV ONE (00:18)
[2025-09-22 07:35] LABS: Anion Gap 10 (5-15); Carbon Dioxide 23 mmol/L (20-31); Potassium 3.8 mmol/L (3.5-5.1); Sodium 142 mmol/L (136-145)
[2025-09-22 07:37] LABS: Calcium 9.1 mg/dL (8.7-10.4)
[2025-09-22 07:41] LABS: BUN/Creatinine Ratio 14.8 (10.0-20.0)
[2025-09-22 07:48] LABS: Blood Urea Nitrogen 8 mg/dL (9-23); Chloride 109 mmol/L (98-107); Glucose 206 mg/dL (74-106)
--- NOTE | 2025-09-22 08:41 | DVHPNRES ---
Progress Note Date Seen: Sep 22, 2025 Resident Creating Document: REGAN DENNIS RESIDENT Medical Necessity Reason Pt with a Central, PICC or Fol: Yes The following are medically ne: Rodriguez Catheter Subjective Review of Systems This is a 60-year-old female with past medical history of CAD with 3 stent, HLD, anxiety disorder, chronic pelvic pain, left femur fracture, dm 2, HTN, depression brought by EMS to the hospital due to burning urine for 3 days. Patient indwelling Rodriguez catheter and discharged from hospital on 11/18/2024. Patient also having back pain and left femur pain which is 8/10 intensity, localized, no radiation, aggravated on movement and no relieving factor. Recent history of left femur fracture status post mechanical fall, orthopedic consulted recent hospital visit and recommended conservative management. Angiogram on 08/28/2025: Angioplasty of the distal RCA to the ostial RCA with three sequential stent,placement, 3.0 x 30, 3.0 x 38 and a 3.0 x 22 mm stents were deployed from distal to ostial respectively. Also balloon angioplasty with 2.5 x 15 mm Euphora balloon and thrombectomy with a shockwave of the right coronary artery. Denies any fever, SOB, chest pain, abdominal pain or any other focal weakness. Past surgical history: Denies Family history: Reviewed, noncontributory Personal history: Denies smoking, drinking, smokes marijuana daily Lives with: family Home meds: Aspirin, atorvastatin, bupropion, clonazepam, clopidogrel, [place], metformin, metoprolol, risperidone, trazodone. Insulin, losartan, nifedipine, glyburide. 09/21/2025: Patient seen at bedside. Patient complains of right thigh pain which is 8/10 in intensity. Denies any nausea, vomiting, fever, chills. Patient does have symptoms of dysuria, burning sensation when pain. urinalysis positive for UTI 09/22/25: patient seen at bedside. Patient complains of right thigh pain which is 8/10 in intensity. Denies any nausea, fever, chills, vomiting, diarrhea. Patient does have symptoms of dysuria, burning sensation when peeing. consulted cardio for cardiac clearance. Objective vital signs Vital Sign Date Time Temp Pulse Resp B/P (MAP) Pulse Ox O2 Delivery O2 Flow Rate FiO2 09/22/25 05:00 97.9 108 17 133/76 (61) 96 97.9 09/21/25 20:00 Nasal Cannula* 2 28 Total Intake and Output 09/21/25 09/21/25 09/22/25 15:00 23:00 07:00 Intake Total 1150 ml 75 ml 450 ml Output Total 1825 ml 350 ml Balance -675 ml 75 ml 100 ml medications Current Medications Medications Dose Ordered Sig/Jaime Route Start Time Stop Time Status Last Admin Dose Admin Sodium Chloride 1,000 ml @ 75 mls/hr [id number] IV 09/21/25 01:15 09/22/25 03:22 75 MLS/HR Acetaminophen/ Hydrocodone Bitart 1 tab Q4HP PRN PO 09/21/25 01:15 09/22/25 00:17 1 TAB Enoxaparin Sodium 30 mg DAILY SC 09/21/25 10:00 09/21/25 09:37 30 MG Ceftriaxone Sodium 50 ml @ 100 mls/hr DAILY@09 IV 09/21/25 09:00 09/21/25 09:36 100 MLS/HR Aspirin 81 mg DAILY PO 09/21/25 10:00 09/21/25 09:36 81 MG Pantoprazole Sodium 40 mg DAILY@0600 PO 09/21/25 06:00 09/22/25 06:00 40 MG Clopidogrel Bisulfate 75 mg DAILY PO 09/21/25 10:00 09/21/25 09:36 75 MG Atorvastatin Calcium 80 mg HS PO 09/21/25 22:00 09/21/25 22:03 80 MG Diagnostic Test (Pha) 1 strip ACHS 09/21/25 07:00 09/22/25 06:01 1 STRIP Insulin Human Regular ACHS SC 09/21/25 07:00 09/22/25 06:01 4 UNITS Dextrose 50 ml UD PRN IV 09/21/25 01:15 Metoprolol Succinate 50 mg DAILY PO 09/21/25 10:00 09/21/25 09:46 50 MG Risperidone 2 mg DAILY PO 09/21/25 10:00 09/21/25 09:36 2 MG Vancomycin HCl 0 ml @ 0 mls/hr PER PHARMACY IV 09/21/25 23:45 UNV Examination General: Patient alert and oriented in person, place and time. Patient following commands. HEENT: Normocephalic, atraumatic, moist mucous membranes Respiratory/pulmonary: Clear lungs bilaterally, vesicular murmurs present in almost all lung bender, no associated crackles or wheezes. Cardiovascular: Normal heart sounds S1 and S2 with no associated murmurs Abdomen: Abdomen nondistended, there is no pain to palpation in any of the abdominal quadrants, no palpable masses. Rodriguez in place, Tamie in skin folds Extremities: pain in left thigh. Peripheral Pulses: 3+ Radial (R). 3+ Radial (L). 3+ Dorsalis pedis (R). 3+ Dorsalis pedis(L) Skin: No rashes or pruritus, there is no sacral edema present at this time. Neurological: Intact cranial nerves with no focal neurologic deficits laboratory and microbiology Laboratory Tests 09/22/25 06:28 09/21/25 05:16 Test 09/22/25 06:28 Range/Units Serum Glucose 206 H 74-106 mg/dL Microbiology Date/Time Source Procedure Growth Status 09/20/25 20:01 Blood Blood Culture - Preliminary NO GROWTH AFTER 24 HOURS OF INCUBATION. Resulted Problem List/Assessment/Plan Problem List/Assessment/Plan Intractable leg pain due to Left femur fracture - History of mechanical fall status post fracture left femur acute displaced fracture through the distal femoral metaphysis with posterior angulation. - X-ray left femur: acute displaced fracture through the distal femoral metaphysis with posterior angulation. - Pain management - Fall precaution - Orthopedic consult - cardiac clearence Acute complicated UTI Complicated cystitis - due to indwelling catheter -Urine culture - IV ceftriaxone Primary hypertension with possible diastolic/systolic dysfunction -Resume home medication according -monitor blood pressure closely Type 2 diabetes mellitus Hypertensive heart disease Mixed hyperlipidemia -Insulin sliding scale -Monitor glucose -Atorvastatin -Metoprolol Depression Risperidone, trazodone, clonazepam-home meds cannabis use disorder - Patient counseled on cessation of cannabis for 18 minutes Morbid obesity BMI 32.7 -patient is counseled on diet, lifestyle modifications. Hx of CVA with left sided deficits Aspirin Fall precaution Gait instability GI prophylaxis: Pantoprazole DVT prophylaxis: Lovenox Goals of care addressed with the patient for more than 27 minutes: Full code status Case discussed with Dr. Thorne , patient and nurse Plan discussed with: Patient Visit Coding STANDARD RES Billing Provider: ALEKSANDER THORNE MD Date of Service if different f: Sep 22, 2025 Common Visit Codes: [id number] INP/OBS CARE(HIGH) SRIRAMA,REGAN RESIDENT Sep 22, 2025 08:41 ALEKSANDER THORNE MD Sep 25, 2025 09:29
[2025-09-22 10:44] LABS: Hepatitis A Total Antibody Positive (Negative); Hepatitis B Surface Antigen Negative (Negative); Hepatitis C Antibody Negative (Negative)
[2025-09-22] MEDS: VANCOMYCIN 1.25GM/250ML 250 ML IV SCH (14:48)
--- NOTE | 2025-09-22 18:13 | DVHINCON2 ---
Date Seen: Sep 22, 2025 Referring Physician MD Jose Daniel Reason for Consultation Cardiac risk stratification History of Present Illness This is a 60-year-old female patient who presents to emergency room with chief complaint of left leg pain. The patient reports having a recent fall. She rep orts that she slid out of her bed and landed on her left leg. She was seen at this facility earlier this month and was discharged home on 09/17/2025. The patient was found to have an acute displaced fracture through the distal femur but no orthopedic intervention was done during the previous visit due to patient being a high risk for surgery. Cardiology has been consulted at this time for cardiac risk stratification. A twelve lead electrocardiogram was ordered and obtained at time of assessment and reveals sinus tachycardia with Q-waves seen in inferior leads. She denies any chest pain, palpitations, diaphoresis, SOB, dizziness, nausea, or vomiting. The patient was recently admitted to this facility as a STEMI on 08/18/25 undergoing a successful PCI of the RCA. She states she has been compliant with her dual antiplatelet therapy and statin therapy. Significant medical history includes coronary artery disease status post PCI of the RCA x 3 CONCEPCION (on Plavix and aspirin), congestive heart failure, hypertension, dyslipidemia, diabetes mellitus, cerebrovascular accident with left-sided deficits, bed ridden and obesity. Of note, during coronary angiogram on 08/18/2025, the fringe weaver recommended for the patient to undergo a staged LAD procedure. The patient states she never followed up with Cardiology in the outpatient setting. Past Medical History Past medical history reviewed. No other significant than mentioned above. Past Surgical History PTCA with a stent placement of the RCA x3 CONCEPCION, 08/18/2025 C-sections x2 Family History: Patient reports no known family medical history. Family History Family history reviewed. Social History Denies the use of tobacco, alcohol or illicit drugs. Allergies: Coded Allergies: Iodine (Verified Allergy, Unknown, 03/31/19) Home Meds Active Scripts Hydrocodone-Acetaminophen (Hydrocodone Bitartrate/AC 5-325 mg) 1 Tab Tab, 1 TAB PO QID PRN, #40 TAB Prov:ZINA HULL MD 09/17/25 Levofloxacin Hemihydrate (LEVAQUIN 500 MG) 500 Mg Tab, 1 TAB PO DAILY, #10 TAB Prov:ZINA HULL MD 09/17/25 Atorvastatin Calcium (ATORVASTATIN CALCIUM) 80 Mg Tab, 1 TAB PO QPM for 30 Days, #30 TAB 3 Refills Prov:JARAD CHRISTENSEN RESIDENT 08/22/25 Clopidogrel Bisulfate (Plavix) 75 Mg Tab, 1 TAB PO DAILY for 30 Days, #30 TAB 3 Refills Prov:JARAD CHRISTENSEN 08/22/25 Aspirin (ASPIRIN 81) 81 Mg Tab, 81 MG PO DAILY for 30 Days, #30 TAB 3 Refills Prov:JARAD CHRISTENSEN RESIDENT 08/22/25 Metformin Hydrochloride (Metformin Hcl) 500 Mg Tab, 1 TAB PO BID, #60 TAB 1 Refill Prov:ANTELMO GODWIN RESIDENT 07/04/25 Reported Medications Nifedipine (Nifedipine Er) 30 Mg Tab, 1 TAB PO DAILY for 90 Days, #90 09/22/25 Omeprazole (Omeprazole Dr) 20 Mg Cap, 1 CAP PO DAILY for 100 Days, #100 09/22/25 Docusate Sodium (Docusate Sodium) 100 Mg Cap, 1 CAP PO TID for 90 Days, #270 09/22/25 Losartan Potassium (Losartan Potassium) 100 Mg Tab, 1 TAB PO DAILY for 90 Days, #90 09/22/25 Metoprolol Tartrate (Metoprolol Tartrate) 100 Mg Tab, 1 TAB PO BID for 90 Days, #180 09/22/25 Insulin Glargine (Basaglar Kwikpen) 100 Unit/Ml Inj, 90 UNITS SC DAILY for 16 Days, #15 09/22/25 Insulin Aspart (Insulin Aspart Flexpen) 100 Unit/Ml Inj, 10 UNITS SC TID for 50 Days, #15 09/22/25 Clonazepam (Clonazepam) 2 Mg Tab, 1 TAB PO BID, #60 TAB 2 Refills 03/31/19 Risperidone (Risperidone) 1 Mg Tab, 1 TAB PO QPM, #30 TAB 1 Refill 03/31/19 Trazodone Hcl (Trazodone Hcl) 150 Mg Tab, 1 TAB PO HSPRN PRN for FOR INSOMNIA for 100 Days, #100 03/31/19 Bupropion Hcl (Wellbutrin Sr) 150 Mg Tab, 1 TAB PO DAILY, #60 TAB 5 Refills 03/31/19 Home Meds Home medications reviewed. Current Medications Current Medications Medications (Trade) Dose Ordered Sig/Jaime Route PRN Reason Start Time Stop Time Status Last Admin Atorvastatin Calcium (Lipitor) 80 mg HS PO 09/21/25 22:00 09/21/25 22:03 Vancomycin HCl 0 ml @ 0 mls/hr PER PHARMACY IV 09/21/25 23:45 Vancomycin HCl 250 ml @ 200 mls/hr Q12H IV 09/22/25 12:00 09/22/25 14:48 Review of Systems Constitutional: No symptom reported Ears, Nose, & Throat: No symptom reported Eyes: No symptom reported Neurological: No symptoms reported Pulmonary/Respiratory: No symptoms reported Cardiovascular: No symptom reported Gastrointestinal: No symptom reported Genitourinary: No symptom reported Musculoskeletal: Left leg and hip pain Skin: No symptom reported Psychiatric: No symptom reported Endocrine: No symptom reported Hematologic/Lymphatic: No symptom reported Vital Signs Vital Signs Date Time Temp Pulse Resp B/P (MAP) Pulse Ox O2 Delivery O2 Flow Rate FiO2 09/22/25 16:44 98.6 102 20 131/72 (91) 90 98.6 09/22/25 08:15 Nasal Cannula* 2 28 Physical Exam General Appearance: Cooperative. Well-developed. Morbidly obese Pulmonary/Respiratory: Clear, bilateral breaths sounds. Cardiovascular/Chest: Regular rate and rhythm. Peripheral Pulses: 2+ Radial (R). 2+ Radial (L). 2+ Pedal (R). 2+ Pedal (L) Abdominal Exam: Normal bowel sounds. Ankle Exam: Negative ankle edema Lower extremities: Negative lower extremity edema Neuro/Mental Status: A/OX4, coherent. Thoughts/Psych: Normal thought pattern. Appropriate mood and affect. Good judgment and insight. Appearance: No acute distress. Skin Exam: Normal inspection. Normal color. Warm and dry. Labs/Diagnostic Data Labs Test 09/22/25 17:36 09/22/25 06:57 09/22/25 06:28 09/21/25 05:16 Range/Units POC Glucose 140 H 70-106 mg/dl Lactic Acid Level 1.2 0.4-2.0 mmol/L Sodium Level 142 136-145 mmol/L Potassium Level 3.8 3.5-5.1 mmol/L Chloride Level 109 H 98-107 mmol/L Carbon Dioxide Level 23 20-31 mmol/L Anion Gap 10 5-15 Blood Urea Nitrogen 8 L 9-23 mg/dL Creatinine 0.54 L 0.550-1.02 mg/dL Glomerular Filtration Rate Calc 106 >90 mL/min BUN/Creatinine Ratio 14.8 10.0-20.0 Serum Glucose 206 H 74-106 mg/dL Calcium Level 9.1 8.7-10.4 mg/dL White Blood Count 6.9 4.4-10.8 10^3/uL Red Blood Count 4.14 4.0-5.20 10^6/uL Hemoglobin 12.8 12.2-16.2 g/dL Hematocrit 37.3 36.0-46.0 % Mean Corpuscular Volume 90.1 80.0-100.0 fL Mean Corpuscular Hemoglobin 31.0 28.0-32.0 pg Mean Corpuscular Hemoglobin Concent 34.4 32.0-36.0 g/dL Red Cell Distribution Width 13.4 11.8-14.3 % Platelet Count 239 140-450 10^3/uL Mean Platelet Volume 9.2 6.9-10.8 fL Neutrophils (%) (Auto) 58.6 37.0-80.0 % Lymphocytes (%) (Auto) 30.2 10.0-50.0 % Monocytes (%) (Auto) 8.0 0.0-12.0 % Eosinophils (%) (Auto) 2.4 0.0-7.0 % Basophils (%) (Auto) 0.8 0.0-2.0 % Neutrophils # (Auto) 4.0 1.6-8.6 10 ^3/uL Lymphocytes # (Auto) 2.1 0.4-5.4 10 ^3/uL Monocytes # (Auto) 0.6 0-1.3 10 ^3/uL Eosinophils # (Auto) 0.2 0-0.8 10 ^3/uL Basophils # (Auto) 0.1 0-0.2 10 ^3/uL Nucleated Red Blood Cells 0.1 % Vitamin B12 Level 204 L 211-911 pg/mL Vitamin D 25-Hydroxy 36.2 30.0-100 ng/mL Thyroid Stimulating Hormone (TSH) 6.33 H 0.55-4.78 uIU/mL Free Thyroxine (T4) Calculated 1.10 0.89-1.76 ng/dL Total Triiodothyronine (TT3) 1.23 0.60-1.81 ng/mL Hepatitis A Antibody Total Positive H Negative Hepatitis B Surface Antigen Negative Negative Hepatitis B Surface Antibody Negative Negative Hepatitis B Core Total Antibody Negative Negative Hepatitis C Antibody Negative Negative Test 09/20/25 22:28 09/20/25 19:54 Range/Units Urine Color Light-orange Yellow Urine Clarity Turbid H Clear Urine pH 5.5 5.0-9.0 Urine Specific [place] 1.027 1.001-1.035 Urine Protein 2+ H Negative Urine Ketones Trace Negative Urine Blood 2+ H Negative /uL Urine Nitrite Negative Negative Urine Bilirubin Negative Negative Urine Urobilinogen Normal Negative mg/dL Urine Leukocyte Esterase 3+ Negative /uL Urine RBC 256 0 - 4 /hpf Urine Microscopic WBC 95 H 0-5 /HPF Urine Squamous Epithelial Cells Few <5 /hpf Urine Bacteria Few H None Seen /hpf Urine Mucus Few None Seen Urine Yeast (Budding) Loaded None Seen /hpf Urine Glucose Normal Normal mg/dL Prothrombin Time 10.2 9.3-11.8 sec Prothrombin Time INR 0.96 0.9-1.15 Activated Partial Thromboplast Time 30.1 24.5-34.5 SEC Magnesium Level 2.0 1.6-2.6 mg/dL Total Bilirubin 0.4 0.2-1.0 mg/dL Aspartate Amino Transferase (AST) 15 13-40 U/L Alanine Aminotransferase (ALT) 14 7-40 U/L Alkaline Phosphatase 102 46-116 U/L Total Protein 6.4 5.7-8.2 g/dL Albumin 3.5 3.2-4.8 g/dL Microbiology Date/Time Source Procedure Growth Status 09/21/25 17:55 Nose MRSA Screen - Final Complete 09/21/25 17:55 Urine - [place] Urine Culture - Preliminary No growth Resulted 09/20/25 20:01 Blood Blood Culture - Preliminary NO GROWTH AFTER 24 HOURS OF INCUBATION. Resulted Assessment Preprocedural cardiovascular examination Recent acute inferior wall MN on 08/18/2025 Coronary artery disease status post PCI of the RCA x 3DES (on DAPT/Statin/Metoprolol) Chronic compensated HFimEF, NYHA class II (previous LVEF 40% on echo 08/18/25) Diabetes mellitus Hypertension Dyslipidemia HX of CVA with left-sided deficits Bed-bound Obesity Plan/Recommendation We will proceed with the following plan/recommendations (Dr. Yun): Case discussed with . A transthoracic echocardiogram done on 09/14/2025 reveals an EF of 60%. Revised Cardiac Risk Index (Ady criteria): 3 points (10% risk of major cardiac event). The patient has an underlying history of coronary artery disease including a recent acute ST-elevation myocardial infarction on 08/18/2025 in which PCI to RCA was performed. At that time, the patient was also noted to have an ejection fraction of approximately 40%. Prior to this admission, the patient reports a poor functional capacity and states she is mostly bed ridden from a previous CVA. Per Cardiology standpoint, the patient is at a high risk for moderate risk surgery. This was discussed with the patient in detail. Given that the patient had recent stent placement, we will recommend to reinitiate dual antiplatelet therapy as soon as possible postprocedure including loading the patient back on her Plavix therapy. The patient is at high risk for InStent thrombosis/restenosis while being off of her dual antiplatelet therapy with recent PCI and stent placement. It is worth noting that the patient was recommended to undergo a staged procedure of her LAD for revascularization. The patient never followed up with a Cardiology in the outpatient setting. We will recommend that the patient still undergo outpatient revascularization as interventional cardiology had recommended. There is no further inpatient cardiac workup indicated at this time. Please reconsult if needed. Thank you for allowing us to care for this patient. Please call with any questions or concerns. Critical care time spent: 44 minutes This medical document was created using an electronic medical record system with voice recognition software and computerized dictation system. Although this document has been carefully reviewed, there might still be some phonetic and typographical errors. Occasional wrong-word or ``sound-alike substitutions may have occurred due to the inherent limitations of voice recognition software. These areas are purely typographical due to imperfections of the software programs and do not reflect any compromise in the patient's medical care. Pl ease read the chart carefully and recognize, using context, where these substitutions have occurred. Plan discussed with: Patient NYHA Physical activity limitations: Class2(Slight)fatigue,sob (palpitatns, angina w activityv) Date of Service: Sep 22, 2025 Billing Provider: REE BRITTON Cardiology Common Codes: 23190-[id number] INP/OBS CARE (High) Cardiology Consultation Codes: [id number] CONSULT <45MIN REE BRITTON Sep 22, 2025 18:13
--- NOTE | 2025-09-22 23:07 | DVHINCON2 ---
Date Seen: Sep 22, 2025 Referring Physician MD Jose Daniel Reason for Consultation Cardiac risk stratification History of Present Illness This is a 60-year-old female with a past medical history of coronary artery disease status post PCI of the RCA x 3 CONCEPCION (on Plavix and aspirin), congestive heart failure, hypertension, dyslipidemia, diabetes mellitus, cerebrovascular accident with left-sided deficits, bed ridden and obesity who presents to emergency room with chief complaint of left leg pain. The patient reports having a recent fall. She reports that she slid out of her bed and landed on her left leg. She was seen at this facility earlier this month and was discharged home on 09/17/2025. The patient was found to have an acute displaced fracture through the distal femur but no orthopedic intervention was done during the previous visit due to patient being a high risk for surgery. A twelve lead electrocardiogram was ordered and obtained at time of assessment and reveals sinus tachycardia with Q-waves seen in inferior leads. She denies any chest pain, palpitations, diaphoresis, SOB, dizziness, nausea, or vomiting. The patient was recently admitted to this facility as a STEMI on 08/18/25 undergoing a successful PCI of the RCA. She states she has been compliant with her dual antiplatelet therapy and statin therapy. Of note, during coronary angiogram on 08/18/2025, the cotton candy maker recommended for the patient to undergo a staged LAD procedure. The patient states she never followed up with Cardiology in the outpatient setting. Cardiology has been consulted at this time for cardiac risk stratification. Past Medical History Past medical history reviewed. No other significant than mentioned above. Past Surgical History PTCA with a stent placement of the RCA x3 CONCEPCION, 08/18/2025 C-sections x2 Family History: Patient reports no known family medical history. Allergies: Coded Allergies: Iodine (Verified Allergy, Unknown, 03/31/19) Home Meds Active Scripts Hydrocodone-Acetaminophen (Hydrocodone Bitartrate/AC 5-325 mg) 1 Tab Tab, 1 TAB PO QID PRN, #40 TAB Prov:ZINA HULL MD 09/17/25 Levofloxacin Hemihydrate (LEVAQUIN 500 MG) 500 Mg Tab, 1 TAB PO DAILY, #10 TAB Prov:ZINA HULL MD 09/17/25 Atorvastatin Calcium (ATORVASTATIN CALCIUM) 80 Mg Tab, 1 TAB PO QPM for 30 Days, #30 TAB 3 Refills Prov:FARDOUS,JARAD RESIDENT 08/22/25 Clopidogrel Bisulfate (Plavix) 75 Mg Tab, 1 TAB PO DAILY for 30 Days, #30 TAB 3 Refills Prov:JARAD CHRISTENSEN RESIDENT 08/22/25 Aspirin (ASPIRIN 81) 81 Mg Tab, 81 MG PO DAILY for 30 Days, #30 TAB 3 Refills Prov:JARAD CHRISTENSEN 08/22/25 Metformin Hydrochloride (Metformin Hcl) 500 Mg Tab, 1 TAB PO BID, #60 TAB 1 Refill Prov:ANTELMO GODWIN RESIDENT 07/04/25 Reported Medications Nifedipine (Nifedipine Er) 30 Mg Tab, 1 TAB PO DAILY for 90 Days, #90 09/22/25 Omeprazole (Omeprazole Dr) 20 Mg Cap, 1 CAP PO DAILY for 100 Days, #100 09/22/25 Docusate Sodium (Docusate Sodium) 100 Mg Cap, 1 CAP PO TID for 90 Days, #270 09/22/25 Losartan Potassium (Losartan Potassium) 100 Mg Tab, 1 TAB PO DAILY for 90 Days, #90 09/22/25 Metoprolol Tartrate (Metoprolol Tartrate) 100 Mg Tab, 1 TAB PO BID for 90 Days, #180 09/22/25 Insulin Glargine (Basaglar Kwikpen) 100 Unit/Ml Inj, 90 UNITS SC DAILY for 16 Days, #15 09/22/25 Insulin Aspart (Insulin Aspart Flexpen) 100 Unit/Ml Inj, 10 UNITS SC TID for 50 Days, #15 09/22/25 Clonazepam (Clonazepam) 2 Mg Tab, 1 TAB PO BID, #60 TAB 2 Refills 03/31/19 Risperidone (Risperidone) 1 Mg Tab, 1 TAB PO QPM, #30 TAB 1 Refill 03/31/19 Trazodone Hcl (Trazodone Hcl) 150 Mg Tab, 1 TAB PO HSPRN PRN for FOR INSOMNIA for 100 Days, #100 03/31/19 Bupropion Hcl (Wellbutrin Sr) 150 Mg Tab, 1 TAB PO DAILY, #60 TAB 5 Refills 03/31/19 Current Medications Current Medications Medications (Trade) Dose Ordered Sig/Jaime Route PRN Reason Start Time Stop Time Status Last Admin Vancomycin HCl 0 ml @ 0 mls/hr PER PHARMACY IV 09/21/25 23:45 Vancomycin HCl 250 ml @ 200 mls/hr Q12H IV 09/22/25 12:00 09/22/25 14:48 Review of Systems Constitutional: No symptom reported Ears, Nose, & Throat: No symptom reported Eyes: No symptom reported Neurological: No symptoms reported Pulmonary/Respiratory: No symptoms reported Cardiovascular: No symptom reported Gastrointestinal: No symptom reported Genitourinary: No symptom reported Musculoskeletal: Left leg and hip pain Skin: No symptom reported Psychiatric: No symptom reported Endocrine: No symptom reported Hematologic/Lymphatic: No symptom reported Vital Signs Vital Signs Date Time Temp Pulse Resp B/P (MAP) Pulse Ox O2 Delivery O2 Flow Rate FiO2 09/22/25 20:00 18 99 Nasal Cannula* 2 28 09/22/25 16:44 98.6 102 131/72 (91) 98.6 Physical Exam GENERAL: Alert and oriented x 3. No acute distress. Morbid obesity. EYES: PERRL, EOMI. Anicteric. HENT: Moist mucous membranes. LUNGS: Clear to auscultation bilaterally. CARDIOVASCULAR: Regular rate and rhythm. ABDOMEN: Soft, nontender and nondistended. EXTREMITIES: No edema. NEUROLOGIC: No focal neurological deficits. SKIN: Warm, dry. Labs/Diagnostic Data Labs Test 09/22/25 21:34 09/22/25 06:57 09/22/25 06:28 09/21/25 05:16 Range/Units POC Glucose 184 H 70-106 mg/dl Lactic Acid Level 1.2 0.4-2.0 mmol/L Sodium Level 142 136-145 mmol/L Potassium Level 3.8 3.5-5.1 mmol/L Chloride Level 109 H 98-107 mmol/L Carbon Dioxide Level 23 20-31 mmol/L Anion Gap 10 5-15 Blood Urea Nitrogen 8 L 9-23 mg/dL Creatinine 0.54 L 0.550-1.02 mg/dL Glomerular Filtration Rate Calc 106 >90 mL/min BUN/Creatinine Ratio 14.8 10.0-20.0 Serum Glucose 206 H 74-106 mg/dL Calcium Level 9.1 8.7-10.4 mg/dL White Blood Count 6.9 4.4-10.8 10^3/uL Red Blood Count 4.14 4.0-5.20 10^6/uL Hemoglobin 12.8 12.2-16.2 g/dL Hematocrit 37.3 36.0-46.0 % Mean Corpuscular Volume 90.1 80.0-100.0 fL Mean Corpuscular Hemoglobin 31.0 28.0-32.0 pg Mean Corpuscular Hemoglobin Concent 34.4 32.0-36.0 g/dL Red Cell Distribution Width 13.4 11.8-14.3 % Platelet Count 239 140-450 10^3/uL Mean Platelet Volume 9.2 6.9-10.8 fL Neutrophils (%) (Auto) 58.6 37.0-80.0 % Lymphocytes (%) (Auto) 30.2 10.0-50.0 % Monocytes (%) (Auto) 8.0 0.0-12.0 % Eosinophils (%) (Auto) 2.4 0.0-7.0 % Basophils (%) (Auto) 0.8 0.0-2.0 % Neutrophils # (Auto) 4.0 1.6-8.6 10 ^3/uL Lymphocytes # (Auto) 2.1 0.4-5.4 10 ^3/uL Monocytes # (Auto) 0.6 0-1.3 10 ^3/uL Eosinophils # (Auto) 0.2 0-0.8 10 ^3/uL Basophils # (Auto) 0.1 0-0.2 10 ^3/uL Nucleated Red Blood Cells 0.1 % Vitamin B12 Level 204 L 211-911 pg/mL Vitamin D 25-Hydroxy 36.2 30.0-100 ng/mL Thyroid Stimulating Hormone (TSH) 6.33 H 0.55-4.78 uIU/mL Free Thyroxine (T4) Calculated 1.10 0.89-1.76 ng/dL Total Triiodothyronine (TT3) 1.23 0.60-1.81 ng/mL Hepatitis A Antibody Total Positive H Negative Hepatitis B Surface Antigen Negative Negative Hepatitis B Surface Antibody Negative Negative Hepatitis B Core Total Antibody Negative Negative Hepatitis C Antibody Negative Negative Test 09/20/25 22:28 09/20/25 19:54 Range/Units Urine Color Light-orange Yellow Urine Clarity Turbid H Clear Urine pH 5.5 5.0-9.0 Urine Specific [place] 1.027 1.001-1.035 Urine Protein 2+ H Negative Urine Ketones Trace Negative Urine Blood 2+ H Negative /uL Urine Nitrite Negative Negative Urine Bilirubin Negative Negative Urine Urobilinogen Normal Negative mg/dL Urine Leukocyte Esterase 3+ Negative /uL Urine RBC 256 0 - 4 /hpf Urine Microscopic WBC 95 H 0-5 /HPF Urine Squamous Epithelial Cells Few <5 /hpf Urine Bacteria Few H None Seen /hpf Urine Mucus Few None Seen Urine Yeast (Budding) Loaded None Seen /hpf Urine Glucose Normal Normal mg/dL Prothrombin Time 10.2 9.3-11.8 sec Prothrombin Time INR 0.96 0.9-1.15 Activated Partial Thromboplast Time 30.1 24.5-34.5 SEC Magnesium Level 2.0 1.6-2.6 mg/dL Total Bilirubin 0.4 0.2-1.0 mg/dL Aspartate Amino Transferase (AST) 15 13-40 U/L Alanine Aminotransferase (ALT) 14 7-40 U/L Alkaline Phosphatase 102 46-116 U/L Total Protein 6.4 5.7-8.2 g/dL Albumin 3.5 3.2-4.8 g/dL Microbiology Date/Time Source Procedure Growth Status 09/21/25 17:55 Nose MRSA Screen - Final Complete 09/21/25 17:55 Urine - [place] Urine Culture - Preliminary No growth Resulted 09/20/25 20:01 Blood Blood Culture - Preliminary NO GROWTH AFTER 48 HOURS OF INCUBATION. Resulted Assessment Preprocedural cardiovascular examination. Recent acute inferior wall NC on 08/18/2025. Coronary artery disease status post PCI of the RCA x 3DES (on DAPT/Statin/Metoprolol). Chronic compensated HFimEF, NYHA class II (previous LVEF 40% on echo 08/18/25). Diabetes mellitus. Hypertension. Dyslipidemia. HX of CVA with left-sided deficits. Bed-bound. Obesity. Plan/Recommendation I agree with your ongoing assessment and care of plan. Patient has been seen by Arlen Teague NP on my behalf, her and I discussed the plan with the patient. A transthoracic echocardiogram done on 09/14/2025 reveals an EF of 60%. Revised Cardiac Risk Index (Ady criteria): 3 points (10% risk of major cardiac event). The patient has an underlying history of coronary artery disease including a recent acute ST-elevation myocardial infarction on 08/18/2025 in which PCI to RCA was performed. At that time, the patient was also noted to have an ejection fraction of approximately 40%. Prior to this admission, the patient reports a poor functional capacity and states she is mostly bed ridden from a previous CVA. Per Cardiology standpoint, the patient is at a high risk for moderate risk surgery. This was discussed with the patient in detail. Given that the patient had recent stent placement, we will recommend to reinitiate dual antiplatelet therapy as soon as possible postprocedure including loading the patient back on her Plavix therapy. The patient is at high risk for InStent thrombosis/restenosis while being off of her dual antiplatelet therapy with recent PCI and stent placement. It is worth noting that the patient was recommended to undergo a staged procedure of her LAD for revascularization. The patient never followed up with a Cardiology in the outpatient setting. We will recommend that the patient still undergo outpatient revascularization as interventional cardiology had recommended. There is no further inpatient cardiac workup indicated at this time. Please reconsult if needed. Additional plan as per the hospital course. Plan discussed with: Patient NYHA Physical activity limitations: Class2(Slight)fatigue,sob Date of Service: Sep 22, 2025 Billing Provider: NICKY RODRIGUEZ MD Cardiology Common Codes: 24411-[id number] INP/OBS CARE (High) Cardiology Consultation Codes: [id number] CONSULT <45MIN NICKY RODRIGUEZ MD Sep 22, 2025 22:24
[2025-09-23] VITALS (8 sets, daily range): BP systolic 100–148; BP diastolic 59–92; PULSE 102–114; RESP 16–18; TEMP 97.2–98.9; O2SAT 97–100
--- NOTE | 2025-09-23 08:57 | DVHPNRES ---
Progress Note Date Seen: Sep 23, 2025 Resident Creating Document: REGAN DENNIS RESIDENT Medical Necessity Reason Pt with a Central, PICC or Fol: Yes The following are medically ne: Rodriguez Catheter Subjective Review of Systems This is a 60-year-old female with past medical history of CAD with 3 stent, HLD, anxiety disorder, chronic pelvic pain, left femur fracture, dm 2, HTN, depression brought by EMS to the hospital due to burning urine for 3 days. Patient indwelling Rodriguez catheter and discharged from hospital on 11/18/2024. Patient also having back pain and left femur pain which is 8/10 intensity, localized, no radiation, aggravated on movement and no relieving factor. Recent history of left femur fracture status post mechanical fall, orthopedic consulted recent hospital visit and recommended conservative management. Angiogram on 08/28/2025: Angioplasty of the distal RCA to the ostial RCA with three sequential stent,placement, 3.0 x 30, 3.0 x 38 and a 3.0 x 22 mm stents were deployed from distal to ostial respectively. Also balloon angioplasty with 2.5 x 15 mm Euphora balloon and thrombectomy with a shockwave of the right coronary artery. Denies any fever, SOB, chest pain, abdominal pain or any other focal weakness. Past surgical history: Denies Family history: Reviewed, noncontributory Personal history: Denies smoking, drinking, smokes marijuana daily Lives with: family Home meds: Aspirin, atorvastatin, bupropion, clonazepam, clopidogrel, Switchback, metformin, metoprolol, risperidone, trazodone. Insulin, losartan, nifedipine, glyburide. 09/21/2025: Patient seen at bedside. Patient complains of right thigh pain which is 8/10 in intensity. Denies any nausea, vomiting, fever, chills. Patient does have symptoms of dysuria, burning sensation when pain. urinalysis positive for UTI 09/22/25: patient seen at bedside. Patient complains of right thigh pain which is 8/10 in intensity. Denies any nausea, fever, chills, vomiting, diarrhea. Patient does have symptoms of dysuria, burning sensation when peeing. consulted cardio for cardiac clearance 09/23/2025: Patient seen at bedside. Patient complains of right thigh pain which is 8/10 in intensity. Denies any fever, chills, nausea, vomiting. Patient is to have surgery of left femur on Thursday. Cardiac clearance done and has stated high-risk for moderate surgery and has recommended to restart Plavix as soon as possible post surgery. Objective vital signs Vital Sign Date Time Temp Pulse Resp B/P (MAP) Pulse Ox O2 Delivery O2 Flow Rate FiO2 09/23/25 08:34 98.2 110 16 148/92 (110) 100 98.2 09/23/25 08:15 Nasal Cannula* 2 28 Total Intake and Output 09/22/25 09/22/25 09/23/25 15:00 23:00 07:00 Intake Total 50 ml 250 ml 850 ml Output Total 1000 ml 1400 ml Balance 50 ml -750 ml -550 ml medications Current Medications Medications Dose Ordered Sig/Jaime Route Start Time Stop Time Status Last Admin Dose Admin Sodium Chloride 1,000 ml @ 75 mls/hr [id number] IV 09/21/25 01:15 09/23/25 06:18 75 MLS/HR Acetaminophen/ Hydrocodone Bitart 1 tab Q4HP PRN PO 09/21/25 01:15 09/22/25 21:32 1 TAB Enoxaparin Sodium 30 mg DAILY SC 09/21/25 10:00 09/22/25 10:19 30 MG Ceftriaxone Sodium 50 ml @ 100 mls/hr DAILY@09 IV 09/21/25 09:00 09/22/25 10:12 100 MLS/HR Aspirin 81 mg DAILY PO 09/21/25 10:00 09/22/25 10:13 81 MG Pantoprazole Sodium 40 mg DAILY@0600 PO 09/21/25 06:00 09/23/25 06:18 40 MG Clopidogrel Bisulfate 75 mg DAILY PO 09/21/25 10:00 09/22/25 10:13 75 MG Atorvastatin Calcium 80 mg HS PO 09/21/25 22:00 09/22/25 21:30 80 MG Diagnostic Test (Pha) 1 strip ACHS 09/21/25 07:00 09/23/25 06:18 1 STRIP Insulin Human Regular ACHS SC 09/21/25 07:00 09/23/25 06:27 2 UNITS Dextrose 50 ml UD PRN IV 09/21/25 01:15 Metoprolol Succinate 50 mg DAILY PO 09/21/25 10:00 09/22/25 10:13 50 MG Risperidone 2 mg DAILY PO 09/21/25 10:00 09/22/25 10:13 2 MG Vancomycin HCl 0 ml @ 0 mls/hr PER PHARMACY IV 09/21/25 23:45 Vancomycin HCl 250 ml @ 200 mls/hr Q12H IV 09/22/25 12:00 09/23/25 00:40 200 MLS/HR Examination General: Patient alert and oriented in person, place and time. Patient following commands. HEENT: Normocephalic, atraumatic, moist mucous membranes Respiratory/pulmonary: Clear lungs bilaterally, vesicular murmurs present in almost all lung bender, no associated crackles or wheezes. Cardiovascular: Normal heart sounds S1 and S2 with no associated murmurs Abdomen: Abdomen nondistended, there is no pain to palpation in any of the abdominal quadrants, no palpable masses. Rodriguze in place, Tamie in skin folds Extremities: pain in left thigh. Peripheral Pulses: 3+ Radial (R). 3+ Radial (L). 3+ Dorsalis pedis (R). 3+ Dorsalis pedis(L) Skin: No rashes or pruritus, there is no sacral edema present at this time. Neurological: Intact cranial nerves with no focal neurologic deficits laboratory and microbiology Laboratory Tests 09/22/25 06:28 09/21/25 05:16 Test 09/22/25 06:28 Range/Units Serum Glucose 206 H 74-106 mg/dL Microbiology Date/Time Source Procedure Growth Status 09/21/25 17:55 Nose MRSA Screen - Final Complete 09/21/25 17:55 Urine - Rodriguez Port Urine Culture - Preliminary No growth Resulted 09/20/25 20:01 Blood Blood Culture - Preliminary NO GROWTH AFTER 48 HOURS OF INCUBATION. Resulted Problem List/Assessment/Plan Problem List/Assessment/Plan Intractable leg pain due to Left femur fracture - History of mechanical fall status post fracture left femur acute displaced fracture through the distal femoral metaphysis with posterior angulation. - X-ray left femur: acute displaced fracture through the distal femoral metaphysis with posterior angulation. - Pain management - Fall precaution - Orthopedic consult - cardiac consult stated high-risk for moderate surgeon -patient is to have surgery on Thursday Acute complicated UTI Complicated cystitis - due to indwelling catheter -Urine culture - IV ceftriaxone -IV vancomycin Primary hypertension with possible diastolic/systolic dysfunction -Resume home medication according -monitor blood pressure closely Type 2 diabetes mellitus Hypertensive heart disease Mixed hyperlipidemia -Insulin sliding scale -Monitor glucose -Atorvastatin -Metoprolol Depression Risperidone, trazodone, clonazepam-home meds cannabis use disorder - Patient counseled on cessation of cannabis for 18 minutes Morbid obesity BMI 32.7 -patient is counseled on diet, lifestyle modifications. Hx of CVA with left sided deficits Aspirin Fall precaution Gait instability GI prophylaxis: Pantoprazole DVT prophylaxis: Lovenox Goals of care addressed with the patient for more than 27 minutes: Full code status Case discussed with Dr. Quintanilla. , patient and nurse Plan discussed with: Patient My Orders My Orders Orders - REGAN DENNIS Procedure Category Date Status Time Basic Metabolic Panel LAB 09/23/25 Logged 04:00 Visit Coding STANDARD RES Billing Provider: GREY QUINTANILLA MD Date of Service if different f: Sep 23, 2025 Common Visit Codes: [id number] INP/OBS CARE(HIGH) REGAN DENNIS RESIDENT Sep 23, 2025 08:57 GREY QUINTANILLA MD Sep 23, 2025 23:44
[2025-09-23 10:56] LABS: Hematocrit 37.0 % (36.0-46.0); Hemoglobin 12.5 g/dL (12.2-16.2); Mean Corpuscular Hemoglobin 30.9 pg (28.0-32.0); Mean Corpuscular Volume 91.7 fL (80.0-100.0); Nucleated Red Blood Cells % 0.0 %
[2025-09-23 11:02] LABS: Potassium 4.0 mmol/L (3.5-5.1); Sodium 144 mmol/L (136-145)
[2025-09-23 11:03] LABS: Anion Gap 11 (5-15); Calcium 9.2 mg/dL (8.7-10.4); Carbon Dioxide 23 mmol/L (20-31)
[2025-09-23 11:08] LABS: BUN/Creatinine Ratio 16.0 (10.0-20.0); Blood Urea Nitrogen 8 mg/dL (9-23); Chloride 110 mmol/L (98-107); Glucose 208 mg/dL (74-106)
--- NOTE | 2025-09-23 12:14 | ECG ---
[facility] Test Date: 2025-09-22 Test Time: 12:10:53 Pat Name: DAVE TY Department: Room: 0247 Gender: F [employer] Operator: YOBANI. : 1965 Requested By: REE BRITTON Order Number: [id number] Reading MD: Xiang Shaikh Measurements Intervals [place] Rate: 107 P: 51 MD: 156 QRS: -11 QRSD: 84 T: -16 QT: 354 QTc: 473 Interpretive Statements Sinus tachycardia Inferior infarct, old Electronically Signed On 09-28-2025 8:12:37 PST by Xiang Shaikh Please click the below link to view image of tracing.
[2025-09-23] MEDS: VANCOMYCIN 750MG KIT 100 ML IV SCH (17:51)
--- NOTE | 2025-09-23 23:05 | DVHPN2 ---
Progress Note - Dictate Date Seen: Sep 23, 2025 Medical Necessity Reason Pt with a Central, PICC or Fol: Yes The following are medically ne: Rodriguez Catheter Subjective Patient was seen and evaluated in follow up. Patient is on 2 LPM NC. Patient is complaining of 8/10 right thigh pain. Patient is scheduled for surgery of left femur on Thursday. I have advised to restart Plavix as soon as possible post surgery. GLUC 222. vital signs Vital Sign Date Time Temp Pulse Resp B/P (MAP) Pulse Ox O2 Delivery O2 Flow Rate FiO2 09/23/25 16:53 98.1 114 16 130/79 (96) 98 98.1 09/23/25 08:15 Nasal Cannula* 2 28 Total Intake and Output 09/22/25 09/22/25 09/23/25 15:00 23:00 07:00 Intake Total 50 ml 250 ml 850 ml Output Total 1000 ml 1400 ml Balance 50 ml -750 ml -550 ml medications Current Medications Medications Dose Ordered Sig/Jaime Route Start Time Stop Time Status Last Admin Dose Admin Sodium Chloride 1,000 ml @ 75 mls/hr [id number] IV 09/21/25 01:15 09/23/25 20:04 75 MLS/HR Acetaminophen/ Hydrocodone Bitart 1 tab Q4HP PRN PO 09/21/25 01:15 09/23/25 20:03 1 TAB Enoxaparin Sodium 30 mg DAILY SC 09/21/25 10:00 09/23/25 09:27 30 MG Ceftriaxone Sodium 50 ml @ 100 mls/hr DAILY@09 IV 09/21/25 09:00 09/23/25 09:28 100 MLS/HR Aspirin 81 mg DAILY PO 09/21/25 10:00 09/23/25 09:26 81 MG Pantoprazole Sodium 40 mg DAILY@0600 PO 09/21/25 06:00 09/23/25 06:18 40 MG Clopidogrel Bisulfate 75 mg DAILY PO 09/21/25 10:00 09/23/25 09:26 75 MG Atorvastatin Calcium 80 mg HS PO 09/21/25 22:00 09/22/25 21:30 80 MG Diagnostic Test (Pha) 1 strip ACHS 09/21/25 07:00 09/23/25 17:17 1 STRIP Insulin Human Regular ACHS SC 09/21/25 07:00 09/23/25 17:17 3 UNITS Dextrose 50 ml UD PRN IV 09/21/25 01:15 Metoprolol Succinate 50 mg DAILY PO 09/21/25 10:00 09/23/25 09:25 50 MG Risperidone 2 mg DAILY PO 09/21/25 10:00 09/23/25 09:26 2 MG Vancomycin HCl 0 ml @ 0 mls/hr PER PHARMACY IV 09/21/25 23:45 Vancomycin HCl 100 ml @ 100 mls/hr Q12H IV 09/23/25 18:00 09/23/25 17:51 100 MLS/HR objective GENERAL: Alert and oriented x 3. No acute distress. Morbid obesity. EYES: PERRL, EOMI. Anicteric. HENT: Moist mucous membranes. LUNGS: Clear to auscultation bilaterally. CARDIOVASCULAR: Regular rate and rhythm. ABDOMEN: Soft, nontender and nondistended. EXTREMITIES: No edema. NEUROLOGIC: No focal neurological deficits. SKIN: Warm, dry. laboratory and microbiology Laboratory Tests 09/23/25 10:39 Test 09/23/25 10:39 Range/Units Serum Glucose 208 H 74-106 mg/dL Problem List Preprocedural cardiovascular examination. Recent acute inferior wall CA on 08/18/2025. Coronary artery disease status post PCI of the RCA x 3DES (on DAPT/Statin/Metoprolol). Chronic compensated HFimEF, NYHA class II (previous LVEF 40% on echo 08/18/25). Diabetes mellitus. Hypertension. Dyslipidemia. HX of CVA with left-sided deficits. Bed-bound. Obesity. Assessment/Plan Continued all current supportive medical care. [place] for pain management. Aspirin, Lipitor, Plavix, Metoprolol. IV antibiotics as ordered. DVT prophylactics. Additional plan as per the hospital course. Plan discussed with: Patient NICKY RODRIGUEZ MD Sep 23, 2025 21:15
[2025-09-23] MEDS: HYDROmorphone HCL 2 MG/ML VL/or syr IV ONE (23:12)
[2025-09-24] VITALS (8 sets, daily range): BP systolic 114–153; BP diastolic 62–90; PULSE 101–107; RESP 16–18; TEMP 97.2–98.4; O2SAT 96–100
[2025-09-24 09:05] LABS: Potassium 4.0 mmol/L (3.5-5.1); Sodium 143 mmol/L (136-145)
[2025-09-24 09:06] LABS: Anion Gap 9 (5-15); Carbon Dioxide 23 mmol/L (20-31)
[2025-09-24 09:07] LABS: Calcium 8.9 mg/dL (8.7-10.4)
[2025-09-24 09:11] LABS: BUN/Creatinine Ratio 21.6 (10.0-20.0); Blood Urea Nitrogen 11 mg/dL (9-23)
[2025-09-24 09:12] LABS: Chloride 111 mmol/L (98-107); Glucose 174 mg/dL (74-106)
--- NOTE | 2025-09-24 11:09 | DVHINCON2 ---
Date of service: Sep 22, 2025 Reason for Consultation Left femur fracture History of Present Illness 60 yo F with multiple medical issues sp mechanical fall one week ago with a DISPLACED left distal femur fracture now. Patient is bed to wheelchair bound and does not ambulate due to stroke history. Patient was initially being treated by another orthopedic provider nonoperatively due to a min displaced left distal femur fracture however fracture has shifted and displaced. Patient has pain with motion at leg. No current cp/sob/abd pain. Past Medical History PCI of the RCA x 3 CONCEPCION (on Plavix and aspirin), congestive heart failure, hypertension, dyslipidemia, diabetes mellitus, cerebrovascular accident with left-sided deficits, bed ridden and obesity Family History: Patient reports no known family medical history. Allergies: Coded Allergies: Iodine (Verified Allergy, Unknown, 03/31/19) Home Meds Active Scripts Hydrocodone-Acetaminophen (Hydrocodone Bitartrate/AC 5-325 mg) 1 Tab Tab, 1 TAB PO QID PRN, #40 TAB Prov:ZINA HULL MD 09/17/25 Levofloxacin Hemihydrate (LEVAQUIN 500 MG) 500 Mg Tab, 1 TAB PO DAILY, #10 TAB Prov:ZINA HULL MD 09/17/25 Atorvastatin Calcium (ATORVASTATIN CALCIUM) 80 Mg Tab, 1 TAB PO QPM for 30 Days, #30 TAB 3 Refills Prov:JARAD CHRISTENSEN RESIDENT 08/22/25 Clopidogrel Bisulfate (Plavix) 75 Mg Tab, 1 TAB PO DAILY for 30 Days, #30 TAB 3 Refills Prov:JARAD CHRISTENSEN RESIDENT 08/22/25 Aspirin (ASPIRIN 81) 81 Mg Tab, 81 MG PO DAILY for 30 Days, #30 TAB 3 Refills Prov:JARAD CHRISTENSEN RESIDENT 08/22/25 Metformin Hydrochloride (Metformin Hcl) 500 Mg Tab, 1 TAB PO BID, #60 TAB 1 Refill Prov:ANTELMO GODWIN RESIDENT 07/04/25 Reported Medications Nifedipine (Nifedipine Er) 30 Mg Tab, 1 TAB PO DAILY for 90 Days, #90 09/22/25 Omeprazole (Omeprazole Dr) 20 Mg Cap, 1 CAP PO DAILY for 100 Days, #100 09/22/25 Docusate Sodium (Docusate Sodium) 100 Mg Cap, 1 CAP PO TID for 90 Days, #270 09/22/25 Losartan Potassium (Losartan Potassium) 100 Mg Tab, 1 TAB PO DAILY for 90 Days, #90 09/22/25 Metoprolol Tartrate (Metoprolol Tartrate) 100 Mg Tab, 1 TAB PO BID for 90 Days, #180 09/22/25 Insulin Glargine (Basaglar Kwikpen) 100 Unit/Ml Inj, 90 UNITS SC DAILY for 16 Days, #15 09/22/25 Insulin Aspart (Insulin Aspart Flexpen) 100 Unit/Ml Inj, 10 UNITS SC TID for 50 Days, #15 09/22/25 Clonazepam (Clonazepam) 2 Mg Tab, 1 TAB PO BID, #60 TAB 2 Refills 03/31/19 Risperidone (Risperidone) 1 Mg Tab, 1 TAB PO QPM, #30 TAB 1 Refill 03/31/19 Trazodone Hcl (Trazodone Hcl) 150 Mg Tab, 1 TAB PO HSPRN PRN for FOR INSOMNIA for 100 Days, #100 03/31/19 Bupropion Hcl (Wellbutrin Sr) 150 Mg Tab, 1 TAB PO DAILY, #60 TAB 5 Refills 03/31/19 Current Medications Current Medications Medications (Trade) Dose Ordered Sig/Jaime Route PRN Reason Start Time Stop Time Status Last Admin Vancomycin HCl 100 ml @ 100 mls/hr Q12H IV 09/23/25 18:00 09/24/25 06:14 Review of Systems 10 point ROS is neg except per HPI Vital Signs Vital Signs Date Time Temp Pulse Resp B/P (MAP) Pulse Ox O2 Delivery O2 Flow Rate FiO2 09/24/25 08:44 103 114/62 09/24/25 08:33 98.4 16 100 98.4 09/24/25 08:12 Room Air* 0 21 Labs/Diagnostic Data Labs Test 09/24/25 08:39 09/24/25 05:46 09/23/25 16:04 09/23/25 10:39 Range/Units Sodium Level 143 136-145 mmol/L Potassium Level 4.0 3.5-5.1 mmol/L Chloride Level 111 H 98-107 mmol/L Carbon Dioxide Level 23 20-31 mmol/L Anion Gap 9 5-15 Blood Urea Nitrogen 11 9-23 mg/dL Creatinine 0.51 L 0.550-1.02 mg/dL Glomerular Filtration Rate Calc 107 >90 mL/min BUN/Creatinine Ratio 21.6 H 10.0-20.0 Serum Glucose 174 H 74-106 mg/dL Calcium Level 8.9 8.7-10.4 mg/dL POC Glucose 141 H 70-106 mg/dl Random Vancomycin Level 17.3 H 5-10 ug/mL White Blood Count 6.6 4.4-10.8 10^3/uL Red Blood Count 4.04 4.0-5.20 10^6/uL Hemoglobin 12.5 12.2-16.2 g/dL Hematocrit 37.0 36.0-46.0 % Mean Corpuscular Volume 91.7 80.0-100.0 fL Mean Corpuscular Hemoglobin 30.9 28.0-32.0 pg Mean Corpuscular Hemoglobin Concent 33.7 32.0-36.0 g/dL Red Cell Distribution Width 13.4 11.8-14.3 % Platelet Count 228 140-450 10^3/uL Mean Platelet Volume 9.1 6.9-10.8 fL Neutrophils (%) (Auto) 72.7 37.0-80.0 % Lymphocytes (%) (Auto) 17.5 10.0-50.0 % Monocytes (%) (Auto) 6.1 0.0-12.0 % Eosinophils (%) (Auto) 3.0 0.0-7.0 % Basophils (%) (Auto) 0.7 0.0-2.0 % Neutrophils # (Auto) 4.8 1.6-8.6 10 ^3/uL Lymphocytes # (Auto) 1.2 0.4-5.4 10 ^3/uL Monocytes # (Auto) 0.4 0-1.3 10 ^3/uL Eosinophils # (Auto) 0.2 0-0.8 10 ^3/uL Basophils # (Auto) 0 0-0.2 10 ^3/uL Nucleated Red Blood Cells 0.0 % Vancomycin Level Trough 22.2 H 5-10 ug/mL Test 09/22/25 06:57 09/21/25 05:16 09/20/25 22:28 09/20/25 19:54 Range/Units Lactic Acid Level 1.2 0.4-2.0 mmol/L Vitamin B12 Level 204 L 211-911 pg/mL Vitamin D 25-Hydroxy 36.2 30.0-100 ng/mL Thyroid Stimulating Hormone (TSH) 6.33 H 0.55-4.78 uIU/mL Free Thyroxine (T4) Calculated 1.10 0.89-1.76 ng/dL Total Triiodothyronine (TT3) 1.23 0.60-1.81 ng/mL Hepatitis A Antibody Total Positive H Negative Hepatitis B Surface Antigen Negative Negative Hepatitis B Surface Antibody Negative Negative Hepatitis B Core Total Antibody Negative Negative Hepatitis C Antibody Negative Negative Urine Color Light-orange Yellow Urine Clarity Turbid H Clear Urine pH 5.5 5.0-9.0 Urine Specific [place] 1.027 1.001-1.035 Urine Protein 2+ H Negative Urine Ketones Trace Negative Urine Blood 2+ H Negative /uL Urine Nitrite Negative Negative Urine Bilirubin Negative Negative Urine Urobilinogen Normal Negative mg/dL Urine Leukocyte Esterase 3+ Negative /uL Urine RBC 256 0 - 4 /hpf Urine Microscopic WBC 95 H 0-5 /HPF Urine Squamous Epithelial Cells Few <5 /hpf Urine Bacteria Few H None Seen /hpf Urine Mucus Few None Seen Urine Yeast (Budding) Loaded None Seen /hpf Urine Glucose Normal Normal mg/dL Prothrombin Time 10.2 9.3-11.8 sec Prothrombin Time INR 0.96 0.9-1.15 Activated Partial Thromboplast Time 30.1 24.5-34.5 SEC Magnesium Level 2.0 1.6-2.6 mg/dL Total Bilirubin 0.4 0.2-1.0 mg/dL Aspartate Amino Transferase (AST) 15 13-40 U/L Alanine Aminotransferase (ALT) 14 7-40 U/L Alkaline Phosphatase 102 46-116 U/L Total Protein 6.4 5.7-8.2 g/dL Albumin 3.5 3.2-4.8 g/dL Microbiology Date/Time Source Procedure Growth Status 09/21/25 17:55 Nose MRSA Screen - Final Complete 09/21/25 17:55 Urine - Rodriguez Port Urine Culture - Final Complete 09/20/25 20:01 Blood Blood Culture - Preliminary NO GROWTH AFTER 72 HOURS OF INCUBATION. Resulted Plan/Recommendation 60 yo F with displaced left distal femur fracture Plan discussed with: Patient ELAINA HARDWICK MD Sep 24, 2025 11:08
--- NOTE | 2025-09-24 16:05 | DVHPNRES ---
Progress Note Date Seen: Sep 24, 2025 Resident Creating Document: TAYA HOUSER RESIDENT Medical Necessity Reason Pt with a Central, PICC or Fol: Yes The following are medically ne: Rodriguez Catheter Subjective Review of Systems Patient seen and examined with the bedside Mild tachycardia in the low 100s No other acute complaints Patient has been cleared from Cardiology with a high-risk for orthopedic surgery of left femur fracture, patient knows the risk of stopping the antiplatelet therapy prior to surgery, she wants to talk to her family to decide further plan Objective vital signs Vital Sign Date Time Temp Pulse Resp B/P (MAP) Pulse Ox O2 Delivery O2 Flow Rate FiO2 09/24/25 08:44 103 114/62 09/24/25 08:33 98.4 16 100 98.4 09/24/25 08:12 Room Air* 0 21 Total Intake and Output 09/23/25 09/23/25 09/24/25 15:00 23:00 07:00 Intake Total 50 ml 500 ml 400 ml Output Total 500 ml 350 ml Balance 50 ml 0 ml 50 ml medications Current Medications Medications Dose Ordered Sig/Jaime Route Start Time Stop Time Status Last Admin Dose Admin Sodium Chloride 1,000 ml @ 75 mls/hr [id number] IV 09/21/25 01:15 09/24/25 08:45 75 MLS/HR Acetaminophen/ Hydrocodone Bitart 1 tab Q4HP PRN PO 09/21/25 01:15 09/24/25 08:44 1 TAB Enoxaparin Sodium 30 mg DAILY SC 09/21/25 10:00 09/24/25 08:43 30 MG Ceftriaxone Sodium 50 ml @ 100 mls/hr DAILY@09 IV 09/21/25 09:00 09/24/25 08:43 100 MLS/HR Aspirin 81 mg DAILY PO 09/21/25 10:00 09/24/25 08:45 81 MG Pantoprazole Sodium 40 mg DAILY@0600 PO 09/21/25 06:00 09/24/25 06:13 40 MG Clopidogrel Bisulfate 75 mg DAILY PO 09/21/25 10:00 09/24/25 08:44 75 MG Atorvastatin Calcium 80 mg HS PO 09/21/25 22:00 09/23/25 21:10 80 MG Diagnostic Test (Pha) 1 strip ACHS 09/21/25 07:00 09/24/25 11:58 1 STRIP Insulin Human Regular ACHS SC 09/21/25 07:00 09/24/25 11:57 3 UNITS Dextrose 50 ml UD PRN IV 09/21/25 01:15 Metoprolol Succinate 50 mg DAILY PO 09/21/25 10:00 09/24/25 08:44 50 MG Risperidone 2 mg DAILY PO 09/21/25 10:00 09/24/25 08:45 2 MG Vancomycin HCl 0 ml @ 0 mls/hr PER PHARMACY IV 09/21/25 23:45 Vancomycin HCl 100 ml @ 100 mls/hr Q12H IV 09/23/25 18:00 09/24/25 06:14 100 MLS/HR Examination General: Patient alert and oriented in person, place and time. Patient following commands. HEENT: Normocephalic, atraumatic, moist mucous membranes Respiratory/pulmonary: Clear lungs bilaterally, vesicular murmurs present in almost all lung bender, no associated crackles or wheezes. Cardiovascular: Normal heart sounds S1 and S2 with no associated murmurs Abdomen: Abdomen nondistended, there is no pain to palpation in any of the abdominal quadrants, no palpable masses. Rodriguez in place, Tamie in skin folds Extremities: pain in left thigh. Peripheral Pulses: 3+ Radial (R). 3+ Radial (L). 3+ Dorsalis pedis (R). 3+ Dorsalis pedis(L) Skin: No rashes or pruritus, there is no sacral edema present at this time. Neurological: Intact cranial nerves with no focal neurologic deficits laboratory and microbiology Laboratory Tests 09/24/25 08:39 09/23/25 10:39 Test 09/24/25 08:39 Range/Units Serum Glucose 174 H 74-106 mg/dL Microbiology Date/Time Source Procedure Growth Status 09/21/25 17:55 Nose MRSA Screen - Final Complete 09/21/25 17:55 Urine - Rodriguez Port Urine Culture - Final Complete 09/20/25 20:01 Blood Blood Culture - Preliminary NO GROWTH AFTER 72 HOURS OF INCUBATION. Resulted Problem List/Assessment/Plan Problem List/Assessment/Plan Intractable leg pain due to Left femur fracture - History of mechanical fall status post fracture left femur acute displaced fracture through the distal femoral metaphysis with posterior angulation. - X-ray left femur: acute displaced fracture through the distal femoral metaphysis with posterior angulation. - orthopedics consulted: Recommended surgery, patient cleared from Cardiology with a high-risk given recent history of PCI with 3 CONCEPCION, 70% stenosis of LAD done on 08/18/25 Acute complicated UTI Complicated cystitis - due to indwelling catheter - Urine culture pending - on IV ceftriaxone s/p PCI with 3 CONCEPCION Type 2 diabetes mellitus Hypertensive heart disease Mixed hyperlipidemia -Insulin sliding scale -Monitor glucose -Atorvastatin - on DAPT cannabis use disorder h/o depression - Patient counseled on cessation of cannabis for 18 minutes Morbid obesity BMI 32.7 -patient is counseled on diet, lifestyle modifications. Hx of CVA with left sided deficits Aspirin Fall precaution Gait instability GI prophylaxis: Pantoprazole DVT prophylaxis: Lovenox Goals of care addressed with the patient for more than 27 minutes: Full code status Case discussed with Dr. Quintanilla. , patient and nurse Plan discussed with: Patient, Other (RN) My Orders My Orders Orders - TAYA HOUSER Procedure Category Date Status Time Blood Culture RJ 09/24/25 In Process 08:25 Visit Coding STANDARD RES Billing Provider: GREY QUINTANILLA MD Date of Service if different f: Sep 24, 2025 Common Visit Codes: [id number] INP/OBS CARE(HIGH) TAYA HOUSER RESIDENT Sep 24, 2025 16:05 GREY QUINTANILLA MD Sep 24, 2025 20:28
--- NOTE | 2025-09-24 19:34 | DVHPN2 ---
Progress Note - Dictate Date Seen: Sep 24, 2025 Medical Necessity Reason Pt with a Central, PICC or Fol: Yes The following are medically ne: Rodriguez Catheter Subjective Patient was seen and evaluated in follow up. Patient is complaining of right thigh pain. CL 111. vital signs Vital Sign Date Time Temp Pulse Resp B/P (MAP) Pulse Ox O2 Delivery O2 Flow Rate FiO2 09/24/25 08:44 103 114/62 09/24/25 08:33 98.4 16 100 98.4 09/24/25 08:12 Room Air* 0 21 Total Intake and Output 09/23/25 09/23/25 09/24/25 15:00 23:00 07:00 Intake Total 50 ml 500 ml 400 ml Output Total 500 ml 350 ml Balance 50 ml 0 ml 50 ml medications Current Medications Medications Dose Ordered Sig/Jaime Route Start Time Stop Time Status Last Admin Dose Admin Sodium Chloride 1,000 ml @ 75 mls/hr [id number] IV 09/21/25 01:15 09/24/25 08:45 75 MLS/HR Acetaminophen/ Hydrocodone Bitart 1 tab Q4HP PRN PO 09/21/25 01:15 09/24/25 08:44 1 TAB Enoxaparin Sodium 30 mg DAILY SC 09/21/25 10:00 09/24/25 08:43 30 MG Ceftriaxone Sodium 50 ml @ 100 mls/hr DAILY@09 IV 09/21/25 09:00 09/24/25 08:43 100 MLS/HR Aspirin 81 mg DAILY PO 09/21/25 10:00 09/24/25 08:45 81 MG Pantoprazole Sodium 40 mg DAILY@0600 PO 09/21/25 06:00 09/24/25 06:13 40 MG Clopidogrel Bisulfate 75 mg DAILY PO 09/21/25 10:00 09/24/25 08:44 75 MG Atorvastatin Calcium 80 mg HS PO 09/21/25 22:00 09/23/25 21:10 80 MG Diagnostic Test (Pha) 1 strip ACHS 09/21/25 07:00 09/24/25 11:58 1 STRIP Insulin Human Regular ACHS SC 09/21/25 07:00 09/24/25 11:57 3 UNITS Dextrose 50 ml UD PRN IV 09/21/25 01:15 Metoprolol Succinate 50 mg DAILY PO 09/21/25 10:00 09/24/25 08:44 50 MG Risperidone 2 mg DAILY PO 09/21/25 10:00 09/24/25 08:45 2 MG Vancomycin HCl 0 ml @ 0 mls/hr PER PHARMACY IV 09/21/25 23:45 Vancomycin HCl 100 ml @ 100 mls/hr Q12H IV 09/23/25 18:00 09/24/25 06:14 100 MLS/HR objective GENERAL: Alert and oriented x 3. No acute distress. Morbid obesity. EYES: PERRL, EOMI. Anicteric. HENT: Moist mucous membranes. LUNGS: Clear to auscultation bilaterally. CARDIOVASCULAR: Regular rate and rhythm. ABDOMEN: Soft, nontender and nondistended. EXTREMITIES: No edema. NEUROLOGIC: No focal neurological deficits. SKIN: Warm, dry. laboratory and microbiology Laboratory Tests 09/24/25 08:39 09/23/25 10:39 Test 09/24/25 08:39 Range/Units Serum Glucose 174 H 74-106 mg/dL Problem List Preprocedural cardiovascular examination. Recent acute inferior wall SD on 08/18/2025. Coronary artery disease status post PCI of the RCA x 3DES (on DAPT/Statin/Metoprolol). Chronic compensated HFimEF, NYHA class II (previous LVEF 40% on echo 08/18/25). Diabetes mellitus. Hypertension. Dyslipidemia. HX of CVA with left-sided deficits. Bed-bound. Obesity. Assessment/Plan Continued all current supportive medical care. [place] for pain management. Aspirin, Lipitor, Plavix, Metoprolol. IV antibiotics as ordered. DVT prophylactics. Additional plan as per the hospital course. Plan discussed with: Patient NICKY RODRIGUEZ MD Sep 24, 2025 13:38
[2025-09-24] MEDS: METOPROLOL SUCCINATE XL 50 MG TAB PO SCH (21:17)
[2025-09-25] VITALS (8 sets, daily range): BP systolic 126–168; BP diastolic 70–100; PULSE 103–119; RESP 17–25; TEMP 97.4–98.7; O2SAT 95–98
[2025-09-25 07:12] LABS: Hematocrit 32.3 % (36.0-46.0); Hemoglobin 10.9 g/dL (12.2-16.2); Mean Corpuscular Hemoglobin 30.8 pg (28.0-32.0); Mean Corpuscular Volume 91.0 fL (80.0-100.0); Nucleated Red Blood Cells % 0.0 %
[2025-09-25 07:40] LABS: Potassium 4.1 mmol/L (3.5-5.1); Sodium 144 mmol/L (136-145)
[2025-09-25 07:41] LABS: Anion Gap 12 (5-15); Carbon Dioxide 21 mmol/L (20-31)
[2025-09-25 07:47] LABS: BUN/Creatinine Ratio 22.4 (10.0-20.0); Blood Urea Nitrogen 13 mg/dL (9-23)
[2025-09-25 07:51] LABS: Calcium 8.7 mg/dL (8.7-10.4); Chloride 111 mmol/L (98-107); Glucose 153 mg/dL (74-106)
[2025-09-25] MEDS: VANCOMYCIN 750MG KIT 100 ML IV SCH (08:51)
[2025-09-25] MEDS: BUPIVACAINE 0.25% INJ 50ML VIAL ONE (09:52)
[2025-09-25] MEDS ORDERED: LIDOCAINE W/ EPINEPHRINE 1% 20ML VIAL ONE (09:54)
[2025-09-25] MEDS ORDERED: LIDOCAINE 1% INJ PF 5ML AMP ONE (09:55)
[2025-09-25] MEDS ORDERED: MIDAZOLAM HCL 2MG/2ML 2ml VIAL (1mg/ml) ONE (10:31)
[2025-09-25] MEDS ORDERED: MEPERIDINE HCL (25 MG/ML) 1ML VIAL ONE (10:31)
[2025-09-25] MEDS ORDERED: fentaNYL CITRATE 100 MCG/2 ML VL ONE ×2 (10:31→12:10)
[2025-09-25] MEDS ORDERED: PROPOFOL 10 MG/ML 20 ML IV ONE (10:33)
[2025-09-25] MEDS ORDERED: MIDAZOLAM HCL 2MG/2ML 2ml VIAL (1mg/ml) IV PRN (11:15)
[2025-09-25] MEDS ORDERED: ONDANSETRON HCL 4 MG/2 ML VIAL IV PRN (11:15)
[2025-09-25] MEDS ORDERED: MORPHINE SULFATE 4 MG/ML SYR/VIAL IV PRN (11:15)
[2025-09-25] MEDS ORDERED: hydrALAZINE HCL 20 MG/ML VL IV PRN (11:15)
[2025-09-25] MEDS: ROPIVACAINE 0.5% (5MG/ML) 20ML AMPULE IJ ONE (11:31)
[2025-09-25] MEDS ORDERED: KETAMINE 50mg/ML 1ml syringe ONE (11:48)
[2025-09-25] MEDS ORDERED: ESMOLOL HCL 10 ML IV ONE (11:56)
--- NOTE | 2025-09-25 12:18 | DVHOP2 ---
Discharge Orders Discharge Orders DISCHARGE WHEN CRITERIA MET DISCHARGE WHEN CRITERIA MET. Operative Rep- Outpatient Operative Report PRE-OP DIAGNOSIS: Left distal femoral fracture intra-articular 3-week-old POST-OP DIAGNOSIS: Same [place] protocol followed: Yes ESTIMATED BLOOD LOSS: 50 cc PROCEDURE: Left retrograde intramedullary femoral nail for intra-articular distal femoral fracture Stress radiographs of the left knee fluoroscopic The stress radiographs of the left femur fluoroscopic Stress radiographs of the right hip fluoroscopic SURGEON/LOSS CONTROL CONSULTANT: Per SANTIAGO ANESTHESIA: General ANESTHESIOLOGIST: INFORMED CONSENT: Informed Consent: Discussed all inherent risks, complications, and alternatives treatments with the patient. Patient has agreed to proceed with the procedure. I have reviewed all pre-operative assessments including Labs, EKGs, and radiographic images that has been performed. The patient is a very complex tissue of the patient had a distal femoral fract ure that was initially treated nonoperatively but based on the intra-articular fracture of the left distal femur was decided for stabilization would be stabilizing the fracture based on these parameters the patient was educated on the risks and benefits of surgical and nonsurgical treatment the patient is a very sick lady with a medical high comorbidity based on these parameters it was done under local anesthetic and MAC based on these parameters were very careful we did a time-out based on the patient the patient was prepped and draped in the standard fashion local anesthetic was injected in the insertion site the guidewire was placed on an AP and lateral x-ray under balloon was then side and an AP and lateral x-ray checked opening Reamer was then checked the ball-tipped guidewire was measured to be 375 mm we put a 345 mm nail the 10 x 345 ortho helix retrograde nail of the retrograde nail was chosen based on the fact that a short nail would be rotating based on the fracture of the patient is bed bound we debrided about a stress riser of the top of the nail causing a periprosthetic fracture at a future date The patient was seen in the and does manner the nail was then reduced with the fracture being reduced with a large [id number] after the opening Reamer was then placed once it was then done the nail was then placed for distal interlocks were then placed through 3 oblique and 2 lateral to medial screws once I was then done of the 2 8th 2p screws were then placed locked proximally for rotational stability of the nail and protecting of the femur throughout the area once it was then done stress radiographs of the left knee show of the fracture fixation to be appropriate stress radiographs of the left femur show of the fracture reduction to length and rotation left stress radiographs of the left hip does not show any fracture reduction the wounds were then irrigated copiously with saline and then closed with 0 Vicryl 2-0 Vicryl and dinesh. The patient will be okay for [id number] transfers the patient is toe-touch weight- bearing for 6 weeks' time we will get radiographic imaging every 6 weeks weeks to ensure of the fracture was healing in the appropriate manner PER RUDOLPH MD Sep 25, 2025 12:18
--- NOTE | 2025-09-25 13:43 | MEDREC ---
[facility] ASP Intervention Section I [facility] ASP Intervention: Review courses of therapy (Patient currently being treated with ceftriaxone and vancomycin for complicated cystitis. Please consider discontinuing vancomycin as ceftriaxone is appropriate coverage for UTI.) CRISTHIAN STANLEY [facility] RESIDENT Sep 25, 2025 13:43
[2025-09-25] MEDS ORDERED: HYDROmorphone HCL 2 MG/ML VL/or syr IV STA (14:09)
[2025-09-25] MEDS: HYDROmorphone HCL 2 MG/ML VL/or syr IV PRN (14:25)
--- NOTE | 2025-09-25 17:11 | DVHPNRES ---
Progress Note Date Seen: Sep 25, 2025 Resident Creating Document: HUONG ERWIN RESIDENT Medical Necessity Reason Pt with a Central, PICC or Fol: Yes The following are medically ne: Rodriguez Catheter Subjective Review of Systems This is a 60-year-old female with past medical history of CAD with 3 stent placed in 09/07/2025, hyperlipidemia, CVA in 2021, anxiety disorder, chronic pelvic pain, type 2 diabetes mellitus, depression, and recent left femoral fracture brought by EMS to the hospital due to burning urine for 3 days. Patient states she began have burning pelvic and lower back pain, non-radiating, 6/10 intensity, without relieving or aggravating factors. Additonally referred left femur pain which is 8/10 intensity, localized, no radiation, aggravated on movement and no relieving factor. She had recently been seen at this institution for said fracture secondary to mechanical fall at home, where due to high cardiac risk, conservative management was considered. On evaluation in the ED,He was afebrile, tachycardic, tachypneic, hypertensive, saturating adequately on room air. labs were significant for hyperglycemia and high borderline lactic acid, UA is significant for UTI. Chest x-ray shows left lower lung zone linear atelectasis. Left femoral x-ray shows acute displaced fracture through the distal femoral metaphysis with posterior angulation and associated soft tissue edema. Pelvic x-ray shows no acute osseous abnormalities. she was started on IV antibiotics and pain medication. She was admitted for further She was workup and monitoring. Past surgical history: Denies Family history: Reviewed, noncontributory Personal history: Denies smoking, drinking, smokes marijuana daily Lives with: family Home meds: Aspirin, atorvastatin, bupropion, clonazepam, clopidogrel, Broxton, metformin, metoprolol, risperidone, trazodone. Insulin, losartan, nifedipine, glyburide. 09/25/2025: Patient seen at bedside. She is alert, AOx4, afebrile, tachycardic, with BP within normal range. Labs were within normal range. She was taken to surgery today for fixation of femoral fracture. PT evaluation has been placed for PT needs. Review of Systems: Constitutional: Denies weight loss, fever and chills. HEENT: Denies changes in vision and hearing. Respiratory: Denies shortness of breath and cough Cardiovascular: Denies chest discomfort or palpitations GI: Denies abdominal distention, abdominal pain, diarrhea : Denies dysuria and urinary frequency. Musculoskeletal: Refers left femoral pain Skin: Denies rash and pruritus. Neurological: denies dizziness headache vision or hearing problems Objective vital signs Vital Sign Date Time Temp Pulse Resp B/P (MAP) Pulse Ox O2 Delivery O2 Flow Rate FiO2 09/25/25 14:45 115 14 158/92 (114) 98 09/25/25 12:51 97.6 97.6 09/25/25 12:51 Mask 5.0 98 Total Intake and Output 09/24/25 09/24/25 09/25/25 15:00 23:00 07:00 Intake Total 200 ml 350 ml Output Total 100 ml 400 ml Balance 100 ml -50 ml medications Current Medications Medications Dose Ordered Sig/Jaime Route Start Time Stop Time Status Last Admin Dose Admin Sodium Chloride 1,000 ml @ 75 mls/hr [id number] IV 09/21/25 01:15 09/24/25 21:20 75 MLS/HR Acetaminophen/ Hydrocodone Bitart 1 tab Q4HP PRN PO 09/21/25 01:15 09/25/25 08:52 1 TAB Enoxaparin Sodium 30 mg DAILY SC 09/21/25 10:00 09/24/25 08:43 30 MG Ceftriaxone Sodium 50 ml @ 100 mls/hr DAILY@09 IV 09/21/25 09:00 09/25/25 08:46 100 MLS/HR Aspirin 81 mg DAILY PO 09/21/25 10:00 09/24/25 08:45 81 MG Pantoprazole Sodium 40 mg DAILY@0600 PO 09/21/25 06:00 09/24/25 06:13 40 MG Clopidogrel Bisulfate 75 mg DAILY PO 09/21/25 10:00 09/24/25 08:44 75 MG Atorvastatin Calcium 80 mg HS PO 09/21/25 22:00 09/24/25 21:16 80 MG Diagnostic Test (Pha) 1 strip ACHS 09/21/25 07:00 09/25/25 06:05 1 STRIP Insulin Human Regular ACHS SC 09/21/25 07:00 09/25/25 06:04 3 UNITS Dextrose 50 ml UD PRN IV 09/21/25 01:15 Risperidone 2 mg DAILY PO 09/21/25 10:00 09/25/25 08:51 2 MG Vancomycin HCl 0 ml @ 0 mls/hr PER PHARMACY IV 09/21/25 23:45 Metoprolol Succinate 50 mg BID PO 09/24/25 22:00 09/25/25 08:52 50 MG Vancomycin HCl 250 ml @ 200 mls/hr Q12H IV 09/26/25 08:00 Examination General: Patient alert and oriented in person, place and time. Patient following commands. HEENT: Normocephalic, atraumatic, moist mucous membranes Respiratory/pulmonary: Clear lungs bilaterally, vesicular murmurs present in almost all lung bender, no associated crackles or wheezes. Cardiovascular: Normal heart sounds S1 and S2 with no associated murmurs Abdomen: Abdomen nondistended, there is no pain to palpation in any of the abdominal quadrants, no palpable masses. Rodriguez in place, Tamie in skin folds Extremities: pain in left thigh. Peripheral Pulses: 3+ Radial (R). 3+ Radial (L). 3+ Dorsalis pedis (R). 3+ Dorsalis pedis(L) Skin: No rashes or pruritus, there is no sacral edema present at this time. Neurological: Intact cranial nerves with no focal neurologic deficits laboratory and microbiology Laboratory Tests 09/25/25 05:10 Test 09/25/25 05:10 Range/Units Serum Glucose 153 H 74-106 mg/dL Microbiology Date/Time Source Procedure Growth Status 09/24/25 10:12 Blood Blood Culture - Preliminary NO GROWTH AFTER 24 HOURS OF INCUBATION. Resulted 09/21/25 17:55 Nose MRSA Screen - Final Complete 09/21/25 17:55 Urine - Rodriguez Port Urine Culture - Final Complete Problem List/Assessment/Plan Problem List/Assessment/Plan Assessment and plan: Intractable leg pain due to Left femur fracture - History of mechanical fall status post fracture left femur acute displaced fracture through the distal femoral metaphysis with posterior angulation. - X-ray left femur: acute displaced fracture through the distal femoral metaphysis with posterior angulation. - S/p Femoral fracture fixation 09/25/2025 - Broxton 5/32 5 mg PO q4 hours DC - PT evaluation tomorrow Acute complicated UTI Complicated cystitis - Associated to indwelling catheter - Urine culture: No growth - Ceftriaxone 1g IV (09/21-) - Vancomycin IV per pharmacy protocol (09/21-09/25) CAD s/p PCI with 3 CONCEPCION Mixed hyperlipidemia Hypertensive heart disease - Echocardiogram 09/14/2025: Technically good study. Sinus rhythm. Concentric LVH. Valves are normal. EF of 60% with normal RV function. Mild TR.No pericardial effusion masses or vegetations. - Atorvastatin 80 mg PO HS - Aspirin 81 mg PO daily - Plavix 75 mg PO daily - Metoprolol succinate 50 mg PO BID Type 2 diabetes mellitus with hyperglycemia, HbA1c 6.5 - SSI - Accu-chek Mixed hyperlipidemia -Atorvastatin 80 mg PO HS Cannabis use disorder - I have counseled the patient on the importance of complete marijuana cessation for over 15 minutes H/o depression and anxiety - Risperidone 2 mg PO daily Morbid obesity BMI 32.7 -Patient is counseled on diet, lifestyle modifications. Hx of CVA with left sided deficits GI prophylaxis: Pantoprazole 40 mg IV daily DVT prophylaxis: Lovenox 30 mg IV daily Goals of care discussed with the patient for over 34 minutes. FULL CODE. Case discussed with Dr. Thorne Plan discussed with: Patient, Other (Nurse ) Visit Coding STANDARD RES Billing Provider: ALEKSANDER THORNE MD Date of Service if different f: Sep 25, 2025 Common Visit Codes: [id number]-[id number] INP/OBS CARE(MOD) HUONG ERWIN RESIDENT Sep 25, 2025 17:11
--- NOTE | 2025-09-25 20:40 | DVH ---
CLINICAL INDICATION: ORIF LEFT FEMUR TECHNIQUE: 15 radiographic views of the 15 intraoperative images of an open reduction internal fixation of a distal femoral fracture. This also included dose summary sheet. were obtained. COMPARISON: XY L FEMUR XRAY on DOS: 09/20/25 FINDINGS/IMPRESSION: Intramedullary siri is in place with internal fixation screws. Fluoro time 175.7 seconds Cumulative dose: 10.74 mGy
--- NOTE | 2025-09-25 20:42 | DVH ---
C-ARM FLUOROSCOPY: PROCEDURE: Dose summary sheet ORIF left femoral fracture FLUOROSCOPY TIME: 175.7 sec Air Kerma: 10.74 mgy FINDINGS: Spot intraoperative C arm radiographs demonstrating ORIF left femoral fracture. IMPRESSION: 1. Please refer to surgical report for detailed findings.
[2025-09-26 01:00] VITALS: BP 149/93; PULSE 116; RESP 20; TEMP 97.6; O2SAT 94
--- NOTE | 2025-09-26 01:08 | DVHPN2 ---
Progress Note - Dictate Date Seen: Sep 25, 2025 Medical Necessity Reason Pt with a Central, PICC or Fol: Yes The following are medically ne: Rodriguez Catheter Subjective Patient was seen and evaluated in follow up. No overnight events. Patient is on 5 LPM by oxygen mask. Patient c/o SOB. CBC and chemistry are unremarkable. Telemetry reviewed. vital signs Vital Sign Date Time Temp Pulse Resp B/P (MAP) Pulse Ox O2 Delivery O2 Flow Rate FiO2 09/25/25 23:55 119 135/93 09/25/25 21:00 97.7 19 95 97.7 09/25/25 12:51 Mask 5.0 98 Total Intake and Output 09/25/25 09/25/25 09/26/25 15:00 23:00 07:00 Intake Total 100 ml 550 ml Output Total 450 ml Balance 100 ml 100 ml medications Current Medications Medications Dose Ordered Sig/Jaime Route Start Time Stop Time Status Last Admin Dose Admin Sodium Chloride 1,000 ml @ 75 mls/hr [id number] IV 09/21/25 01:15 09/24/25 21:20 75 MLS/HR Acetaminophen/ Hydrocodone Bitart 1 tab Q4HP PRN PO 09/21/25 01:15 09/25/25 23:57 1 TAB Enoxaparin Sodium 30 mg DAILY SC 09/21/25 10:00 09/24/25 08:43 30 MG Ceftriaxone Sodium 50 ml @ 100 mls/hr DAILY@09 IV 09/21/25 09:00 09/25/25 08:46 100 MLS/HR Aspirin 81 mg DAILY PO 09/21/25 10:00 09/24/25 08:45 81 MG Pantoprazole Sodium 40 mg DAILY@0600 PO 09/21/25 06:00 09/24/25 06:13 40 MG Clopidogrel Bisulfate 75 mg DAILY PO 09/21/25 10:00 09/24/25 08:44 75 MG Atorvastatin Calcium 80 mg HS PO 09/21/25 22:00 09/25/25 23:54 80 MG Diagnostic Test (Pha) 1 strip ACHS 09/21/25 07:00 09/25/25 22:00 1 STRIP Insulin Human Regular ACHS SC 09/21/25 07:00 09/25/25 22:00 6 UNITS Dextrose 50 ml UD PRN IV 12/11/25 01:15 Risperidone 2 mg DAILY PO 09/21/25 10:00 09/25/25 08:51 2 MG Metoprolol Succinate 50 mg BID PO 09/24/25 22:00 09/25/25 23:55 50 MG objective GENERAL: Alert and oriented x 3. No acute distress. Morbid obesity. EYES: PERRL, EOMI. Anicteric. HENT: Moist mucous membranes. LUNGS: Clear to auscultation bilaterally. CARDIOVASCULAR: Regular rate and rhythm. ABDOMEN: Soft, nontender and nondistended. EXTREMITIES: No edema. NEUROLOGIC: No focal neurological deficits. SKIN: Warm, dry. laboratory and microbiology Laboratory Tests 09/25/25 05:10 Test 09/25/25 05:10 Range/Units Serum Glucose 153 H 74-106 mg/dL Problem List Preprocedural cardiovascular examination. Recent acute inferior wall TN on 08/18/2025. Coronary artery disease status post PCI of the RCA x 3DES (on DAPT/Statin/Metoprolol). Chronic compensated HFimEF, NYHA class II (previous LVEF 40% on echo 08/18/25). Diabetes mellitus. Hypertension. Dyslipidemia. HX of CVA with left-sided deficits. Bed-bound. Obesity. Assessment/Plan Continued all current supportive medical care. [place] for pain management. Aspirin, Lipitor, Plavix, Metoprolol. IV antibiotics as ordered. DVT prophylactics. Additional plan as per the hospital course. Plan discussed with: Patient NICKY RODRIGUEZ MD Sep 26, 2025 01:08
[2025-09-26] MEDS: MORPHINE SULFATE 4 MG/ML SYR/VIAL IV ONE (03:24)
[2025-09-26 05:00] VITALS: BP 131/77; PULSE 112; RESP 17; TEMP 97.7; O2SAT 93
[2025-09-26 06:34] LABS: Hematocrit 31.5 % (36.0-46.0); Hemoglobin 10.7 g/dL (12.2-16.2); Mean Corpuscular Hemoglobin 30.3 pg (28.0-32.0); Mean Corpuscular Volume 89.5 fL (80.0-100.0); Nucleated Red Blood Cells % 0.1 %
--- NOTE | 2025-09-26 07:53 | DVHPN2 ---
Progress Note Date Seen: Sep 26, 2025 Medical Necessity Reason Pt with a Central, PICC or Fol: Yes The following are medically ne: Rodriguez Catheter Subjective Patient reports: Feels worse Objective vital signs Vital Sign Date Time Temp Pulse Resp B/P (MAP) Pulse Ox O2 Delivery O2 Flow Rate FiO2 09/26/25 05:00 97.7 112 17 131/77 (95) 93 97.7 09/25/25 20:00 Room Air* 0 21 Total Intake and Output 09/25/25 09/25/25 09/26/25 15:00 23:00 07:00 Intake Total 100 ml 550 ml 300 ml Output Total 450 ml 425 ml Balance 100 ml 100 ml -125 ml medications Current Medications Medications Dose Ordered Sig/Jaime Route Start Time Stop Time Status Last Admin Dose Admin Sodium Chloride 1,000 ml @ 75 mls/hr [id number] IV 09/21/25 01:15 09/24/25 21:20 75 MLS/HR Acetaminophen/ Hydrocodone Bitart 1 tab Q4HP PRN PO 09/21/25 01:15 09/25/25 23:57 1 TAB Enoxaparin Sodium 30 mg DAILY SC 09/21/25 10:00 09/24/25 08:43 30 MG Ceftriaxone Sodium 50 ml @ 100 mls/hr DAILY@09 IV 09/21/25 09:00 09/25/25 08:46 100 MLS/HR Aspirin 81 mg DAILY PO 09/21/25 10:00 09/24/25 08:45 81 MG Pantoprazole Sodium 40 mg DAILY@0600 PO 09/21/25 06:00 09/26/25 07:05 40 MG Clopidogrel Bisulfate 75 mg DAILY PO 09/21/25 10:00 09/24/25 08:44 75 MG Atorvastatin Calcium 80 mg HS PO 09/21/25 22:00 09/25/25 23:54 80 MG Diagnostic Test (Pha) 1 strip ACHS 09/21/25 07:00 09/26/25 07:05 1 STRIP Insulin Human Regular ACHS SC 09/21/25 07:00 09/26/25 07:11 4 UNITS Dextrose 50 ml UD PRN IV 09/21/25 01:15 Risperidone 2 mg DAILY PO 09/21/25 10:00 09/25/25 08:51 2 MG Metoprolol Succinate 50 mg BID PO 09/24/25 22:00 09/25/25 23:55 50 MG Examination: GENERAL:Normal, MSK:Abnormal laboratory and microbiology Laboratory Tests 09/26/25 05:39 09/25/25 05:10 Test 09/25/25 05:10 Range/Units Serum Glucose 153 H 74-106 mg/dL Microbiology Date/Time Source Procedure Growth Status 09/24/25 10:12 Blood Blood Culture - Preliminary NO GROWTH AFTER 24 HOURS OF INCUBATION. Resulted 09/21/25 17:55 Nose MRSA Screen - Final Complete 09/21/25 17:55 Urine - Rodriguez Port Urine Culture - Final Complete Problem List/Assessment/Plan Problem List/Assessment/Plan 60 year old female who is s/p left distal femur ORIF POD 1 1. Toe touch weight bearing only for 6 weeks 2. pain control 3. DVT ppx 4. PT for bed to chair assist 5. patient to follow up at [facility] ortho clinic in 2 weeks 6. dressings to remain clean, dry and intact until first postop visit 7. clear for discharge from orthopedic standpoint Plan discussed with: Patient Date of Service: Sep 26, 2025 Billing Provider: ELAINA HARDWICK MD Common Visit Codes: NOT BILLABLE KRYSTIN FITCH NP Sep 26, 2025 07:53
[2025-09-26 09:00] VITALS: BP 146/80; PULSE 108; RESP 16; TEMP 99; O2SAT 94
--- NOTE | 2025-09-26 12:58 | CONS ---
Pharmacy Clinical Information: From Heart Failure Fallout Report on CQM Application, Sheri Tovar is a 60 year old female with CAD with 3 stent, HLD, anxiety disorder, chronic pelvic pain, left femur fracture, dm 2, HTN, depression. Previous LVEF 40% on echo 08/18/25, now chronic compensated HFimEF, NYHA class II, meaning patient is adherence with GDMT therapy Her home medications for CHF include losartan, metoprolol tartrate. Simvastatin for HLD His inpatient medications for CHF include metoprolol succinate. Atorvastatin for HLD Continue atorvastatin 80 mg for secondary prevention and maintain metoprolol succinate upon discharge, as its mortality benefit was demonstrated in HFrEF. Despite improved EF, guidelines recommend continuing full GDMT indefinitely to prevent relapse. Consider initiating an SGLT2 inhibitor and an MRA per GDMT, with appropriate monitoring of renal function and electrolytes. Resume losartan if clinically appropriate, as ARB therapy remains a core component of GDMT when ARNi is not feasible [facility] Sep 26, 2025 12:58
--- NOTE | 2025-09-26 13:41 | DVHPNRES ---
Progress Note Date Seen: Sep 26, 2025 Resident Creating Document: HUONG ERWIN RESIDENT Medical Necessity Reason Pt with a Central, PICC or Fol: Yes The following are medically ne: Rodriguez Catheter Subjective Review of Systems This is a 60-year-old female with past medical history of CAD with 3 stent placed in 09/07/2025, hyperlipidemia, CVA in 2021, anxiety disorder, chronic pelvic pain, type 2 diabetes mellitus, depression, and recent left femoral fracture brought by EMS to the hospital due to burning urine for 3 days. Patient states she began have burning pelvic and lower back pain, non-radiating, 6/10 intensity, without relieving or aggravating factors. Additonally referred left femur pain which is 8/10 intensity, localized, no radiation, aggravated on movement and no relieving factor. She had recently been seen at this institution for said fracture secondary to mechanical fall at home, where due to high cardiac risk, conservative management was considered. On evaluation in the ED,He was afebrile, tachycardic, tachypneic, hypertensive, saturating adequately on room air. labs were significant for hyperglycemia and high borderline lactic acid, UA is significant for UTI. Chest x-ray shows left lower lung zone linear atelectasis. Left femoral x-ray shows acute displaced fracture through the distal femoral metaphysis with posterior angulation and associated soft tissue edema. Pelvic x-ray shows no acute osseous abnormalities. she was started on IV antibiotics and pain medication. She was admitted for further She was admitted workup and monitoring. The patient was reevaluated by cardiology due to worsened femoral fracture, and she was subsequently cleared for procedure. She was taken for ORIF on 09/25/2025. Past surgical history: Denies Family history: Reviewed, noncontributory Personal history: Denies smoking, drinking, smokes marijuana daily Lives with: family Home meds: Aspirin, atorvastatin, bupropion, clonazepam, clopidogrel, [place], metformin, metoprolol, risperidone, trazodone. Insulin, losartan, nifedipine, glyburide. 09/25/2025: Patient seen at bedside. She is alert, AOx4, afebrile, tachycardic, with BP within normal range. Labs are stable. She has been cleared by orthopedics. Patient was evaluated today by PT, who recommend rehab due to max assist status. Review of Systems: Constitutional: Denies weight loss, fever and chills. HEENT: Denies changes in vision and hearing. Respiratory: Denies shortness of breath and cough Cardiovascular: Denies chest discomfort or palpitations GI: Denies abdominal distention, abdominal pain, diarrhea : Denies dysuria and urinary frequency. Musculoskeletal: Refers left femoral pain Skin: Denies rash and pruritus. Neurological: denies dizziness headache vision or hearing problems Objective vital signs Vital Sign Date Time Temp Pulse Resp B/P (MAP) Pulse Ox O2 Delivery O2 Flow Rate FiO2 09/26/25 09:06 108 146/80 09/26/25 09:00 99.0 16 94 99.0 09/25/25 20:00 Room Air* 0 21 Total Intake and Output 09/25/25 09/25/25 09/26/25 15:00 23:00 07:00 Intake Total 100 ml 550 ml 300 ml Output Total 450 ml 425 ml Balance 100 ml 100 ml -125 ml medications Current Medications Medications Dose Ordered Sig/Jaime Route Start Time Stop Time Status Last Admin Dose Admin Sodium Chloride 1,000 ml @ 75 mls/hr [id number] IV 09/21/25 01:15 09/26/25 09:22 75 MLS/HR Acetaminophen/ Hydrocodone Bitart 1 tab Q4HP PRN PO 09/21/25 01:15 09/26/25 09:28 1 TAB Enoxaparin Sodium 30 mg DAILY SC 09/21/25 10:00 09/26/25 09:00 30 MG Ceftriaxone Sodium 50 ml @ 100 mls/hr DAILY@09 IV 09/21/25 09:00 09/26/25 09:00 100 MLS/HR Aspirin 81 mg DAILY PO 09/21/25 10:00 09/26/25 09:01 81 MG Pantoprazole Sodium 40 mg DAILY@0600 PO 09/21/25 06:00 09/26/25 07:05 40 MG Clopidogrel Bisulfate 75 mg DAILY PO 09/21/25 10:00 09/26/25 09:01 75 MG Atorvastatin Calcium 80 mg HS PO 09/21/25 22:00 09/25/25 23:54 80 MG Diagnostic Test (Pha) 1 strip ACHS 09/21/25 07:00 09/26/25 07:05 1 STRIP Insulin Human Regular ACHS SC 09/21/25 07:00 09/26/25 12:11 4 UNITS Dextrose 50 ml UD PRN IV 09/21/25 01:15 Risperidone 2 mg DAILY PO 09/21/25 10:00 09/26/25 09:00 2 MG Metoprolol Succinate 50 mg BID PO 09/24/25 22:00 09/26/25 09:06 50 MG Examination General: Patient alert and oriented in person, place and time. Patient following commands. HEENT: Normocephalic, atraumatic, moist mucous membranes Respiratory/pulmonary: Clear lungs bilaterally, vesicular murmurs present in almost all lung bender, no associated crackles or wheezes. Cardiovascular: Normal heart sounds S1 and S2 with no associated murmurs Abdomen: Obese, Abdomen nondistended, there is no pain to palpation in any of the abdominal quadrants, no palpable masses. Rodriguez in place, Tamie in skin folds Extremities: pain in left thigh, left leg is edematous post op, there is a bandage covering the left thigh Peripheral Pulses: 3+ Radial (R). 3+ Radial (L). 3+ Dorsalis pedis (R). 3+ Dorsalis pedis(L) Skin: No rashes or pruritus, there is no sacral edema present at this time. Neurological: Intact cranial nerves with no focal neurologic deficits laboratory and microbiology Laboratory Tests 09/26/25 05:39 09/25/25 05:10 Test 09/25/25 05:10 Range/Units Serum Glucose 153 H 74-106 mg/dL Microbiology Date/Time Source Procedure Growth Status 09/24/25 10:12 Blood Blood Culture - Preliminary NO GROWTH AFTER 48 HOURS OF INCUBATION. Resulted 09/21/25 17:55 Nose MRSA Screen - Final Complete 09/21/25 17:55 Urine - [place] Urine Culture - Final Complete Problem List/Assessment/Plan Problem List/Assessment/Plan Assessment and plan: Intractable leg pain due to Left femur fracture - History of mechanical fall status post fracture left femur acute displaced fracture through the distal femoral metaphysis with posterior angulation. - X-ray left femur: acute displaced fracture through the distal femoral metaphysis with posterior angulation. - S/p Femoral fracture fixation 09/25/2025 - [place] 5/32 5 mg PO q4 hours WA - PT recommends rehab due to max assist status - Ortho: She is clear from an ortho standpoint, patient to follow up at [facility] ortho clinic in 2 weeks Acute complicated UTI Complicated cystitis - Associated to indwelling catheter - Urine culture: No growth - Ceftriaxone 1g IV (09/21-) - Vancomycin IV per pharmacy protocol (09/21-09/25) CAD s/p PCI with 3 CONCEPCION Mixed hyperlipidemia Hypertensive heart disease - Echocardiogram 09/14/2025: Technically good study. Sinus rhythm. Concentric LVH. Valves are normal. EF of 60% with normal RV function. Mild TR.No pericardial effusion masses or vegetations. - Atorvastatin 80 mg PO HS - Aspirin 81 mg PO daily - Plavix 75 mg PO daily - Metoprolol succinate 50 mg PO BID Type 2 diabetes mellitus with hyperglycemia, HbA1c 6.5 - SSI - Accu-chek Mixed hyperlipidemia -Atorvastatin 80 mg PO HS Cannabis use disorder - I have counseled the patient on the importance of complete marijuana cessation for over 15 minutes H/o depression and anxiety - Risperidone 2 mg PO daily Functional quadriplegia - Patient is max assist Morbid obesity BMI 32.7 -Patient is counseled on diet, lifestyle modifications. Hx of CVA with left sided deficits Nutrition: Cardiac GI prophylaxis: Pantoprazole 40 mg IV daily DVT prophylaxis: Lovenox 30 mg IV daily Goals of care discussed with the patient for over 31 minutes. FULL CODE. Case discussed with Dr. Thorne Plan discussed with: Patient, Other (Nurse ) Visit Coding STANDARD RES Billing Provider: ALEKSANDER THORNE MD Date of Service if different f: Sep 26, 2025 Common Visit Codes: 52114-[id number] INP/OBS CARE(MOD) HUONG ERWIN RESIDENT Sep 26, 2025 13:41 ALEKSANDER THORNE MD Sep 27, 2025 15:18
[2025-09-26] MEDS ORDERED: HYDR-4902 PO (16:39)
[2025-09-26 16:53] VITALS: BP 97/59; PULSE 107; RESP 16; TEMP 98.3; O2SAT 95
[2025-09-26 20:00] VITALS: PULSE 106; RESP 18; O2SAT 98
[2025-09-26 21:00] VITALS: BP 117/65; PULSE 106; RESP 18; TEMP 97.8; O2SAT 98
[2025-09-26] MEDS: KETOROLAC TROMETH 30 MG/ML 1ML VIAL IV SCH (21:15)
--- NOTE | 2025-09-26 23:28 | DVHPN2 ---
Progress Note - Dictate Date Seen: Sep 26, 2025 Medical Necessity Reason Pt with a Central, PICC or Fol: Yes The following are medically ne: Rodriguez Catheter Subjective Patient was seen and evaluated in follow up. Patient complains of left hip pain. She is now on room air. GLUC 212. Telemetry reviewed. vital signs Vital Sign Date Time Temp Pulse Resp B/P (MAP) Pulse Ox O2 Delivery O2 Flow Rate FiO2 09/26/25 09:06 108 146/80 09/26/25 09:00 99.0 16 94 99.0 09/25/25 20:00 Room Air* 0 21 Total Intake and Output 09/25/25 09/25/25 09/26/25 14:59 22:59 06:59 Intake Total 100 ml 550 ml 300 ml Output Total 450 ml 425 ml Balance 100 ml 100 ml -125 ml medications Current Medications Medications Dose Ordered Sig/Jaime Route Start Time Stop Time Status Last Admin Dose Admin Sodium Chloride 1,000 ml @ 75 mls/hr [id number] IV 09/21/25 01:15 09/26/25 09:22 75 MLS/HR Acetaminophen/ Hydrocodone Bitart 1 tab Q4HP PRN PO 09/21/25 01:15 09/26/25 09:28 1 TAB Enoxaparin Sodium 30 mg DAILY SC 09/21/25 10:00 09/26/25 09:00 30 MG Ceftriaxone Sodium 50 ml @ 100 mls/hr DAILY@09 IV 09/21/25 09:00 09/26/25 09:00 100 MLS/HR Aspirin 81 mg DAILY PO 09/21/25 10:00 09/26/25 09:01 81 MG Pantoprazole Sodium 40 mg DAILY@0600 PO 09/21/25 06:00 09/26/25 07:05 40 MG Clopidogrel Bisulfate 75 mg DAILY PO 09/21/25 10:00 09/26/25 09:01 75 MG Atorvastatin Calcium 80 mg HS PO 09/21/25 22:00 09/25/25 23:54 80 MG Diagnostic Test (Pha) 1 strip ACHS 09/21/25 07:00 09/26/25 07:05 1 STRIP Insulin Human Regular ACHS SC 09/21/25 07:00 09/26/25 12:11 4 UNITS Dextrose 50 ml UD PRN IV 09/21/25 01:15 Risperidone 2 mg DAILY PO 09/21/25 10:00 09/26/25 09:00 2 MG Metoprolol Succinate 50 mg BID PO 09/24/25 22:00 09/26/25 09:06 50 MG objective GENERAL: Alert and oriented x 3. No acute distress. Morbid obesity. EYES: PERRL, EOMI. Anicteric. HENT: Moist mucous membranes. LUNGS: Clear to auscultation bilaterally. CARDIOVASCULAR: Regular rate and rhythm. ABDOMEN: Soft, nontender and nondistended. EXTREMITIES: No edema. NEUROLOGIC: No focal neurological deficits. SKIN: Warm, dry. laboratory and microbiology Laboratory Tests 09/26/25 05:39 09/25/25 05:10 Test 09/25/25 05:10 Range/Units Serum Glucose 153 H 74-106 mg/dL Problem List Preprocedural cardiovascular examination. Recent acute inferior wall CT on 08/18/2025. Coronary artery disease status post PCI of the RCA x 3DES (on DAPT/Statin/Metoprolol). Chronic compensated HFimEF, NYHA class II (previous LVEF 40% on echo 08/18/25). Diabetes mellitus. Hypertension. Dyslipidemia. HX of CVA with left-sided deficits. Bed-bound. Obesity. Assessment/Plan Continued all current supportive medical care. [place] for pain management. Aspirin, Lipitor, Plavix, Metoprolol. IV antibiotics as ordered. DVT prophylactics. Additional plan as per the hospital course. Plan discussed with: Patient NICKY RODRIGUEZ MD Sep 26, 2025 13:47
[2025-09-27 01:00] VITALS: BP 131/80; PULSE 100; RESP 18; TEMP 98.3; O2SAT 97
[2025-09-27 05:00] VITALS: BP 103/66; PULSE 92; RESP 17; TEMP 97.5; O2SAT 94
[2025-09-27 09:27] VITALS: BP 135/79; PULSE 99; RESP 19; TEMP 97.6; O2SAT 97
[2025-09-27 10:31] VITALS: BP 135/79; PULSE 99
[2025-09-27 12:34] VITALS: BP 110/63; PULSE 102; RESP 19; TEMP 97.9; O2SAT 96
--- NOTE | 2025-09-27 13:42 | DVHDSRES ---
Discharge Summary Date of Admission Resident Creating Document: HUONG ERWIN Sep 20, 2025 at 23:39 Date of Discharge: Sep 27, 2025 Labs/Diagnostic Data: Laboratory Results Test 09/27/25 11:40 09/26/25 05:39 09/25/25 05:10 09/23/25 16:04 POC Glucose 260 mg/dl (70-106) White Blood Count 8.5 10^3/uL (4.4-10.8) Red Blood Count 3.52 10^6/uL (4.0-5.20) Hemoglobin 10.7 g/dL (12.2-16.2) Hematocrit 31.5 % (36.0-46.0) Mean Corpuscular Volume 89.5 fL (80.0-100.0) Mean Corpuscular Hemoglobin 30.3 pg (28.0-32.0) Mean Corpuscular Hemoglobin Concent 33.8 g/dL (32.0-36.0) Red Cell Distribution Width 13.0 % (11.8-14.3) Platelet Count 212 10^3/uL (140-450) Mean Platelet Volume 8.9 fL (6.9-10.8) Neutrophils (%) (Auto) 86.6 % (37.0-80.0) Lymphocytes (%) (Auto) 7.6 % (10.0-50.0) Monocytes (%) (Auto) 5.7 % (0.0-12.0) Eosinophils (%) (Auto) 0.0 % (0.0-7.0) Basophils (%) (Auto) 0.1 % (0.0-2.0) Neutrophils # (Auto) 7.4 10 ^3/uL (1.6-8.6) Lymphocytes # (Auto) 0.7 10 ^3/uL (0.4-5.4) Monocytes # (Auto) 0.5 10 ^3/uL (0-1.3) Eosinophils # (Auto) 0 10 ^3/uL (0-0.8) Basophils # (Auto) 0 10 ^3/uL (0-0.2) Nucleated Red Blood Cells 0.1 % Creatinine 0.49 mg/dL (0.550-1.02) Glomerular Filtration Rate Calc 109 mL/min (>90) Sodium Level 144 mmol/L (136-145) Potassium Level 4.1 mmol/L (3.5-5.1) Chloride Level 111 mmol/L (98-107) Carbon Dioxide Level 21 mmol/L (20-31) Anion Gap 12 (5-15) Blood Urea Nitrogen 13 mg/dL (9-23) BUN/Creatinine Ratio 22.4 (10.0-20.0) Serum Glucose 153 mg/dL (74-106) Calcium Level 8.7 mg/dL (8.7-10.4) Vancomycin Level Trough 18.1 ug/mL (5-10) Random Vancomycin Level 17.3 ug/mL (5-10) Test 09/22/25 06:57 09/21/25 05:16 09/20/25 22:28 09/20/25 19:54 Lactic Acid Level 1.2 mmol/L (0.4-2.0) Vitamin B12 Level 204 pg/mL (211-911) Vitamin D 25-Hydroxy 36.2 ng/mL (30.0-100) Thyroid Stimulating Hormone (TSH) 6.33 uIU/mL (0.55-4.78) Free Thyroxine (T4) Calculated 1.10 ng/dL (0.89-1.76) Total Triiodothyronine (TT3) 1.23 ng/mL (0.60-1.81) Hepatitis A Antibody Total Positive (Negative) Hepatitis B Surface Antigen Negative (Negative) Hepatitis B Surface Antibody Negative (Negative) Hepatitis B Core Total Antibody Negative (Negative) Hepatitis C Antibody Negative (Negative) Urine Color Light-orange (Yellow) Urine Clarity Turbid (Clear) Urine pH 5.5 (5.0-9.0) Urine Specific [place] 1.027 (1.001-1.035) Urine Protein 2+ (Negative) Urine Ketones Trace (Negative) Urine Blood 2+ /uL (Negative) Urine Nitrite Negative (Negative) Urine Bilirubin Negative (Negative) Urine Urobilinogen Normal mg/dL (Negative) Urine Leukocyte Esterase 3+ /uL (Negative) Urine RBC 256 /hpf (0 - 4) Urine Microscopic WBC 95 /HPF (0-5) Urine Squamous Epithelial Cells Few /hpf (<5) Urine Bacteria Few /hpf (None Seen) Urine Mucus Few (None Seen) Urine Yeast (Budding) Loaded /hpf (None Seen) Urine Glucose Normal mg/dL (Normal) Prothrombin Time 10.2 sec (9.3-11.8) Prothrombin Time INR 0.96 (0.9-1.15) Activated Partial Thromboplast Time 30.1 SEC (24.5-34.5) Magnesium Level 2.0 mg/dL (1.6-2.6) Total Bilirubin 0.4 mg/dL (0.2-1.0) Aspartate Amino Transferase (AST) 15 U/L (13-40) Alanine Aminotransferase (ALT) 14 U/L (7-40) Alkaline Phosphatase 102 U/L (46-116) Total Protein 6.4 g/dL (5.7-8.2) Albumin 3.5 g/dL (3.2-4.8) Other Laboratory Tests 09/26/25 05:39 09/25/25 05:10 Brief Hx & Hospital Course: This is a 60-year-old female with past medical history of CAD with 3 stent placed in 09/07/2025, hyperlipidemia, CVA in 2021, anxiety disorder, chronic pelvic pain, type 2 diabetes mellitus, depression, and recent left femoral fracture brought by EMS to the hospital due to burning urine for 3 days. Patient states she began have burning pelvic and lower back pain, non-radiating, 6/10 intensity, without relieving or aggravating factors. Additonally referred left femur pain which is 8/10 intensity, localized, no radiation, aggravated on movement and no relieving factor. She had recently been seen at this institution for said fracture secondary to mechanical fall at home, where due to high cardiac risk, conservative management was considered. On evaluation in the ED,He was afebrile, tachycardic, tachypneic, hypertensive, saturating adequately on room air. labs were significant for hyperglycemia and high borderline lactic acid, UA is significant for UTI. Chest x-ray shows left lower lung zone linear atelectasis. Left femoral x-ray shows acute displaced fracture through the distal femoral metaphysis with posterior angulation and associated soft tissue edema. Pelvic x-ray shows no acute osseous abnormalities. she was started on IV antibiotics and pain medication. She was admitted for further She was admitted workup and monitoring. The patient was reevaluated by cardiology due to worsened femoral fracture, and she was subsequently cleared for procedure. She was taken for ORIF on 09/25/2025. she was evaluated by PT, who state that the patient is max assist and would benefit from SNF for PT. This was discussed with the patient and her son, rejected SNF and opted for home health with PT. Social service consult was placed and home for PT was arranged. On evaluation today, the patient states she is well, complains of left femoral pain that is manageable with medication. She is afebrile, with borderline high heart rate, normotensive, saturating adequately on room air. She is considered stable for discharge home with home health for PT. Home medications were continued and prescription for [place] 5 days was given. She will follow up in the discharge clinic within 72 hours. She will follow up with orthopedics outpatient in 2 weeks. All recommendations, medications, regimen, potential side effects have been explained to the patient. All questions and concerns have been addressed. She states she understands and agrees. General: Patient alert and oriented in person, place and time. Patient following commands. HEENT: Normocephalic, atraumatic, moist mucous membranes Respiratory/pulmonary: Clear lungs bilaterally, vesicular murmurs present in almost all lung bender, no associated crackles or wheezes. Cardiovascular: Normal heart sounds S1 and S2 with no associated murmurs Abdomen: Obese, Abdomen nondistended, there is no pain to palpation in any of the abdominal quadrants, no palpable masses. Rodriguez in place Extremities: pain in left thigh, left leg is edematous post op, there is a bandage covering the left thigh, pulses are palpable, sensation is intact Peripheral Pulses: 3+ Radial (R). 3+ Radial (L). 3+ Dorsalis pedis (R). 3+ Dorsalis pedis(L) Skin: No rashes or pruritus, there is no sacral edema present at this time. Neurological: Intact cranial nerves with no focal neurologic deficits Goals of care and discharge planning discussed with the patient for over 37 minutes. Case discussed with Dr. Thorne. Consults/Reason for consult Cardiology was consulted for cardiac clearance for ORIF Orthopedics was consulted due to worsened displacement of left distal femoral fracture Condition at Discharge: Stable Final Diagnosis/Problems List Intractable leg pain due to Left femur fracture - S/p Femoral fracture fixation 09/25/2025 Acute complicated UTI Complicated cystitis CAD s/p PCI with 3 CONCEPCION Mixed hyperlipidemia Type 2 diabetes mellitus with hyperglycemia, HbA1c 6.5 Cannabis use disorder Functional quadriplegia H/o depression and anxiety Morbid obesity BMI 32.7 Hx of CVA with left sided deficits Discharge Disposition: Home with Health Services Discharge Instruct/Medications Diet: Cardiac 2g Na,low cholest Activity: No Restrictions, As Tolerated Activity comment: WEIGHT BEARING TOLERATED Follow Up/Referral: Follow up in discharge clinic within 72 hours Follow up with PCP within 1 week Follow up with orthoedics in 2 weeks Medications: [place] 5 mg/325 mg PO PRN for 5 days Home meds Scheduled Aspirin (Aspirin 81), 81 MG PO DAILY Atorvastatin Calcium (Atorvastatin Calcium), 1 TAB PO QPM Bupropion Hcl (Wellbutrin Sr), 1 TAB PO DAILY, (Reported) Clonazepam (Clonazepam), 1 TAB PO BID, (Reported) Clopidogrel Bisulfate (Plavix), 1 TAB PO DAILY Docusate Sodium (Docusate Sodium), 1 CAP PO TID, (Reported) Insulin Aspart (Insulin Aspart Flexpen), 10 UNITS SC TID, (Reported) Insulin Glargine (Basaglar Kwikpen), 90 UNITS SC DAILY, (Reported) Losartan Potassium (Losartan Potassium), 1 TAB PO DAILY, (Reported) Metformin Hydrochloride (Metformin Hcl), 1 TAB PO BID Metoprolol Tartrate (Metoprolol Tartrate), 1 TAB PO BID, (Reported) Nifedipine (Nifedipine Er), 1 TAB PO DAILY, (Reported) Omeprazole (Omeprazole Dr), 1 CAP PO DAILY, (Reported) Risperidone (Risperidone), 1 TAB PO QPM, (Reported) Scheduled PRN Hydrocodone-Acetaminophen (Hydrocodone Bitartrate/AC 5-325 mg), 1 TAB PO QID PRN Hydrocodone-Acetaminophen (Hydrocodone Bitartrate/AC 5-325 mg), 1 TAB PO Q6HP PRN Discontinued Medications Levofloxacin Hemihydrate (Levaquin 500 Mg), 1 TAB PO DAILY Trazodone Hcl (Trazodone Hcl), 1 TAB PO HSPRN PRN for FOR INSOMNIA, (Reported) Discharge Statement: "Patient was advised to return to the ER or call 911 if any headaches, dizziness, shortness of breath, chest pain, abdominal pain, bleeding, fevers, or worsening of medical condition. Patient was counseled about treatment plan, medications, possible side effects, patientverbalized understanding. All questions were answered to the best of my ability. This discharge took greater then 30 minutes in planning, reviewing documentation, counseling the patient, and discussing with other team members." ASSESSMENT ASSESSMENT Assessment Intractable leg pain due to Left femur fracture s/p ORIF Visit Coding STANDARD RES Billing Provider: ALEKSANDER THORNE MD Date of Service if different f: Sep 27, 2025 Common Visit Codes: 35253-UIA/OBS DISCH DAY >30min HUONG ERWIN RESIDENT Sep 27, 2025 13:42 ALEKSANDER THORNE MD Sep 28, 2025 14:37
--- NOTE | 2025-09-28 04:22 | DVHPN2 ---
Progress Note - Dictate Date Seen: Sep 27, 2025 Medical Necessity Reason Pt with a Central, PICC or Fol: Yes The following are medically ne: Rodriguez Catheter Subjective Patient was seen and evaluated in follow up. Patient has no new complaints at this time. Patient denies any cardiac symptoms. Patient is cardiac stable for discharge. vital signs Vital Sign Date Time Temp Pulse Resp B/P (MAP) Pulse Ox O2 Delivery O2 Flow Rate FiO2 09/27/25 12:34 97.9 102 19 110/63 (79) 96 97.9 09/27/25 08:05 Room Air* 0 21 Total Intake and Output 09/26/25 09/26/25 09/27/25 15:00 23:00 07:00 Intake Total 50 ml 570 ml 400 ml Output Total 300 ml 350 ml Balance 50 ml 270 ml 50 ml medications Current Medications Medications Dose Ordered Sig/Jaime Route Start Time Stop Time Status Last Admin Dose Admin Sodium Chloride 1,000 ml @ 75 mls/hr [id number] IV 09/21/25 01:15 09/27/25 05:08 75 MLS/HR Acetaminophen/ Hydrocodone Bitart 1 tab Q4HP PRN PO 09/21/25 01:15 09/27/25 08:39 1 TAB Enoxaparin Sodium 30 mg DAILY SC 09/21/25 10:00 09/27/25 08:40 30 MG Ceftriaxone Sodium 50 ml @ 100 mls/hr DAILY@09 IV 09/21/25 09:00 09/27/25 08:40 100 MLS/HR Aspirin 81 mg DAILY PO 09/21/25 10:00 09/27/25 08:37 81 MG Pantoprazole Sodium 40 mg DAILY@0600 PO 09/21/25 06:00 09/27/25 05:08 40 MG Clopidogrel Bisulfate 75 mg DAILY PO 09/21/25 10:00 09/27/25 08:39 75 MG Atorvastatin Calcium 80 mg HS PO 09/21/25 22:00 09/26/25 21:09 80 MG Diagnostic Test (Pha) 1 strip ACHS 09/21/25 07:00 09/27/25 06:07 1 STRIP Insulin Human Regular ACHS SC 09/21/25 07:00 09/27/25 12:20 6 UNITS Dextrose 50 ml UD PRN IV 09/21/25 01:15 Risperidone 2 mg DAILY PO 09/21/25 10:00 09/27/25 08:39 2 MG Metoprolol Succinate 50 mg BID PO 09/24/25 22:00 09/27/25 08:38 50 MG Ketorolac Tromethamine 15 mg Q8HR IV 09/26/25 22:00 10/01/25 21:59 09/27/25 05:11 15 MG objective GENERAL: Alert and oriented x 3. No acute distress. Morbid obesity. EYES: PERRL, EOMI. Anicteric. HENT: Moist mucous membranes. LUNGS: Clear to auscultation bilaterally. CARDIOVASCULAR: Regular rate and rhythm. ABDOMEN: Soft, nontender and nondistended. EXTREMITIES: No edema. NEUROLOGIC: No focal neurological deficits. SKIN: Warm, dry. laboratory and microbiology Laboratory Tests 09/26/25 05:39 09/25/25 05:10 Test 09/25/25 05:10 Range/Units Serum Glucose 153 H 74-106 mg/dL Problem List Preprocedural cardiovascular examination. Recent acute inferior wall NE on 08/18/2025. Coronary artery disease status post PCI of the RCA x 3DES (on DAPT/Statin/Metoprolol). Chronic compensated HFimEF, NYHA class II (previous LVEF 40% on echo 08/18/25). Diabetes mellitus. Hypertension. Dyslipidemia. HX of CVA with left-sided deficits. Bed-bound. Obesity. Assessment/Plan Continued all current supportive medical care. [place] for pain management. Aspirin, Lipitor, Plavix, Metoprolol. IV antibiotics as ordered. DVT prophylactics. Additional plan as per the hospital course. Plan discussed with: Patient NICKY RODRIGUEZ MD Sep 27, 2025 13:08
== END 2025-09-27 14:40 | disposition home health service (06) | DRG 308 ==
LOC: EDUNIT# 19:20 → EDBD 19:20 → ER 19:20 → OVERFLOW 23:39 → EAST 09-21 17:16 → TELE-EAST 09-26 00:38 → EAST 09-26 16:19
PROVIDERS: ADMIT Student in an Organized Health Care Education/Training Program; ATTEND Student in an Organized Health Care Education/Training Program
PROC: 0QSC34Z Reposition Left Lower Femur with Internal Fixation Device, Percutaneous Approach (ICD-10-PCS; principal; 2025-09-25 10:50)
DX: S72.402A Unspecified fracture of lower end of left femur, initial encounter for closed fracture (principal); R53.2 Functional quadriplegia; I11.0 Hypertensive heart disease with heart failure; Z79.02 Long term (current) use of antithrombotics/antiplatelets; N30.90 Cystitis, unspecified without hematuria; E66.01 Morbid (severe) obesity due to excess calories; I69.30 Unspecified sequelae of cerebral infarction; E11.65 Type 2 diabetes mellitus with hyperglycemia; F32.A Depression, unspecified; I50.9 Heart failure, unspecified; F41.9 Anxiety disorder, unspecified; E78.2 Mixed hyperlipidemia; I25.10 Atherosclerotic heart disease of native coronary artery without angina pectoris; W18.39XA Other fall on same level, initial encounter; I25.2 Old myocardial infarction; Z91.041 Radiographic dye allergy status; Z99.3 Dependence on wheelchair; Z95.5 Presence of coronary angioplasty implant and graft; Z68.32 Body mass index [BMI] 32.0-32.9, adult; Z74.01 Bed confinement status; Z79.4 Long term (current) use of insulin; Y93.89 Activity, other specified; Y92.89 Other specified places as the place of occurrence of the external cause; Y99.8 Other external cause status
CPT/HCPCS: 36415; 71045; 72170; 76000; 80048; 80053; 80202; 81001; 82306; 82565; 82607; 82962; 83605; 83735; 84439; 84443; 84480; 85025; 85610; 85730; 86704; 86706; 86708; 86803; 86850; 86900; 86901; 87040; 87077; 87081; 87086; 87186; 87340; 93005; 97163; G0378; J1100; J1815; J1885; J2250; J2704; J3490